=== PATIENT | female | born 1950 | race Caucasian/White ===

== ENCOUNTER → 2016-12-15 | Outpatient (CLI) | payer BC ==
[~2016-12-15] MED LIST: ALPR-411 PO; ALPR0.25 PO; ASPCH81; ASPI81TA28 PO; CALC600T9 PO; CHOL1TAB42 PO; CLOP1TAB15 PO; CLX20 PO; CMD5 PO; CTP/1 PO; CTP1 PO; ISOS60TA25 PO; METO1TAB54 PO; METO25TA56 PO; NTRSL3 UT; OXYB15TA PO; PANT40TA PO; PRAV20TA PO; PRAV80TA2 PO; PRT/20 PO; RGL5 PO; WARF5TAB90 PO; WARF7.5T PO
--- NOTE | 2016-12-15 15:45 | MAMMOGRAPHY REPORT ---
BILATERAL DIGITAL SCREENING MAMMOGRAM WITH CAD: 12/15/2016 CLINICAL HISTORY: Routine screening. Patient has no complaints. TECHNIQUE: Bilateral CC and MLO views were obtained. Current study was also evaluated with a Comput er Aided Detection (CAD) system. COMPARISON: Comparison is made to exams dated: 11/05/2015 mammogram, 09/03/2014 mammogram, 07/11/2013 mammogram, 07/01/2012 mammogram, 06/23/2011 mammogram, and 05/09/2010 mammogram - [facility]. BREAST COMPOSITION: There are scattered areas of fibroglandular density in both breasts. FINDINGS: There is stable asymmetry in the lateral right breast. A benign coarse calcification in t he 6:00 right breast. No suspicious mass, architectural distortion or cluster of microcalcification s is seen. IMPRESSION: ACR BI-RADS CATEGORY 1: NEGATIVE There is no mammographic evidence of malignancy. A 1 year screening mammogram is recommended. The p atient will receive written notification of the results. Approximately 10% of breast cancers are not detected with mammography. A negative mammographic repor t should not delay biopsy if a clinically suggestive mass is present. Lia Bernabe M.D. ay/:12/15/2016 15:36:38 Chemical Operator: Paris GARDNER(Luciana)(Mook)(BD), [facility] letter sent: Normal 1/2 BI-RADS Code: ACR BI-RADS Category 1: Negative
== END | disposition home or self-care (01) ==
LOC: C.MAMM 11:50
PROVIDERS: ATTEND Obstetrics & Gynecology
DX: Z12.31 Encounter for screening mammogram for malignant neoplasm of breast (principal)

== ENCOUNTER → 2017-06-15 | Outpatient (CLI) | payer BC ==
[2017-06-15 12:26] LABS: BASO % 0.3 %; BASO ABS # 0.01 K/uL (0-0.2); COMPLETE YES; EOS % 8.7 %; HEMATOCRIT 44.1 % (37-47); LYMPH ABS # 1.37 K/uL (1.2-3.4); MEAN CELL VOLUME 90.6 fL (80-100); MEAN CORPUSCULAR HGB CONC 34.2 g/dl (32-36); MEAN PLATELET VOLUME 10.4 fL (7.4-10.4); MONO % 8.7 %; NEUT % 46.3 %; PLATELET COUNT 203 K/uL (130-400); RED BLOOD COUNT 4.87 M/uL (4.2-5.4); WHITE BLOOD COUNT 3.81 K/uL (4.8-10.8)
[2017-06-15 12:46] LABS: ALT/SGPT 26 U/L (12-78); AST/SGOT 18 U/L (15-37); BLOOD UREA NITROGEN 14 mg/dl (7-18); BUN/CREATININE RATIO 12.5 (10-20); CARBON DIOXIDE 30 mmol/L (21-32); CHLORIDE 109 mmol/L (98-107); CHOLESTEROL 158 mg/dl (0-200); GLUCOSE 111 mg/dl (70-99); POTASSIUM 4.5 mmol/L (3.5-5.1); SODIUM 141 mmol/L (136-145); TRIGLYCERIDES 129 mg/dl (0-150); VERY LOW DENSITY LIPOPROT CALC 26 mg/dl
[2017-06-15 12:48] LABS: ALB/GLOB RATIO 1.1 (0.9-2); ALKALINE PHOSPHATASE 72 U/L (45-117); HDL CHOLESTEROL 53 mg/dl; LDL CHOLESTEROL CALCULATED 79 mg/dl
[2017-06-15 12:57] LABS: ESTIMATED AVERAGE GLUCOSE 111 mg/dl; HA1C FLAG Normal (Normal)
== END | disposition home or self-care (01) ==
LOC: C.LABBFT 09:42
PROVIDERS: ATTEND Internal Medicine
DX: R73.03 Prediabetes (principal); I10 Essential (primary) hypertension; E78.5 Hyperlipidemia, unspecified

== ENCOUNTER → 2017-09-07 | Day surgery (SDC) | payer BC ==
[2017-08-30 08:33] VITALS: Ht 167.6 cm; Wt 93.2 kg
[~2017-09-07] VITALS: Ht 167.6 cm; Wt 93.2 kg
[~2017-09-07] MED LIST changes: -ALPR-411 PO; -ASPCH81; -CLOP1TAB15 PO; -CLX20 PO; -CMD5 PO; -CTP1 PO; +LIDOCAINE HCL 2% 2 ML VIAL (20MG/ML) ONE; +MIDAZOLAM HCL 1 MG/ML 2ML VIAL ONE; -NTRSL3 UT; -PANT40TA PO; -PRAV20TA PO; +PROPOFOL IV EMULSION 10 MG/ML 20 ML VIAL IV ONE; -RGL5 PO; +SODIUM CHLORIDE 0.9% 500ML 500 ML IV ONE
--- NOTE | 2017-09-07 08:36 | Endo History and Physical ---
History & Physical Date of Service: Sep 07, 2017. Chief Complaint: Bright red rectal bleeding Referring Physician: Dr. Diaz History of Present Illness 67 yo CF who presents for colonoscopy secondary to bright red bleeding per rectum. Past Surgical History Hx Cardiac Surgery: Yes (HEART CATHS, STENT X1; AORTIC VALVE REPLACEMENT AND CABG X3 VESSELS) Hx Internal Defibrillator: No Hx Pacemaker: No Hx Abdominal Surgery: Yes (, KRISTIAN, LIA BSO) Hx of Implantable Prosthesis: No Hx Post-Op Nausea and Vomiting: No Hx Cancer Surgery: No Hx Thoracic Surgery: No Hx Orthopedic: No Hx Urinary Tract Surgery: No Family History Colon CA Social History Smoking Status: Former Smoker Hx Substance Use: No Hx Alcohol Use: No Allergies Coded Allergies: Iodinated Contrast Media (Verified Allergy, Unknown, GI UPSET, 08/30/17) Methadone (Verified Allergy, Unknown, PT UNSURE REACTION - GI UPSET(?), ) Dicyclomine (Verified Adverse Reaction, Intermediate, N/V, 08/30/17) Codeine (Verified Adverse Reaction, Unknown, NAUSEA & PAIN, 08/30/17) HMG-CoA-R Inhibitors (Verified Adverse Reaction, Unknown, STATIN INTOLERANCE - GI UPSET, 08/30/17) Propoxyphene (Verified Adverse Reaction, Unknown, NAUSEA & PAIN, 08/30/17) Current Medications Reported Home Medications Medications Dose Route/Sig Max Daily Dose Days Date Category Dose Instructions Reglan (Metoclopramide Hcl) 5 Mg Tab 5 Mg PO BID 08/30/17 Reported Lopressor (Metoprolol Tartrate) 25 Mg Tab 2 Tabs PO QPM 08/30/17 Reported Catapres (Clonidine Hcl) 0.1 Mg Tab 0.1 Mg PO QAM 08/30/17 Reported Coumadin (Warfarin Sodium) 7.5 Mg Tab 7.5 Mg PO 2XWK 08/30/17 Reported TU,FRI Coumadin (Warfarin Sodium) 5 Mg Tab 5 Mg PO 5XWK 08/30/17 Reported SUN,MON,WED,THURS,SAT Vitamin D (Cholecalciferol) 5,000 Unit Tab 1 Tab PO QAM 08/30/17 Reported Aspirin Ec (Aspirin) 81 Mg Tab 81 Mg PO QPM 08/30/17 Reported Calcium + D (Calcium Carbonate-Vitamin D) 1 Tab Tab 1 Tab PO BID 08/30/17 Reported Xanax (Alprazolam) 0.25 Mg Tab 2 Tabs PO HS 08/30/17 Reported Protonix (Pantoprazole Sodium) 20 Mg Tab 2 Tabs PO QAM 08/30/17 Reported Pravastatin Sodium 80 Mg Tab 1 Tab PO QPM 08/30/17 Reported Lopressor (Metoprolol Tartrate) 25 Mg Tab 25 Mg PO QAM 10/20/09 Reported Imdur Ext Rel (Isosorbide Mononitrate) 60 Mg Ertab 60 Mg PO QAM 10/20/09 Reported Vital Signs Weight (Kilograms): 93.18 Height (Feet): 5 Height (Inches): 6 Physical Exam General Appearance: WD/WN, no apparent distress Respiratory/Chest: Auscultation: breath sounds normal Cardiovascular: Heart Auscultation: RRR Abdomen: Bowel Sounds: normal Inspection & Palpation: soft, non-distended, no tenderness, guarding & rebound Assessment and Plan Assessment: 67 yo CF who presents for colonoscopy secondary to bright red bleeding per rectum. Plan: Proceed with colonoscopy.
--- NOTE | 2017-09-07 09:30 | Discharge Instructions ---
Endoscopy Patient Instructions Date / Procedure(s) Performed Sep 07, 2017. Colonoscopy Allergy Information Coded Allergies: Iodinated Contrast Media (Verified Allergy, Unknown, GI UPSET, 08/30/17) Methadone (Verified Allergy, Unknown, PT UNSURE REACTION - GI UPSET(?), ) Dicyclomine (Verified Adverse Reaction, Intermediate, N/V, 08/30/17) Codeine (Verified Adverse Reaction, Unknown, NAUSEA & PAIN, 08/30/17) HMG-CoA-R Inhibitors (Verified Adverse Reaction, Unknown, STATIN INTOLERANCE - GI UPSET, 08/30/17) Propoxyphene (Verified Adverse Reaction, Unknown, NAUSEA & PAIN, 08/30/17) Discharge Date / Findings Sep 07, 2017. Diverticulosis Internal hemorrhoids Medication Instructions Stopped Medication(s): last babyASA and Coumadin 09/06 at 2300 OK to resume all medications today as prescribed Reported Home Medications Medications Dose Route/Sig Max Daily Dose Days Date Category Dose Instructions Reglan (Metoclopramide Hcl) 5 Mg Tab 5 Mg PO BID 08/30/17 Reported Lopressor (Metoprolol Tartrate) 25 Mg Tab 2 Tabs PO QPM 08/30/17 Reported Oxybutynin Chloride Er (Oxybutynin Chloride) 15 Mg Tab 1 Tab PO QAM 08/30/17 Reported Catapres (Clonidine Hcl) 0.1 Mg Tab 0.1 Mg PO QAM 08/30/17 Reported Coumadin (Warfarin Sodium) 7.5 Mg Tab 7.5 Mg PO 2XWK 08/30/17 Reported TUES,FRI Coumadin (Warfarin Sodium) 5 Mg Tab 5 Mg PO 5XWK 08/30/17 Reported SUN,MON,WED,THURS,SAT Vitamin D (Cholecalciferol) 5,000 Unit Tab 1 Tab PO QAM 08/30/17 Reported Aspirin Ec (Aspirin) 81 Mg Tab 81 Mg PO QPM 08/30/17 Reported Calcium + D (Calcium Carbonate-Vitamin D) 1 Tab Tab 1 Tab PO BID 08/30/17 Reported Xanax (Alprazolam) 0.25 Mg Tab 2 Tabs PO HS 08/30/17 Reported Protonix (Pantoprazole Sodium) 20 Mg Tab 2 Tabs PO QAM 08/30/17 Reported Pravastatin Sodium 80 Mg Tab 1 Tab PO QPM 08/30/17 Reported Lopressor (Metoprolol Tartrate) 25 Mg Tab 25 Mg PO QAM 10/20/09 Reported Imdur Ext Rel (Isosorbide Mononitrate) 60 Mg Ertab 60 Mg PO QAM 10/20/09 Reported Provider Instructions Activity Restrictions - No exercising or heavy lifting for 24 hours. - Do not drink alcohol the day of the procedure. - Do not drive a car or operate machinery until the day after the procedure. - Do not make any important decisions or sign important papers in 24 hours after the procedure. Following Day: - Return to full activity which may include returning to work/school. Diet Start your diet with liquids and light foods (jello, soup, juice, toast). Then eat your usual diet if not nauseated. Treatment For Common After Affects For mild abdominal pain, bloating, or excessive gas: - Rest - Eat lightly - Lie on right side Follow-Up Information Follow-up with Dr. Diaz as scheduled Anesthesia Information What You Should Know You have had a procedure that required some medicine to reduce anxiety and discomfort. This treatment is called moderate sedation. After receiving the treatment, you may be sleepy, but you will be able to breathe on your own. The effects of the treatment may last for several hours. Follow these instructions along with Activity/Diet recommendations noted above: * Do NOT do anything where dizziness or clumsiness would be dangerous. * Rest quietly at home today, then you can be up and about tomorrow. * Have a responsible person stay with you the rest of today. * You may have had an I.V. today. If so, you may take the dressing off later today. Recommendations Call your doctor if: * Trouble breathing * Continuous vomiting for more than 24 hours * Temperature above 101 degrees * Severe abdominal pain or bloating * Pain not relieved by pain medicine ordered * There is increased drainage or redness from any incision * A large amount of rectal bleeding greater than 2-3 tablespoons. (If you had a polyp/s removed or have hemorrhoids, a small amount of blood - from the rectum is to be expected.) * You have any unanswered questions or concerns. IN THE EVENT OF A SERIOUS EMERGENCY, GO TO THE NEAREST EMERGENCY ROOM Your discharge instructions were prepared by provider Jose Manuel Oglesby. Patient Instructions Signature Page Shelby Rocha Patient (or Guardian) Signature/Date: I have read and understand the instructions given to me by my caregivers. Caregiver/RN/Doctor Signature/Date: The above-named patient and/or guardian has received patient instructions on this date. + Original Patient Signature Page (only) stays with chart. Please make copy for patient.
--- NOTE | 2017-09-07 09:32 | GI REPORT ---
Procedure Date: 09/07/2017 8:41 AM Procedure: Colonoscopy Indications: Rectal bleeding Medicines: Monitored Anesthesia Care Complications: No immediate complications. Estimated Blood Loss: Estimated blood loss: none. Procedure: Pre-Anesthesia Assessment: - Prior to the procedure, a History and Physical was performed, and patient medications and allergies were reviewed. The patient's tolerance of previous anesthesia was also reviewed. The risks and benefits of the procedure and the sedation options and risks were discussed with the patient. All questions were answered, and informed consent was obtained. Prior Anticoagulants: The patient last took aspirin 1 day and Coumadin (warfarin) 1 day prior to the procedure. ASA Grade Assessment: III - A patient with severe systemic disease. After reviewing the risks and benefits, the patient was deemed in satisfactory condition to undergo the procedure. After I obtained informed consent, the scope was passed under direct vision. Throughout the procedure, the patient's blood pressure, pulse, and oxygen saturations were monitored continuously. The scope was introduced through the anus and advanced to the terminal ileum. The colonoscopy was performed without difficulty. The patient tolerated the procedure well. The quality of the bowel preparation was good. The terminal ileum, ileocecal valve, appendiceal orifice, and rectum were photographed. Findings: Multiple medium-mouthed diverticula were found in the sigmoid colon. Non-bleeding internal hemorrhoids were found during retroflexion. The hemorrhoids were small. Impression: - Diverticulosis in the sigmoid colon. - Non-bleeding internal hemorrhoids. - No specimens collected. Recommendation: - Resume previous diet. - Continue present medications. - Repeat colonoscopy in 10 years for surveillance. - Return to primary care physician as previously scheduled. Jose Manuel Oglesby DO 09/07/2017 9:31:59 AM This report has been signed electronically. Note Initiated On: 09/07/2017 8:41 AM I attest to the content of the Intraoperative Record and orders documented therein, exceptions below
[2017-09-07 09:53] VITALS: BP 152/70; PULSE 52; O2SAT 97
--- NOTE | 2017-09-07 10:21 | Anesthesiology Progress Note ---
Anesthesia Post Op Note Date & Time Sep 07, 2017 at 10:21 Vital Signs Pain Intensity: 0 Vital Signs Past 12 Hours Date Time Temp Pulse Resp B/P (MAP) Pulse Ox O2 Delivery O2 Flow Rate FiO2 09/07/17 09:53 52 20 152/70 (97) 97 Room Air 09/07/17 09:35 52 20 144/72 (96) 97 Room Air 09/07/17 09:20 75 17 127/87 (100) 96 Room Air 09/07/17 08:46 36.7 59 20 173/77 (109) 95 Room Air Notes Mental Status: alert / awake / arousable, participated in evaluation Pt Amnestic to Procedure: Yes Nausea / Vomiting: adequately controlled Pain: adequately controlled Airway Patency, RR, SpO2: stable & adequate BP & HR: stable & adequate Hydration State: stable & adequate Anesthetic Complications: no major complications apparent
== END | disposition home or self-care (01) ==
LOC: C.GI 08:25
PROVIDERS: ATTEND Internal Medicine
DX: K62.5 Hemorrhage of anus and rectum (principal); K64.8 Other hemorrhoids; K57.30 Diverticulosis of large intestine without perforation or abscess without bleeding; I10 Essential (primary) hypertension; I25.10 Atherosclerotic heart disease of native coronary artery without angina pectoris; K21.9 Gastro-esophageal reflux disease without esophagitis; I25.2 Old myocardial infarction; Z90.710 Acquired absence of both cervix and uterus; Z79.01 Long term (current) use of anticoagulants; Z79.82 Long term (current) use of aspirin; Z87.891 Personal history of nicotine dependence; Z80.0 Family history of malignant neoplasm of digestive organs

== ENCOUNTER 2017-09-25 08:42 | Emergency (ER) | payer OTHER, BC ==
[~2017-09-25] VITALS: Ht 170.2 cm; Wt 96.4 kg
[~2017-09-25 08:42] MED LIST changes: -LIDOCAINE HCL 2% 2 ML VIAL (20MG/ML) ONE; -MIDAZOLAM HCL 1 MG/ML 2ML VIAL ONE; -PROPOFOL IV EMULSION 10 MG/ML 20 ML VIAL IV ONE; -SODIUM CHLORIDE 0.9% 500ML 500 ML IV ONE
[2017-09-25 09:03] VITALS: TEMP 37.2; Ht 170.2 cm; Wt 96.4 kg
[2017-09-25] MEDS ORDERED: ACETAMINOPHEN 500 MG TAB PO STA (09:17)
--- NOTE | 2017-09-25 09:51 | DIAGNOSTIC IMAGING REPORT ---
R RIBS UNILATERAL WITH PA CHEST CLINICAL HISTORY: fall/right rib pain trauma. Pain. COMPARISON STUDY: None FINDINGS: Nondisplaced cortical fracture right fifth rib of uncertain age. All remaining ribs are unremarkable. Patient is status post prior median sternotomy. No evidence pneumothorax. IMPRESSION: Nondisplaced cortical fracture right fifth rib uncertain age. The above report was generated using voice recognition software. It may contain grammatical, syntax or spelling errors. Electronically signed by: Osmany James M.D. 09/25/2017 9:50 AM Dictated Date/Time: 09/25/2017 9:49 AM
--- NOTE | 2017-09-25 10:28 | EMERGENCY ROOM VISIT NOTE ---
ED Visit Note First contact with patient: 09:11 67 year old female with rib pain was fully evaluated by Nel James PA-C. Please see her note. I also independently evaluated the patient. IMPRESSION: Rib fracture
[2017-09-25] MEDS ORDERED: HYDR-5688 PO (10:33)
--- NOTE | 2017-09-25 10:33 | EMERGENCY ROOM VISIT NOTE ---
History First contact with patient: 09:11 Chief Complaint: RIB PAIN Stated Complaint: WORK RELATED- PAIN IN RIB CAGE History of Present Illness The patient is a 67 year old female who presents to the Emergency Room with complaints of right rib pain. The patient states she was at work at [employer] and was leaning over a cain to plug in a light when she lost her balance and fell forward striking her right ribs on the edge of the cain. The patient did not fall to the ground. She did not hit her head or lose consciousness. The patient states the pain is under her right breast and around the right side. She states she heard a "crack" when the injury occurred. The patient denies any shortness of breath. She does admit to increased pain with inspiration. She has not taken anything for pain. The patient is on Coumadin. She states that her INR has been stable for one year. She gets labs every month. Her last lab was 2 weeks ago and was normal. Review of Systems 10 system review was performed and was negative unless stated otherwise history of present illness. Social History Smoking Status: Former Smoker Current/Historical Medications Scheduled Alprazolam (Xanax), 2 TABS PO HS Aspirin (Aspirin Ec), 81 MG PO QPM Calcium Carbonate-Vitamin D (Calcium + D), 1 TAB PO BID Cholecalciferol (Vitamin D), 1 TAB PO QAM Clonidine Hcl (Catapres), 0.1 MG PO QAM Isosorbide Mononitrate Ext Rel (Imdur Ext Rel), 60 MG PO QAM Metoclopramide Hcl (Reglan), 5 MG PO BID Metoprolol Tartrate (Lopressor) (Lopressor), 25 MG PO QAM Metoprolol Tartrate (Lopressor) (Lopressor), 2 TABS PO QPM Oxybutynin Chloride (Oxybutynin Chloride Er), 1 TAB PO QAM Pantoprazole (Protonix), 2 TABS PO QAM Pravastatin Sodium (Pravastatin Sodium), 1 TAB PO QPM Warfarin Sodium (Coumadin), 5 MG PO 5XWK Warfarin Sodium (Coumadin), 7.5 MG PO 2XWK Physical Exam Vital Signs Date Time Temp Pulse Resp B/P (MAP) Pulse Ox O2 Delivery O2 Flow Rate FiO2 09/25/17 10:13 54 18 129/77 96 Room Air 09/25/17 09:03 37.2 64 20 173/114 94 Room Air Physical Exam GENERAL: 67-year-old white female appears in no acute distress. MENTAL Status: Alert and oriented 3. NECK: Supple, no lymphadenopathy noted. No carotid bruits noted. LUNGS: Clear auscultation without wheezes rales or rhonchi. CARDIAC: Regular rate and rhythm without murmur. Pulses is full and equal throughout. CHEST WALL:No gross bony deformity noted no erythema or edema noted. The patient is tender to palpation Stender the right breast. Remainder chest wall is nontender. ABDOMEN: Soft, nontender to palpation without melena or masses. Medical Decision & Procedures ER Provider Diagnostic Interpretation: R RIBS UNILATERAL WITH PA CHEST CLINICAL HISTORY: fall/right rib pain trauma. Pain. COMPARISON STUDY: None FINDINGS: Nondisplaced cortical fracture right fifth rib of uncertain age. All remaining ribs are unremarkable. Patient is status post prior median sternotomy. No evidence pneumothorax. IMPRESSION: Nondisplaced cortical fracture right fifth rib uncertain age. The above report was generated using voice recognition software. It may contain grammatical, syntax or spelling errors. Electronically signed by: Osmany James M.D. 09/25/2017 9:50 AM Medications Administered Medications (Trade) Dose Ordered Sig/Berhane Route Start Time Stop Time Status Last Admin Dose Admin Acetaminophen (Tylenol Tab) 1,000 mg NOW STAT PO 09/25/17 09:17 09/25/17 09:19 DC 09/25/17 09:26 1,000 MG ED Course The patient was evaluated. The patient was given Tylenol 1 g by mouth. X-ray of the right ribs was ordered and interpreted by the radiologist and myself as above with a cortical fracture of the right 10th rib. The patient was independently evaluated by Dr. Valle who agrees with treatment plan. The patient was discharged home in stable condition. Medical Decision Differential diagnosis include rib fracture versus contusion versus pneumothorax [place] Drug Monitoring Program Search Results: patient reviewed within database Medication Reconcilliation Current Medication List: was personally reviewed by me Blood Pressure Screening Patient's blood pressure: Normal blood pressure Impression Primary Impression: Right rib fracture Departure Information Dispostion Home / Self-Care Condition GOOD Prescriptions Hydrocodone/Acetaminophen 5MG/325MG ([place] 5MG/325MG) Tab 1-2 TABLET PO Q6 Y for Pain, #20 TAB For Initial Treatment Prov: Nae James PA-C 09/25/17 Referrals Olman Diaz M.D. (PCP) Forms HOME CARE DOCUMENTATION FORM, IMPORTANT VISIT INFORMATION, WORK / SCHOOL INSTRUCTIONS Patient Instructions ED Fx Rib, My [facility] Additional Instructions [place] as needed for pain. Do not drive while taking the [place]. Follow-up with your family doctor next week for recheck. Activity as tolerated. Problem Qualifiers Primary Impression: Right rib fracture Encounter type: initial encounter Rib fracture type: single rib Fracture type: closed Qualified Codes: S22.31XA - Fracture of one rib, right side, initial encounter for closed fracture
[2017-09-25 10:54] VITALS: BP 129/77; PULSE 56; O2SAT 96
== END 2017-09-25 10:55 | disposition home or self-care (01) ==
LOC: C.EDB 08:43
DX: S22.31XA Fracture of one rib, right side, initial encounter for closed fracture (principal); W01.190A Fall on same level from slipping, tripping and stumbling with subsequent striking against furniture, initial encounter; Y92.511 Restaurant or cafe as the place of occurrence of the external cause; Y99.0 Civilian activity done for income or pay; Z79.01 Long term (current) use of anticoagulants; Z79.82 Long term (current) use of aspirin; Z87.891 Personal history of nicotine dependence

== ENCOUNTER → 2017-10-19 | Outpatient (CLI) | payer BC ==
[~2017-10-19] MED LIST changes: +HYDR-5688 PO
[2017-10-19 16:52] LABS: URINE APPEARANCE CLOUDY (CLEAR); URINE BILIRUBIN NEG (NEG); URINE COLOR YELLOW; URINE EPITHELIAL CELL AUTO 0-5 /lpf (0-5); URINE NITRITE POS (NEG); URINE SPECIFIC GRAVITY 1.018 (1.000-1.030); UROBILINOGEN NEG (NEG)
[2017-10-19 16:58] LABS: MANUAL MICROSCOPIC REQUIRED? NO; REVIEW REQ? YES
== END | disposition home or self-care (01) ==
LOC: C.LABBFT 11:32
PROVIDERS: ATTEND Physician Assistant Medical
DX: R32 Unspecified urinary incontinence (principal)

== ENCOUNTER → 2017-12-30 | Outpatient (CLI) | payer BC ==
[2017-12-30 12:41] LABS: BASO % 0.5 %; BASO ABS # 0.02 K/uL (0-0.2); EOS % 12.6 %; EOS ABS # 0.55 K/uL (0-0.5); HEMATOCRIT 44.1 % (37-47); HEMOGLOBIN 14.9 g/dL (12.0-16.0); LYMPH % 33.6 %; LYMPH ABS # 1.47 K/uL (1.2-3.4); MEAN CELL VOLUME 90.9 fL (80-100); MEAN CORPUSCULAR HEMOGLOBIN 30.7 pg (25-34); MEAN CORPUSCULAR HGB CONC 33.8 g/dl (32-36); MEAN PLATELET VOLUME 10.4 fL (7.4-10.4); MONO % 8.7 %; MONO ABS # 0.38 K/uL (0.11-0.59); NEUT % 44.6 %; NEUT ABS # 1.96 K/uL (1.4-6.5); PLATELET COUNT 191 K/uL (130-400); RED CELL DISTRIBUTION WIDTH CV 12.8 % (11.5-14.5); RED CELL DISTRIBUTION WIDTH SD 42.1 fL (36.4-46.3); WHITE BLOOD COUNT 4.38 K/uL (4.8-10.8)
[2017-12-30 12:59] LABS: ALBUMIN 3.6 gm/dl (3.4-5.0); ALT/SGPT 23 U/L (12-78); AST/SGOT 15 U/L (15-37); BLOOD UREA NITROGEN 17 mg/dl (7-18); CALCIUM 9.6 mg/dl (8.5-10.1); CARBON DIOXIDE 30 mmol/L (21-32); CHOLESTEROL 158 mg/dl (0-200); CREATININE 1.03 mg/dl (0.60-1.20); GLUCOSE 97 mg/dl (70-99); POTASSIUM 4.9 mmol/L (3.5-5.1); SODIUM 141 mmol/L (136-145)
[2017-12-30 13:00] LABS: ALKALINE PHOSPHATASE 82 U/L (45-117); LDL CHOLESTEROL CALCULATED 86 mg/dl; TOTAL PROTEIN 7.1 gm/dl (6.4-8.2)
[2017-12-30 13:10] LABS: HEMOGLOBIN A1C 5.4 % (4.5-5.6)
== END | disposition home or self-care (01) ==
LOC: C.LABBFT 09:18
PROVIDERS: ATTEND Internal Medicine
DX: R73.03 Prediabetes (principal); I10 Essential (primary) hypertension; E78.5 Hyperlipidemia, unspecified

== ENCOUNTER → 2018-02-01 | Outpatient (CLI) | payer BC | END | disposition home or self-care (01) | LOC: C.MAMM 10:24 | PROVIDERS: ATTEND Internal Medicine | DX: M81.0 Age-related osteoporosis without current pathological fracture (principal); M85.89 Other specified disorders of bone density and structure, multiple sites ==

== ENCOUNTER → 2018-02-01 | Outpatient (CLI) | payer BC ==
--- NOTE | 2018-02-01 11:14 | DIAGNOSTIC IMAGING REPORT ---
L-SPINE MIN 4 VIEWS ROUTINE CLINICAL HISTORY: M54.5 Acute lumbar back [id number] COMPARISON STUDY: No previous studies for comparison. FINDINGS: The bones are osteopenic. No acute fractures or subluxations are visualized. The disc space heights appear relatively well preserved for age IMPRESSION: Osteopenia, no fractures or subluxations identified Electronically signed by: Refugio Calixto M.D. 02/01/2018 11:13 AM Dictated Date/Time: 02/01/2018 11:12 AM
== END | disposition home or self-care (01) ==
LOC: C.RAD1850 10:56
PROVIDERS: ATTEND Physician Assistant Medical
DX: M54.5 Low back pain (principal); M85.88 Other specified disorders of bone density and structure, other site

== ENCOUNTER → 2018-02-22 | Outpatient (CLI) | payer BC ==
[2018-02-22 17:31] LABS: INR 3.8 (0.9-1.1)
== END | disposition home or self-care (01) ==
LOC: C.LAB 15:43
PROVIDERS: ATTEND Internal Medicine
DX: I35.9 Nonrheumatic aortic valve disorder, unspecified (principal); Z79.01 Long term (current) use of anticoagulants

== ENCOUNTER → 2018-03-09 | Outpatient (CLI) | payer BC ==
[2018-03-09 13:02] LABS: CALCIUM 9.5 mg/dl (8.5-10.1); CREATININE 1.09 mg/dl (0.60-1.20)
== END | disposition home or self-care (01) ==
LOC: C.LABBFT 10:08
PROVIDERS: ATTEND Internal Medicine Rheumatology
DX: K21.9 Gastro-esophageal reflux disease without esophagitis (principal); M81.0 Age-related osteoporosis without current pathological fracture; E61.8 Deficiency of other specified nutrient elements; E55.9 Vitamin D deficiency, unspecified; S22.39XA Fracture of one rib, unspecified side, initial encounter for closed fracture; X58.XXXA Exposure to other specified factors, initial encounter

== ENCOUNTER → 2018-03-15 | Outpatient (CLI) | payer BC | END | disposition home or self-care (01) | LOC: C.PAPS 16:09 | PROVIDERS: ATTEND Obstetrics & Gynecology | DX: Z12.4 Encounter for screening for malignant neoplasm of cervix (principal) ==

== ENCOUNTER → 2018-06-28 | Outpatient (CLI) | payer BC ==
[~2018-06-28] MED LIST changes: -HYDR-5688 PO; -OXYB15TA PO
== END | disposition home or self-care (01) ==
LOC: C.LABBFT 15:28
PROVIDERS: ATTEND Physician Assistant Medical
DX: R31.9 Hematuria, unspecified (principal)

== ENCOUNTER 2021-07-14 09:55 | Observation (INO) ==
[2021-07-14 11:01] LABS: Basophils # (auto) 0.01 K/uL (0-0.2); Basophils % (auto) 0.2 %; Eosinophils # (auto) 0.28 K/uL (0-0.5); Eosinophils % (auto) 4.3 %; Hematocrit (blood only) 45.1 % (37-47); Hemoglobin 15.7 g/dL (12.0-16.0); Immature Granulocytes # (auto) 0.01 K/uL (0.00-0.02); Immature Granulocytes % (auto) 0.2 %; Lymphocytes # (auto) 1.02 K/uL (1.2-3.4); Lymphocytes % (auto) 15.5 %; Mean Corpuscular Hemoglobin 31.3 pg (25-34); Mean Corpuscular Hgb Conc 34.8 g/dL (32-36); Mean Platelet Volume 9.9 fL (7.4-10.4); Monocytes # (auto) 0.32 K/uL (0.11-0.59); Monocytes % (auto) 4.9 %; Neutrophils # (auto) 4.94 K/uL (1.4-6.5); Neutrophils % (auto) 74.9 %; Platelet Count 232 K/uL (130-400); RDW Coefficient of Variation 12.3 % (11.5-14.5); RDW Standard Deviation 40.7 fL (36.4-46.3); Red Blood Count 5.01 M/uL (4.2-5.4); White Blood Count 6.58 K/uL (4.8-10.8)
--- NOTE | 2021-07-14 11:12 | CT Scan Report ---
CT head/brain wo con CLINICAL HISTORY: 71 years-old Female with Vertigo. Acute vertigo with hypertension TECHNIQUE: Multiple axial CT images of the head were obtained without contrast. A dose lowering tech nique was utilized adhering to the principles of ALARA. CT DOSE: 690.05 mGycm COMPARISON: None. FINDINGS: No acute intracranial hemorrhage, midline shift, intracranial mass, hydrocephalus, territorial ischem ia or abnormal extra-axial collection. Age-related involutional changes. Senescent calcifications of the basal ganglia. Cerebral vascular calcifications are also noted. The calvarium is intact. Mastoid air cells are clear. Mild to moderate mucosal thickening of the eth moid air cells. There is suggested volume loss of the partially imaged right maxillary sinus. Unremar kable soft tissues and orbits. IMPRESSION: No acute intracranial abnormality. ACT 112: Negative or not required by law. The above report was generated using voice recognition software. It may contain grammatical, syntax o r spelling errors. Electronically signed by: Herman Spencer M.D. 07/14/2021 11:10 AM
[2021-07-14 11:17] LABS: Partial Thromboplastin Ratio 1.5; Prothrombin Time 27.7 Seconds (9.0-12.0)
[2021-07-14] MEDS: SODIUM CHLORIDE 0.9% 1000ML 1,000 ML IV SCH ×2 (11:19→19:04)
[2021-07-14 11:20] LABS: Alanine Aminotransferase 25 U/L (12-78); Albumin Level 3.6 gm/dl (3.4-5.0); Aspartate Aminotransferase 15 U/L (15-37); BUN Creatinine Ratio 14.1 (10-20); Blood Urea Nitrogen 14 mg/dl (7-18); Calcium 9.2 mg/dl (8.5-10.1); Carbon Dioxide 28 mmol/L (21-32); Chloride 107 mmol/L (98-107); Creatinine Clr Calc Pharmacy 60.9 ml/min; Est GFR (African American) 64.7 ml/min; Est GFR (Non-African American) 55.8 ml/min; Glucose 141 mg/dl (70-99); Potassium 3.7 mmol/L (3.5-5.1); Sodium 138 mmol/L (136-145)
[2021-07-14 11:25] LABS: Alkaline Phosphatase 66 U/L (45-117); Bilirubin,Total 1.4 mg/dl (0.2-1); Globulin 3.5 gm/dl (2.5-4.0); Total Protein 7.1 gm/dl (6.4-8.2); Troponin I < 0.015 ng/ml (0-0.045)
[2021-07-14 13:26] LABS: Appearance Urine Clear (Clear); Bacteria Urine Automated Negative (Negative); Bilirubin Urine Negative (Negative); Blood Urine Trace (Negative); Cast Urine Automated 0 /lpf (0-5); Color Urine Yellow; Glucose Urine UA Negative (Negative); Ketones Urine Negative (Negative); Leukocyte Esterase Urine Negative (Negative); Nitrite Urine Negative (Negative); Protein Urine Negative (Negative); RBC Urine Automated 0-4 /hpf (0-4); Specific Gravity Urine 1.011 (1.000-1.030); Urobilinogen Urine Negative (Negative); WBC Urine Automated 0 /hpf (0-5)
--- NOTE | 2021-07-14 13:39 | XRay Report ---
SINGLE VIEW CHEST CLINICAL HISTORY: Atypical chest pain. FINDINGS: An AP, portable, upright chest radiograph is compared to study dated 06/17/2018 and correlat ed with chest CT dated 04/29/2010. The examination is degraded by portable technique, apical positionin g, and patient rotation. The patient is status post midline sternotomy. The heart is enlarged notin g atherosclerotic calcification of the thoracic aorta. The pulmonary vasculature is noncongested. The patient's known left lower lobe nodular density is not well-visualized. Airspace opacities at the le ft lung base likely represent atelectasis. No large pleural effusion or pneumothorax is seen. The ske letal structures are osteopenic. The bony thorax is grossly intact. IMPRESSION: 1. Cardiomegaly without radiographic evidence of congestive failure. 2. Airspace opacities at the left lung base likely represent atelectasis. Clinical correlation will b e required. 3. The patient's known large left lower lobe pulmonary nodule is not well-visualized. ACT 112: Negative or not required by law. Electronically signed by: Jono Powell M.D. 07/14/2021 1:38 PM
[2021-07-14] MEDS ORDERED: cloNIDine HCL 0.1 MG TAB PO ONE (14:30)
--- NOTE | 2021-07-14 15:25 | XRay Report ---
XR chest 2V PA/lateral HISTORY: 71 years-old Female L pulm nodule follow-up study in a patient with left-sided pulmonary no dule COMPARISON: Chest radiograph of same day at 1:13 PM, chest CT 11/01/2009 TECHNIQUE: PA and lateral views of the chest FINDINGS: Cardiomediastinal and hilar silhouettes are unchanged. Prior median sternotomy with cardiac valvular prosthesis. Surgical clips of the upper abdomen. 2.2 cm nodule of the left lower lobe redemonstrated. Degenerative changes of the shoulders and spine. Degenerative changes of the shoulders and spine. Co nfiguration of the left lung base. IMPRESSION: 1. Cardiomegaly without acute process. 2. Improved aeration of the left lung base. 3. 2.2 cm left lower lobe pulmonary nodule is unchanged in size from 2008. ACT 112: Negative or not required by law. The above report was generated using voice recognition software. It may contain grammatical, syntax o r spelling errors. Electronically signed by: Herman Spencer M.D. 07/14/2021 3:24 PM
[2021-07-14] MEDS ORDERED: hydrALAZINE HCL 20 MG/ML VIAL IV STA (15:36)
--- NOTE | 2021-07-14 15:41 | History & Physical Report ---
Date of Service July 14, 2021 Assessment & Plan (1) Chest pain: Plan: Patient with exertional chest pressure, concerning for possible stable ischemia Place in monitored observation First troponin is negative, will continue to trend Check EKG in the morning Ordered a stress echocardiogram for the morning Patient follows with Dr. Milner, will consult his group for further recommendations (2) Accelerated hypertension: Plan: Patient had been given oral clonidine in the ER, does not. Been effective Ordered hydralazine 10 mg IV stat now Patient is on isosorbide 60 mg, Toprol 100 mg daily. If hypertension persists, may need to consider additional agent (3) Hyperlipidemia: Plan: Patient is on pravastatin 80, has intolerance to multiple other statins (4) History of aortic valve replacement with metallic valve: Plan: Currently on warfarin, INR is therapeutic Continue dosing as noted 2D echo as noted above (5) GERD (gastroesophageal reflux disease): Plan: Pantoprazole as ordered History of Present Illness Chief Complaint: vertigo Primary Care Provider: Olman Diaz MD This is a very pleasant 71-year-old female with past medical history of hyperlipidemia, mechanical AVR on Coumadin that presents today complaining of vertigo and chest pressure. Patient is a family member in room and both are very good historians. Patient tells me that what prompted her hospital visit today was an episode of vertigo. She was feeling fine until this morning. She woke up and turned her head and found that she was experiencing significant vertigo. This lasted several minutes and was self-limited. Is not associated with shortness of breath or chest pain at that time. Patient was able to get up and ambulate to the bathroom without any issues. Has not recurred since. However, the episode made her nervous as her sister recently had a stroke and she came to the emergency room for further evaluation. On further questioning, she did express some episodes of exertional chest pain over the past few weeks. She noted when she went to the local [place], she had an episode of chest pressure with ambulation. She describes this as " an elephant sitting on her chest" that was relieved with rest. She did also relate that she was mowing her lawn last week and had a similar episode. Of note, the patient was hypertensive on presentation. Last documented blood pressure is 234/108 with a pulse of 59. Allergies Allergy/AdvReac Type Severity Reaction Status Date / Time methadone Allergy Unknown PT UNSURE Verified 07/14/21 11:35 REACTION - GI UPSET(?) acetaminophen Allergy Hives Verified 07/14/21 11:35 [From Darvocet-N] lovastatin Allergy rash Verified 07/14/21 11:35 rosuvastatin [From Crestor] Allergy myalgia Verified 07/14/21 11:35 simvastatin [From Zocor] Allergy Verified 07/14/21 11:35 dicyclomine AdvReac Intermediate N/V Verified 07/14/21 11:35 codeine AdvReac Unknown NAUSEA & Verified 07/14/21 11:35 PAIN propoxyphene AdvReac Unknown NAUSEA & Verified 07/14/21 11:35 PAIN alendronate sodium AdvReac Verified 07/14/21 11:35 [From Fosamax] ezetimibe [From Zetia] AdvReac Verified 07/14/21 11:35 niacin AdvReac Verified 07/14/21 11:35 [From Niaspan Extended-Release] paroxetine [From Paxil] AdvReac Gastrointestinal Verified 07/14/21 11:35 Upset HMG-CoA-R Inhibitors AdvReac Unknown STATIN Uncoded 07/14/21 11:35 INTOLERANCE - GI UPSET Home Medications Medication Instructions Recorded Confirmed Type cholecalciferol (vitamin D3) 25 5,000 units PO DAILY cap 09/05/19 07/14/21 History mcg (1,000 unit) capsule warfarin 7.5 mg tablet 7.5 mg PO .COMPLEX #90 tab 06/24/20 07/14/21 Rx metoclopramide HCl 5 mg tablet 5 mg PO BID #180 tab 10/11/20 07/14/21 Rx zoledronic acid 5 mg/100 mL in 5 mg IV .COMPLEX #100 ml 10/17/20 07/14/21 Rx mannitol 5 %-water intravenous piggybck isosorbide mononitrate 60 mg 60 mg PO DAILY #90 tab 01/09/21 07/14/21 Rx tablet,extended release 24 hr pantoprazole 40 mg tablet,delayed 40 mg PO DAILY #90 tab 01/09/21 07/14/21 Rx release (Protonix) pravastatin 80 mg tablet 80 mg PO DAILY #90 tab 01/09/21 07/14/21 Rx metoprolol succinate 100 mg 100 mg PO DAILY #90 tab 04/01/21 07/14/21 Rx tablet,extended release 24 hr alprazolam 0.25 mg tablet 0.5 mg PO HS #180 tab 06/20/21 07/14/21 Rx warfarin 5 mg tablet 5 mg PO .COMPLEX #90 tab 06/20/21 07/14/21 Rx clonidine HCl 0.1 mg tablet 0.1 mg PO BID #180 tab 07/08/21 07/14/21 Rx aspirin 81 mg tablet,delayed 81 mg PO DAILY 07/14/21 07/14/21 History release (Aspirin Low Dose) Past Med/Surg History Medical History (Updated 07/14/21 @ 15:36 by Kevin Chiu DO) Adenoma of right adrenal gland Allergic rhinitis Anticoagulant long-term use Anticoagulated on Coumadin Asthma CAD (coronary artery disease) Calcaneal spur Depression with anxiety Diverticulosis Essential hematuria Fracture of rib, single, closed Hyperlipidemia Hypertension Inconclusive mammogram Internal hemorrhoids Occlusion of right internal carotid artery Osteoporosis with fracture PAD (peripheral artery disease) Plantar fasciitis Post-nasal drainage Prediabetes Tremor Tremor of right hand Urinary incontinence Vitamin D deficiency Xerostomia Surgical History H/O section History of aortic valve replacement with metallic valve History of hysterectomy with bilateral oophorectomy Hx of cholecystectomy S/P CABG (coronary artery bypass graft) S/P tonsillectomy Family History Mother Alzheimer disease Dementia Osteoarthritis Father Colorectal cancer Lung cancer age 72 Coronary heart disease Heart disease Myocardial infarction Grandmother (Paternal) Diabetes Denies family history of Rheumatoid arthritis Sudden SIDS (sudden syndrome) Ovarian cancer Prostate cancer Deep vein thrombosis Osteoporosis Dyslipidemia Cerebral aneurysm Bipolar disorder Clotting disorder Crohn's disease Depression Kidney disease Breast cancer Schizophrenia Congenital kidney disease Gestational diabetes COPD (chronic obstructive pulmonary disease) Pulmonary embolism Lung disease Hypertension Ulcerative colitis Colonic polyp Stroke Asthma Cystic kidney disease Social History (Updated 04/01/21 @ 11:04 by Cara Lambert MA) Smoking Status: Former smoker Tobacco Type: Cigarettes Age Started Using Tobacco: 16; Cigarettes Per Day: 10; Second Hand Exposure: No; Hx Alcohol Use: No Hx Substance Use: Yes Preferred Language: Romansh Communication Ability: Effective Visual Impairment: No Limitations Hearing Ability: Normal 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 President Quality Improvement Required: No Beliefs That Will Affect Care: None marital status: / Current Living Situation: Alone current occupational status: retired 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 [employer] How many Children do You have: 1 Feels Safe at Home: Yes Childhood Exposure to Second-Hand Smoke: No caffeine: Yes during the past year weight has: remained stable Dental Care, Regularly: No Physical Activity Frequency: Does not Exercise Seatbelt Use: sometimes Sunscreen Use: Yes Review of Systems Constitutional: no fever, no chills, no weakness, no weight loss and no weight gain Eyes: as per Subjective / HPI Respiratory: no cough, no chest congestion, no dyspnea and no dyspnea on exertion Cardiovascular: + chest pain; no orthopnea, no palpitations, no lightheadedness and no edema Gastrointestinal: no abdominal pain, no nausea, no vomiting, no constipation and no diarrhea/loose stools Genitourinary: no dysuria, no difficulty urinating, no urinary frequency, no urinary hesitancy, no urinary urgency and no flank pain Musculoskeletal: no back pain, no neck pain, no joint pain, no stiffness and no myalgia Integumentary: no rash Neurologic: + dizziness; no gait abnormality, no unsteadiness, no falls and no generalized weakness Physical Exam Constitutional: cooperative; no acute distress Neck: trachea midline, no thyromegaly Respiratory: normal respiratory effort Auscultation: lungs clear to auscultation bilaterally; no crackles, no rales, no rhonchi and no wheezes Cardiovascular: Rate/Rhythm: regular rate and regular rhythm Heart Sounds: normal S1 and + murmur (mechanical IGLESIA) Gastrointestinal (Abdomen): Inspection/Auscultation: abdomen normal to inspection Percussion/Palpation: abdomen soft; abdomen nontender, no guarding, abdomen not rigid and no hepatosplenomegaly Skin: no rashes, warm and dry Results & Data Results & Data ([facility]) Vital Signs (Past 12 Hours) Vital Signs Temp Pulse Pulse Resp BP BP Pulse Ox 07/14/21 14:30 59 L 18 95 07/14/21 14:00 55 L 23 95 07/14/21 13:33 61 15 97 07/14/21 13:01 66 18 234/108 H 95 07/14/21 12:30 52 L 21 166/93 H 94 07/14/21 11:31 57 L 22 171/90 H 94 07/14/21 10:11 60 60 20 187/104 H 98 07/14/21 09:59 36.9 C 66 18 193/98 H 96 Laboratory Results Laboratory Results WBC 6.58 K/uL (4.8-10.8) 07/14/21 10:26 RBC 5.01 M/uL (4.2-5.4) 07/14/21 10:26 Hgb 15.7 g/dL (12.0-16.0) 07/14/21 10:26 Hct 45.1 % (37-47) 07/14/21 10:26 MCV 90.0 fL (80-100) 07/14/21 10:26 MCH 31.3 pg (25-34) 07/14/21 10:26 MCHC 34.8 g/dL (32-36) 07/14/21 10:26 RDW Std Deviation 40.7 fL (36.4-46.3) 07/14/21 10:26 RDW Coeff of Dennis 12.3 % (11.5-14.5) 07/14/21 10:26 Plt Count 232 K/uL (130-400) 07/14/21 10:26 MPV 9.9 fL (7.4-10.4) 07/14/21 10:26 Immature Gran % (Auto) 0.2 % 07/14/21 10:26 Neut % (Auto) 74.9 % 07/14/21 10:26 Lymph % (Auto) 15.5 % 07/14/21 10:26 [place] % (Auto) 4.9 % 07/14/21 10:26 Eos % (Auto) 4.3 % 07/14/21 10:26 Baso % (Auto) 0.2 % 07/14/21 10:26 Neut # (Auto) 4.94 K/uL (1.4-6.5) 07/14/21 10:26 Lymph # (Auto) 1.02 K/uL (1.2-3.4) L 07/14/21 10:26 [place] # (Auto) 0.32 K/uL (0.11-0.59) 07/14/21 10:26 Eos # (Auto) 0.28 K/uL (0-0.5) 07/14/21 10:26 Baso # (Auto) 0.01 K/uL (0-0.2) 07/14/21 10:26 Immature Gran # (Auto) 0.01 K/uL (0.00-0.02) 07/14/21 10:26 PT 27.7 Seconds (9.0-12.0) H 07/14/21 10:26 INR 3.0 (0.9-1.1) H 07/14/21 10:26 APTT 39.0 Seconds (21.0-31.0) H 07/14/21 10:26 PTT Ratio 1.5 07/14/21 10:26 Sodium 138 mmol/L (136-145) 07/14/21 10:26 Potassium 3.7 mmol/L (3.5-5.1) 07/14/21 10:26 Chloride 107 mmol/L (98-107) 07/14/21 10:26 Carbon Dioxide 28 mmol/L (21-32) 07/14/21 10:26 Anion Gap 3.0 (3-11) 07/14/21 10:26 BUN 14 mg/dl (7-18) 07/14/21 10:26 Creatinine 1.00 mg/dl (0.6-1.2) 07/14/21 10:26 Est Cr Clr Drug Dosing 60.9 ml/min 07/14/21 10:26 Est GFR ( Amer) 64.7 ml/min 07/14/21 10:26 Est GFR (Non-Af Amer) 55.8 ml/min 07/14/21 10:26 BUN/Creatinine Ratio 14.1 (10-20) 07/14/21 10:26 Glucose 141 mg/dl (70-99) H 07/14/21 10:26 Calcium 9.2 mg/dl (8.5-10.1) 07/14/21 10:26 Total Bilirubin 1.4 mg/dl (0.2-1) H 07/14/21 10:26 AST 15 U/L (15-37) 07/14/21 10:26 ALT 25 U/L (12-78) 07/14/21 10:26 Alkaline Phosphatase 66 U/L (45-117) 07/14/21 10:26 Troponin I < 0.015 ng/ml (0-0.045) 07/14/21 10:26 Total Protein 7.1 gm/dl (6.4-8.2) 07/14/21 10:26 Albumin 3.6 gm/dl (3.4-5.0) 07/14/21 10:26 Globulin 3.5 gm/dl (2.5-4.0) 07/14/21 10:26 Albumin/Globulin Ratio 1.0 (0.9-2) 07/14/21 10:26 Urine Color Yellow 07/14/21 13:00 Urine Appearance Clear (Clear) 07/14/21 13:00 Urine pH 7.0 (4.5-7.5) 07/14/21 13:00 Ur Specific [place] 1.011 (1.000-1.030) 07/14/21 13:00 Urine Protein Negative (Negative) 07/14/21 13:00 Urine Glucose (UA) Negative (Negative) 07/14/21 13:00 Urine Ketones Negative (Negative) 07/14/21 13:00 Urine Blood Trace (Negative) H 07/14/21 13:00 Urine Nitrite Negative (Negative) 07/14/21 13:00 Urine Bilirubin Negative (Negative) 07/14/21 13:00 Urine Urobilinogen Negative (Negative) 07/14/21 13:00 Ur Leukocyte Esterase Negative (Negative) 07/14/21 13:00 Urine WBC (Auto) 0 /hpf (0-5) 07/14/21 13:00 Urine RBC (Auto) 0-4 /hpf (0-4) 07/14/21 13:00 U Hyaline Cast (Auto) 0 /lpf (0-5) 07/14/21 13:00 U Epithel Cells (Auto) 10-20 /lpf (0-5) H 07/14/21 13:00 Urine Bacteria (Auto) Negative (Negative) 07/14/21 13:00 COVID-19 Eval Order Covid19 at [facility] 07/14/21 15:[address] 07/14/21 10:50 CT head/brain wo con CLINICAL HISTORY: 71 years-old Female with Vertigo. Acute vertigo with hypertension TECHNIQUE: Multiple axial CT images of the head were obtained without contrast. A dose lowering technique was utilized adhering to the principles of ALARA. CT DOSE: 690.05 mGycm COMPARISON: None. FINDINGS: No acute intracranial hemorrhage, midline shift, intracranial mass, hydrocephalus, territorial ischemia or abnormal extra-axial collection. Age-rela vincenzo involutional changes. Senescent calcifications of the basal ganglia. Cerebral vascular calcifications are also noted. The calvarium is intact. Mastoid air cells are clear. Mild to moderate mucosal thickening of the ethmoid air cells. There is suggested volume loss of the partially imaged right maxillary sinus. Unremarkable soft tissues and orbits. IMPRESSION: No acute intracranial abnormality. ACT 112: Negative or not required by law. The above report was generated using voice recognition software. It may contain grammatical, syntax or spelling errors. Electronically signed by: Herman Spencer M.D. 07/14/2021 11:10 AM Chest X-Ray 07/14/21 14:19 XR chest 2V PA/lateral HISTORY: 71 years-old Female L pulm nodule follow-up study in a patient with left-sided pulmonary nodule COMPARISON: Chest radiograph of same day at 1:13 PM, chest CT 11/01/2009 TECHNIQUE: PA and lateral views of the chest FINDINGS: Cardiomediastinal and hilar silhouettes are unchanged. Prior median sternotomy with cardiac valvular prosthesis. Surgical clips of the upper abdomen. 2.2 cm nodule of the left lower lobe redemonstrated. Degenerative changes of the shoulders and spine. Degenerative changes of the shoulders and spine. Configuration of the left lung base. IMPRESSION: 1. Cardiomegaly without acute process. 2. Improved aeration of the left lung base. 3. 2.2 cm left lower lobe pulmonary nodule is unchanged in size from 2008. ACT 112: Negative or not required by law. The above report was generated using voice recognition software. It may contain grammatical, syntax or spelling errors. Electronically signed by: Herman Spencer M.D. 07/14/2021 3:24 PM Code Status & VTE Plan VTE Prophylaxis Plan VTE Prophylaxis will be ordered: Yes PG Care Time/CCT Total # of Minutes Spent Total Time Spent with Patient: Total time spent is greater than 50% in coordination of care (as documented) at patient's floor/unit and/or counseling patient: Coding Level of Care Code INT OBSERVATION CARE 70M LVL 3 Diagnoses Hyperlipidemia E78.5 History of aortic valve replacement with metallic valve Z95.4 Chest pain R07.9 GERD (gastroesophageal reflux disease) K21.9 Accelerated hypertension I10
--- NOTE | 2021-07-14 16:34 | Electrocardiogram Report ---
Test Reason : Blood Pressure : / mmHG Vent. Rate : 059 BPM Atrial Rate : 059 BPM P-R Int : 164 ms QRS Dur : 098 ms QT Int : 424 ms P-R-T Axes : 061 -12 025 degrees QTc Int : 419 ms Sinus bradycardia Moderate voltage criteria for LVH, may be normal variant Borderline ECG When compared with ECG of 17-JUN-2018 09:19, No significant change was found Confirmed by Javier Montenegro ([id number]) on 07/14/2021 4:34:20 PM Referred By: REFERRED SELF Confirmed By:Javier Montenegro
--- NOTE | 2021-07-14 18:37 | Emergency Department Note ---
History of Present Illness General Chief complaint: Vertigo Stated complaint: VERTIGO, HIGH BP Time Seen by Provider: 07/14/21 10:15 History of Present Illness Maximum Pain Intensity: 0 Home Medications Medication Instructions Recorded Confirmed Type cholecalciferol (vitamin D3) 25 5,000 units PO DAILY cap 09/05/19 07/14/21 History mcg (1,000 unit) capsule warfarin 7.5 mg tablet 7.5 mg PO .COMPLEX #90 tab 06/24/20 07/14/21 Rx metoclopramide HCl 5 mg tablet 5 mg PO BID #180 tab 10/11/20 07/14/21 Rx zoledronic acid 5 mg/100 mL in 5 mg IV .COMPLEX #100 ml 10/17/20 07/14/21 Rx mannitol 5 %-water intravenous piggybck isosorbide mononitrate 60 mg 60 mg PO DAILY #90 tab 01/09/21 07/14/21 Rx tablet,extended release 24 hr pantoprazole 40 mg tablet,delayed 40 mg PO DAILY #90 tab 01/09/21 07/14/21 Rx release (Protonix) pravastatin 80 mg tablet 80 mg PO DAILY #90 tab 01/09/21 07/14/21 Rx metoprolol succinate 100 mg 100 mg PO DAILY #90 tab 04/01/21 07/14/21 Rx tablet,extended release 24 hr alprazolam 0.25 mg tablet 0.5 mg PO HS #180 tab 06/20/21 07/14/21 Rx warfarin 5 mg tablet 5 mg PO .COMPLEX #90 tab 06/20/21 07/14/21 Rx clonidine HCl 0.1 mg tablet 0.1 mg PO BID #180 tab 07/08/21 07/14/21 Rx aspirin 81 mg tablet,delayed 81 mg PO DAILY 07/14/21 07/14/21 History release (Aspirin Low Dose) Allergies Allergy/AdvReac Type Severity Reaction Status Date / Time methadone Allergy Unknown PT UNSURE Verified 07/14/21 11:35 REACTION - GI UPSET(?) acetaminophen Allergy Hives Verified 07/14/21 11:35 [From Darvocet-N] lovastatin Allergy rash Verified 07/14/21 11:35 rosuvastatin [From Crestor] Allergy myalgia Verified 07/14/21 11:35 simvastatin [From Zocor] Allergy Verified 07/14/21 11:35 dicyclomine AdvReac Intermediate N/V Verified 07/14/21 11:35 codeine AdvReac Unknown NAUSEA & Verified 07/14/21 11:35 PAIN propoxyphene AdvReac Unknown NAUSEA & Verified 07/14/21 11:35 PAIN alendronate sodium AdvReac Verified 07/14/21 11:35 [From Fosamax] ezetimibe [From Zetia] AdvReac Verified 07/14/21 11:35 niacin AdvReac Verified 07/14/21 11:35 [From Niaspan Extended-Release] paroxetine [From Paxil] AdvReac Gastrointestinal Verified 07/14/21 11:35 Upset HMG-CoA-R Inhibitors AdvReac Unknown STATIN Uncoded 07/14/21 11:35 INTOLERANCE - GI UPSET Past Med/Surg History Medical History (Updated 07/14/21 @ 15:36 by Kevin Chiu DO) Adenoma of right adrenal gland Allergic rhinitis Anticoagulant long-term use Anticoagulated on Coumadin Asthma CAD (coronary artery disease) Calcaneal spur Depression with anxiety Diverticulosis Essential hematuria Fracture of rib, single, closed Hyperlipidemia Hypertension Inconclusive mammogram Internal hemorrhoids Occlusion of right internal carotid artery Osteoporosis with fracture PAD (peripheral artery disease) Plantar fasciitis Post-nasal drainage Prediabetes Tremor Tremor of right hand Urinary incontinence Vitamin D deficiency Xerostomia Surgical History H/O section History of aortic valve replacement with metallic valve History of hysterectomy with bilateral oophorectomy Hx of cholecystectomy S/P CABG (coronary artery bypass graft) S/P tonsillectomy Family History Mother Alzheimer disease Dementia Osteoarthritis Father Colorectal cancer Lung cancer age 72 Coronary heart disease Heart disease Myocardial infarction Grandmother (Paternal) Diabetes Denies family history of Rheumatoid arthritis Sudden SIDS (sudden infant syndrome) Ovarian cancer Prostate cancer Deep vein thrombosis Osteoporosis Dyslipidemia Cerebral aneurysm Bipolar disorder Clotting disorder Crohn's disease Depression Kidney disease Breast cancer Schizophrenia Congenital kidney disease Gestational diabetes COPD (chronic obstructive pulmonary disease) Pulmonary embolism Lung disease Hypertension Ulcerative colitis Colonic polyp Stroke Asthma Cystic kidney disease Social History (Updated 04/01/21 @ 11:04 by Cara Lambert MA) Smoking Status: Former smoker Tobacco Type: Cigarettes Age Started Using Tobacco: 16; Cigarettes Per Day: 10; Second Hand Exposure: No; Hx Alcohol Use: No Hx Substance Use: Yes Preferred Language: Slovenian Communication Ability: Effective Visual Impairment: No Limitations Hearing Ability: Normal Shearer Operator Required: No Beliefs That Will Affect Care: None marital status: / Current Living Situation: Alone current occupational status: retired 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 [employer] How many Children do You have: 1 Feels Safe at Home: Yes Childhood Exposure to Second-Hand Smoke: No caffeine: Yes during the past year weight has: remained stable Dental Care, Regularly: No Physical Activity Frequency: Does not Exercise Seatbelt Use: sometimes Sunscreen Use: Yes Physical Exam Vital Signs Vital Signs - 24 hr 07/14/21 09:59 07/14/21 10:11 07/14/21 11:10 Temperature 36.9 C Temperature Source Temporal Artery Scan Oral Pulse Rate - Lying 57 L Pulse Rate - Sitting 64 Pulse Rate - Standing 63 Pulse Rate 66 60 Pulse Rate [Left Finger] 60 Pulse Rate from SpO2 Sensor Pulse Rhythm Regular Pulse Rhythm [Left Finger] Regular Pulse Strength [Left Finger] Normal Respiratory Rate 18 20 Respiratory Effort / Characteristics Non-Labored Spontaneous Non-Labored Spontaneous Respiratory Depth Normal Normal Respiratory Pattern Regular Regular Blood Pressure - Lying 171/84 H Blood Pressure - Sitting 171/96 H Blood Pressure- Standing 196/97 H Blood Pressure 193/98 H Blood Pressure [Right Arm] 187/104 H Blood Pressure Mean 129 Blood Pressure Mean [Right Arm] 131 Blood Pressure Position Sitting Blood Pressure Position [Right Arm] Sitting Pulse Oximetry 96 98 Oxygen Delivery Method Room Air Room Air Sepsis Recent Fever Within 48 Hours No Sepsis New/Unexplained Change in Mental Status N/A Sepsis Action Taken by Nursing No Action Required 07/14/21 11:31 07/14/21 12:30 07/14/21 13:01 Temperature Temperature Source Pulse Rate - Lying Pulse Rate - Sitting Pulse Rate - Standing Pulse Rate 57 L 52 L 66 Pulse Rate [Left Finger] Pulse Rate from SpO2 Sensor 56 L 53 L Pulse Rhythm Pulse Rhythm [Left Finger] Pulse Strength [Left Finger] Respiratory Rate 22 21 18 Respiratory Effort / Characteristics Respiratory Depth Respiratory Pattern Blood Pressure - Lying Blood Pressure - Sitting Blood Pressure- Standing Blood Pressure 171/90 H 166/93 H 234/108 H Blood Pressure [Right Arm] Blood Pressure Mean 117 117 150 Blood Pressure Mean [Right Arm] Blood Pressure Position Blood Pressure Position [Right Arm] Pulse Oximetry 94 94 95 Oxygen Delivery Method Sepsis Recent Fever Within 48 Hours Sepsis New/Unexplained Change in Mental Status Sepsis Action Taken by Nursing 07/14/21 13:33 07/14/21 14:00 07/14/21 14:30 Temperature Temperature Source Pulse Rate - Lying Pulse Rate - Sitting Pulse Rate - Standing Pulse Rate 61 55 L 59 L Pulse Rate [Left Finger] Pulse Rate from SpO2 Sensor Pulse Rhythm Pulse Rhythm [Left Finger] Pulse Strength [Left Finger] Respiratory Rate 15 23 18 Respiratory Effort / Characteristics Respiratory Depth Respiratory Pattern Blood Pressure - Lying Blood Pressure - Sitting Blood Pressure- Standing Blood Pressure Blood Pressure [Right Arm] Blood Pressure Mean Blood Pressure Mean [Right Arm] Blood Pressure Position Blood Pressure Position [Right Arm] Pulse Oximetry 97 95 95 Oxygen Delivery Method Sepsis Recent Fever Within 48 Hours Sepsis New/Unexplained Change in Mental Status Sepsis Action Taken by Nursing 07/14/21 15:33 07/14/21 16:01 07/14/21 16:31 Temperature Temperature Source Pulse Rate - Lying Pulse Rate - Sitting Pulse Rate - Standing Pulse Rate 68 61 65 Pulse Rate [Left Finger] Pulse Rate from SpO2 Sensor 61 65 Pulse Rhythm Pulse Rhythm [Left Finger] Pulse Strength [Left Finger] Respiratory Rate 18 21 24 Respiratory Effort / Characteristics Respiratory Depth Respiratory Pattern Blood Pressure - Lying Blood Pressure - Sitting Blood Pressure- Standing Blood Pressure 198/100 H 215/114 H 170/74 H Blood Pressure [Right Arm] Blood Pressure Mean 132 147 106 Blood Pressure Mean [Right Arm] Blood Pressure Position Blood Pressure Position [Right Arm] Pulse Oximetry 95 98 99 Oxygen Delivery Method Sepsis Recent Fever Within 48 Hours Sepsis New/Unexplained Change in Mental Status Sepsis Action Taken by Nursing 07/14/21 17:00 07/14/21 17:30 07/14/21 18:00 Temperature Temperature Source Pulse Rate - Lying Pulse Rate - Sitting Pulse Rate - Standing Pulse Rate 77 78 81 Pulse Rate [Left Finger] Pulse Rate from SpO2 Sensor Pulse Rhythm Pulse Rhythm [Left Finger] Pulse Strength [Left Finger] Respiratory Rate 22 20 22 Respiratory Effort / Characteristics Respiratory Depth Respiratory Pattern Blood Pressure - Lying Blood Pressure - Sitting Blood Pressure- Standing Blood Pressure 182/91 H 135/63 154/74 H Blood Pressure [Right Arm] Blood Pressure Mean 121 87 100 Blood Pressure Mean [Right Arm] Blood Pressure Position Blood Pressure Position [Right Arm] Pulse Oximetry 95 95 96 Oxygen Delivery Method Sepsis Recent Fever Within 48 Hours Sepsis New/Unexplained Change in Mental Status Sepsis Action Taken by Nursing 07/14/21 18:34 Temperature Temperature Source Pulse Rate - Lying Pulse Rate - Sitting Pulse Rate - Standing Pulse Rate 68 Pulse Rate [Left Finger] Pulse Rate from SpO2 Sensor 68 Pulse Rhythm Pulse Rhythm [Left Finger] Pulse Strength [Left Finger] Respiratory Rate 23 Respiratory Effort / Characteristics Respiratory Depth Respiratory Pattern Blood Pressure - Lying Blood Pressure - Sitting Blood Pressure- Standing Blood Pressure 155/68 H Blood Pressure [Right Arm] Blood Pressure Mean 97 Blood Pressure Mean [Right Arm] Blood Pressure Position Blood Pressure Position [Right Arm] Pulse Oximetry 97 Oxygen Delivery Method Sepsis Recent Fever Within 48 Hours Sepsis New/Unexplained Change in Mental Status Sepsis Action Taken by Nursing Course Administered Medications Sodium Chloride (Nss 1000ml) 1,000 mls @ 125 mls/hr IV .Q8H MYRON Stop: 08/13/21 10:59 Last Admin: 07/14/21 11:19 Dose: 125 mls/hr Documented by: [id number] Discontinued Medications Clonidine HCl (Clonidine Hcl 0.1 Mg Tab) 0.1 mg PO NOW ONE Stop: 07/14/21 14:31 Last Admin: 07/14/21 15:30 Dose: 0.1 mg Documented by: [id number] Hydralazine HCl (Hydralazine Hcl 20 Mg/Ml Vial) 10 mg IV NOW STA Stop: 07/14/21 15:37 Last Admin: 07/14/21 16:14 Dose: 10 mg Documented by: [id number] Medical Decision Making Laboratory Data Result diagrams: 07/14/21 10:26 07/14/21 10:26 Lab Results 07/14/21 07/14/21 07/14/21 Range/Units 10:26 10:26 10:26 WBC 6.58 (4.8-10.8) K/uL RBC 5.01 (4.2-5.4) M/uL Hgb 15.7 (12.0-16.0) g/dL Hct 45.1 (37-47) % MCV 90.0 (80-100) fL MCH 31.3 (25-34) pg MCHC 34.8 (32-36) g/dL RDW Std Deviation 40.7 (36.4-46.3) fL RDW Coeff of Dennis 12.3 (11.5-14.5) % Plt Count 232 (130-400) K/uL MPV 9.9 (7.4-10.4) fL Immature Gran % (Auto) 0.2 % Neut % (Auto) 74.9 % Lymph % (Auto) 15.5 % [place] % (Auto) 4.9 % Eos % (Auto) 4.3 % Baso % (Auto) 0.2 % Neut # (Auto) 4.94 (1.4-6.5) K/uL Lymph # (Auto) 1.02 L (1.2-3.4) K/uL [place] # (Auto) 0.32 (0.11-0.59) K/uL Eos # (Auto) 0.28 (0-0.5) K/uL Baso # (Auto) 0.01 (0-0.2) K/uL Immature Gran # (Auto) 0.01 (0.00-0.02) K/uL PT 27.7 H (9.0-12.0) Seconds INR 3.0 H (0.9-1.1) APTT 39.0 H (21.0-31.0) Seconds PTT Ratio 1.5 Sodium 138 (136-145) mmol/L Potassium 3.7 (3.5-5.1) mmol/L Chloride 107 (98-107) mmol/L Carbon Dioxide 28 (21-32) mmol/L Anion Gap 3.0 (3-11) BUN 14 (7-18) mg/dl Creatinine 1.00 (0.6-1.2) mg/dl Est Cr Clr Drug Dosing 60.9 ml/min Est GFR ( Amer) 64.7 ml/min Est GFR (Non-Af Amer) 55.8 ml/min BUN/Creatinine Ratio 14.1 (10-20) Glucose 141 H (70-99) mg/dl Calcium 9.2 (8.5-10.1) mg/dl Total Bilirubin 1.4 H (0.2-1) mg/dl AST 15 (15-37) U/L ALT 25 (12-78) U/L Alkaline Phosphatase 66 (45-117) U/L Troponin I < 0.015 (0-0.045) ng/ml Total Protein 7.1 (6.4-8.2) gm/dl Albumin 3.6 (3.4-5.0) gm/dl Globulin 3.5 (2.5-4.0) gm/dl Albumin/Globulin Ratio 1.0 (0.9-2) Urine Color Urine Appearance (Clear) Urine pH (4.5-7.5) Ur Specific [place] (1.000-1.030) Urine Protein (Negative) Urine Glucose (UA) (Negative) Urine Ketones (Negative) Urine Blood (Negative) Urine Nitrite (Negative) Urine Bilirubin (Negative) Urine Urobilinogen (Negative) Ur Leukocyte Esterase (Negative) Urine WBC (Auto) (0-5) /hpf Urine RBC (Auto) (0-4) /hpf U Hyaline Cast (Auto) (0-5) /lpf U Epithel Cells (Auto) (0-5) /lpf Urine Bacteria (Auto) (Negative) COVID-19 Eval Order SARS-CoV-2 (PCR) (Negative) 07/14/21 07/14/21 07/14/21 Range/Units 13:00 15:14 15:14 WBC (4.8-10.8) K/uL RBC (4.2-5.4) M/uL Hgb (12.0-16.0) g/dL Hct (37-47) % MCV (80-100) fL MCH (25-34) pg MCHC (32-36) g/dL RDW Std Deviation (36.4-46.3) fL RDW Coeff of Dennis (11.5-14.5) % Plt Count (130-400) K/uL MPV (7.4-10.4) fL Immature Gran % (Auto) % Neut % (Auto) % Lymph % (Auto) % [place] % (Auto) % Eos % (Auto) % Baso % (Auto) % Neut # (Auto) (1.4-6.5) K/uL Lymph # (Auto) (1.2-3.4) K/uL [place] # (Auto) (0.11-0.59) K/uL Eos # (Auto) (0-0.5) K/uL Baso # (Auto) (0-0.2) K/uL Immature Gran # (Auto) (0.00-0.02) K/uL PT (9.0-12.0) Seconds INR (0.9-1.1) APTT (21.0-31.0) Seconds PTT Ratio Sodium (136-145) mmol/L Potassium (3.5-5.1) mmol/L Chloride (98-107) mmol/L Carbon Dioxide (21-32) mmol/L Anion Gap (3-11) BUN (7-18) mg/dl Creatinine (0.6-1.2) mg/dl Est Cr Clr Drug Dosing ml/min Est GFR ( Amer) ml/min Est GFR (Non-Af Amer) ml/min BUN/Creatinine Ratio (10-20) Glucose (70-99) mg/dl Calcium (8.5-10.1) mg/dl Total Bilirubin (0.2-1) mg/dl AST (15-37) U/L ALT (12-78) U/L Alkaline Phosphatase (45-117) U/L Troponin I (0-0.045) ng/ml Total Protein (6.4-8.2) gm/dl Albumin (3.4-5.0) gm/dl Globulin (2.5-4.0) gm/dl Albumin/Globulin Ratio (0.9-2) Urine Color Yellow Urine Appearance Clear (Clear) Urine pH 7.0 (4.5-7.5) Ur Specific [place] 1.011 (1.000-1.030) Urine Protein Negative (Negative) Urine Glucose (UA) Negative (Negative) Urine Ketones Negative (Negative) Urine Blood Trace H (Negative) Urine Nitrite Negative (Negative) Urine Bilirubin Negative (Negative) Urine Urobilinogen Negative (Negative) Ur Leukocyte Esterase Negative (Negative) Urine WBC (Auto) 0 (0-5) /hpf Urine RBC (Auto) 0-4 (0-4) /hpf U Hyaline Cast (Auto) 0 (0-5) /lpf U Epithel Cells (Auto) 10-20 H (0-5) /lpf Urine Bacteria (Auto) Negative (Negative) COVID-19 Eval Order Covid19 at [facility] SARS-CoV-2 (PCR) NEGATIVE (Negative) Imaging Data Radiologist's Impression: Head CT 07/14/21 10:50 CT head/brain wo con CLINICAL HISTORY: 71 years-old Female with Vertigo. Acute vertigo with hypertension TECHNIQUE: Multiple axial CT images of the head were obtained without contrast. A dose lowering technique was utilized adhering to the principles of ALARA. CT DOSE: 690.05 mGycm COMPARISON: None. FINDINGS: No acute intracranial hemorrhage, midline shift, intracranial mass, hydrocephalus, territorial ischemia or abnormal extra-axial collection. Age- related involutional changes. Senescent calcifications of the basal ganglia. Cerebral vascular calcifications are also noted. The calvarium is intact. Mastoid air cells are clear. Mild to moderate mucosal thickening of the ethmoid air cells. There is suggested volume loss of the partially imaged right maxillary sinus. Unremarkable soft tissues and orbits. IMPRESSION: No acute intracranial abnormality. ACT 112: Negative or not required by law. The above report was generated using voice recognition software. It may contain grammatical, syntax or spelling errors. Electronically signed by: Herman Spencer M.D. 07/14/2021 11:10 AM Chest X-Ray 07/14/21 13:03 SINGLE VIEW CHEST CLINICAL HISTORY: Atypical chest pain. FINDINGS: An AP, portable, upright chest radiograph is compared to study dated 06/17/2018 and correlated with chest CT dated 04/29/2010. The examination is degraded by portable technique, apical positioning, and patient rotation. The patient is status post midline sternotomy. The heart is enlarged noting atherosclerotic calcification of the thoracic aorta. The pulmonary vasculature is noncongested. The patient's known left lower lobe nodular density is not well-visualized. Airspace opacities at the left lung base likely represent atele ctasis. No large pleural effusion or pneumothorax is seen. The skeletal structures are osteopenic. The bony thorax is grossly intact. IMPRESSION: 1. Cardiomegaly without radiographic evidence of congestive failure. 2. Airspace opacities at the left lung base likely represent atelectasis. Clinical correlation will be required. 3. The patient's known large left lower lobe pulmonary nodule is not well- visualized. ACT 112: Negative or not required by law. Electronically signed by: Jono Powell M.D. 07/14/2021 1:38 PM Chest X-Ray 07/14/21 14:19 XR chest 2V PA/lateral HISTORY: 71 years-old Female L pulm nodule follow-up study in a patient with left-sided pulmonary nodule COMPARISON: Chest radiograph of same day at 1:13 PM, chest CT 11/01/2009 TECHNIQUE: PA and lateral views of the chest FINDINGS: Cardiomediastinal and hilar silhouettes are unchanged. Prior median sternotomy with cardiac valvular prosthesis. Surgical clips of the upper abdomen. 2.2 cm nodule of the left lower lobe redemonstrated. Degenerative changes of the shoulders and spine. Degenerative changes of the shoulders and spine. Co nfiguration of the left lung base. IMPRESSION: 1. Cardiomegaly without acute process. 2. Improved aeration of the left lung base. 3. 2.2 cm left lower lobe pulmonary nodule is unchanged in size from 2008. ACT 112: Negative or not required by law. The above report was generated using voice recognition software. It may contain grammatical, syntax or spelling errors. Electronically signed by: Herman Spencer M.D. 07/14/2021 3:24 PM Discharge Plan Visit Data Chief Complaint: Vertigo Stated Complaint: VERTIGO, HIGH BP ED Provider: Maria Antonia Gibbs Forms Stand Alone Forms: [facility] Prescriptions Prescriptions: No Action warfarin 7.5 mg tablet 7.5 mg PO .COMPLEX Qty: 90 RF: 3 metoclopramide HCl 5 mg tablet 5 mg PO BID Qty: 180 RF: 3 isosorbide mononitrate 60 mg tablet extended release 24 hr 60 mg PO DAILY Qty: 90 RF: 3 pantoprazole [Protonix] 40 mg tablet,delayed release (DR/EC) 40 mg PO DAILY Qty: 90 RF: 3 pravastatin 80 mg tablet 80 mg PO DAILY Qty: 90 RF: 3 alprazolam 0.25 mg tablet 0.5 mg PO HS Qty: 180 RF: 0 warfarin 5 mg tablet 5 mg PO .COMPLEX Qty: 90 RF: 3 clonidine HCl 0.1 mg tablet 0.1 mg PO BID Qty: 180 RF: 3 metoprolol succinate 100 mg tablet extended release 24 hr 100 mg PO DAILY Qty: 90 RF: 3 zoledronic [id number] 5 mg/100 mL piggyback 5 mg IV .COMPLEX Qty: 100 RF: 0 cholecalciferol (vitamin D3) 1,000 unit capsule 5,000 units PO DAILY RF: 0 aspirin [Aspirin Low Dose] 81 mg Tablet,Delayed Release (Dr/Ec) 81 mg PO DAILY RF: 0 Referrals Referrals: Fuentes Diaz MD [Primary Care Provider] -
[2021-07-14] MEDS ORDERED: ALPRAZolam 0.5 MG TABLET PO PRN (20:52)
[2021-07-14] MEDS ORDERED: ONDANSETRON INJ 2 MG/ML 2 ML VIAL IV PRN (20:52)
[2021-07-14] MEDS ORDERED: MAGNESIUM HYDROXIDE SUSP 30 ML UDC PO PRN (20:52)
[2021-07-14] MEDS ORDERED: ALUMINUM/MAGNESIUM SUSP 30 ML UDC PO PRN (20:52)
[2021-07-14] MEDS ORDERED: WARFARIN SOD 7.5 MG TAB PO SCH (20:52)
[2021-07-14] MEDS ORDERED: Nursing to Pharmacy Communication SCH (21:30)
[2021-07-14] MEDS ORDERED: METOPROLOL SUCC 50MG EXT REL TAB PO SCH (22:00)
[2021-07-14] MEDS: cloNIDine HCL 0.1 MG TAB PO SCH (22:25)
[2021-07-14] MEDS: METOCLOPRAMIDE HCL 5 MG TABLET PO SCH (22:25)
[2021-07-15 02:58] LABS: Basophils # (auto) 0.01 K/uL (0-0.2); Basophils % (auto) 0.2 %; Eosinophils # (auto) 0.22 K/uL (0-0.5); Eosinophils % (auto) 4.1 %; Hematocrit (blood only) 40.5 % (37-47); Lymphocytes # (auto) 1.48 K/uL (1.2-3.4); Lymphocytes % (auto) 27.7 %; Mean Corpuscular Hemoglobin 30.9 pg (25-34); Mean Corpuscular Hgb Conc 34.6 g/dL (32-36); Mean Corpuscular Volume 89.4 fL (80-100); Mean Platelet Volume 9.4 fL (7.4-10.4); Monocytes # (auto) 0.41 K/uL (0.11-0.59); Monocytes % (auto) 7.7 %; Neutrophils # (auto) 3.23 K/uL (1.4-6.5); Neutrophils % (auto) 60.3 %; Platelet Count 184 K/uL (130-400); RDW Coefficient of Variation 12.5 % (11.5-14.5); RDW Standard Deviation 40.8 fL (36.4-46.3); Red Blood Count 4.53 M/uL (4.2-5.4); White Blood Count 5.35 K/uL (4.8-10.8)
[2021-07-15 03:10] LABS: INR 2.8 (0.9-1.1); Prothrombin Time 25.8 Seconds (9.0-12.0)
[2021-07-15 03:15] LABS: BUN Creatinine Ratio 13.7 (10-20); Calcium 8.4 mg/dl (8.5-10.1); Creatinine Clr Calc Pharmacy 70.6 ml/min; Est GFR (African American) 77.7 ml/min; Magnesium 2.2 mg/dl (1.8-2.4); Potassium 3.8 mmol/L (3.5-5.1)
[2021-07-15] MEDS: SODIUM CHLORIDE 0.9% 1000ML 1,000 ML IV SCH (04:21)
[2021-07-15 07:07] LABS: Estimated Average Glucose 114 mg/dl; Hemoglobin A1C 5.6 % (4.5-5.6)
[2021-07-15] MEDS: cloNIDine HCL 0.1 MG TAB PO SCH (08:57)
[2021-07-15] MEDS: METOCLOPRAMIDE HCL 5 MG TABLET PO SCH (08:57)
[2021-07-15] MEDS ORDERED: ASPIRIN 81 MG ECTAB PO SCH (09:00)
[2021-07-15] MEDS ORDERED: ISOSORBIDE MONO EXTENDED REL 60 MG TABCR PO SCH (09:00)
[2021-07-15] MEDS ORDERED: CHOLECALCIFEROL 1,000 UNITS 25 MCG TAB PO SCH (09:00)
[2021-07-15] MEDS ORDERED: PANTOprazole 40 MG TAB PO SCH (09:00)
[2021-07-15] MEDS ORDERED: PRAVASTATIN SOD 40 MG TAB PO SCH (09:00)
[2021-07-15] MEDS ORDERED: ATROPINE SULFATE 0.1 MG/ML 10ML SYR IV ONE (10:04)
[2021-07-15] MEDS ORDERED: METOPROLOL TARTRATE 1 MG/ML VIAL IV ONE (10:04)
[2021-07-15] MEDS ORDERED: DOBUTamine HCL 12.5 MG/ML 20 ML VIAL IV ONE (10:04)
--- NOTE | 2021-07-15 12:22 | Cardiology Consultation ---
Date of Consultation July 15, 2021 Assessment & Plan (1) Exertional chest pain: Etiology uncertain, no evidence of occlusive coronary disease/myocardial ischemia given negative dobutamine stress echocardiogram at nearly 100% maximum predicted heart rate. Possibly her uncontrolled hypertension results in supply/demand mismatch, even in the absence of occlusive coronary disease. More aggressive management of blood pressure warranted (see below). (2) Accelerated hypertension: Severe hypertension on admission and significant LVH on echocardiogram. Continue clonidine and metoprolol, would add amlodipine 5 mg daily to her regimen and closely follow BP as outpatient with additional vasoactive medication titration as warranted. (3) Positional vertigo: Most suggestive of benign positional vertigo. No associated chest discomfort at the time of her vertigo symptoms. Less likely to be blood pressure related in that it occurred when she lifted her head, would be more likely to occur upon lying down if this were BP related and would be less likely to be episodic and positional. However, management of BP is independently warranted and if this plays a role should reduce the likelihood of recurrence of her vertigo symptoms. (4) History of aortic valve replacement with metallic valve: Some degree of functional stenosis on echocardiogram but readily audible aortic closure sound. This could contribute to exertional angina, particularly in the context of uncontrolled hypertension. As noted, more aggressive BP control is warranted. No indication for redo valve surgery at this point. (5) S/P CABG (coronary artery bypass graft): Bypass graft (single-vessel to RCA) is functioning well and there is no evidence of occlusive disease on dobutamine stress echocardiogram. 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 She described a spinning type vertigo when she lifted her head from the pillow lasting for several moments, resolves when she lay back down. 15 minutes later, she had a similar episode, again with lifting her head from the pillow. No associated symptoms. She measured her blood pressure at home, it was in the 240/110 mmHg range. Upon presentation to the ER, her BP was 234/108 mmHg. She had also noted some exertional chest discomfort when walking at the [employer] fair as well as when mowing the lawn. She had no chest discomfort at the time of her vertigo episode. She has felt well since hospital admission yesterday, no vertigo, chest pain, or other symptoms. Allergies Allergy/AdvReac Type Severity Reaction Status Date / Time methadone Allergy Unknown PT UNSURE Verified 07/14/21 11:35 REACTION - GI UPSET(?) acetaminophen Allergy Hives Verified 07/14/21 11:35 [From Darvocet-N] lovastatin Allergy rash Verified 07/14/21 11:35 rosuvastatin [From Crestor] Allergy myalgia Verified 07/14/21 11:35 simvastatin [From Zocor] Allergy Verified 07/14/21 11:35 dicyclomine AdvReac Intermediate N/V Verified 07/14/21 11:35 codeine AdvReac Unknown NAUSEA & Verified 07/14/21 11:35 PAIN propoxyphene AdvReac Unknown NAUSEA & Verified 07/14/21 11:35 PAIN alendronate sodium AdvReac Verified 07/14/21 11:35 [From Fosamax] ezetimibe [From Zetia] AdvReac Verified 07/14/21 11:35 niacin AdvReac Verified 07/14/21 11:35 [From Niaspan Extended-Release] paroxetine [From Paxil] AdvReac Gastrointestinal Verified 07/14/21 11:35 Upset HMG-CoA-R Inhibitors AdvReac Unknown STATIN Uncoded 07/14/21 11:35 INTOLERANCE - GI UPSET Home Medications Medication Instructions Recorded Confirmed Type cholecalciferol (vitamin D3) 25 5,000 units PO DAILY cap 09/05/19 07/14/21 History mcg (1,000 unit) capsule warfarin 7.5 mg tablet 7.5 mg PO .COMPLEX #90 tab 06/24/20 07/14/21 Rx metoclopramide HCl 5 mg tablet 5 mg PO BID #180 tab 10/11/20 07/14/21 Rx zoledronic acid 5 mg/100 mL in 5 mg IV .COMPLEX #100 ml 10/17/20 07/14/21 Rx mannitol 5 %-water intravenous piggybck isosorbide mononitrate 60 mg 60 mg PO DAILY #90 tab 01/09/21 07/14/21 Rx tablet,extended release 24 hr pantoprazole 40 mg tablet,delayed 40 mg PO DAILY #90 tab 01/09/21 07/14/21 Rx release (Protonix) pravastatin 80 mg tablet 80 mg PO DAILY #90 tab 01/09/21 07/14/21 Rx metoprolol succinate 100 mg 100 mg PO DAILY #90 tab 04/01/21 07/14/21 Rx tablet,extended release 24 hr alprazolam 0.25 mg tablet 0.5 mg PO HS #180 tab 06/20/21 07/14/21 Rx warfarin 5 mg tablet 5 mg PO .COMPLEX #90 tab 06/20/21 07/14/21 Rx clonidine HCl 0.1 mg tablet 0.1 mg PO BID #180 tab 07/08/21 07/14/21 Rx aspirin 81 mg tablet,delayed 81 mg PO DAILY 07/14/21 07/14/21 History release (Aspirin Low Dose) amlodipine 5 mg tablet 5 mg PO DAILY #30 tab 07/15/21 Rx Patient History Medical History (Updated 07/15/21 @ 12:20 by Sav Milner MD) Adenoma of right adrenal gland Allergic rhinitis Anticoagulant long-term use Anticoagulated on Coumadin Asthma CAD (coronary artery disease) Calcaneal spur Depression with anxiety Diverticulosis Essential hematuria Fracture of rib, single, closed Hyperlipidemia Hypertension Inconclusive mammogram Internal hemorrhoids Occlusion of right internal carotid artery Osteoporosis with fracture PAD (peripheral artery disease) Plantar fasciitis Post-nasal drainage Prediabetes Tremor Tremor of right hand Urinary incontinence Vitamin D deficiency Xerostomia Surgical History (Updated 07/15/21 @ 12:20 by Sav Milner MD) H/O section History of aortic valve replacement with metallic valve History of hysterectomy with bilateral oophorectomy Hx of cholecystectomy S/P CABG (coronary artery bypass graft) S/P tonsillectomy Family History Diabetes Grandmother (Paternal) Coronary heart disease Father Alzheimer disease Mother Dementia Mother Heart disease Father Myocardial infarction Father Osteoarthritis Mother Father age 72 Lung cancer Father Colorectal cancer Father Denies family history of Rheumatoid arthritis Sudden SIDS (sudden infant syndrome) Ovarian cancer Prostate cancer Deep vein thrombosis Osteoporosis Dyslipidemia Cerebral aneurysm Bipolar disorder Clotting disorder Crohn's disease Depression Kidney disease Breast cancer Schizophrenia Congenital kidney disease Gestational diabetes COPD (chronic obstructive pulmonary disease) Pulmonary embolism Lung disease Hypertension Ulcerative colitis Colonic polyp Stroke Asthma Cystic kidney disease Social History (Updated 04/01/21 @ 11:04 by Cara Lambert MA) Smoking Status: Never smoker Tobacco Type: Cigarettes Age Started Using Tobacco: 16; Cigarettes Per Day: 10; Second Hand Exposure: No; Hx Alcohol Use: No Hx Substance Use: No Preferred Language: Angolan Communication Ability: Effective Visual Impairment: No Limitations Hearing Ability: Normal 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 Vitals as above, weight up 10 pounds over the past year. Skin: no ecchymoses or lesions. HEENT: unremarkable. Neck: no JVD or carotid bruits. Lungs clear. Cardiac: Prosthetic A2. Regular rhythm with 3/6 basal systolic ejection murmur radiating to the carotids and apex, no gallop. Abdomen benign. Extremities: no edema, pulses brisk. Neurologic: Normal affect, nonfocal, very minimal tremor left hand. Results & Data ([facility]) Vital Signs (Past 12 Hours) Vital Signs Temp Pulse Pulse Resp BP Pulse Ox 07/15/21 08:30 67 07/15/21 07:20 97.9 F 60 19 157/86 H 95 07/15/21 03:54 98.1 F 18 95 Laboratory Results Troponin negative x4. INR is therapeutic at 2.8. Normal electrolytes, creatinine 0.86. Diagnostic Findings Serial ECGs on admission and subsequently showed sinus rhythm with voltage for LVH, otherwise unremarkable. Head CT was unremarkable. PG Care Time/CCT Total # of Minutes Spent Total Time Spent with Patient: Total time spent is greater than 50% in coordination of care (as documented) at patient's floor/unit and/or counseling patient: Coding Level of Care Code 54450 Inpt Consult Level 4 Diagnoses Positional vertigo Exertional chest pain R07.9 Accelerated hypertension I10 History of aortic valve replacement with metallic valve Z95.4 S/P CABG (coronary artery bypass graft) Z95.1
[2021-07-15] MEDS ORDERED: WARFARIN SOD 5 MG TAB PO SCH (16:00)
--- NOTE | 2021-07-15 16:09 | XCELERA ---
[id number]
--- NOTE | 2021-07-15 16:44 | Electrocardiogram Report ---
Test Reason : Blood Pressure : / mmHG Vent. Rate : 063 BPM Atrial Rate : 063 BPM P-R Int : 136 ms QRS Dur : 100 ms QT Int : 420 ms P-R-T Axes : 047 -08 012 degrees QTc Int : 429 ms Normal sinus rhythm Minimal voltage criteria for LVH, may be normal variant Borderline ECG When compared with ECG of 14-JUL-2021 10:16, No significant change was found Confirmed by Javier Montenegro ([id number]) on 07/15/2021 4:43:34 PM Referred By: REFERRED SELF Confirmed By:Javier Montenegro
--- NOTE | 2021-07-15 16:57 | Electrocardiogram Report ---
Test Reason : Blood Pressure : / mmHG Vent. Rate : 059 BPM Atrial Rate : 059 BPM P-R Int : 168 ms QRS Dur : 094 ms QT Int : 444 ms P-R-T Axes : 050 -10 -02 degrees QTc Int : 439 ms Sinus bradycardia Moderate voltage criteria for LVH, may be normal variant Borderline ECG When compared with ECG of 14-JUL-2021 18:35, (unconfirmed) No significant change was found Confirmed by Javier Montenegro ([id number]) on 07/15/2021 4:57:22 PM Referred By: REFERRED SELF Confirmed By:Javier Montenegro
--- NOTE | 2021-07-15 20:44 | Discharge Summary ---
Date of Service July 15, 2021 Admission HPI Per Admitting Provider This is a very pleasant 71-year-old female with past medical history of hyperlipidemia, mechanical AVR on Coumadin that presents today complaining of vertigo and chest pressure. Patient is a family member in room and both are very good historians. Patient tells me that what prompted her hospital visit today was an episode of vertigo. She was feeling fine until this morning. She woke up and turned her head and found that she was experiencing significant vertigo. This lasted several minutes and was self-limited. Is not associated with shortness of breath or chest pain at that time. Patient was able to get up and ambulate to the bathroom without any issues. Has not recurred since. However, the episode made her nervous as her sister recently had a stroke and she came to the emergency room for further evaluation. On further questioning, she did express some episodes of exertional chest pain over the past few weeks. She noted when she went to the local fair, she had an episode of chest pressure with ambulation. She describes this as " an elephant sitting on her chest" that was relieved with rest. She did also relate that she was mowing her lawn last week and had a similar episode. Of note, the patient was hypertensive on presentation. Last documented blood pressure is 234/108 with a pulse of 59. Principal Diagnosis Chest Pain; Accelerated HTN Discharge Exam Constitutional WD/WN, vitals as above Eyes + anicteric sclerae Neck trachea midline Respiratory normal respiratory effort, lungs clear to auscultation Cardiovascular Rate/Rhythm: regular rate and regular rhythm Heart Sounds: + murmur (mechanical heart valve) Extremities: no edema Gastrointestinal (Abdomen) normal bowel sounds, soft, nontender, no hepatosplenomegaly Skin no rashes, warm and dry Neurologic moves all extremities Psychiatric A+Ox3, euthymic affect Discharge Data Allergies Allergy/AdvReac Type Severity Reaction Status Date / Time methadone Allergy Unknown PT UNSURE Verified 07/14/21 11:35 REACTION - GI UPSET(?) acetaminophen Allergy Hives Verified 07/14/21 11:35 [From Darvocet-N] lovastatin Allergy rash Verified 07/14/21 11:35 rosuvastatin [From Crestor] Allergy myalgia Verified 07/14/21 11:35 simvastatin [From Zocor] Allergy Verified 07/14/21 11:35 dicyclomine AdvReac Intermediate N/V Verified 07/14/21 11:35 codeine AdvReac Unknown NAUSEA & Verified 07/14/21 11:35 PAIN propoxyphene AdvReac Unknown NAUSEA & Verified 07/14/21 11:35 PAIN alendronate sodium AdvReac Verified 07/14/21 11:35 [From Fosamax] ezetimibe [From Zetia] AdvReac Verified 07/14/21 11:35 niacin AdvReac Verified 07/14/21 11:35 [From Niaspan Extended-Release] paroxetine [From Paxil] AdvReac Gastrointestinal Verified 07/14/21 11:35 Upset HMG-CoA-R Inhibitors AdvReac Unknown STATIN Uncoded 07/14/21 11:35 INTOLERANCE - GI UPSET Consultations 07/14/21 14:50 ED Decision to Admit Stat 07/14/21 20:52 Consult Cardiology Routine Ordered Studies 07/14/21 10:50 CT head/brain wo con Stat Hospital Course (1) Chest pain: - Intermittent exertional CP - negative dobutamine stress test so no evidence of occlusive coronary disease/myocardial ischemia - Possible related to poorly controlled HTN - supply/demand mismatch - Troponins negative x 3; remained sinus rhythm on monitor - Evaluated by Dr. Milner during admission (2) Accelerated hypertension: - Improved - Continued home regimen of Isosorbide 60 mg daily; metoprolol XL 100 mg daily; clonidine 0.1 mg BID - Add Amlodipine 5 mg daily per cardiology and follow BP as outpatient (3) Hyperlipidemia: - Continue Pravastatin 80 mg daily (4) History of aortic valve replacement with metallic valve: - STABLE - On warfarin - currently therapeutic at 2.8 - Continue home dosing and routine lab checks as outpatient (5) GERD (gastroesophageal reflux disease): Continue Pantoprazole Total Time Total Time Spent Total Time Spent (In Minutes): Total time > 30 minutes Discharge Plan Discharge Items Patient Disposition: Home - Self-Care Reason For Visit: CHEST PAIN Discharge Diagnosis: Chest Pain Activity: Resume your previous activity Non-emergency contact: Primary Care Provider Call non-emergency contact if: you have any medication questions and your symptoms worsen Follow-up/Referrals: Fuentes Diaz MD [Primary Care Provider] - 07/18/21 3:00 pm Diet: Heart Healthy Addtl Attending Provider Instructions: Chest Pain: - You were admitted for chest pain. You were monitored and your heart rhythm was normal on the monitor. - You had a stress test and this did not find signs of issues. - It is possible your blood pressure could be impacting the stress on the heart and causing this intermittent chest pain - Your blood pressure was quite high when you first came in but has been improving while in the hospital. Your heart doctor would like you to continue your normal blood pressure medications but also add amlodipine 5 mg daily to this regimen. This medication was sent to your pharmacy. Continue your home medications as previously prescribed. We did not make adjustments to these. Your INR (Coumadin) level is 2.8. Continue your normal regimen and continue routine monitoring Pending Studies at Discharge: No Stand-Alone Forms: [facility] [employer], Smoking Cessation Medications and DC Order Prescriptions: New amlodipine 5 mg tablet 5 mg PO DAILY Qty: 30 RF: 1 Continued warfarin 7.5 mg tablet 7.5 mg PO .COMPLEX Qty: 90 RF: 3 metoclopramide HCl 5 mg tablet 5 mg PO BID Qty: 180 RF: 3 isosorbide mononitrate 60 mg tablet extended release 24 hr 60 mg PO DAILY Qty: 90 RF: 3 pantoprazole [Protonix] 40 mg tablet,delayed release (DR/EC) 40 mg PO DAILY Qty: 90 RF: 3 pravastatin 80 mg tablet 80 mg PO DAILY Qty: 90 RF: 3 alprazolam 0.25 mg tablet 0.5 mg PO HS Qty: 180 RF: 0 warfarin 5 mg tablet 5 mg PO .COMPLEX Qty: 90 RF: 3 clonidine HCl 0.1 mg tablet 0.1 mg PO BID Qty: 180 RF: 3 metoprolol succinate 100 mg tablet extended release 24 hr 100 mg PO DAILY Qty: 90 RF: 3 zoledronic sfrb-dcznooft-jouwl 5 mg/100 mL piggyback 5 mg IV .COMPLEX Qty: 100 RF: 0 cholecalciferol (vitamin D3) 1,000 unit capsule 5,000 units PO DAILY RF: 0 aspirin [Aspirin Low Dose] 81 mg Tablet,Delayed Release (Dr/Ec) 81 mg PO DAILY RF: 0 Discharge Orders: Discharge Order (Routine); Ordered 07/15/21 Ordered By: Sendy Zeng Admission Data Admit Date/Time: 07/14/21 15:03 Attending Provider: Elias Peraza Admit Provider: Kevin Chiu Primary Care Provider: Fuentes Diaz Other Providers: Kevin Chiu ; Sav Milner Other Interventions: Discharge Summary Assessment (RN) Last Done: 07/15/21 13:20 Supervising Physician Co-Signing Physician Notes Attending note: patient seen and examined with Sendy Zeng PA-C. I agree with her discharge summary. I personally reviewed the labs and imaging findings. patient feeling well, no further chest pain, BP is improved, appreciate recommendations from Dr. Milner dobutamine stress echo negative for ischemia - Chest pain: no evidence of ACS, negative dobutamine stress echo - HTN, poorly controlled: Dr. Milner recommends addition of amlodipine, will add on discharge Coding Level of Care Code D/C DAY MANAGEMENT >30 MINS Diagnoses Chest pain R07.9 Accelerated hypertension I10 Hyperlipidemia E78.5 History of aortic valve replacement with metallic valve Z95.4 GERD (gastroesophageal reflux disease) K21.9
== END 2021-07-15 14:46 | disposition home or self-care (01) ==
LOC: 2S 09:55 → ED 09:55 → SUATTDRO 15:03 → 2S 20:21
DX: R07.9 Chest pain, unspecified; K21.9 Gastro-esophageal reflux disease without esophagitis; E78.5 Hyperlipidemia, unspecified; H81.10 Benign paroxysmal vertigo, unspecified ear; Z79.899 Other long term (current) drug therapy; Z95.2 Presence of prosthetic heart valve; Z88.8 Allergy status to other drugs, medicaments and biological substances; I10 Essential (primary) hypertension; Z79.01 Long term (current) use of anticoagulants; I65.21 Occlusion and stenosis of right carotid artery; Z95.1 Presence of aortocoronary bypass graft

== ENCOUNTER 2023-05-29 16:41 | Inpatient (IN) ==
[2023-05-29 17:11] LABS: Basophils # (auto) 0.03 K/uL (0-0.2); Basophils % (auto) 0.2 %; Eosinophils # (auto) 0.01 K/uL (0-0.50); Eosinophils % (auto) 0.1 %; Hematocrit (blood only) 43.9 % (37.0-47.0); Immature Granulocytes # (auto) 0.09 K/uL (0.01-0.20); Immature Granulocytes % (auto) 0.6 %; Lymphocytes # (auto) 1.24 K/uL (1.2-3.4); Lymphocytes % (auto) 8.9 %; Mean Corpuscular Hemoglobin 30.4 pg (25.0-34.0); Mean Corpuscular Hgb Conc 34.2 g/dL (32.0-36.0); Mean Platelet Volume 9.7 fL (9.4-12.4); Monocytes # (auto) 0.88 K/uL (0.11-0.59); Monocytes % (auto) 6.3 %; Neutrophils # (auto) 11.71 K/uL (1.40-6.50); Neutrophils % (auto) 83.9 %; Platelet Count 243 K/uL (130-400); RDW Coefficient of Variation 12.5 % (11.5-14.5); RDW Standard Deviation 40.5 fL (36.4-46.3); Red Blood Count 4.93 M/uL (4.20-5.40); White Blood Count 13.96 K/ul (4.8-10.8)
--- NOTE | 2023-05-29 17:25 | Emergency Department Note ---
Impression & Plan Abdominal pain, Diverticulitis large intestine ED Provider Note ED Provider Note NAME: MILTON BRITT AGE:72 SEX: Female : 1950 ARRIVES VIA: Private vehicle INFORMANT: Patient ED PROVIDER(s): Lorelei Denton DO CHIEF COMPLAINT: Abdominal pain HPI: This is a 72-year-old female who presents emergency department due to concern for abdominal pain. Patient states 2 days ago she had only had a small bowel movement and was concern for constipation so she took some milk of magnesia. She states following this she had 1 large stool in the evening followed by multiple episodes of loose watery BMs later on that evening. No black or bloody stools. She states today she had a small bowel movement and morning and began having worsening lower abdominal pain. She describes it as aching and also intermittent sharp cramps. She denies any radiation into her back. She denies fevers, chills, nausea, vomiting, change in urine. Patient does have a prior history of diverticulitis. She is also previously had several abdominal surgeries. Patient anticoagulated due to hx of valve replacement. PAST MEDICAL HISTORY:See Below PAST SURGICAL HISTORY:See Below FAMILY HISTORY:See Below SOCIAL HISTORY:See Below HOME MEDICATIONS:See Below ALLERGIES:See Below VITALS:See Below PHYSICAL EXAMINATION: GENERAL: alert, well appearing, well nourished, no distress, non-toxic EYE EXAM: normal conjunctiva, PERRL and EOM's grossly intact OROPHARYNX: no exudate, no erythema, lips, buccal mucosa, and tongue normal and mucous membranes are moist NECK: supple, no nuchal rigidity, no adenopathy, non-tender LUNGS: Clear to auscultation. Normal chest wall mechanics, no w/r/r HEART: no murmurs, S1 normal and S2 normal ABDOMEN: abdomen soft, tenderness with palpation across the lower abdomen left greater than right, normo-active bowel sounds, no masses, no rebound or guarding. BACK: Back is symmetrical on inspection and there is no deformity, no midline tenderness, no CVA tenderness. SKIN: no rashes, petechiae, orbruising UPPER EXTREMITIES: upper extremities are grossly normal. FROM, nml pulses b/l. LOWER EXTREMITIES: No pitting edema. FROM, nml pulses b/l. NEURO EXAM: Normal sensorium, cranial nerves II-XII grossly intact, normal speech, no facial droop,nogross weakness of arms, no gross weakness of legs. Gross sensation intact. No ataxia. Vital Signs: reviewed and remarkable Differential Diagnosis: Differential diagnoses includes but is not limited to small bowel obstruction, ischemic bowel, irritable bowel disease, irritable bowel syndrome, appendicitis, diverticulitis, malignancy, hernia, urinary tract infection, perforation MEDICAL DECISION MAKING: THis is a 72 yo female who presents to the ER due to concern for lower abdominal pain and recent constipation. She was afebrile and VS stable. Labs drawn and sent, IV established, and patient placed on telemetry. She was started on IV and given IV tylenol and eventually IV morphine. CT reveals diverticulitis with perforation and small intramural abscess. CAse discussed with automotive parts person gen surg and then with hospitalist for additional inpatient evaluation and treatment. She was started on IV zosyn in the ER. Consultation(s): 2024: Discussed with Dr. Overton, gen surg. NPO and IV antibiotics. No need for other interventions at this time. 2099: Discussed with Dr. Rob. ER Treatment Provided: See below Diagnostics Interpreted By Me: -ECG: Normal sinus at 74, normal axis, normal intervals, no acute ST/T wave changes -Cardiac Monitoring: An order was placed for continuous cardiac monitoring. The monitor shows a rate of 70 with normal sinus rhythm. -Laboratory studies: As stated above and show below. -Imaging studies: [] Triage Nursing Note Reviewed Prior/Outside Records Reviewed - prior DC summary Past Med/Surg History Medical History Adenoma of right adrenal gland Allergic rhinitis Anticoagulated on Coumadin Asthma inhaler prn CAD (coronary artery disease) Depression with anxiety Diverticulosis Essential hematuria pt denies at present time Exertional chest pain hx of; pt states she no longer experiences this Hyperlipidemia Hypertension Internal hemorrhoids Myocardial Infarction x2--06/12/08 and 08/06--follows with Dr. Milner Occlusion of right internal carotid artery Osteoporosis with fracture PAD (peripheral artery disease) Plantar fasciitis Positional vertigo Prediabetes Tremor of right hand Urinary incontinence Vitamin D deficiency Xerostomia Surgical History H/O section History of aortic valve replacement with metallic valve 2000 History of appendectomy History of cardiac cath x2--05/2008 and 07/2008 History of colonoscopy History of esophagogastroduodenoscopy (EGD) History of heart artery stent x1 2008 History of hysterectomy with bilateral oophorectomy History of wisdom tooth extraction Hx of cholecystectomy S/P CABG (coronary artery bypass graft) 2000-per pt "triple bypass" @ [facility] S/P tonsillectomy Family History Mother Alzheimer disease Dementia Osteoarthritis Father Coronary heart disease Heart disease Myocardial infarction age 72 Lung cancer Colorectal cancer Grandmother (Paternal) Diabetes Other No family history of adverse response to anesthesia Denies family history of Rheumatoid arthritis Sudden SIDS (sudden infant syndrome) Ovarian cancer Prostate cancer Deep vein thrombosis Osteoporosis Dyslipidemia Cerebral aneurysm Bipolar disorder Clotting disorder Crohn's disease Depression Kidney disease Breast cancer Schizophrenia Congenital kidney disease Gestational diabetes COPD (chronic obstructive pulmonary disease) Pulmonary embolism Lung disease Hypertension Ulcerative colitis Colonic polyp Stroke Asthma Cystic kidney disease Social History Smoking Status: Former smoker Tobacco Type: Cigarettes Age Started Using Tobacco: 16; Second Hand Exposure: Yes; Do You Dip or Chew Tobacco: No; Tobacco Cessation Education Requested by Patient: No Hx Alcohol Use: No Hx Substance Use: No Preferred Language: Faroese Communication Ability: Effective Visual Impairment: No Limitations Hearing Ability: Normal Chaplain Resident Required: No Beliefs That Will Affect Care: None marital status: / Current Living Situation: Alone current occupational status: retired current occupation: Retired from[employer]/work [employer] [facility] How many Children do You have: 1 Other Information That Helps Us Care for You: No Feels Safe at Home: No Is there a partner from a previous relationship who is making you feel unsafe now?: No Would You Like to Speak to Someone About Your Situation: No (pt stated she is going to talk to a counciler) Safety Concerns: Afraid for Self Childhood Exposure to Second-Hand Smoke: No Diet: regular caffeine: Yes during the past year weight has: remained stable Dental Care, Regularly: No Physical Activity Frequency: Does not Exercise Seatbelt Use: always Sunscreen Use: Yes Assistive Devices: Glasses Allergies Allergies Allergy/AdvReac Type Severity Reaction Status Date / Time rosuvastatin [From Crestor] Allergy Intermediate myalgia Verified 05/29/23 19:25 sertraline [From Zoloft] Allergy Intermediate burn Verified 05/29/23 19:25 sensation on skin on arms lovastatin Allergy Mild rash Verified 05/29/23 19:25 bupropion [From Wellbutrin] AdvReac Intermediate insomnia Verified 05/29/23 19:25 and tremors dicyclomine AdvReac Intermediate N/V Verified 05/29/23 19:25 codeine AdvReac Mild NAUSEA & Verified 05/29/23 19:25 PAIN ezetimibe [From Zetia] AdvReac Mild Gastrointestinal Verified 05/29/23 19:25 Upset methadone AdvReac Mild GI UPSET(?) Verified 05/29/23 19:25 niacin AdvReac Mild Gastrointestinal Verified 05/29/23 19:25 [From Niaspan Upset Extended-Release] paroxetine [From Paxil] AdvReac Mild Gastrointestinal Verified 05/29/23 19:25 Upset propoxyphene AdvReac Mild NAUSEA & Verified 05/29/23 19:25 PAIN simvastatin [From Zocor] AdvReac Mild Gastrointestinal Verified 05/29/23 19:25 Upset [id number] Reductase AdvReac Mild STATIN Verified 05/29/23 22:47 Inhibitor INTOLERANCE - GI UPSET Home Meds Home Medications Medication Instructions Recorded Confirmed cholecalciferol (vitamin D3) 25 5,000 units PO QAM 09/05/19 05/29/23 mcg (1,000 unit) capsule aspirin 81 mg tablet,delayed 81 mg PO HS 09/24/22 05/29/23 release (Harvey Low Dose Aspirin) calcium carbonate 600 mg calcium 600 mg PO BID 02/24/23 05/29/23 (1,500 mg) tablet (Calcium) cyanocobalamin (vitamin B-12) 1,000 mcg PO QAM 02/24/23 05/29/23 1,000 mcg capsule isosorbide mononitrate 60 mg 60 mg PO QAM 02/24/23 05/29/23 tablet,extended release 24 hr pravastatin 80 mg tablet 80 mg PO HS 02/24/23 05/29/23 warfarin 2.5 mg tablet 2.5 mg PO .MON/WED/THURS/FRI 05/29/23 05/29/23 warfarin 5 mg tablet 5 mg PO .SUN/TUES/SAT 05/29/23 05/29/23 Previous Rx's Medication Instructions Recorded albuterol sulfate 90 mcg/actuation 2 puff inhalation QID PRN 07/18/21 aerosol inhaler (ProAir HFA) shortness of breath #8.5 grams zoledronic acid 5 mg/100 mL in 5 mg IV .COMPLEX #100 mL 12/17/21 mannitol 5 %-water intravenous piggybck clonidine HCl 0.1 mg tablet 0.1 mg PO BID #180 tabs 07/14/22 metoclopramide HCl 5 mg tablet 5 mg PO BID #180 tabs 10/05/22 nystatin 100,000 unit/gram topical 1 applic topical BID PRN 12/02/22 powder Candidiasis #60 grams alprazolam 0.25 mg tablet 0.5 mg PO HS #180 tabs 03/08/23 amlodipine 5 mg tablet 5 mg PO HS #90 tabs 03/08/23 pantoprazole 40 mg tablet,delayed 40 mg PO QAM gerd #90 tabs 03/08/23 release (Protonix) metoprolol succinate 100 mg 100 mg PO HS #90 tabs 04/05/23 tablet,extended release 24 hr escitalopram oxalate 10 mg tablet 10 mg PO DAILY #90 tabs 05/25/23 (Lexapro) Results & Data (ED) Vital Signs Vital Signs - 24 hr 05/29/23 17:41 05/29/23 17:30 05/29/23 19:56 Temperature 36.8 C Temperature Source Oral Pulse Rate 70 69 Pulse Rate [Right Finger] 72 Pulse Rate from SpO2 Sensor 69 Pulse Rhythm [Right Finger] Regular Pulse Strength [Right Finger] Normal Respiratory Rate 22 18 Respiratory Effort / Characteristics Non-Labored Spontaneous Respiratory Depth Normal Respiratory Pattern Regular Blood Pressure 147/65 H Blood Pressure [Right Arm] 142/72 H Blood Pressure Mean 92 Blood Pressure Mean [Right Arm] 95 Blood Pressure Position [Right Arm] Lying Pulse Oximetry 95 98 Oxygen Delivery Method Room Air 05/29/23 21:16 Temperature Temperature Source Pulse Rate 77 Pulse Rate [Right Finger] Pulse Rate from SpO2 Sensor Pulse Rhythm [Right Finger] Pulse Strength [Right Finger] Respiratory Rate Respiratory Effort / Characteristics Respiratory Depth Respiratory Pattern Blood Pressure Blood Pressure [Right Arm] Blood Pressure Mean Blood Pressure Mean [Right Arm] Blood Pressure Position [Right Arm] Pulse Oximetry Oxygen Delivery Method Laboratory Data 05/29/23 16:55 05/29/23 16:55 Lab Results 05/29/23 05/29/23 05/29/23 Range/Units 16:55 16:55 16:55 WBC 13.96 H (4.8-10.8) K/ul RBC 4.93 (4.20-5.40) M/uL Hgb 15.0 (12.0-16.0) g/dl Hct 43.9 (37.0-47.0) % MCV 89.0 (80.0-100.0) fL MCH 30.4 (25.0-34.0) pg MCHC 34.2 (32.0-36.0) g/dL RDW Std Deviation 40.5 (36.4-46.3) fL RDW Coeff of Dennis 12.5 (11.5-14.5) % Plt Count 243 (130-400) K/uL MPV 9.7 (9.4-12.4) fL Immature Gran % (Auto) 0.6 % Neut % (Auto) 83.9 % Lymph % (Auto) 8.9 % Carlton % (Auto) 6.3 % Eos % (Auto) 0.1 % Baso % (Auto) 0.2 % Neut # (Auto) 11.71 H (1.40-6.50) K/uL Lymph # (Auto) 1.24 (1.2-3.4) K/uL Carlton # (Auto) 0.88 H (0.11-0.59) K/uL Eos # (Auto) 0.01 (0-0.50) K/uL Baso # (Auto) 0.03 (0-0.2) K/uL Immature Gran # (Auto) 0.09 (0.01-0.20) K/uL PT (9.0-12.0) Seconds INR (0.9-1.1) Sodium 136 (136-145) mmol/L Potassium 3.9 (3.5-5.1) mmol/L Chloride 102 (98-107) mmol/L Carbon Dioxide 28 (21-32) mmol/L Anion Gap 6 (3-11) BUN 15 (6-23) mg/dl Creatinine 1.21 H (0.6-1.2) mg/dl Est Cr Clr Drug Dosing 47.9 ml/min Est GFR ( Amer) 51.0 ml/min Est GFR (Non-Af Amer) 44.0 ml/min BUN/Creatinine Ratio 12.4 (10-20) Glucose 124 H (70-99(Fasting)) mg/dl Calcium 9.8 (8.6-10.3) mg/dl Total Bilirubin 1.6 H (0.2-1.0) mg/dl AST 15 (13-39) U/L ALT 14 (7-52) U/L Alkaline Phosphatase 56 (34-104) U/L Total Protein 6.9 (6.0-8.3) gm/dl Albumin 3.9 (3.4-5.0) gm/dl Globulin 3.0 (2.5-4.0) gm/dl Albumin/Globulin Ratio 1.3 (0.9-2) Lipase 19 (11-82) U/L Urine Color Yellow Urine Appearance Slightly Cloudy A (Clear) Urine pH 7.0 (4.5-7.5) Ur Specific Bridgman 1.014 (1.000-1.030) Urine Protein Negative (Negative) Urine Glucose (UA) Negative (Negative) Urine Ketones Negative (Negative) Urine Blood 1+ H (Negative) Urine Nitrite Negative (Negative) Urine Bilirubin Negative (Negative) Urine Urobilinogen Negative (Negative) Ur Leukocyte Esterase Negative (Negative) Urine WBC (Auto) 5-10 H (0-5) /hpf Urine RBC (Auto) 0-4 (0-4) /hpf U Hyaline Cast (Auto) 1-5 (0-5) /lpf U Epithel Cells (Auto) >30 H (0-5) /lpf Urine Bacteria (Auto) Negative (Negative) Ur Renal Epithelial Cell Not Reportable SARS-CoV-2 (PCR) (Negative) Influenza Type A (PCR) (Neg) Influenza Type B (PCR) (Neg) RSV (RT-PCR) (Neg) 05/29/23 05/29/23 Range/Units 17:02 20:45 WBC (4.8-10.8) K/ul RBC (4.20-5.40) M/uL Hgb (12.0-16.0) g/dl Hct (37.0-47.0) % MCV (80.0-100.0) fL MCH (25.0-34.0) pg MCHC (32.0-36.0) g/dL RDW Std Deviation (36.4-46.3) fL RDW Coeff of Dennis (11.5-14.5) % Plt Count (130-400) K/uL MPV (9.4-12.4) fL Immature Gran % (Auto) % Neut % (Auto) % Lymph % (Auto) % Carlton % (Auto) % Eos % (Auto) % Baso % (Auto) % Neut # (Auto) (1.40-6.50) K/uL Lymph # (Auto) (1.2-3.4) K/uL Carlton # (Auto) (0.11-0.59) K/uL Eos # (Auto) (0-0.50) K/uL Baso # (Auto) (0-0.2) K/uL Immature Gran # (Auto) (0.01-0.20) K/uL PT 38.2 H (9.0-12.0) Seconds INR 3.8 H (0.9-1.1) Sodium (136-145) mmol/L Potassium (3.5-5.1) mmol/L Chloride (98-107) mmol/L Carbon Dioxide (21-32) mmol/L Anion Gap (3-11) BUN (6-23) mg/dl Creatinine (0.6-1.2) mg/dl Est Cr Clr Drug Dosing ml/min Est GFR ( Amer) ml/min Est GFR (Non-Af Amer) ml/min BUN/Creatinine Ratio (10-20) Glucose (70-99(Fasting)) mg/dl Calcium (8.6-10.3) mg/dl Total Bilirubin (0.2-1.0) mg/dl AST (13-39) U/L ALT (7-52) U/L Alkaline Phosphatase (34-104) U/L Total Protein (6.0-8.3) gm/dl Albumin (3.4-5.0) gm/dl Globulin (2.5-4.0) gm/dl Albumin/Globulin Ratio (0.9-2) Lipase (11-82) U/L Urine Color Urine Appearance (Clear) Urine pH (4.5-7.5) Ur Specific Bridgman (1.000-1.030) Urine Protein (Negative) Urine Glucose (UA) (Negative) Urine Ketones (Negative) Urine Blood (Negative) Urine Nitrite (Negative) Urine Bilirubin (Negative) Urine Urobilinogen (Negative) Ur Leukocyte Esterase (Negative) Urine WBC (Auto) (0-5) /hpf Urine RBC (Auto) (0-4) /hpf U Hyaline Cast (Auto) (0-5) /lpf U Epithel Cells (Auto) (0-5) /lpf Urine Bacteria (Auto) (Negative) Ur Renal Epithelial Cell SARS-CoV-2 (PCR) NEGATIVE (Negative) Influenza Type A (PCR) Negative (Neg) Influenza Type B (PCR) Negative (Neg) RSV (RT-PCR) Negative (Neg) Administered Medications Calcium Carbonate (Calcium Carbonate 1250mg Tab) 1,250 mg PO BID [facility] Stop: 06/29/23 09:59 Last Admin: 05/30/23 11:04 Dose: 1,250 mg Documented By: HARPAL Clonidine HCl (Clonidine Hcl 0.1 Mg Tab) 0.1 mg PO BID [facility] Stop: 06/29/23 09:59 Last Admin: 05/30/23 11:00 Dose: 0.1 mg Documented By: HARPAL Cyanocobalamin (Cyanocobalamin (B-12) 500 Mcg Tablet) 1,000 mcg PO QAM [facility] Stop: 06/29/23 08:59 Last Admin: 05/30/23 10:59 Dose: 1,000 mcg Documented By: HARPAL Escitalopram Oxalate (Escitalopram Oxalate 10 Mg Tab) 10 mg PO DAILY [facility] Stop: 06/29/23 08:59 Last Admin: 05/30/23 07:24 Dose: 10 mg Documented By: HARPAL Piperacillin Sod/Tazobactam (Sod 4.5 gm/ Dextrose) 120 mls @ 30 mls/hr IV Q8H [facility]; Protocol Stop: 06/09/23 01:29 Last Infusion: 05/30/23 15:15 Dose: 0 mls/hr Documented By: Admin: 05/30/23 10:57 Dose: 30 mls/hr Documented By: Infusion: 05/30/23 05:06 Dose: 0 mls/hr Documented By: Admin: 05/30/23 01:06 Dose: 30 mls/hr Documented By: SMILEY Isosorbide Mononitrate (Isosorbide Carlton Extended Rel 60 Mg Tabcr) 60 mg PO [facility] Stop: 06/29/23 09:59 Last Admin: 05/30/23 11:00 Dose: 60 mg Documented By: HARPAL Metoclopramide HCl (Metoclopramide Hcl 5 Mg Tablet) 5 mg PO BID [facility] Stop: 06/29/23 09:59 Last Admin: 05/30/23 11:00 Dose: 5 mg Documented By: HARPAL Pantoprazole Sodium (Pantoprazole 40 Mg Tab) 40 mg PO [facility] Stop: 06/29/23 09:59 Last Admin: 05/30/23 11:04 Dose: 40 mg Documented By: HARPAL Vitamin D (Cholecalciferol 5,000 Units 125 Mcg Tab) 5,000 units PO [facility] Stop: 06/29/23 08:59 Last Admin: 05/30/23 11:04 Dose: 5,000 units Documented By: HARPAL Discontinued Medications Piperacillin Sod/Tazobactam Sod (Zosyn) 4.5 gm in 120 mls @ 240 mls/hr IV NOW ONE Stop: 05/29/23 20:50 Last Infusion: 05/29/23 21:11 Dose: 0 mls/hr Documented By: Admin: 05/29/23 20:27 Dose: 240 mls/hr Documented By: DIVINE Sodium Chloride (Nss 1000ml) 1,000 mls @ 80 mls/hr IV .[id number] [facility] Stop: 05/30/23 15:52 Last Infusion: 05/30/23 15:50 Dose: 0 mls/hr Documented By: Admin: 05/30/23 07:21 Dose: 125 mls/hr Documented By: Infusion: 05/30/23 05:53 Dose: 125 mls/hr Documented By: Admin: 05/29/23 21:53 Dose: 125 mls/hr Documented By: DIVINE Ioversol (Optiray 320 100ml) 92 ml IV ONCE ONE Stop: 05/29/23 18:15 Last Admin: 05/29/23 18:15 Dose: 92 ml Documented By: DALIA Lorazepam (Lorazepam 2 Mg/1 Ml Vial) 1 mg IV HS PRN PRN Reason: Anxiety/Agitation Stop: 06/28/23 21:35 Last Admin: 05/30/23 04:45 Dose: 1 mg Documented By: SMILEY Morphine Sulfate (Morphine Sulfate 4 Mg/Ml 1 Ml Carp\\Vial) 4 mg IV Q1H PRN PRN Reason: Pain Stop: 06/12/23 20:43 Last Admin: 05/29/23 21:12 Dose: 4 mg Documented By: CAW Imaging Data Radiologist's Impression: Abdomen/Pelvis CT 05/29/23 17:[address] WITH IV CONTRAST CT DOSE: 1396.04 mGy.cm HISTORY: lower abd pain TECHNIQUE: Multiaxial CT images of the abdomen and pelvis were performed following the use of intravenous contrast. A dose lowering technique was utilized adhering to the principles of ALARA. COMPARISON STUDY: Abdomen and pelvis CT 12/03/2022. FINDINGS: The lung bases are clear. No acute fractures identified. Poststernotomy changes and an aortic valve prosthesis are noted. Cholecystectomy. Hepatic steatosis. The main portal vein is patent. The pancreas, spleen, and right kidney are unremarkable. Stable left renal hypodense lesions likely representing cysts. No ureteral stones or hydronephrosis. No retroperitoneal lymphadenopathy. Calcified plaque within the normal caliber abdominal aorta. Prior hysterectomy. Normal bladder. No pelvic free fluid. Mild thickening and pericolonic fat stranding at the mid sigmoid colon with a few inflamed diverticulum consistent with acute sigmoid diverticulitis. There is a questionable 8 mm intramural abscess within the mid sigmoid colon image 258. There is also moderate thickening within a segment of adjacent ileum within the left lower quadrant with surrounding fat stranding and a few small foci of adjacent extraluminal gas and trace fluid located between this thickened loop of small bowel and sigmoid colon. The thickened loop of small bowel with adjacent extraluminal gas/fluid is likely reactive to the adjacent acute sigmoid diverticulitis. However, a focal microperforation of the thickened small bowel could also have a similar appearance and would be difficult to exclude. No dilated loops of small bowel to suggest an obstruction. No evidence for acute appendicitis. Calcified right external iliac lymph nodes again noted. IMPRESSION: 1. Mild thickening and pericolonic fat stranding at the mid sigmoid colon with a few inflamed diverticulum and a few small foci of extraluminal gas/fluid within the left lower quadrant consistent with microperforation of the acute sigmoid diverticulitis. This has progressed. There is a questionable 8 mm intramural abscess within the mid sigmoid colon as described above. 2. There is also moderate thickening within a segment of ileum within the left lower quadrant with surrounding fat stranding and a few small foci of adjacent extraluminal gas/fluid located between this thickened loop of small bowel and sigmoid colon. The thickened loop of small bowel with adjacent extraluminal gas/fluid is likely reactive to the adjacent acute sigmoid diverticulitis. However, a focal microperforation of the thickened small bowel could also have a similar appearance and would be difficult to exclude.. 3. Additional findings as described above. ACT 112: Negative or not required by law. Electronically signed by: Mohsen Bray M.D. 05/29/2023 8:16 PM Discharge Plan Visit Data Chief Complaint: Constipation Stated Complaint: FLARE UP,CHILLS,CONSTIPATION ED Provider: Lorelei Denton Discharge Problem: Abdominal pain, Diverticulitis large intestine Patient Disposition: Admitted As Inpatient Discharge Instructions Interventions: ED Discharge Assessment Last Done: 05/29/23 22:39
[2023-05-29 17:28] LABS: Albumin Globulin Ratio 1.3 (0.9-2); Albumin Level 3.9 gm/dl (3.4-5.0); BUN Creatinine Ratio 12.4 (10-20); Bilirubin,Total 1.6 mg/dl (0.2-1.0); Calcium 9.8 mg/dl (8.6-10.3); Creatinine Clr Calc Pharmacy 47.9 ml/min; Potassium 3.9 mmol/L (3.5-5.1); Total Protein 6.9 gm/dl (6.0-8.3)
[2023-05-29 17:30] LABS: Bacteria Urine Automated Negative (Negative); Bilirubin Urine Negative (Negative); Blood Urine 1+ (Negative); Color Urine Yellow; Epithelial Cell Urine Auto >30 /lpf (0-5); Glucose Urine UA Negative (Negative); Ketones Urine Negative (Negative); Leukocyte Esterase Urine Negative (Negative); Nitrite Urine Negative (Negative); Protein Urine Negative (Negative); RBC Urine Automated 0-4 /hpf (0-4); Specific Gravity Urine 1.014 (1.000-1.030); Urobilinogen Urine Negative (Negative)
[2023-05-29 17:40] LABS: Appearance Urine Slightly Cloudy (Clear)
[2023-05-29] MEDS ORDERED: OPTIRAY 320 100ml IV ONE (18:14)
--- NOTE | 2023-05-29 20:18 | CT Scan Report ---
ABDOMEN AND PELVIS CT WITH IV CONTRAST CT DOSE: 1396.04 mGy.cm HISTORY: lower abd pain TECHNIQUE: Multiaxial CT images of the abdomen and pelvis were performed following the use of intrave nous contrast. A dose lowering technique was utilized adhering to the principles of ALARA. COMPARISON STUDY: Abdomen and pelvis CT 12/03/2022. FINDINGS: The lung bases are clear. No acute fractures identified. Poststernotomy changes and an aort ic valve prosthesis are noted. Cholecystectomy. Hepatic steatosis. The main portal vein is patent. Th e pancreas, spleen, and right kidney are unremarkable. Stable left renal hypodense lesions likely rep resenting cysts. No ureteral stones or hydronephrosis. No retroperitoneal lymphadenopathy. Calcified plaque within the normal caliber abdominal aorta. Prior hysterectomy. Normal bladder. No pelvic free fluid. Mild thickening and pericolonic fat stranding at the mid sigmoid colon with a few inflamed div erticulum consistent with acute sigmoid diverticulitis. There is a questionable 8 mm intramural absce ss within the mid sigmoid colon image 258. There is also moderate thickening within a segment of obdulia cent ileum within the left lower quadrant with surrounding fat stranding and a few small foci of obdulia cent extraluminal gas and trace fluid located between this thickened loop of small bowel and sigmoid colon. The thickened loop of small bowel with adjacent extraluminal gas/fluid is likely reactive to t he adjacent acute sigmoid diverticulitis. However, a focal microperforation of the thickened small anjum wel could also have a similar appearance and would be difficult to exclude. No dilated loops of small bowel to suggest an obstruction. No evidence for acute appendicitis. Calcified right external iliac lymph nodes again noted. IMPRESSION: 1. Mild thickening and pericolonic fat stranding at the mid sigmoid colon with a few inflamed diverti culum and a few small foci of extraluminal gas/fluid within the left lower quadrant consistent with m icroperforation of the acute sigmoid diverticulitis. This has progressed. There is a questionable 8 m m intramural abscess within the mid sigmoid colon as described above. 2. There is also moderate thickening within a segment of ileum within the left lower quadrant with sommer rrounding fat stranding and a few small foci of adjacent extraluminal gas/fluid located between this thickened loop of small bowel and sigmoid colon. The thickened loop of small bowel with adjacent extr aluminal gas/fluid is likely reactive to the adjacent acute sigmoid diverticulitis. However, a focal microperforation of the thickened small bowel could also have a similar appearance and would be diffi cult to exclude.. 3. Additional findings as described above. ACT 112: Negative or not required by law. Electronically signed by: Mohsen Bray M.D. 05/29/2023 8:16 PM
[2023-05-29] MEDS ORDERED: PIPERACILLIN/TAZOBACTAM 4.5 GM/120 ML BAG IV ONE (20:21)
[2023-05-29] MEDS ORDERED: ONDANSETRON INJ 2 MG/ML 2 ML VIAL IV PRN (20:44)
[2023-05-29] MEDS ORDERED: MoRPHine SULFATE 4 MG/ML 1 ML CARP\\VIAL IV PRN (20:44)
[2023-05-29] MEDS ORDERED: LORazepam 2 MG/1 ML VIAL IV PRN (21:36)
[2023-05-29 21:41] LABS: Influenza A virus by PCR Negative (Neg); Influenza B virus by PCR Negative (Neg); RSV by PCR Negative (Neg); SARS CoV2 RNA(COVID-19) Ceph NEGATIVE (Negative)
[2023-05-29] MEDS: SODIUM CHLORIDE 0.9% 1000ML 1,000 ML IV SCH (21:53)
--- NOTE | 2023-05-29 22:04 | History & Physical Report ---
Date of Service May 29, 2023 Assessment & Plan (1) Diverticulitis: Plan: 72yo Female with PMH diverticulosis HTN asthma prosthetic valve on warfarin, depression/anxiety HLD CAD PAD GERD here for abd pain diverticulitis. Diverticulitis -CT A/P: Mild thickening and pericolonic fat stranding at the mid sigmoid colon with a few inflamed diverticulum and a few small foci of extraluminal gas/fluid within the left lower quadrant consistent with microperforation of the acute sigmoid diverticulitis. This has progressed. There is a questionable 8 mm intramural abscess within the mid sigmoid colon as described above. . There is also moderate thickening within a segment of ileum within the left lower quadrant with surrounding fat stranding and a few small foci of adjacent extraluminal gas/fluid located between this thickened loop of small bowel and sigmoid colon. The thickened loop of small bowel with adjacent extraluminal gas/fluid is likely reactive to the adjacent acute sigmoid diverticulitis. However, a focal microperforation of the thickened small bowel could also have a similar appearance and would be difficult to exclude.. -WBC 13.96 -received zosyn in ED -continue zosyn 4.5mg q6hr -continue PRN morphine for pain control -started NSS 125mls/hr total 2L -consult placed to surgery -NPO at this time -trend CBC HTN, HLD, hx. CABG, hx. mechanical valve replacement -oral amlodipine, metoprolol succinate, isosorbide mononitrate, pravastatin, aspirin on hold -ordered PRN metoprolol 5mg IV q6h for systolic BP>200 while patient in NPO -continue oral warfarin at this time -trend PT/INR Anxiety/Depression -oral alprazolam, clonidine on hold -ordered Ativan HS PRN -continue lexapro CHIQUIS -creat 1.21 -ordered NSS GERD -oral protonis, reglan on hold -ordered protonix IV Asthma -continue PRN albuterol inhaler FENa: NPO with chips and sips Code Status: DNR/intubate DVT PPX: warfarin PT/OT: ordered Dispo: PCU/Valerie Riley D.O. PGY 3, FCM (2) Hypertension: (3) Anticoagulated on Coumadin: (4) Asthma: (5) Hyperlipidemia: (6) GERD (gastroesophageal reflux disease): (7) Depression with anxiety: History of Present Illness Chief Complaint: Diverticulitis Primary Care Provider: Olman Diaz MD 72yo Female with PMH diverticulosis HTN asthma prosthetic valve on warfarin, depression/anxiety HLD CAD PAD GERD here for abd pain diverticulitis. She states yesterday started having abd pain after eating a strawberry salad, felt like her last bout of diverticulitis in March, she felt very constipated, she took her milk of magnesia which didn't help. Has some chills, tremors, SOB on exertion which have been ongoing several weeks at this time. She denies fever SOB at rest nausea vomiting diarrhea. Received IVF and morphine in the ED which helped her pain. Discussed with patient regarding code status, patient states if her heart stops let her pass, does not want CPR, however she is ok with intubation. No official power of attourney, however in case she in incapacitated would like daughter Odalys to speak on her behalf. Allergies Allergy/AdvReac Type Severity Reaction Status Date / Time rosuvastatin [From Crestor] Allergy Intermediate myalgia Verified 05/29/23 19:25 sertraline [From Zoloft] Allergy Intermediate burn Verified 05/29/23 19:25 sensation on skin on arms lovastatin Allergy Mild rash Verified 05/29/23 19:25 bupropion [From Wellbutrin] AdvReac Intermediate insomnia Verified 05/29/23 19:25 and tremors dicyclomine AdvReac Intermediate N/V Verified 05/29/23 19:25 codeine AdvReac Mild NAUSEA & Verified 05/29/23 19:25 PAIN ezetimibe [From Zetia] AdvReac Mild Gastrointestinal Verified 05/29/23 19:25 Upset methadone AdvReac Mild GI UPSET(?) Verified 05/29/23 19:25 niacin AdvReac Mild Gastrointestinal Verified 05/29/23 19:25 [From Niaspan Upset Extended-Release] paroxetine [From Paxil] AdvReac Mild Gastrointestinal Verified 05/29/23 19:25 Upset propoxyphene AdvReac Mild NAUSEA & Verified 05/29/23 19:25 PAIN simvastatin [From Zocor] AdvReac Mild Gastrointestinal Verified 05/29/23 19:25 Upset HMG-CoA-R Inhibitors AdvReac Mild STATIN Uncoded 05/29/23 19:25 INTOLERANCE - GI UPSET Home Medications Medication Instructions Recorded Confirmed Type cholecalciferol (vitamin D3) 25 5,000 units PO QAM 09/05/19 05/29/23 History mcg (1,000 unit) capsule albuterol sulfate 90 mcg/actuation 2 puff inhalation QID PRN 07/18/21 05/29/23 Rx aerosol inhaler (ProAir HFA) shortness of breath #8.5 grams zoledronic acid 5 mg/100 mL in 5 mg IV .COMPLEX #100 mL 12/17/21 05/27/23 Rx mannitol 5 %-water intravenous piggybck clonidine HCl 0.1 mg tablet 0.1 mg PO BID #180 tabs 07/14/22 05/29/23 Rx aspirin 81 mg tablet,delayed 81 mg PO HS 09/24/22 05/29/23 History release (Harvey Low Dose Aspirin) metoclopramide HCl 5 mg tablet 5 mg PO BID #180 tabs 10/05/22 05/29/23 Rx nystatin 100,000 unit/gram topical 1 applic topical BID PRN 12/02/22 05/29/23 Rx powder Candidiasis #60 grams calcium carbonate 600 mg calcium 600 mg PO BID 02/24/23 05/29/23 History (1,500 mg) tablet (Calcium) cyanocobalamin (vitamin B-12) 1,000 mcg PO QAM 02/24/23 05/29/23 History 1,000 mcg capsule isosorbide mononitrate 60 mg 60 mg PO QAM 02/24/23 05/29/23 History tablet,extended release 24 hr pravastatin 80 mg tablet 80 mg PO HS 02/24/23 05/29/23 History alprazolam 0.25 mg tablet 0.5 mg PO HS #180 tabs 03/08/23 05/29/23 Rx amlodipine 5 mg tablet 5 mg PO HS #90 tabs 03/08/23 05/29/23 Rx pantoprazole 40 mg tablet,delayed 40 mg PO QAM gerd #90 tabs 03/08/23 05/29/23 Rx release (Protonix) metoprolol succinate 100 mg 100 mg PO HS #90 tabs 04/05/23 05/29/23 Rx tablet,extended release 24 hr escitalopram oxalate 10 mg tablet 10 mg PO DAILY #90 tabs 05/25/23 05/29/23 Rx (Lexapro) warfarin 2.5 mg tablet 2.5 mg PO .WED/WED//Wed05/29/23 05/29/23 History warfarin 5 mg tablet 5 mg PO .SUN/TU/SAT 05/29/23 05/29/23 History Past Med/Surg History Medical History Adenoma of right adrenal gland Allergic rhinitis Anticoagulated on Coumadin Asthma inhaler prn CAD (coronary artery disease) Depression with anxiety Diverticulosis Essential hematuria pt denies at present time Exertional chest pain hx of; pt states she no longer experiences this Hyperlipidemia Hypertension Internal hemorrhoids Myocardial Infarction x2--06/12/08 and 08/06--follows with Dr. Milner Occlusion of right internal carotid artery Osteoporosis with fracture PAD (peripheral artery disease) Plantar fasciitis Positional vertigo Prediabetes Tremor of right hand Urinary incontinence Vitamin D deficiency Xerostomia Surgical History H/O section History of aortic valve replacement with metallic valve 2000 History of appendectomy History of cardiac cath x2--05/2008 and 07/2008 History of colonoscopy History of esophagogastroduodenoscopy (EGD) History of heart artery stent x1 2007 History of hysterectomy with bilateral oophorectomy History of wisdom tooth extraction Hx of cholecystectomy S/P CABG (coronary artery bypass graft) [place]" [place] [facility] [place] Family History Mother Alzheimer disease Dementia Osteoarthritis Father Coronary heart disease Heart disease Myocardial infarction Lung cancer Colorectal cancer Grandmother (Paternal) Diabetes Other No family history of adverse response to anesthesia Denies family history of Rheumatoid arthritis Sudden SIDS (sudden syndrome) Ovarian cancer Prostate cancer Deep vein thrombosis Osteoporosis Dyslipidemia Cerebral aneurysm Bipolar disorder Clotting disorder Crohn's disease Depression Kidney disease Breast cancer Schizophrenia Congenital kidney disease Gestational diabetes COPD (chronic obstructive pulmonary disease) Pulmonary embolism Lung disease Hypertension Ulcerative colitis Colonic polyp Stroke Asthma Cystic kidney disease Social History Smoking Status: Never smoker Tobacco Type: Cigarettes Age Started Using Tobacco: 16; Second Hand Exposure: No; Do You Dip or Chew Tobacco: No; Hx Alcohol Use: No Hx Substance Use: No Preferred Language: Bulgarian Communication Ability: Effective Visual Impairment: No Limitations Hearing Ability: Normal 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: No Beliefs That Will Affect Care: None marital status: / Current Living Situation: Alone current occupational status: retired 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 [employer] [facility] How many Children do You have: 1 Feels Safe at Home: Yes Childhood Exposure to Second-Hand Smoke: No Diet: regular caffeine: Yes during the past year weight has: remained stable Dental Care, Regularly: No Physical Activity Frequency: Does not Exercise Seatbelt Use: always Sunscreen Use: Yes Assistive Devices: Glasses Physical Exam Constitutional: well developed, well nourished, cooperative and comfortable Eyes: PERRL, conjunctivae normal, anicteric sclerae ENMT: external ear and nose normal, oropharynx normal Neck: trachea midline, no thyromegaly Respiratory: normal respiratory effort, lungs clear to auscultation Cardiovascular: Rate/Rhythm: regular rate and regular rhythm Heart Sounds: + murmur (systolic) Extremities: no edema Gastrointestinal (Abdomen): Inspection/Auscultation: abdomen normal to inspection Percussion/Palpation: + abdomen tender (on RUQ, diffuse tenderness throughout) and abdomen soft Skin: no rashes, warm and dry Results & Data Results & Data Vital Signs (Past 12 Hours) Vital Signs Temp Pulse Pulse Resp BP BP Pulse Ox 05/29/23 19:56 36.8 C 72 18 142/72 H 98 05/29/23 17:30 69 22 147/65 H 95 05/29/23 17:41 70 05/29/23 16:49 36.9 C 76 16 161/83 H 93 O2 Del Method 05/29/23 19:56 Room Air 05/29/23 17:30 05/29/23 17:41 05/29/23 16:49 Room Air Resident Activity Tracking Resident Involvement: Resident Care Provided Care Provided: Adult Hospital Medicine
[2023-05-29] MEDS ORDERED: METOPROLOL TARTRATE 1 MG/ML VIAL IV PRN (22:47)
[2023-05-29] MEDS ORDERED: ALBUTEROL HFA 8 GM INHALER INH PRN (22:47)
[2023-05-30 00:48] LABS: INR 3.8 (0.9-1.1); Prothrombin Time 38.2 Seconds (9.0-12.0)
[2023-05-30] MEDS: PIPERACILLIN/TAZOBACTAM 4.5 GM in DEXTROSE 5% 100 ML IV SCH ×3 (01:06→17:52)
[2023-05-30 06:13] LABS: Hematocrit (blood only) 40.7 % (37.0-47.0); Hemoglobin 13.7 g/dl (12.0-16.0); Mean Corpuscular Hemoglobin 30.2 pg (25.0-34.0); Mean Corpuscular Hgb Conc 33.7 g/dL (32.0-36.0); Mean Corpuscular Volume 89.6 fL (80.0-100.0); Platelet Count 190 K/uL (130-400); RDW Coefficient of Variation 12.6 % (11.5-14.5); RDW Standard Deviation 41.3 fL (36.4-46.3); Red Blood Count 4.54 M/uL (4.20-5.40); White Blood Count 12.43 K/ul (4.8-10.8)
[2023-05-30 06:24] LABS: Calcium 8.8 mg/dl (8.6-10.3); Creatinine Clr Calc Pharmacy 54.2 ml/min; Est GFR (African American) 58.6 ml/min; Est GFR (Non-African American) 50.5 ml/min; Potassium 3.9 mmol/L (3.5-5.1)
[2023-05-30 06:36] LABS: INR 2.7 (0.9-1.1); Prothrombin Time 27.5 Seconds (9.0-12.0)
[2023-05-30] MEDS: SODIUM CHLORIDE 0.9% 1000ML 1,000 ML IV SCH (07:21)
[2023-05-30] MEDS: ESCITALOPRAM OXALATE 10 MG TAB PO SCH (07:24)
[2023-05-30] MEDS ORDERED: NYSTATIN POWDER 15GM BTL EXT PRN (09:57)
[2023-05-30] MEDS ORDERED: MoRPHine SULFATE 2 MG/ML CARP IV PRN (10:10)
[2023-05-30] MEDS: CYANOCOBALAMIN (B-12) 500 MCG TABLET PO SCH (10:59)
[2023-05-30] MEDS: cloNIDine HCL 0.1 MG TAB PO SCH ×2 (11:00→19:42)
[2023-05-30] MEDS ORDERED: PANTOprazole 40 MG in SYRINGE 0 ML IV SCH (11:00)
[2023-05-30] MEDS: ISOSORBIDE MONO EXTENDED REL 60 MG TABCR PO SCH (11:00)
[2023-05-30] MEDS: METOCLOPRAMIDE HCL 5 MG TABLET PO SCH ×2 (11:00→19:41)
[2023-05-30] MEDS: CALCIUM CARBONATE 1250MG TAB PO SCH ×2 (11:04→19:41)
[2023-05-30] MEDS: CHOLECALCIFEROL 5,000 UNITS 125 MCG TAB PO SCH (11:04)
[2023-05-30] MEDS: PANTOprazole 40 MG TAB PO SCH (11:04)
--- NOTE | 2023-05-30 11:10 | Surgery Consultation ---
Date of Consultation May 30, 2023 Assessment & Plan (1) Diverticulitis: with microperforation and small abscess. Pain is already improving on IV abx but remains quite tender on exam. Discussed importance of IV antibiotics for 48-72 hrs given severity of her disease. Explained the need for bowel rest today given her tenderness on exam. If continues to improve, can start clears tomorrow. Reviewed that if she worsens or does not improve, repeat CT could be needed to assess for drainable abscess. Possibility of surgery with ostomy also reviewed. Agree with bowel rest, IVF hydration, IV antibiotics. Will follow. Total time spent reviewing history, seeing/ examining patient and writing note is 34 minutes. (2) Anticoagulated on Coumadin: History of Present Illness Reason for Consultation: diverticulitis with microperforation Requesting Physician: Marcelo Garnett MD Attending Physician: Marcelo Garnett MD History of Present Illness 72-year-old woman with a history of coronary artery disease who was admitted with acute sigmoid diverticulitis with microperforation. Her symptoms began on Wednesday when she felt constipated. She took milk of magnesia and then had multiple stools. She notes over 8 stools following this. The stool was quite watery in consistency. She developed crampy lower abdominal pain. This was relieved by passing gas. The pain continued to increase in intensity. She denied any fevers or chills. She did note mild nausea but no vomiting. The pain subsequently became excruciating and was 10 out of 10 in severity. This caused her to come to the emergency room where a CT scan was done with findings of acute sigmoid diverticulitis with microperforation. She had an episode of diverticulitis in November of this year which was treated as an outpatient with ciprofloxacin and Flagyl. She had a colonoscopy in January or February of this year which showed diverticulosis as well as a precancerous polyp which was removed. 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 The pain is worse if she tries to move around in the bed or bends. She is on coumadin for a mechanical valve. S/p triple bypass surgery in 2000. s/p LIA/ BSO in the past. Allergies Allergy/AdvReac Type Severity Reaction Status Date / Time rosuvastatin [From Crestor] Allergy Intermediate myalgia Verified 05/29/23 19:25 sertraline [From Zoloft] Allergy Intermediate burn Verified 05/29/23 19:25 sensation on skin on arms lovastatin Allergy Mild rash Verified 05/29/23 19:25 bupropion [From Wellbutrin] AdvReac Intermediate insomnia Verified 05/29/23 19:25 and tremors dicyclomine AdvReac Intermediate N/V Verified 05/29/23 19:25 codeine AdvReac Mild NAUSEA & Verified 05/29/23 19:25 PAIN ezetimibe [From Zetia] AdvReac Mild Gastrointestinal Verified 05/29/23 19:25 Upset methadone AdvReac Mild GI UPSET(?) Verified 05/29/23 19:25 niacin AdvReac Mild Gastrointestinal Verified 05/29/23 19:25 [From Niaspan Upset Extended-Release] paroxetine [From Paxil] AdvReac Mild Gastrointestinal Verified 05/29/23 19:25 Upset propoxyphene AdvReac Mild NAUSEA & Verified 05/29/23 19:25 PAIN simvastatin [From Zocor] AdvReac Mild Gastrointestinal Verified 05/29/23 19:25 Upset [id number] Reductase AdvReac Mild STATIN Verified 05/29/23 22:47 Inhibitor INTOLERANCE - GI UPSET Home Medications Medication Instructions Recorded Confirmed Type cholecalciferol (vitamin D3) 25 5,000 units PO QAM 09/05/19 05/29/23 History mcg (1,000 unit) capsule albuterol sulfate 90 mcg/actuation 2 puff inhalation QID PRN 07/18/21 05/29/23 Rx aerosol inhaler (ProAir HFA) shortness of breath #8.5 grams zoledronic acid 5 mg/100 mL in 5 mg IV .COMPLEX #100 mL 12/17/21 05/27/23 Rx mannitol 5 %-water intravenous piggybck clonidine HCl 0.1 mg tablet 0.1 mg PO BID #180 tabs 07/14/22 05/29/23 Rx aspirin 81 mg tablet,delayed 81 mg PO HS 09/24/22 05/29/23 History release (Harvey Low Dose Aspirin) metoclopramide HCl 5 mg tablet 5 mg PO BID #180 tabs 10/05/22 05/29/23 Rx nystatin 100,000 unit/gram topical 1 applic topical BID PRN 12/02/22 05/29/23 Rx powder Candidiasis #60 grams calcium carbonate 600 mg calcium 600 mg PO BID 02/24/23 05/29/23 History (1,500 mg) tablet (Calcium) cyanocobalamin (vitamin B-12) 1,000 mcg PO QAM 02/24/23 05/29/23 History 1,000 mcg capsule isosorbide mononitrate 60 mg 60 mg PO QAM 02/24/23 05/29/23 History tablet,extended release 24 hr pravastatin 80 mg tablet 80 mg PO HS 02/24/23 05/29/23 History alprazolam 0.25 mg tablet 0.5 mg PO HS #180 tabs 03/08/23 05/29/23 Rx amlodipine 5 mg tablet 5 mg PO HS #90 tabs 03/08/23 05/29/23 Rx pantoprazole 40 mg tablet,delayed 40 mg PO QAM gerd #90 tabs 03/08/23 05/29/23 Rx release (Protonix) metoprolol succinate 100 mg 100 mg PO HS #90 tabs 04/05/23 05/29/23 Rx tablet,extended release 24 hr escitalopram oxalate 10 mg tablet 10 mg PO DAILY #90 tabs 05/25/23 05/29/23 Rx (Lexapro) warfarin 2.5 mg tablet 2.5 mg PO .WED/WED//Wed05/29/23 05/29/23 History warfarin 5 mg tablet 5 mg PO .SUN/TUES/SAT 05/29/23 05/29/23 History Patient History Medical History Adenoma of right adrenal gland Allergic rhinitis Anticoagulated on Coumadin Asthma inhaler prn CAD (coronary artery disease) Depression with anxiety Diverticulosis Essential hematuria pt denies at present time Exertional chest pain hx of; pt states she no longer experiences this Hyperlipidemia Hypertension Internal hemorrhoids Myocardial Infarction x2--06/12/08 and 08/06--follows with Dr. Milner Occlusion of right internal carotid artery Osteoporosis with fracture PAD (peripheral artery disease) Plantar fasciitis Positional vertigo Prediabetes Tremor of right hand Urinary incontinence Vitamin D deficiency Xerostomia Surgical History H/O section History of aortic valve replacement with metallic valve 2000 History of appendectomy History of cardiac cath x2--05/2008 and 07/2008 History of colonoscopy History of esophagogastroduodenoscopy (EGD) History of heart artery stent x1 2007 History of hysterectomy with bilateral oophorectomy History of wisdom tooth extraction Hx of cholecystectomy S/P CABG (coronary artery bypass graft) 2000-per pt "triple bypass" @ [facility] [place] S/P tonsillectomy Family History Mother Alzheimer disease Dementia Osteoarthritis Father Coronary heart disease Heart disease Myocardial infarction age 72 Lung cancer Colorectal cancer Grandmother (Paternal) Diabetes Other No family history of adverse response to anesthesia Denies family history of Rheumatoid arthritis Sudden SIDS (sudden infant syndrome) Ovarian cancer Prostate cancer Deep vein thrombosis Osteoporosis Dyslipidemia Cerebral aneurysm Bipolar disorder Clotting disorder Crohn's disease Depression Kidney disease Breast cancer Schizophrenia Congenital kidney disease Gestational diabetes COPD (chronic obstructive pulmonary disease) Pulmonary embolism Lung disease Hypertension Ulcerative colitis Colonic polyp Stroke Asthma Cystic kidney disease Social History Smoking Status: Former smoker Tobacco Type: Cigarettes Age Started Using Tobacco: 16; Second Hand Exposure: Yes; Do You Dip or Chew Tobacco: No; Tobacco Cessation Education Requested by Patient: No Hx Alcohol Use: No Hx Substance Use: No Preferred Language: Tajik Communication Ability: Effective Visual Impairment: No Limitations Hearing Ability: Normal Tobacco Sprayer Required: No Beliefs That Will Affect Care: None marital status: / Current Living Situation: Alone current occupational status: retired 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 [email or web address] [facility] [[email or web address]] How many Children do You have: 1 Other Information That Helps Us Care for You: No Feels Safe at Home: No Is there a partner from a previous relationship who is making you feel unsafe now?: No Would You Like to Speak to Someone About Your Situation: No (pt stated she is going to talk to a counciler) Safety Concerns: Afraid for Self Childhood Exposure to Second-Hand Smoke: No Diet: regular caffeine: Yes during the past year weight has: remained stable Dental Care, Regularly: No Physical Activity Frequency: Does not Exercise Seatbelt Use: always Sunscreen Use: Yes Assistive Devices: Glasses Review of Systems Review of Systems: All systems reviewed & are unremarkable except as noted in HPI & below Physical Exam Constitutional: WD/WN, vitals as above Eyes: PERRL, conjunctivae normal, anicteric sclerae ENMT: Ears: no hearing impairment and no external ear abnormality Neck: normal visual inspection and trachea midline Respiratory: normal respiratory effort, lungs clear to auscultation Cardiovascular: Rate/Rhythm: regular rate and regular rhythm Heart Sounds: + murmur (systolic) Gastrointestinal (Abdomen): Inspection/Auscultation: abdomen normal to inspection and normal bowel sounds; abdomen not distended Percussion/Palpation: + abdomen tender (diffusely), + guarding (in lower abdomen) and abdomen soft Results & Data Vital Signs (Past 12 Hours) Vital Signs Temp Pulse Pulse Resp BP Pulse Ox O2 Del Method 05/30/23 07:21 36.6 C 86 16 148/83 H 92 Room Air 05/30/23 07:00 82 05/30/23 04:00 37 C 80 16 108/58 L 93 Room Air 05/30/23 00:00 36.6 C 77 16 152/80 H 96 Room Air 05/29/23 23:26 93 H Laboratory Results 05/30/23 05/30/23 05/30/23 Range/Units 05:32 05:32 05:32 WBC 12.43 H (4.8-10.8) K/ul RBC 4.54 (4.20-5.40) M/uL Hgb 13.7 (12.0-16.0) g/dl Hct 40.7 (37.0-47.0) % MCV 89.6 (80.0-100.0) fL MCH 30.2 (25.0-34.0) pg MCHC 33.7 (32.0-36.0) g/dL RDW Std Deviation 41.3 (36.4-46.3) fL RDW Coeff of [place] 12.6 (11.5-14.5) % Plt Count 190 (130-400) K/uL MPV 10.0 (9.4-12.4) fL Immature Gran % (Auto) % Neut % (Auto) % Lymph % (Auto) % [place] % (Auto) % Eos % (Auto) % Baso % (Auto) % Neut # (Auto) (1.40-6.50) K/uL Lymph # (Auto) (1.2-3.4) K/uL [place] # (Auto) (0.11-0.59) K/uL Eos # (Auto) (0-0.50) K/uL Baso # (Auto) (0-0.2) K/uL Immature Gran # (Auto) (0.01-0.20) K/uL PT 27.5 H (9.0-12.0) Seconds INR 2.7 H (0.9-1.1) Sodium 136 (136-145) mmol/L Potassium 3.9 (3.5-5.1) mmol/L Chloride 105 (98-107) mmol/L Carbon Dioxide 25 (21-32) mmol/L Anion Gap 6 (3-11) BUN 14 (6-23) mg/dl Creatinine 1.08 (0.6-1.2) mg/dl Est Cr Clr Drug Dosing 54.2 ml/min Est GFR ( Amer) 58.6 ml/min Est GFR (Non-Af Amer) 50.5 ml/min BUN/Creatinine Ratio 13.0 (10-20) Glucose 129 H (70-99(Fasting)) mg/dl Calcium 8.8 (8.6-10.3) mg/dl Total Bilirubin (0.2-1.0) mg/dl AST (13-39) U/L ALT (7-52) U/L Alkaline Phosphatase (34-104) U/L Total Protein (6.0-8.3) gm/dl Albumin (3.4-5.0) gm/dl Globulin (2.5-4.0) gm/dl Albumin/Globulin Ratio (0.9-2) Lipase (11-82) U/L Urine Color Urine Appearance (Clear) Urine pH (4.5-7.5) Ur Specific [place] (1.000-1.030) Urine Protein (Negative) Urine Glucose (UA) (Negative) Urine Ketones (Negative) Urine Blood (Negative) Urine Nitrite (Negative) Urine Bilirubin (Negative) Urine Urobilinogen (Negative) Ur Leukocyte Esterase (Negative) Urine WBC (Auto) (0-5) /hpf Urine RBC (Auto) (0-4) /hpf U Hyaline Cast (Auto) (0-5) /lpf U Epithel Cells (Auto) (0-5) /lpf Urine Bacteria (Auto) (Negative) Ur Renal Epithelial Cell SARS-CoV-2 (PCR) (Negative) Influenza Type A (PCR) (Neg) Influenza Type B (PCR) (Neg) RSV (RT-PCR) (Neg) 05/29/23 05/29/23 05/29/23 Range/Units 20:45 17:02 16:55 WBC (4.8-10.8) K/ul RBC (4.20-5.40) M/uL Hgb (12.0-16.0) g/dl Hct (37.0-47.0) % MCV (80.0-100.0) fL MCH (25.0-34.0) pg MCHC (32.0-36.0) g/dL RDW Std Deviation (36.4-46.3) fL RDW Coeff of [place] (11.5-14.5) % Plt Count (130-400) K/uL MPV (9.4-12.4) fL Immature Gran % (Auto) % Neut % (Auto) % Lymph % (Auto) % [place] % (Auto) % Eos % (Auto) % Baso % (Auto) % Neut # (Auto) (1.40-6.50) K/uL Lymph # (Auto) (1.2-3.4) K/uL [place] # (Auto) (0.11-0.59) K/uL Eos # (Auto) (0-0.50) K/uL Baso # (Auto) (0-0.2) K/uL Immature Gran # (Auto) (0.01-0.20) K/uL PT 38.2 H (9.0-12.0) Seconds INR 3.8 H (0.9-1.1) Sodium (136-145) mmol/L Potassium (3.5-5.1) mmol/L Chloride (98-107) mmol/L Carbon Dioxide (21-32) mmol/L Anion Gap (3-11) BUN (6-23) mg/dl Creatinine (0.6-1.2) mg/dl Est Cr Clr Drug Dosing ml/min Est GFR ( Amer) ml/min Est GFR (Non-Af Amer) ml/min BUN/Creatinine Ratio (10-20) Glucose (70-99(Fasting)) mg/dl Calcium (8.6-10.3) mg/dl Total Bilirubin (0.2-1.0) mg/dl AST (13-39) U/L ALT (7-52) U/L Alkaline Phosphatase (34-104) U/L Total Protein (6.0-8.3) gm/dl Albumin (3.4-5.0) gm/dl Globulin (2.5-4.0) gm/dl Albumin/Globulin Ratio (0.9-2) Lipase (11-82) U/L Urine Color Yellow Urine Appearance Slightly Cloudy A (Clear) Urine pH 7.0 (4.5-7.5) Ur Specific [place] 1.014 (1.000-1.030) Urine Protein Negative (Negative) Urine Glucose (UA) Negative (Negative) Urine Ketones Negative (Negative) Urine Blood 1+ H (Negative) Urine Nitrite Negative (Negative) Urine Bilirubin Negative (Negative) Urine Urobilinogen Negative (Negative) Ur Leukocyte Esterase Negative (Negative) Urine WBC (Auto) 5-10 H (0-5) /hpf Urine RBC (Auto) 0-4 (0-4) /hpf U Hyaline Cast (Auto) 1-5 (0-5) /lpf U Epithel Cells (Auto) >30 H (0-5) /lpf Urine Bacteria (Auto) Negative (Negative) Ur Renal Epithelial Cell Not Reportable SARS-CoV-2 (PCR) NEGATIVE (Negative) Influenza Type A (PCR) Negative (Neg) Influenza Type B (PCR) Negative (Neg) RSV (RT-PCR) Negative (Neg) 05/29/23 05/29/23 Range/Units 16:55 16:55 WBC 13.96 H (4.8-10.8) K/ul RBC 4.93 (4.20-5.40) M/uL Hgb 15.0 (12.0-16.0) g/dl Hct 43.9 (37.0-47.0) % MCV 89.0 (80.0-100.0) fL MCH 30.4 (25.0-34.0) pg MCHC 34.2 (32.0-36.0) g/dL RDW Std Deviation 40.5 (36.4-46.3) fL RDW Coeff of [place] 12.5 (11.5-14.5) % Plt Count 243 (130-400) K/uL MPV 9.7 (9.4-12.4) fL Immature Gran % (Auto) 0.6 % Neut % (Auto) 83.9 % Lymph % (Auto) 8.9 % [place] % (Auto) 6.3 % Eos % (Auto) 0.1 % Baso % (Auto) 0.2 % Neut # (Auto) 11.71 H (1.40-6.50) K/uL Lymph # (Auto) 1.24 (1.2-3.4) K/uL [place] # (Auto) 0.88 H (0.11-0.59) K/uL Eos # (Auto) 0.01 (0-0.50) K/uL Baso # (Auto) 0.03 (0-0.2) K/uL Immature Gran # (Auto) 0.09 (0.01-0.20) K/uL PT (9.0-12.0) Seconds INR (0.9-1.1) Sodium 136 (136-145) mmol/L Potassium 3.9 (3.5-5.1) mmol/L Chloride 102 (98-107) mmol/L Carbon Dioxide 28 (21-32) mmol/L Anion Gap 6 (3-11) BUN 15 (6-23) mg/dl Creatinine 1.21 H (0.6-1.2) mg/dl Est Cr Clr Drug Dosing 47.9 ml/min Est GFR ( Amer) 51.0 ml/min Est GFR (Non-Af Amer) 44.0 ml/min BUN/Creatinine Ratio 12.4 (10-20) Glucose 124 H (70-99(Fasting)) mg/dl Calcium 9.8 (8.6-10.3) mg/dl Total Bilirubin 1.6 H (0.2-1.0) mg/dl AST 15 (13-39) U/L ALT 14 (7-52) U/L Alkaline Phosphatase 56 (34-104) U/L Total Protein 6.9 (6.0-8.3) gm/dl Albumin 3.9 (3.4-5.0) gm/dl Globulin 3.0 (2.5-4.0) gm/dl Albumin/Globulin Ratio 1.3 (0.9-2) Lipase 19 (11-82) U/L Urine Color Urine Appearance (Clear) Urine pH (4.5-7.5) Ur Specific [place] (1.000-1.030) Urine Protein (Negative) Urine Glucose (UA) (Negative) Urine Ketones (Negative) Urine Blood (Negative) Urine Nitrite (Negative) Urine Bilirubin (Negative) Urine Urobilinogen (Negative) Ur Leukocyte Esterase (Negative) Urine WBC (Auto) (0-5) /hpf Urine RBC (Auto) (0-4) /hpf U Hyaline Cast (Auto) (0-5) /lpf U Epithel Cells (Auto) (0-5) /lpf Urine Bacteria (Auto) (Negative) Ur Renal Epithelial Cell SARS-CoV-2 (PCR) (Negative) Influenza Type A (PCR) (Neg) Influenza Type B (PCR) (Neg) RSV (RT-PCR) (Neg) Diagnostic Findings Stable small bilateral adrenal gland nodules. These favor benign adenomas. Electronically signed by: Mohsen Bray M.D. 05/29/2023 8:28 PM ADDENDUM END ABDOMEN AND PELVIS CT WITH IV CONTRAST CT DOSE: 1396.04 mGy.cm HISTORY: lower abd pain TECHNIQUE: Multiaxial CT images of the abdomen and pelvis were performed following the use of intravenous contrast. A dose lowering technique was utilized adhering to the principles of ALARA. COMPARISON STUDY: Abdomen and pelvis CT 12/03/2022. FINDINGS: The lung bases are clear. No acute fractures identified. Poststernotomy changes and an aortic valve prosthesis are noted. Cholecystectomy. Hepatic steatosis. The main portal vein is patent. The pancreas, spleen, and right kidney are unremarkable. Stable left renal hypodense lesions likely representing cysts. No ureteral stones or hydronephrosis. No retroperitoneal lymphadenopathy. Calcified plaque within the normal caliber abdominal aorta. Prior hysterectomy. Normal bladder. No pelvic free fluid. Mild thickening and pericolonic fat stranding at the mid sigmoid colon with a few inflamed diverticulum consistent with acute sigmoid diverticulitis. There is a questionable 8 mm intramural abscess within the mid sigmoid colon image 258. There is also moderate thickening within a segment of adjacent ileum within the left lower quadrant with surrounding fat stranding and a few small foci of adjacent extraluminal gas and trace fluid located between this thickened loop of small bowel and sigmoid colon. The thickened loop of small bowel with adjacent extraluminal gas/fluid is likely reactive to the adjacent acute sigmoid diverticulitis. However, a focal microperforation of the thickened small bowel could also have a similar appearance and would be difficult to exclude. No dilated loops of small bowel to suggest an obstruction. No evidence for acute appendicitis. Calcified right external iliac lymph nodes again noted. IMPRESSION: 1. Mild thickening and pericolonic fat stranding at the mid sigmoid colon with a few inflamed diverticulum and a few small foci of extraluminal gas/fluid within the left lower quadrant consistent with microperforation of the acute sigmoid diverticulitis. This has progressed. There is a questionable 8 mm intramural abscess within the mid sigmoid colon as described above. 2. There is also moderate thickening within a segment of ileum within the left lower quadrant with surrounding fat stranding and a few small foci of adjacent extraluminal gas/fluid located between this thickened loop of small bowel and sigmoid colon. The thickened loop of small bowel with adjacent extraluminal gas/fluid is likely reactive to the adjacent acute sigmoid diverticulitis. However, a focal microperforation of the thickened small bowel could also have a similar appearance and would be difficult to exclude.. 3. Additional findings as described above.
--- NOTE | 2023-05-30 14:36 | Hospitalist Progress Note ---
Date of Service May 30, 2023 Assessment & Plan (1) Diverticulitis: Plan: Sigmoid colon with microperforation. Clear liquids only for now. Continue intravenous Zosyn. Appreciate surgery consultation and recommendations. Serial labs (2) Anticoagulated on Coumadin: Plan: Monitor INR daily. She has a mechanical aortic valve. INR should stay between 2.5 and 3.5 (3) Asthma: Plan: Stable. Hand-held nebulizer treatments as (4) CAD (coronary artery disease): Plan: Stable. Continue current medications (5) History of aortic valve replacement with metallic valve: Plan: Stable. Continue Coumadin therapy (6) Hyperlipidemia: Plan: Stable. Continue statin therapy Plan Anticipate eventual discharge back to home Admission and Anticipated Discharge Date Admission Date: May 29, 2023 Subjective Alert and oriented. No new problems. She remains on intravenous Zosyn for now. IV fluids have been tapered down. She will be allowed clear liquids along with her medications. Appreciate surgery consultation and recommendations Review of Systems Review of Systems: Constitutional-no fever or chills ENT-no blurred vision, no double vision, no epistaxis, no sore throat Respiratory-no cough, no wheezing, no shortness of breath Cardiac-no palpitations, no chest pain, no syncope GI-mild left lower quadrant tenderness. No nausea or vomiting -no urinary retention, no urinary incontinence, no dysuria, no hematuria Musculoskeletal-no joint pain, no muscle tenderness Skin-no bruising, no rashes, no pruritus Neuro-no isolated weakness, no paresthesia, no weakness Psych-no depression, no anxiety Physical Exam Physical Exam: General-alert and oriented x3, no fevers, no chills HEENT-head atraumatic and normocephalic, pupils equal and reactive to light, extraocular muscles intact Neck-no lymphadenopathy or thyromegaly, trachea midline Chest-clear to auscultation percussion. No rales wheezing or rhonchi Cardiac-regular rate and rhythm, normal S1 and S2 Abdomen-normal bowel sounds, no hepatosplenomegaly. Mild left lower quadrant tenderness. No rebound or guarding Extremities-no cyanosis, clubbing, or edema Neuro-cranial nerves II through XII intact, motor and sensory function within normal limits, strength symmetrical , no focal deficits Psych-normal affect, normal mood Results & Data Results & Data Vital Signs (Past 12 Hours) Vital Signs Temp Pulse Pulse Resp BP Pulse Ox O2 Del Method 05/30/23 11:27 37.0 C 97 H 18 140/83 94 Room Air 05/30/23 07:21 36.6 C 86 16 148/83 H 92 Room Air 05/30/23 07:00 82 05/30/23 04:00 37 C 80 16 108/58 L 93 Room Air Laboratory Results 05/30/23 05:32 05/30/23 05:32 PG Care Time/CCT Total # of Minutes Spent Total Time Spent with Patient: Total time spent is greater than 50% in coordination of care (as documented) at patient's floor/unit and/or counseling patient: Coding Level of Care Code 01737 SUB INP/OBS CARE 350MIN Diagnoses Diverticulitis K57.92 Anticoagulated on Coumadin Z79.01 Asthma J45.909 CAD (coronary artery disease) I25.119 Associated angina: with unspecified form of angina Coronary Disease-Associated Artery/Lesion type: unspecified vessel or lesion type [place] vs. transplanted heart: [place] heart History of aortic valve replacement with metallic valve Z95.4 Hyperlipidemia E78.5 (4) CAD (coronary artery disease) Associated angina: with unspecified form of angina Coronary Disease- Associated Artery/Lesion type: unspecified vessel or lesion type [place] vs. transplanted heart: [place] heart Qualified Code(s): I25.119 - Atherosclerotic heart disease of [place] coronary artery with unspecified angina pectoris
[2023-05-30] MEDS ORDERED: WARFARIN SOD 5 MG TAB PO SCH (16:00)
[2023-05-30] MEDS: METOPROLOL SUCC 50MG EXT REL TAB PO SCH (19:41)
[2023-05-30] MEDS: amLODIPine BESYLATE 5 MG TAB PO SCH (19:41)
[2023-05-30] MEDS: ASPIRIN 81 MG ECTAB PO SCH (19:41)
[2023-05-30] MEDS: PRAVASTATIN SOD 40 MG TAB PO SCH (19:42)
[2023-05-30] MEDS: ALPRAZolam 0.5 MG TABLET PO SCH (21:19)
[2023-05-30] MEDS ORDERED: LORazepam 2 MG/1 ML VIAL IV ONE (23:55)
[2023-05-31] MEDS: PIPERACILLIN/TAZOBACTAM 4.5 GM in DEXTROSE 5% 100 ML IV SCH ×3 (03:18→17:33)
[2023-05-31 05:25] LABS: Basophils # (auto) 0.01 K/uL (0-0.2); Basophils % (auto) 0.1 %; Eosinophils # (auto) 0.07 K/uL (0-0.50); Eosinophils % (auto) 0.7 %; Hematocrit (blood only) 41.9 % (37.0-47.0); Hemoglobin 14.2 g/dl (12.0-16.0); Immature Granulocytes # (auto) 0.06 K/uL (0.01-0.20); Immature Granulocytes % (auto) 0.6 %; Lymphocytes # (auto) 1.01 K/uL (1.2-3.4); Lymphocytes % (auto) 10.2 %; Mean Corpuscular Hemoglobin 30.5 pg (25.0-34.0); Mean Corpuscular Hgb Conc 33.9 g/dL (32.0-36.0); Mean Corpuscular Volume 90.1 fL (80.0-100.0); Mean Platelet Volume 10.3 fL (9.4-12.4); Monocytes # (auto) 0.75 K/uL (0.11-0.59); Monocytes % (auto) 7.6 %; Neutrophils # (auto) 7.98 K/uL (1.40-6.50); Neutrophils % (auto) 80.8 %; Platelet Count 224 K/uL (130-400); RDW Coefficient of Variation 12.3 % (11.5-14.5); RDW Standard Deviation 40.7 fL (36.4-46.3); Red Blood Count 4.65 M/uL (4.20-5.40); White Blood Count 9.88 K/ul (4.8-10.8)
[2023-05-31 05:36] LABS: BUN Creatinine Ratio 10.8 (10-20); Calcium 9.4 mg/dl (8.6-10.3); Creatinine Clr Calc Pharmacy 57.4 ml/min; Est GFR (African American) 62.8 ml/min; Est GFR (Non-African American) 54.1 ml/min; Potassium 3.7 mmol/L (3.5-5.1)
[2023-05-31 05:46] LABS: INR 1.7 (0.9-1.1)
[2023-05-31] MEDS: CHOLECALCIFEROL 5,000 UNITS 125 MCG TAB PO SCH (08:17)
[2023-05-31] MEDS: CALCIUM CARBONATE 1250MG TAB PO SCH ×2 (08:17→19:57)
[2023-05-31] MEDS: CYANOCOBALAMIN (B-12) 500 MCG TABLET PO SCH (08:17)
[2023-05-31] MEDS: ESCITALOPRAM OXALATE 10 MG TAB PO SCH (08:17)
[2023-05-31] MEDS: ISOSORBIDE MONO EXTENDED REL 60 MG TABCR PO SCH (08:17)
[2023-05-31] MEDS: METOCLOPRAMIDE HCL 5 MG TABLET PO SCH ×2 (08:18→19:57)
[2023-05-31] MEDS: PANTOprazole 40 MG TAB PO SCH (08:18)
[2023-05-31] MEDS: cloNIDine HCL 0.1 MG TAB PO SCH ×2 (08:18→19:57)
[2023-05-31] MEDS ORDERED: WARFARIN SOD 7.5 MG TAB PO STA (09:32)
[2023-05-31] MEDS ORDERED: ENOXAPARIN 1 MG/KG SC SCH (09:45)
[2023-05-31] MEDS: ENOXAPARIN 100 MG/1ML SYR SQ SCH ×2 (10:37→22:27)
[2023-05-31] MEDS ORDERED: bisacodyL 10 MG SUPP PR STA (11:43)
[2023-05-31] MEDS: DOCUSATE SODIUM 100 MG CAP PO SCH ×2 (12:02→21:12)
--- NOTE | 2023-05-31 12:21 | Hospitalist Progress Note ---
Date of Service May 31, 2023 Assessment & Plan (1) Diverticulitis: Plan: Sigmoid colon with microperforation. Improving. White blood cell count is diminishing. Clear liquids only for now. Continue intravenous Zosyn. Appreciate surgery consultation and recommendations. Serial labs (2) Anticoagulated on Coumadin: Plan: Monitor INR daily. She has a mechanical aortic valve. INR should stay between 2.5 and 3.5. INR is only 1.7 today. Lovenox 1 mg/kg subcutaneously every 12 hours has been started with more aggressive Coumadin therapy ordered. (3) Asthma: Plan: Stable. Hand-held nebulizer treatments as needed (4) CAD (coronary artery disease): Plan: Stable. Continue current medications (5) History of aortic valve replacement with metallic valve: Plan: Stable. Continue Coumadin therapy (6) Hyperlipidemia: Plan: Stable. Continue statin therapy Plan Anticipate eventual discharge back to home this week Admission and Anticipated Discharge Date Admission Date: May 29, 2023 Subjective Alert and oriented. She is improving. White blood cell count is down to 9800. She remains on Zosyn therapy. Review of Systems Review of Systems: Constitutional-no fever or chills ENT-no blurred vision, no double vision, no epistaxis, no sore throat Respiratory-no cough, no wheezing, no shortness of breath Cardiac-no palpitations, no chest pain, no syncope GI-mild left lower quadrant tenderness. No nausea or vomiting -no urinary retention, no urinary incontinence, no dysuria, no hematuria Musculoskeletal-no joint pain, no muscle tenderness Skin-no bruising, no rashes, no pruritus Neuro-no isolated weakness, no paresthesia, no weakness Psych-no depression, no anxiety Physical Exam Physical Exam: General-alert and oriented x3, no fevers, no chills HEENT-head atraumatic and normocephalic, pupils equal and reactive to light, extraocular muscles intact Neck-no lymphadenopathy or thyromegaly, trachea midline Chest-clear to auscultation percussion. No rales wheezing or rhonchi Cardiac-regular rate and rhythm, normal S1 and S2 Abdomen-normal bowel sounds, no hepatosplenomegaly. Mild left lower quadrant tenderness. No rebound or guarding Extremities-no cyanosis, clubbing, or edema Neuro-cranial nerves II through XII intact, motor and sensory function within normal limits, strength symmetrical , no focal deficits Psych-normal affect, normal mood Results & Data Results & Data Vital Signs (Past 12 Hours) Vital Signs Temp Pulse Pulse Pulse Resp BP BP 05/31/23 11:30 36.8 C 78 16 121/77 05/31/23 08:10 36.9 C 82 16 138/83 05/31/23 07:59 107 H 05/31/23 03:51 36.4 C L 96 H 16 168/81 H Pulse Ox O2 Del Method 05/31/23 11:30 94 Room Air 05/31/23 08:10 97 Room Air 05/31/23 07:59 05/31/23 03:51 90 Room Air Laboratory Results 05/31/23 04:54 05/31/23 04:54 PG Care Time/CCT Total # of Minutes Spent Total Time Spent with Patient: Total time spent is greater than 50% in coordination of care (as documented) at patient's floor/unit and/or counseling patient: Coding Level of Care Code 30360 SUB INP/OBS CARE 3/50MIN Diagnoses Diverticulitis K57.92 Anticoagulated on Coumadin Z79.01 Asthma J45.909 CAD (coronary artery disease) I25.119 Associated angina: with unspecified form of angina Coronary Disease-Associated Artery/Lesion type: unspecified vessel or lesion type [place] vs. transplanted heart: [place] heart History of aortic valve replacement with metallic valve Z95.4 Hyperlipidemia E78.5 (4) CAD (coronary artery disease) Associated angina: with unspecified form of angina Coronary Disease- Associated Artery/Lesion type: unspecified vessel or lesion type [place] vs. transplanted heart: [place] heart Qualified Code(s): I25.119 - Atherosclerotic heart disease of [place] coronary artery with unspecified angina pectoris
--- NOTE | 2023-05-31 14:39 | Surgery Progress Note ---
Date of Service May 31, 2023 Assessment & Plan (1) Diverticulitis: Plan: with microperforation and small abscess. afebrile leukocytosis resolved pain minimal Plan: Continue conservative measures IV antibiotics for 48-72 hrs, will need 14 day total course of IV and oral abx full liquids for dinner colace and suppository continue medical management Discussed with Dr. Beaver who agrees with above. (2) Anticoagulated on Coumadin: Admission and Anticipated Discharge Date Admission Date: May 29, 2023 Supervising Physician Co-Signing Physician Notes I have seen and examined the above patient personally and agree with the above assessment and plan. We will continue conservative management, she is continuing to improve. Continue IV antibiotics for another day. Advance diet as tolerated. We will most likely be able to be discharged tomorrow or the next day. We will continue to follow. Subjective feeling better today pain improved, minimal today no n,v tolerating clear liquids passing gas but feels like has to have bowel movement no fevers Physical Exam Constitutional: WD/WN, vitals as above + obese, cooperative and comfortable; no acute distress and not ill appearing Gastrointestinal (Abdomen): Inspection/Auscultation: abdomen normal to inspection; abdomen not distended Percussion/Palpation: + abdomen tender (left mid to lower abdomen) and abdomen soft; no guarding, abdomen not rigid and abdomen not firm Skin: no rashes, warm and dry Psychiatric: Orientation: alert and oriented x 3 Results & Data Vital Signs (Past 12 Hours) Vital Signs Temp Pulse Pulse Pulse Resp BP BP 05/31/23 11:30 36.8 C 78 16 121/77 05/31/23 08:10 36.9 C 82 16 138/83 05/31/23 07:59 107 H 05/31/23 03:51 36.4 C L 96 H 16 168/81 H Pulse Ox O2 Del Method 05/31/23 11:30 94 Room Air 05/31/23 08:10 97 Room Air 05/31/23 07:59 05/31/23 03:51 90 Room Air Laboratory Results 05/31/23 05/31/23 05/31/23 Range/Units 04:54 04:54 04:54 WBC 9.88 (4.8-10.8) K/ul RBC 4.65 (4.20-5.40) M/uL Hgb 14.2 (12.0-16.0) g/dl Hct 41.9 (37.0-47.0) % MCV 90.1 (80.0-100.0) fL MCH 30.5 (25.0-34.0) pg MCHC 33.9 (32.0-36.0) g/dL RDW Std Deviation 40.7 (36.4-46.3) fL RDW Coeff of [place] 12.3 (11.5-14.5) % Plt Count 224 (130-400) K/uL MPV 10.3 (9.4-12.4) fL Immature Gran % (Auto) 0.6 % Neut % (Auto) 80.8 % Lymph % (Auto) 10.2 % [place] % (Auto) 7.6 % Eos % (Auto) 0.7 % Baso % (Auto) 0.1 % Neut # (Auto) 7.98 H (1.40-6.50) K/uL Lymph # (Auto) 1.01 L (1.2-3.4) K/uL [place] # (Auto) 0.75 H (0.11-0.59) K/uL Eos # (Auto) 0.07 (0-0.50) K/uL Baso # (Auto) 0.01 (0-0.2) K/uL Immature Gran # (Auto) 0.06 (0.01-0.20) K/uL PT 18.0 H (9.0-12.0) Seconds INR 1.7 H (0.9-1.1) Sodium 135 L (136-145) mmol/L Potassium 3.7 (3.5-5.1) mmol/L Chloride 103 (98-107) mmol/L Carbon Dioxide 25 (21-32) mmol/L Anion Gap 7 (3-11) BUN 11 (6-23) mg/dl Creatinine 1.02 (0.6-1.2) mg/dl Est Cr Clr Drug Dosing 57.4 ml/min Est GFR ( Amer) 62.8 ml/min Est GFR (Non-Af Amer) 54.1 ml/min BUN/Creatinine Ratio 10.8 (10-20) Glucose 125 H (70-99(Fasting)) mg/dl Calcium 9.4 (8.6-10.3) mg/dl
[2023-05-31] MEDS ORDERED: WARFARIN SOD 2.5 MG TAB PO SCH (16:00)
[2023-05-31] MEDS: METOPROLOL SUCC 50MG EXT REL TAB PO SCH (19:57)
[2023-05-31] MEDS: PRAVASTATIN SOD 40 MG TAB PO SCH (19:57)
[2023-05-31] MEDS: amLODIPine BESYLATE 5 MG TAB PO SCH (19:58)
[2023-05-31] MEDS: ASPIRIN 81 MG ECTAB PO SCH (19:58)
[2023-05-31] MEDS: ACETAMINOPHEN 1,000 MG/100 ML VIAL IV PRN (22:27)
[2023-05-31] MEDS: ALPRAZolam 0.5 MG TABLET PO SCH (22:27)
[2023-06-01] MEDS: PIPERACILLIN/TAZOBACTAM 4.5 GM in DEXTROSE 5% 100 ML IV SCH ×3 (02:06→18:11)
[2023-06-01 06:10] LABS: Basophils # (auto) 0.02 K/uL (0-0.2); Basophils % (auto) 0.3 %; Eosinophils % (auto) 5.9 %; Hematocrit (blood only) 38.4 % (37.0-47.0); Immature Granulocytes # (auto) 0.04 K/uL (0.01-0.20); Immature Granulocytes % (auto) 0.6 %; Lymphocytes # (auto) 0.99 K/uL (1.2-3.4); Lymphocytes % (auto) 14.7 %; Mean Corpuscular Hemoglobin 30.4 pg (25.0-34.0); Mean Corpuscular Hgb Conc 33.9 g/dL (32.0-36.0); Mean Corpuscular Volume 89.7 fL (80.0-100.0); Mean Platelet Volume 9.8 fL (9.4-12.4); Monocytes # (auto) 0.62 K/uL (0.11-0.59); Monocytes % (auto) 9.2 %; Neutrophils # (auto) 4.66 K/uL (1.40-6.50); Neutrophils % (auto) 69.3 %; Platelet Count 187 K/uL (130-400); RDW Coefficient of Variation 12.3 % (11.5-14.5); RDW Standard Deviation 40.2 fL (36.4-46.3); Red Blood Count 4.28 M/uL (4.20-5.40); White Blood Count 6.73 K/ul (4.8-10.8)
[2023-06-01 06:23] LABS: BUN Creatinine Ratio 9.7 (10-20); Calcium 9.2 mg/dl (8.6-10.3); Creatinine Clr Calc Pharmacy 63.8 ml/min; Est GFR (African American) 70.2 ml/min; Est GFR (Non-African American) 60.5 ml/min; Potassium 3.7 mmol/L (3.5-5.1)
--- NOTE | 2023-06-01 06:47 | Electrocardiogram Report ---
Test Reason : Blood Pressure : / mmHG Vent. Rate : 074 BPM Atrial Rate : 074 BPM P-R Int : 140 ms QRS Dur : 088 ms QT Int : 394 ms P-R-T Axes : 030 -21 054 degrees QTc Int : 437 ms Normal sinus rhythm Moderate voltage criteria for LVH, may be normal variant Nonspecific ST abnormality Abnormal ECG When compared with ECG of 15-JUL-2021 06:29, Nonspecific T wave abnormality has replaced inverted T waves in Inferior leads Nonspecific T wave abnormality now evident in Anterior leads Confirmed by Reuben Lovelace ([id number]) on 06/01/2023 6:47:25 AM Referred By: REFERRED SELF Confirmed By:Reuben Lovelace
[2023-06-01 07:55] LABS: INR 2.7 (0.9-1.1); Prothrombin Time 27.8 Seconds (9.0-12.0)
[2023-06-01] MEDS: cloNIDine HCL 0.1 MG TAB PO SCH ×2 (09:11→20:31)
[2023-06-01] MEDS: CYANOCOBALAMIN (B-12) 500 MCG TABLET PO SCH (09:11)
[2023-06-01] MEDS: METOCLOPRAMIDE HCL 5 MG TABLET PO SCH ×2 (09:11→20:30)
[2023-06-01] MEDS: DOCUSATE SODIUM 100 MG CAP PO SCH ×2 (09:11→20:31)
[2023-06-01] MEDS: CHOLECALCIFEROL 5,000 UNITS 125 MCG TAB PO SCH (09:11)
[2023-06-01] MEDS: PANTOprazole 40 MG TAB PO SCH (09:11)
[2023-06-01] MEDS: ISOSORBIDE MONO EXTENDED REL 60 MG TABCR PO SCH (09:11)
[2023-06-01] MEDS: ESCITALOPRAM OXALATE 10 MG TAB PO SCH (09:11)
[2023-06-01] MEDS: CALCIUM CARBONATE 1250MG TAB PO SCH ×2 (09:11→20:30)
[2023-06-01] MEDS: ENOXAPARIN 100 MG/1ML SYR SQ SCH ×2 (10:41→22:27)
--- NOTE | 2023-06-01 11:15 | Surgery Progress Note ---
Date of Service June 01, 2023 Assessment & Plan (1) Diverticulitis: Plan Doing well with conservative management. Continue IV antibiotics for 1 more day. Advance diet as tolerated. Most likely discharge to home tomorrow. We will continue to follow. Admission and Anticipated Discharge Date Admission Date: May 29, 2023 Subjective Continuing to improve, still some lower abdominal pain. No nausea or vomiting. Tolerating diet. No fevers or chills. Physical Exam Physical Exam: NAD, A&O x3 AFVSS Abdomen: Soft, nondistended, mild TTP in left lower quadrant Results & Data Vital Signs (Past 12 Hours) Vital Signs Temp Pulse Pulse Resp BP Pulse Ox O2 Del Method 06/01/23 08:09 55 L 06/01/23 07:41 36.6 C 73 19 143/67 H 92 Room Air 06/01/23 02:46 36.5 C 80 18 177/101 H 92 Room Air 06/01/23 02:55 156/84 H 05/31/23 23:27 36.8 C 68 16 131/80 93 Room Air 05/31/23 23:18 74 Laboratory Results 06/01/23 06/01/23 06/01/23 Range/Units 05:43 05:43 05:43 WBC 6.73 (4.8-10.8) K/ul RBC 4.28 (4.20-5.40) M/uL Hgb 13.0 (12.0-16.0) g/dl Hct 38.4 (37.0-47.0) % MCV 89.7 (80.0-100.0) fL MCH 30.4 (25.0-34.0) pg MCHC 33.9 (32.0-36.0) g/dL RDW Std Deviation 40.2 (36.4-46.3) fL RDW Coeff of [place] 12.3 (11.5-14.5) % Plt Count 187 (130-400) K/uL MPV 9.8 (9.4-12.4) fL Immature Gran % (Auto) 0.6 % Neut % (Auto) 69.3 % Lymph % (Auto) 14.7 % [place] % (Auto) 9.2 % Eos % (Auto) 5.9 % Baso % (Auto) 0.3 % Neut # (Auto) 4.66 (1.40-6.50) K/uL Lymph # (Auto) 0.99 L (1.2-3.4) K/uL [place] # (Auto) 0.62 H (0.11-0.59) K/uL Eos # (Auto) 0.40 (0-0.50) K/uL Baso # (Auto) 0.02 (0-0.2) K/uL Immature Gran # (Auto) 0.04 (0.01-0.20) K/uL PT 27.8 H (9.0-12.0) Seconds INR 2.7 H (0.9-1.1) Sodium 138 (136-145) mmol/L Potassium 3.7 (3.5-5.1) mmol/L Chloride 105 (98-107) mmol/L Carbon Dioxide 28 (21-32) mmol/L Anion Gap 5 (3-11) BUN 9 (6-23) mg/dl Creatinine 0.93 (0.6-1.2) mg/dl Est Cr Clr Drug Dosing 63.8 ml/min Est GFR ( Amer) 70.2 ml/min Est GFR (Non-Af Amer) 60.5 ml/min BUN/Creatinine Ratio 9.7 L (10-20) Glucose 116 H (70-99(Fasting)) mg/dl Calcium 9.2 (8.6-10.3) mg/dl
--- NOTE | 2023-06-01 14:15 | Hospitalist Progress Note ---
Date of Service June 01, 2023 Assessment & Plan (1) Diverticulitis: Plan: Patient presented to the [facility] on account of abdominal pain Found to have Sigmoid colon with microperforation on CT abdomen and pelvis. Clinically Improving. White blood cell count trending down. Continue IV antibiotics Nor surgical interventions for now Advance diet as tolerated Appreciate gen surgery (2) Anticoagulated on Coumadin: Plan: Monitor INR daily. She has a mechanical aortic valve. INR should stay between 2.5 and 3.5. INR is 2.7 today. Lovenox 1 mg/kg subcutaneously every 12 hours has been started with more aggressive Coumadin therapy ordered. (3) Asthma: Plan: Stable. Hand-held nebulizer treatments as needed (4) CAD (coronary artery disease): Plan: Stable. Continue current medications (5) History of aortic valve replacement with metallic valve: Plan: Stable. Continue Coumadin therapy (6) Hyperlipidemia: Plan: Stable. Continue statin therapy Plan Anticipate eventual discharge back to home tomorrow Admission and Anticipated Discharge Date Admission Date: May 29, 2023 Subjective patient seen and examined, says abdominal pain is almost gone Review of Systems Review of Systems: All systems reviewed are negative, apart from the ones contained in the history. Physical Exam Physical Exam: The patient is awake, alert and oriented 3, well developed and well nourished, normocephalic and atraumatic, lying in bed and in no acute distress. HEENT--PERRL, EOMI, mucous membranes and oropharynx mildly dry Neck--supple. No JVD. No bruits. Thyroid normal, trachea midline, no adenopathy. Heart--normal S1 and S2. No murmurs, rubs or gallops. Lungs--clear bilaterally, no respiratory distress, no accessory muscle use. Abdomen--normal bowel sounds and soft. Mild epigastric and left sided abdominal pain Extremities--no cyanosis or clubbing. No edema. Dermatologic--normal skin turgor, normal color, no abnormal lymph nodes, no rash. Neurologic--cranial nerves II through XII grossly intact. Rheumatologic--normal range of motion. Psychiatric--normal affect. Results & Data Results & Data Vital Signs (Past 12 Hours) Vital Signs Temp Pulse Pulse Resp BP Pulse Ox O2 Del Method 06/01/23 11:15 98.6 F 64 18 165/85 H 93 Room Air 06/01/23 08:09 55 L 06/01/23 07:41 97.9 F 73 19 143/67 H 92 Room Air 06/01/23 02:46 97.7 F 80 18 177/101 H 92 Room Air 06/01/23 02:55 156/84 H PG Care Time/CCT Total # of Minutes Spent Total Time Spent with Patient: Total time spent is greater than 50% in coordination of care (as documented) at patient's floor/unit and/or counseling patient: Coding Level of Care Code 16746 SUB INP/OBS CARE 235MIN Diagnoses Diverticulitis K57.92 Anticoagulated on Coumadin Z79.01 Asthma J45.909 CAD (coronary artery disease) I25.119 Associated angina: with unspecified form of angina Coronary Disease-Associated Artery/Lesion type: unspecified vessel or lesion type [place] vs. transplanted heart: [place] heart History of aortic valve replacement with metallic valve Z95.4 Hyperlipidemia E78.5 Time Spent (min) 35 (4) CAD (coronary artery disease) Associated angina: with unspecified form of angina Coronary Disease- Associated Artery/Lesion type: unspecified vessel or lesion type [place] vs. transplanted heart: [place] heart Qualified Code(s): I25.119 - Atherosclerotic heart disease of [place] coronary artery with unspecified angina pectoris
[2023-06-01] MEDS: ACETAMINOPHEN 1,000 MG/100 ML VIAL IV PRN (18:26)
[2023-06-01] MEDS: METOPROLOL SUCC 50MG EXT REL TAB PO SCH (20:29)
[2023-06-01] MEDS: PRAVASTATIN SOD 40 MG TAB PO SCH (20:29)
[2023-06-01] MEDS: amLODIPine BESYLATE 5 MG TAB PO SCH (20:30)
[2023-06-01] MEDS: ASPIRIN 81 MG ECTAB PO SCH (20:31)
[2023-06-01] MEDS: ALPRAZolam 0.5 MG TABLET PO SCH (22:26)
[2023-06-02] MEDS: PIPERACILLIN/TAZOBACTAM 4.5 GM in DEXTROSE 5% 100 ML IV SCH ×2 (02:02→10:32)
[2023-06-02 06:37] LABS: Basophils # (auto) 0.02 K/uL (0-0.2); Basophils % (auto) 0.3 %; Eosinophils # (auto) 0.25 K/uL (0-0.50); Eosinophils % (auto) 3.7 %; Hematocrit (blood only) 41.4 % (37.0-47.0); Immature Granulocytes # (auto) 0.03 K/uL (0.01-0.20); Immature Granulocytes % (auto) 0.4 %; Lymphocytes # (auto) 0.96 K/uL (1.2-3.4); Lymphocytes % (auto) 14.3 %; Mean Corpuscular Hemoglobin 30.2 pg (25.0-34.0); Mean Corpuscular Hgb Conc 33.8 g/dL (32.0-36.0); Mean Corpuscular Volume 89.2 fL (80.0-100.0); Mean Platelet Volume 9.9 fL (9.4-12.4); Monocytes # (auto) 0.66 K/uL (0.11-0.59); Monocytes % (auto) 9.9 %; Neutrophils # (auto) 4.77 K/uL (1.40-6.50); Neutrophils % (auto) 71.4 %; Platelet Count 222 K/uL (130-400); RDW Coefficient of Variation 12.3 % (11.5-14.5); RDW Standard Deviation 39.8 fL (36.4-46.3); Red Blood Count 4.64 M/uL (4.20-5.40); White Blood Count 6.69 K/ul (4.8-10.8)
[2023-06-02 06:59] LABS: INR 3.4 (0.9-1.1); Prothrombin Time 34.5 Seconds (9.0-12.0)
[2023-06-02 07:31] LABS: BUN Creatinine Ratio 7.4 (10-20); Calcium 9.3 mg/dl (8.6-10.3); Creatinine Clr Calc Pharmacy 62.3 ml/min; Est GFR (African American) 68.4 ml/min; Potassium 3.6 mmol/L (3.5-5.1)
[2023-06-02] MEDS: CALCIUM CARBONATE 1250MG TAB PO SCH (08:09)
[2023-06-02] MEDS: DOCUSATE SODIUM 100 MG CAP PO SCH (08:09)
[2023-06-02] MEDS: cloNIDine HCL 0.1 MG TAB PO SCH (08:09)
[2023-06-02] MEDS: PANTOprazole 40 MG TAB PO SCH (08:09)
[2023-06-02] MEDS: CYANOCOBALAMIN (B-12) 500 MCG TABLET PO SCH (08:09)
[2023-06-02] MEDS: ISOSORBIDE MONO EXTENDED REL 60 MG TABCR PO SCH (08:09)
[2023-06-02] MEDS: CHOLECALCIFEROL 5,000 UNITS 125 MCG TAB PO SCH (08:09)
[2023-06-02] MEDS: METOCLOPRAMIDE HCL 5 MG TABLET PO SCH (08:09)
[2023-06-02] MEDS: ESCITALOPRAM OXALATE 10 MG TAB PO SCH (08:09)
[2023-06-02] MEDS ORDERED: POLYETHYLENE (MIRALAX) 17 GM PACK PO ONE (08:54)
--- NOTE | 2023-06-02 10:04 | Surgery Progress Note ---
Date of Service June 02, 2023 Assessment & Plan (1) Diverticulitis: Plan Doing well with conservative management. Okay from surgery standpoint for discharge today. Will need total of 14 days of IV and oral antibiotics low fiber diet for 4 weeks will likely need bowel regimen given history of constipation and needing milk of magnesia x2/week Miralax x 1 now encouraged ambulation and OOB to chair continue medical management Discussed with Dr. Beaver who agrees with above. Admission and Anticipated Discharge Date Admission Date: May 29, 2023 Subjective no fevers or chills abdominal pain better about 2-3/10 today no n,v tolerating diet passing gas and some liquid stool incontinence in underwear , still feels like she needs to have bowel movements. Feeling slightly bloated but once passes gas feels better Physical Exam Constitutional: WD/WN, vitals as above + obese, cooperative and comfortable; no acute distress and not ill appearing Respiratory: normal respiratory effort; no respiratory distress, no labored breathing, no retractions, no cough and no audible wheezes Auscultation: + wheezes (expiratory) Gastrointestinal (Abdomen): Inspection/Auscultation: abdomen normal to inspection; abdomen not distended and no hypoactive bowel sounds Percussion/Palpation: + abdomen tender (left lower /mid abdomen) and abdomen soft; no guarding, abdomen not rigid and abdomen not firm Skin: no rashes, warm and dry Psychiatric: A+Ox3, euthymic affect Results & Data Vital Signs (Past 12 Hours) Vital Signs Temp Pulse Pulse Resp BP Pulse Ox O2 Del Method 06/02/23 08:28 36.6 C 67 18 178/84 H 94 Room Air 06/02/23 03:33 36.9 C 64 20 151/75 H 94 Room Air 06/01/23 23:20 60 06/01/23 22:53 36.4 C L 54 L 20 113/68 95 Room Air Laboratory Results 06/02/23 06/02/23 06/02/23 Range/Units 06:06 06:06 06:06 WBC 6.69 (4.8-10.8) K/ul RBC 4.64 (4.20-5.40) M/uL Hgb 14.0 (12.0-16.0) g/dl Hct 41.4 (37.0-47.0) % MCV 89.2 (80.0-100.0) fL MCH 30.2 (25.0-34.0) pg MCHC 33.8 (32.0-36.0) g/dL RDW Std Deviation 39.8 (36.4-46.3) fL RDW Coeff of [place] 12.3 (11.5-14.5) % Plt Count 222 (130-400) K/uL MPV 9.9 (9.4-12.4) fL Immature Gran % (Auto) 0.4 % Neut % (Auto) 71.4 % Lymph % (Auto) 14.3 % [place] % (Auto) 9.9 % Eos % (Auto) 3.7 % Baso % (Auto) 0.3 % Neut # (Auto) 4.77 (1.40-6.50) K/uL Lymph # (Auto) 0.96 L (1.2-3.4) K/uL [place] # (Auto) 0.66 H (0.11-0.59) K/uL Eos # (Auto) 0.25 (0-0.50) K/uL Baso # (Auto) 0.02 (0-0.2) K/uL Immature Gran # (Auto) 0.03 (0.01-0.20) K/uL PT 34.5 H (9.0-12.0) Seconds INR 3.4 H (0.9-1.1) Sodium 139 (136-145) mmol/L Potassium 3.6 (3.5-5.1) mmol/L Chloride 103 (98-107) mmol/L Carbon Dioxide 31 (21-32) mmol/L Anion Gap 5 (3-11) BUN 7 (6-23) mg/dl Creatinine 0.95 (0.6-1.2) mg/dl Est Cr Clr Drug Dosing 62.3 ml/min Est GFR ( Amer) 68.4 ml/min Est GFR (Non-Af Amer) 59.0 ml/min BUN/Creatinine Ratio 7.4 L (10-20) Glucose 115 H (70-99(Fasting)) mg/dl Calcium 9.3 (8.6-10.3) mg/dl
[2023-06-02] MEDS: ENOXAPARIN 100 MG/1ML SYR SQ SCH (10:34)
--- NOTE | 2023-06-02 12:18 | XRay Report ---
XR chest 1V portable CLINICAL HISTORY: wheezing TECHNIQUE: Single frontal radiograph of the chest was obtained. Comparison: Comparison is made to chest radiograph 07/14/2021 FINDINGS: Median sternotomy wires are unchanged. Calcified aortic knob is seen. Left lower lobe pulmonary nodul e is unchanged measuring 2.2 cm. No evidence of pleural effusion or pneumothorax. IMPRESSION: No acute abnormalities are seen. Stable 2.2 cm left lower lobe pulmonary nodule. ACT 112: Negative or not required by law. Electronically signed by: Elias Hollis M.D. 06/02/2023 12:16 PM
--- NOTE | 2023-06-02 15:06 | Discharge Summary ---
Discharge Summary Date of Service June 02, 2023 Notes For Next Care Provider Medication Changes From Visit Cipro 500mg po bid x 10 days Flagyl 500mg po tid x 10 days Miralax 17 grams po daily Admission HPI Per Admitting Provider 72yo Female with PMH diverticulosis HTN asthma prosthetic valve on warfarin, depression/anxiety HLD CAD PAD GERD here for abd pain diverticulitis. She states yesterday started having abd pain after eating a strawberry salad, felt like her last bout of diverticulitis in March, she felt very constipated, she took her milk of magnesia which didn't help. Has some chills, tremors, SOB on exertion which have been ongoing several weeks at this time. She denies fever SOB at rest nausea vomiting diarrhea. Received IVF and morphine in the ED which helped her pain. Discussed with patient regarding code status, patient states if her heart stops let her pass, does not want CPR, however she is ok with intubation. No official power of attourney, however in case she in incapacitated would like daughter Odalys to speak on her behalf. Principal Dx & Hospital Course #1 = Principal Diagnosis (1) Diverticulitis: Patient presented to the [facility] on account of abdominal pain Found to have Sigmoid colon with microperforation on CT abdomen and pelvis. Clinically much improved with bowel rest, IVFs, and IV Zosyn White blood cell count back to normal, pain improved, tolerating a low fiber diet, no abdominal pain No surgical interventions for now as per Surgery consult dc to home on 10 more day of po Cipro and flagyl to complete 14 day course low fiber diet x 4 weeks and then advance to high fiber diet for diverticulitis prevention avoid constipation-advised 17 grams po daily (2) Anticoagulated on Coumadin: Monitor INR daily. She has a mechanical aortic valve. INR should stay between 2.5 and 3.5. INR is 3.4 on day of discharge Check INR in 2 days at outpt office as Cipro could make this go up (3) Asthma: had some mild wheezing on AM of discharge which resolved with albuterol inhaler CXR with large but stable left lower lobe nodule (4) CAD (coronary artery disease): Stable. Continue current medications (5) History of aortic valve replacement with metallic valve: Stable. Continue Coumadin therapy (6) Hyperlipidemia: Stable. Continue statin therapy Plan Dispo-dc to home Discharge Exam Constitutional WD/WN, vitals as above Respiratory normal respiratory effort, lungs clear to auscultation Cardiovascular Rate/Rhythm: regular rate and regular rhythm Heart Sounds: + murmur (3/6 IGLESIA at RUSB) Extremities: no edema Gastrointestinal (Abdomen) normal bowel sounds, soft, nontender, no hepatosplenomegaly Updated Medication List Medication Instructions Recorded Confirmed Type cholecalciferol (vitamin D3) 25 5,000 units PO QAM 09/05/19 05/29/23 History mcg (1,000 unit) capsule albuterol sulfate 90 mcg/actuation 2 puff inhalation QID PRN 07/18/21 05/29/23 Rx aerosol inhaler (ProAir HFA) shortness of breath #8.5 grams zoledronic acid 5 mg/100 mL in 5 mg IV .COMPLEX #100 mL 12/17/21 05/27/23 Rx mannitol 5 %-water intravenous piggybck clonidine HCl 0.1 mg tablet 0.1 mg PO BID #180 tabs 07/14/22 05/29/23 Rx aspirin 81 mg tablet,delayed 81 mg PO HS 09/24/22 05/29/23 History release (Harvey Low Dose Aspirin) metoclopramide HCl 5 mg tablet 5 mg PO BID #180 tabs 10/05/22 05/29/23 Rx nystatin 100,000 unit/gram topical 1 applic topical BID PRN 12/02/22 05/29/23 Rx powder Candidiasis #60 grams calcium carbonate 600 mg calcium 600 mg PO BID 02/24/23 05/29/23 History (1,500 mg) tablet (Calcium) cyanocobalamin (vitamin B-12) 1,000 mcg PO QAM 02/24/23 05/29/23 History 1,000 mcg capsule isosorbide mononitrate 60 mg 60 mg PO QAM 02/24/23 05/29/23 History tablet,extended release 24 hr pravastatin 80 mg tablet 80 mg PO HS 02/24/23 05/29/23 History alprazolam 0.25 mg tablet 0.5 mg PO HS #180 tabs 03/08/23 05/29/23 Rx amlodipine 5 mg tablet 5 mg PO HS #90 tabs 03/08/23 05/29/23 Rx pantoprazole 40 mg tablet,delayed 40 mg PO QAM gerd #90 tabs 03/08/23 05/29/23 Rx release (Protonix) metoprolol succinate 100 mg 100 mg PO HS #90 tabs 04/05/23 05/29/23 Rx tablet,extended release 24 hr escitalopram oxalate 10 mg tablet 10 mg PO DAILY #90 tabs 05/25/23 05/29/23 Rx (Lexapro) warfarin 2.5 mg tablet 2.5 mg PO .WED/WED//Wed05/29/23 05/29/23 History warfarin 5 mg tablet 5 mg PO .WED//SAT 05/29/23 05/29/23 History ciprofloxacin HCl 500 mg tablet 500 mg PO BID #20 tabs 06/02/23 Rx (Cipro) metronidazole 500 mg tablet 500 mg PO TID #30 tabs 06/02/23 Rx Hospital Stay Data Consultations 05/29/23 20:43 ED Decision to Admit Stat 05/29/23 22:47 Consult General Surgery Routine Diagnostic Imagining Performed 05/29/23 17:50 CT abd pelvis IV con only Stat Pending Results Patient Have Any Pending Studies at Discharge: No Discharge Instructions Given to Patient (Per Discharging Provider) Please finish out 10 more days of the antibiotics called Cipro and Flagyl for your bowel infection. You should take Miralax once daily to try to keep your bowels moving at least once daily. Please have your INR checked on Wednesday to make sure it's not going too high while you're on the antibiotics. Total Time Total Time Spent Total Time Spent (In Minutes): 35 min Total Time Includes: Examination of the Patient, Discharge Planning, Medication Reconciliation and Communication With Other Providers (discussed care with Surgery Dr. Beaver) Coding Level of Care Code 98479 INP/OBS DISCH >30 MIN Diagnoses Diverticulitis K57.92 Anticoagulated on Coumadin Z79.01 Asthma J45.909 CAD (coronary artery disease) I25.119 Associated angina: with unspecified form of angina Coronary Disease-Associated Artery/Lesion type: unspecified vessel or lesion type [place] vs. transplanted heart: [place] heart History of aortic valve replacement with metallic valve Z95.4 Hyperlipidemia E78.5
[2023-06-02] MEDS ORDERED: WARFARIN SOD 5 MG TAB PO SCH (16:00)
== END 2023-06-02 18:31 | disposition home or self-care (01) | DRG 392 ==
LOC: ED 16:41 → SUATTDRO 21:35 → 4W 21:35

== ENCOUNTER 2023-06-09 10:57 | Inpatient (IN) ==
[2023-06-09] MEDS ORDERED: SODIUM CHLORIDE 0.9% 1000ML 1,000 ML IV ONE (11:17)
[2023-06-09 12:25] LABS: Basophils # (auto) 0.02 K/uL (0-0.2); Basophils % (auto) 0.2 %; Eosinophils # (auto) 0.03 K/uL (0-0.50); Eosinophils % (auto) 0.3 %; Hematocrit (blood only) 42.2 % (37.0-47.0); Hemoglobin 14.4 g/dl (12.0-16.0); Immature Granulocytes # (auto) 0.04 K/uL (0.01-0.20); Immature Granulocytes % (auto) 0.4 %; Lymphocytes # (auto) 0.87 K/uL (1.2-3.4); Lymphocytes % (auto) 9.3 %; Mean Corpuscular Hemoglobin 30.1 pg (25.0-34.0); Mean Corpuscular Hgb Conc 34.1 g/dL (32.0-36.0); Mean Corpuscular Volume 88.1 fL (80.0-100.0); Mean Platelet Volume 9.6 fL (9.4-12.4); Monocytes # (auto) 0.73 K/uL (0.11-0.59); Monocytes % (auto) 7.8 %; Neutrophils # (auto) 7.65 K/uL (1.40-6.50); Platelet Count 377 K/uL (130-400); RDW Coefficient of Variation 12.6 % (11.5-14.5); RDW Standard Deviation 40.5 fL (36.4-46.3); Red Blood Count 4.79 M/uL (4.20-5.40); White Blood Count 9.34 K/ul (4.8-10.8)
[2023-06-09] MEDS ORDERED: ACETAMINOPHEN 1,000 MG/100 ML VIAL IV STA (12:26)
[2023-06-09 12:41] LABS: Albumin Globulin Ratio 1.4 (0.9-2); Albumin Level 3.6 gm/dl (3.4-5.0); BUN Creatinine Ratio 9.8 (10-20); Bilirubin,Total 0.5 mg/dl (0.2-1.0); Calcium 10.1 mg/dl (8.6-10.3); Creatinine Clr Calc Pharmacy 46.5 ml/min; Est GFR (Non-African American) 43.2 ml/min; Globulin 2.6 gm/dl (2.5-4.0); Potassium 3.1 mmol/L (3.5-5.1); Total Protein 6.2 gm/dl (6.0-8.3)
--- NOTE | 2023-06-09 12:51 | Emergency Department Note ---
Impression & Plan Abscess of sigmoid colon due to diverticulitis, History of aortic valve replacement with metallic valve, Supratherapeutic INR, Acute UTI, Renal insufficiency ED Provider Note NAME: MILTON BRITT AGE: 72 SEX: F ARRIVES VIA: Walk-In INFORMANT: Patient ED PROVIDER(S): Jayjay Lopez MD CHIEF COMPLAINT: Abdominal pain, recent diverticulitis, referred. PLAN: Disposition: Admit MEDICAL DECISION MAKING: The patient is a pleasant 72-year-old woman with a past medical history of anxiety, history of CAD, status post CABG, history of aortic valve replacement with metallic valve on warfarin presents to the emergency department via walk- in, accompanied by daughter for evaluation of difficulty sleeping last night and report of continued abdominal pain in setting of being mid to this facility at the beginning of the month for diverticulitis for which she is still completing a course of Cipro and Flagyl. She reports having loose stool after having significant constipation and starting MiraLAX. She denies any fevers, vomiting, urinary symptoms. She does report having decreased appetite and poor oral intake. She was she called her primary care doctor last night to discuss her difficulty sleeping and to her understanding he recommended that she come to the hospital for "IV antibiotics and to have surgery". On arrival the patient is anxious appearing but no acute distress, afebrile stable vital signs. She appears clinically dry. She has mild left lower quadrant tenderness without guarding or rebound. She does have several ecchymotic areas likely related to Lovenox injections during her hospitalization. WBC, H/H and platelets within normal limits. Chemistry without metabolic acidosis. Creatinine 1.2 increased from recent but similar to prior range values. Potassium 3.1 and electrolytes otherwise unremarkable. LFTs are normal. Lipase normal. UA is suspicious for infection with positive nitrites and WBCs albeit with epithelial cells and no bacteria present. COVID-19 RNA, BRITTANY test is pending. INR is supratherapeutic at 6.2. Given the patient has no signs or symptoms of bleeding and she is anticoagulated for her mechanical valve will defer reversal at this time and allow to drift. CT abdomen pelvis was performed and again demonstrates findings of acute sigmoid diverticulitis where degree of inflammation has modestly improved compared to 05/29/2023. However note is made of a 5 x 6 x 3.5 cm multilocular diverticular abscess superior to the sigmoid colon which closely interdigitate around adjacent small bowel loops and would not be amenable to percutaneous drainage. There are additional 2 tiny loculated fluid collection seen about the colon which measure up to 2 cm. There is no intraperitoneal free air. Case was d/w Dr. Kaba, [facility] [place] hospitalist who will evaluate the patient for admission. General surgery, Dr. Gutierrez, consulted. Appreciate consultation and recommendations. No plan for surgery at this time. Medicine admission for IV antibiotics. Blood cultures were drawn and IV Zosyn initiated. Triage Nursing notes reviewed and agree them. Prior/outside medical records reviewed Vital Signs: reviewed Differential diagnosis: Gastroenteritis, food borne illness, infections, appendicitis, diverticulitis, inflammatory bowel disease, obstruction, GI bleed, biliary pathology, volvulus, as well as other pathologies. ER treatment provided: See below. Diagnostics interpreted by me: Cardiac Monitoring: An order for continuous cardiac monitoring was placed and demonstrated sinus rhythm, 90 bpm, no ectopy. Laboratory studies: See below Imaging studies: See below Consultation(s): Dr. Kaba [facility] [place] hospitalist. Dr. Gutierrez, [place] General surgery. HPI: The patient is a pleasant 72-year-old woman with a past medical history of anxiety, history of CAD, status post CABG, history of aortic valve replacement with metallic valve on warfarin presents to the emergency department via walk- in, accompanied by daughter for evaluation of difficulty sleeping last night and report of continued abdominal pain in setting of being mid to this facility at the beginning of the month for diverticulitis for which she is still completing a course of Cipro and Flagyl. She reports having loose stool after having significant constipation and starting MiraLAX. She denies any fevers, vomiting, urinary symptoms. She does report having decreased appetite and poor oral intake. She was she called her primary care doctor last night to discuss her difficulty sleeping and to her understanding he recommended that she come to the hospital for "IV antibiotics and to have surgery". ROS: See above HPI for pertinent positives & negatives. A total of 10 systems reviewed and were otherwise negative. VITALS:See Below PHYSICAL EXAMINATION: GENERAL: Awake, alert, anxious-appearing, in no distress HENT: Normocephalic, atraumatic. Oropharynx with dry mucous membranes and otherwise unremarkable. EYES: Normal conjunctiva. Sclera non-icteric. NECK: Supple. No nuchal rigidity. FROM. No JVD. RESPIRATORY: Clear to auscultation. CARDIAC: Regular rate, normal rhythm. Extremities warm and well perfused. Pulses equal. ABDOMEN: Soft, non-distended. Mild left lower quadrant tenderness without guarding or rebound. She does have several ecchymotic areas likely related to Lovenox injections during her hospitalization. RECTAL: Deferred. MUSCULOSKELETAL: Chest examination reveals no tenderness. The back is symmetrical on inspection without obvious abnormality. There is no CVA tenderness to palpation. No joint edema. LOWER EXTREMITIES: Calves are equal size bilaterally and non-tender. No edema. No discoloration. NEURO: Normal sensorium. No sensory or motor deficits noted. SKIN: No rash or jaundice noted. Jayjay Lopez MD Past Med/Surg History Medical History Adenoma of right adrenal gland Allergic rhinitis Anticoagulated on Coumadin Asthma inhaler prn CAD (coronary artery disease) Depression with anxiety Diverticulosis Essential hematuria pt denies at present time Exertional chest pain hx of; pt states she no longer experiences this Hyperlipidemia Hypertension Internal hemorrhoids Myocardial Infarction x2--06/12/08 and 08/06--follows with Dr. Milner Occlusion of right internal carotid artery Osteoporosis with fracture PAD (peripheral artery disease) Plantar fasciitis Positional vertigo Prediabetes Tremor of right hand Urinary incontinence Vitamin D deficiency Xerostomia Surgical History H/O section History of aortic valve replacement with metallic valve 2000 History of appendectomy History of cardiac cath x2--05/2008 and 07/2008 History of colonoscopy History of esophagogastroduodenoscopy (EGD) History of heart artery stent x1 2008 History of hysterectomy with bilateral oophorectomy History of wisdom tooth extraction Hx of cholecystectomy S/P CABG (coronary artery bypass graft) [place] [facility] [place] Family History Mother Alzheimer disease Dementia Osteoarthritis Father Coronary heart disease Heart disease Myocardial infarction age 72 Lung cancer Colorectal cancer Grandmother (Paternal) Diabetes Other No family history of adverse response to anesthesia Denies family history of Rheumatoid arthritis Sudden SIDS (sudden infant syndrome) Ovarian cancer Prostate cancer Deep vein thrombosis Osteoporosis Dyslipidemia Cerebral aneurysm Bipolar disorder Clotting disorder Crohn's disease Depression Kidney disease Breast cancer Schizophrenia Congenital kidney disease Gestational diabetes COPD (chronic obstructive pulmonary disease) Pulmonary embolism Lung disease Hypertension Ulcerative colitis Colonic polyp Stroke Asthma Cystic kidney disease Social History Smoking Status: Former smoker Tobacco Type: Cigarettes Age Started Using Tobacco: 16; Second Hand Exposure: Yes; Do You Dip or Chew Tobacco: No; Hx Alcohol Use: No Hx Substance Use: No Preferred Language: Greek Communication Ability: Effective Visual Impairment: No Limitations Hearing Ability: Normal E M Assembler Required: No Beliefs That Will Affect Care: None marital status: / Current Living Situation: Alone current occupational status: retired 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 [employer] How many Children do You have: 1 Feels Safe at Home: Yes Childhood Exposure to Second-Hand Smoke: No Diet: regular caffeine: Yes during the past year weight has: remained stable Dental Care, Regularly: No Physical Activity Frequency: Does not Exercise Seatbelt Use: always Sunscreen Use: Yes Assistive Devices: None Allergies Allergies Allergy/AdvReac Type Severity Reaction Status Date / Time rosuvastatin [From Crestor] Allergy Intermediate myalgia Verified 06/09/23 12:38 sertraline [From Zoloft] Allergy Intermediate burn Verified 06/09/23 12:38 sensation on skin on arms lovastatin Allergy Mild rash Verified 06/09/23 12:38 bupropion [From Wellbutrin] AdvReac Intermediate insomnia Verified 06/09/23 12:38 and tremors dicyclomine AdvReac Intermediate N/V Verified 06/09/23 12:38 codeine AdvReac Mild NAUSEA & Verified 06/09/23 12:38 PAIN ezetimibe [From Zetia] AdvReac Mild Gastrointestinal Verified 06/09/23 12:38 Upset methadone AdvReac Mild GI UPSET(?) Verified 06/09/23 12:38 niacin AdvReac Mild Gastrointestinal Verified 06/09/23 12:38 [From Niaspan Upset Extended-Release] paroxetine [From Paxil] AdvReac Mild Gastrointestinal Verified 06/09/23 12:38 Upset propoxyphene AdvReac Mild NAUSEA & Verified 06/09/23 12:38 PAIN simvastatin [From Zocor] AdvReac Mild Gastrointestinal Verified 06/09/23 12:38 Upset [id number] Reductase AdvReac Mild STATIN Verified 06/09/23 12:38 Inhibitor INTOLERANCE - GI UPSET Home Meds Home Medications Medication Instructions Recorded Confirmed cholecalciferol (vitamin D3) 25 5,000 units PO QAM 09/05/19 06/09/23 mcg (1,000 unit) capsule aspirin 81 mg tablet,delayed 81 mg PO HS 09/24/22 06/09/23 release (Harvey Low Dose Aspirin) calcium carbonate 600 mg calcium 600 mg PO BID 02/24/23 06/09/23 (1,500 mg) tablet (Calcium) cyanocobalamin (vitamin B-12) 1,000 mcg PO QAM 02/24/23 06/09/23 1,000 mcg capsule isosorbide mononitrate 60 mg 60 mg PO QAM 02/24/23 06/09/23 tablet,extended release 24 hr pravastatin 80 mg tablet 80 mg PO HS 02/24/23 06/09/23 warfarin 2.5 mg tablet 2.5 mg PO .WED/WED//Wed05/29/23 06/09/23 warfarin 5 mg tablet 5 mg PO .SUN/TUES/SAT 05/29/23 06/09/23 Previous Rx's Medication Instructions Recorded albuterol sulfate 90 mcg/actuation 2 puff inhalation QID PRN 07/18/21 aerosol inhaler (ProAir HFA) shortness of breath #8.5 grams clonidine HCl 0.1 mg tablet 0.1 mg PO BID #180 tabs 07/14/22 metoclopramide HCl 5 mg tablet 5 mg PO BID #180 tabs 10/05/22 alprazolam 0.25 mg tablet 0.5 mg PO HS #180 tabs 03/08/23 amlodipine 5 mg tablet 5 mg PO HS #90 tabs 03/08/23 pantoprazole 40 mg tablet,delayed 40 mg PO QAM gerd #90 tabs 03/08/23 release (Protonix) metoprolol succinate 100 mg 100 mg PO HS #90 tabs 04/05/23 tablet,extended release 24 hr ciprofloxacin HCl 500 mg tablet 500 mg PO BID #20 tabs 06/02/23 (Cipro) metronidazole 500 mg tablet 500 mg PO TID #30 tabs 06/02/23 Results & Data (ED) Vital Signs Vital Signs - 24 hr 06/09/23 11:00 06/09/23 12:57 06/09/23 14:00 Temperature 36.3 C L Temperature Source Temporal Artery Scan Pulse Rate 82 Pulse Rate [Right Finger] 85 83 Respiratory Rate 20 17 17 Respiratory Effort / Characteristics Non-Labored Non-Labored Respiratory Depth Normal Normal Respiratory Pattern Regular Blood Pressure 118/76 Blood Pressure [Left Arm] 132/63 132/63 Blood Pressure Mean 90 Blood Pressure Mean [Left Arm] 86 86 Pulse Oximetry 94 95 97 Oxygen Delivery Method Room Air Room Air Room Air Sepsis Recent Fever Within 48 Hours No Sepsis New/Unexplained Change in Mental Status N/A Sepsis Action Taken by Nursing No Action Required 06/09/23 15:21 Temperature Temperature Source Pulse Rate 98 H Pulse Rate [Right Finger] Respiratory Rate 16 Respiratory Effort / Characteristics Respiratory Depth Respiratory Pattern Blood Pressure Blood Pressure [Left Arm] Blood Pressure Mean Blood Pressure Mean [Left Arm] Pulse Oximetry 98 Oxygen Delivery Method Sepsis Recent Fever Within 48 Hours Sepsis New/Unexplained Change in Mental Status Sepsis Action Taken by Nursing Laboratory Data Attestation: I reviewed the patient's lab results. 06/09/23 11:59 06/09/23 11:59 Lab Results 06/09/23 06/09/23 06/09/23 Range/Units 11:59 11:59 11:59 WBC 9.34 (4.8-10.8) K/ul RBC 4.79 (4.20-5.40) M/uL Hgb 14.4 (12.0-16.0) g/dl Hct 42.2 (37.0-47.0) % MCV 88.1 (80.0-100.0) fL MCH 30.1 (25.0-34.0) pg MCHC 34.1 (32.0-36.0) g/dL RDW Std Deviation 40.5 (36.4-46.3) fL RDW Coeff of Dennis 12.6 (11.5-14.5) % Plt Count 377 (130-400) K/uL MPV 9.6 (9.4-12.4) fL Immature Gran % (Auto) 0.4 % Neut % (Auto) 82.0 % Lymph % (Auto) 9.3 % Floyd % (Auto) 7.8 % Eos % (Auto) 0.3 % Baso % (Auto) 0.2 % Neut # (Auto) 7.65 H (1.40-6.50) K/uL Lymph # (Auto) 0.87 L (1.2-3.4) K/uL Floyd # (Auto) 0.73 H (0.11-0.59) K/uL Eos # (Auto) 0.03 (0-0.50) K/uL Baso # (Auto) 0.02 (0-0.2) K/uL Immature Gran # (Auto) 0.04 (0.01-0.20) K/uL PT 60.9 H (9.0-12.0) Seconds INR 6.2 H* (0.9-1.1) Sodium 140 (136-145) mmol/L Potassium 3.1 L (3.5-5.1) mmol/L Chloride 104 (98-107) mmol/L Carbon Dioxide 29 (21-32) mmol/L Anion Gap 7 (3-11) BUN 12 (6-23) mg/dl Creatinine 1.23 H (0.6-1.2) mg/dl Est Cr Clr Drug Dosing 46.5 ml/min Est GFR ( Amer) 50.0 ml/min Est GFR (Non-Af Amer) 43.2 ml/min BUN/Creatinine Ratio 9.8 L (10-20) Glucose 231 H (70-99(Fasting)) mg/dl Calcium 10.1 (8.6-10.3) mg/dl Total Bilirubin 0.5 (0.2-1.0) mg/dl AST 18 (13-39) U/L ALT 21 (7-52) U/L Alkaline Phosphatase 64 (34-104) U/L Total Protein 6.2 (6.0-8.3) gm/dl Albumin 3.6 (3.4-5.0) gm/dl Globulin 2.6 (2.5-4.0) gm/dl Albumin/Globulin Ratio 1.4 (0.9-2) Lipase 38 (11-82) U/L Urine Color Urine Appearance (Clear) Urine pH (4.5-7.5) Ur Specific [place] (1.000-1.030) Urine Protein (Negative) Urine Glucose (UA) (Negative) Urine Ketones (Negative) Urine Blood (Negative) Urine Nitrite (Negative) Urine Bilirubin (Negative) Urine Urobilinogen (Negative) Ur Leukocyte Esterase (Negative) Urine WBC (Auto) (0-5) /hpf Urine RBC (Auto) (0-4) /hpf U Hyaline Cast (Auto) (0-5) /lpf U Epithel Cells (Auto) (0-5) /lpf Urine Bacteria (Auto) (Negative) Ur Renal Epithelial Cell (0-5) /lpf Urine Crystals Calcium Oxalate Crystal (None Prsent) 06/09/23 Range/Units 12:00 WBC (4.8-10.8) K/ul RBC (4.20-5.40) M/uL Hgb (12.0-16.0) g/dl Hct (37.0-47.0) % MCV (80.0-100.0) fL MCH (25.0-34.0) pg MCHC (32.0-36.0) g/dL RDW Std Deviation (36.4-46.3) fL RDW Coeff of Dennis (11.5-14.5) % Plt Count (130-400) K/uL MPV (9.4-12.4) fL Immature Gran % (Auto) % Neut % (Auto) % Lymph % (Auto) % Floyd % (Auto) % Eos % (Auto) % Baso % (Auto) % Neut # (Auto) (1.40-6.50) K/uL Lymph # (Auto) (1.2-3.4) K/uL Floyd # (Auto) (0.11-0.59) K/uL Eos # (Auto) (0-0.50) K/uL Baso # (Auto) (0-0.2) K/uL Immature Gran # (Auto) (0.01-0.20) K/uL PT (9.0-12.0) Seconds INR (0.9-1.1) Sodium (136-145) mmol/L Potassium (3.5-5.1) mmol/L Chloride (98-107) mmol/L Carbon Dioxide (21-32) mmol/L Anion Gap (3-11) BUN (6-23) mg/dl Creatinine (0.6-1.2) mg/dl Est Cr Clr Drug Dosing ml/min Est GFR ( Amer) ml/min Est GFR (Non-Af Amer) ml/min BUN/Creatinine Ratio (10-20) Glucose (70-99(Fasting)) mg/dl Calcium (8.6-10.3) mg/dl Total Bilirubin (0.2-1.0) mg/dl AST (13-39) U/L ALT (7-52) U/L Alkaline Phosphatase (34-104) U/L Total Protein (6.0-8.3) gm/dl Albumin (3.4-5.0) gm/dl Globulin (2.5-4.0) gm/dl Albumin/Globulin Ratio (0.9-2) Lipase (11-82) U/L Urine Color Dark Yellow Urine Appearance Cloudy A (Clear) Urine pH 5.5 (4.5-7.5) Ur Specific [place] 1.021 (1.000-1.030) Urine Protein 1+ H (Negative) Urine Glucose (UA) 1+ H (Negative) Urine Ketones Trace H (Negative) Urine Blood Negative (Negative) Urine Nitrite Positive A (Negative) Urine Bilirubin 1+ H (Negative) Urine Urobilinogen Negative (Negative) Ur Leukocyte Esterase 1+ H (Negative) Urine WBC (Auto) 5-10 H (0-5) /hpf Urine RBC (Auto) 0-4 (0-4) /hpf U Hyaline Cast (Auto) 10-30 H (0-5) /lpf U Epithel Cells (Auto) 20-30 H (0-5) /lpf Urine Bacteria (Auto) Negative (Negative) Ur Renal Epithelial Cell 0-5 (0-5) /lpf Urine Crystals Not Reportable Calcium Oxalate Crystal Present A (None Prsent) Administered Medications Lactated Ringer's (Lr) 1,000 mls @ 80 mls/hr IV .[id number] MYRON Stop: 07/09/23 16:29 Last Admin: 06/09/23 16:43 Dose: 80 mls/hr Documented By: CANDELARIO Discontinued Medications Sodium Chloride (Nss 1000ml) 1,000 mls @ 999 mls/hr IV .[id number] ONE Stop: 06/09/23 12:17 Last Infusion: 06/09/23 13:51 Dose: 999 mls/hr Documented By: Infusion: 06/09/23 12:47 Dose: 999 mls/hr Documented By: Infusion: 06/09/23 12:40 Dose: 999 mls/hr Documented By: Admin: 06/09/23 12:05 Dose: 999 mls/hr Documented By: DEVIN Acetaminophen (Ofirmev) 1,000 mg in 100 mls @ 400 mls/hr IV NOW STA Stop: 06/09/23 12:40 Last Infusion: 06/09/23 13:00 Dose: 400 mls/hr Documented By: Admin: 06/09/23 12:39 Dose: 400 mls/hr Documented By: CANDELARIO Piperacillin Sod/Tazobactam Sod (Zosyn) 4.5 gm in 120 mls @ 240 mls/hr IV NOW ONE Stop: 06/09/23 16:45 Last Infusion: 06/09/23 17:25 Dose: 240 mls/hr Documented By: Admin: 06/09/23 16:43 Dose: 240 mls/hr Documented By: CANDELARIO Ioversol (Optiray 320 100ml) 94 ml IV ONCE ONE Stop: 06/09/23 13:35 Last Admin: 06/09/23 13:34 Dose: 94 ml Documented By: LOPEZ Imaging Data Radiologist's Impression: Abdomen/Pelvis CT 06/09/23 12:25 CT SCAN OF THE ABDOMEN AND PELVIS WITH IV CONTRAST CLINICAL HISTORY: Left lower quadrant abdominal pain. Recent diverticulitis. COMPARISON STUDY: Abdominal CT dated 05/29/2023. TECHNIQUE: Following the IV administration of 94 cc of Optiray 320, CT scan of the abdomen and pelvis is performed from the lung bases to the proximal femora. Images are reviewed in the axial, sagittal, and coronal planes. IV contrast was administered without complication. A dose lowering technique was utilized adhering to the principles of ALARA. CT DOSE: 1413.02 mGy.cm FINDINGS: Lung bases: The patient is status post midline sternotomy and aortic valve surgery. The heart is enlarged and without pericardial effusion. The coronary arteries are densely calcified. No airspace consolidation or pleural effusion is identified. There is bibasilar scarring/atelectasis. There are calcified left hi lar nodes as well as a large calcified granuloma at the left lung base. There is a tiny hiatal hernia Liver: The contrast-enhanced liver is normal in size, contour, and attenuation. Fatty infiltration is seen adjacent to the falciform ligament. There is mild central intrahepatic biliary ductal dilatation. The hepatic veins and portal veins are patent. Gallbladder: Surgically absent noting clips in the gallbladder fossa. Spleen: Normal in size and attenuation. Pancreas: Unremarkable. Adrenal glands: Tiny adrenal nodules measuring up to 1.5 cm are unchanged and likely representing adenomas. Kidneys: The contrast enhanced kidneys are normal in size and without hydronephrosis. The kidneys enhance symmetrically. 2.9 cm exophytic cyst arises from the left upper pole. Abdominal vasculature: The abdominal aorta is normal in course and caliber noting advanced atherosclerotic calcification. Bowel: There is moderate colonic diverticulosis. Again seen are findings of acute diverticulitis involving the proximal sigmoid colon. The degree of inflammation has somewhat improved as compared to 05/29/2023. There is a large multiloculated diverticular abscess located above the sigmoid colon seen on axial image #264. This interdigitates around several small bowel loops and measures approximately 5 x 6 x 3.5 cm in aggregate dimension. Wall thickening of the adjacent small bowel loops is likely related to inflammation. An additional 2.0 x 1.3 cm collection is seen anterior to the sigmoid colon on image #292 and a 1.9 x 1.2 cm loculation is seen more superiorly on image #281. Liquid stool se en throughout the colon. There is no bowel obstruction. The appendix is well- visualized and normal. Peritoneum: There is no intraperitoneal free air or abdominal ascites. See above for discussion of a diverticular abscess. There is a small fat-containing umbilical hernia. Lymphadenopathy: No pathologically enlarged lymph nodes are identified. Densely calcified right external iliac chain nodes are on similar previous. Pelvic viscera: The bladder is distended but otherwise normal in appearance. The uterus is surgically absent. No adnexal lesion is seen. Skeletal structures: The skeletal structures are osteopenic. There is mild lumbosacral spondylosis. Sclerotic change is noted in the pubic symphysis. No lytic or blastic lesions are seen. IMPRESSION: 1. Again seen are findings of acute sigmoid diverticulitis. The degree of inflammation has modestly improved as compared to 05/29/2023. 2. There is an approximately 5 x 6 x 3.5 cm multilocular diverticular abscess superior to the sigmoid colon. This closely interdigitates around adjacent small bowel loops and would not be amenable to percutaneous drainage. 3. There are 2 additional tiny loculated fluid collections seen about the sigmoid which measure up to 2 cm. 4. No intraperitoneal free air is seen. 5. There is no bowel obstruction. 6. Cardiomegaly. 7. Additional findings as above. ACT 112: Negative or not required by law. Electronically signed by: Jono Powell M.D. 06/09/2023 2:03 PM Discharge Plan Visit Data Chief Complaint: Abdominal Pain Stated Complaint: ABDOMINAL PAIN, DIARRHEA ED Provider: Jayjay Lopez Discharge Problem: Abscess of sigmoid colon due to diverticulitis, History of aortic valve replacement with metallic valve, Supratherapeutic INR, Acute UTI, Renal insufficiency Forms Stand Alone Forms: [facility] [employer] Prescriptions Prescriptions: No Action clonidine HCl 0.1 mg tablet 0.1 mg PO BID Qty: 180 3RF metoclopramide HCl 5 mg tablet 5 mg PO BID Qty: 180 3RF alprazolam 0.25 mg tablet 0.5 mg PO HS Qty: 180 0RF amlodipine 5 mg tablet 5 mg PO HS Qty: 90 3RF pantoprazole [Protonix] 40 mg tablet,delayed release (DR/EC) 40 mg PO QAM Qty: 90 3RF metoprolol succinate 100 mg tablet extended release 24 hr 100 mg PO HS Qty: 90 3RF cholecalciferol (vitamin D3) 1,000 unit capsule 5,000 units PO QAM albuterol sulfate [ProAir HFA] 90 mcg/actuation HFA aerosol inhaler 2 puff inhalation QID PRN (Reason: shortness of breath) Qty: 8.5 2RF aspirin [Harvey Low Dose Aspirin] 81 mg tablet,delayed release (DR/EC) 81 mg PO HS isosorbide mononitrate 60 mg tablet extended release 24 hr 60 mg PO QAM pravastatin 80 mg tablet 80 mg PO HS cyanocobalamin (vitamin B-12) 1,000 mcg capsule 1,000 mcg PO QAM calcium carbonate [Calcium 600] 600 mg calcium (1,500 mg) Tablet 600 mg PO BID warfarin 2.5 mg Tablet 2.5 mg PO .WED/WED//WED Protocol: Dose Management Condition: Wednesday Dose/Route: 5 mg Instruction: 1 x 5 mg tablet Condition: Wednesday Dose/Route: 2.5 mg Instruction: 1 x 2.5 mg tablet Condition: Wednesday Dose/Route: 5 mg Instruction: 1 x 5 mg tablet Condition: Wednesday Dose/Route: 2.5 mg Instruction: 1 x 2.5 mg tablet Condition: Dose/Route: 2.5 mg Instruction: 1 x 2.5 mg tablet Condition: Wednesday Dose/Route: 5 mg Instruction: 1 x 5 mg tablet Condition: Wednesday Dose/Route: 5 mg Instruction: 1 x 5 mg tablet Protocol Text: Adjustment Start Date: Wednesday06/04/23 INR Value: Pending INR Date: 06/04/23 Recheck Date: 06/18/23 warfarin 5 mg tablet 5 mg PO .SUN//WED Protocol: Dose Management Condition: Wednesday Dose/Route: 5 mg Instruction: 1 x 5 mg tablet Condition: Wednesday Dose/Route: 2.5 mg Instruction: 1 x 2.5 mg tablet Condition: Wednesday Dose/Route: 5 mg Instruction: 1 x 5 mg tablet Condition: Wednesday Dose/Route: 2.5 mg Instruction: 1 x 2.5 mg tablet Condition: Dose/Route: 2.5 mg Instruction: 1 x 2.5 mg tablet Condition: Wednesday Dose/Route: 5 mg Instruction: 1 x 5 mg tablet Condition: Wednesday Dose/Route: 5 mg Instruction: 1 x 5 mg tablet Protocol Text: Adjustment Start Date: Wednesday06/04/23 INR Value: Pending INR Date: 06/04/23 Recheck Date: 06/18/23 ciprofloxacin HCl [Cipro] 500 mg tablet 500 mg PO BID Qty: 20 0RF Rx Instructions: Start Date 06/02/2023 - End Date 06/12/2023 metronidazole 500 mg tablet 500 mg PO TID Qty: 30 0RF Rx Instructions: Start Date 06/02/2023 - End Date 06/12/2023 Referrals Referrals: Cheryl Bailey PA-C [Physician Dealmaker] - 06/10/23 11:00 am (You are scheduled to see Cheryl Bailey PA-C on 06/10/23 at 11:00am. If you have any questions or are unable to keep the appointment, please contact the office directly.) Olman Diaz MD [Primary Care Provider] -
[2023-06-09 13:03] LABS: Prothrombin Time 60.9 Seconds (9.0-12.0)
[2023-06-09] MEDS ORDERED: OPTIRAY 320 100ml IV ONE (13:34)
[2023-06-09 14:04] LABS: INR 6.2 (0.9-1.1)
--- NOTE | 2023-06-09 14:06 | CT Scan Report ---
CT SCAN OF THE ABDOMEN AND PELVIS WITH IV CONTRAST CLINICAL HISTORY: Left lower quadrant abdominal pain. Recent diverticulitis. COMPARISON STUDY: Abdominal CT dated 05/29/2023. TECHNIQUE: Following the IV administration of 94 cc of Optiray 320, CT scan of the abdomen and pelvi s is performed from the lung bases to the proximal femora. Images are reviewed in the axial, sagittal , and coronal planes. IV contrast was administered without complication. A dose lowering technique wa s utilized adhering to the principles of ALARA. CT DOSE: 1413.02 mGy.cm FINDINGS: Lung bases: The patient is status post midline sternotomy and aortic valve surgery. The heart is enla rged and without pericardial effusion. The coronary arteries are densely calcified. No airspace conso lidation or pleural effusion is identified. There is bibasilar scarring/atelectasis. There are calcif ied left hilar nodes as well as a large calcified granuloma at the left lung base. There is a tiny hi atal hernia Liver: The contrast-enhanced liver is normal in size, contour, and attenuation. Fatty infiltration is seen adjacent to the falciform ligament. There is mild central intrahepatic biliary ductal dilatatio n. The hepatic veins and portal veins are patent. Gallbladder: Surgically absent noting clips in the gallbladder fossa. Spleen: Normal in size and attenuation. Pancreas: Unremarkable. Adrenal glands: Tiny adrenal nodules measuring up to 1.5 cm are unchanged and likely representing kenji nomas. Kidneys: The contrast enhanced kidneys are normal in size and without hydronephrosis. The kidneys enh ance symmetrically. 2.9 cm exophytic cyst arises from the left upper pole. Abdominal vasculature: The abdominal aorta is normal in course and caliber noting advanced atheroscle rotic calcification. Bowel: There is moderate colonic diverticulosis. Again seen are findings of acute diverticulitis invo lving the proximal sigmoid colon. The degree of inflammation has somewhat improved as compared to 05/29. There is a large multiloculated diverticular abscess located above the sigmoid colon seen on a xial image #264. This interdigitates around several small bowel loops and measures approximately 5 x 6 x 3.5 cm in aggregate dimension. Wall thickening of the adjacent small bowel loops is likely relate d to inflammation. An additional 2.0 x 1.3 cm collection is seen anterior to the sigmoid colon on reynaldo ge #292 and a 1.9 x 1.2 cm loculation is seen more superiorly on image #281. Liquid stool seen throug hout the colon. There is no bowel obstruction. The appendix is well-visualized and normal. Peritoneum: There is no intraperitoneal free air or abdominal ascites. See above for discussion of a diverticular abscess. There is a small fat-containing umbilical hernia. Lymphadenopathy: No pathologically enlarged lymph nodes are identified. Densely calcified right exter nal iliac chain nodes are on similar previous. Pelvic viscera: The bladder is distended but otherwise normal in appearance. The uterus is surgically absent. No adnexal lesion is seen. Skeletal structures: The skeletal structures are osteopenic. There is mild lumbosacral spondylosis. S clerotic change is noted in the pubic symphysis. No lytic or blastic lesions are seen. IMPRESSION: 1. Again seen are findings of acute sigmoid diverticulitis. The degree of inflammation has modestly i mproved as compared to 05/29/2023. 2. There is an approximately 5 x 6 x 3.5 cm multilocular diverticular abscess superior to the sigmoid colon. This closely interdigitates around adjacent small bowel loops and would not be amenable to pe rcutaneous drainage. 3. There are 2 additional tiny loculated fluid collections seen about the sigmoid which measure up to 2 cm. 4. No intraperitoneal free air is seen. 5. There is no bowel obstruction. 6. Cardiomegaly. 7. Additional findings as above. ACT 112: Negative or not required by law. Electronically signed by: Jono Powell M.D. 06/09/2023 2:03 PM
[2023-06-09 14:29] LABS: Appearance Urine Cloudy (Clear); Bacteria Urine Automated Negative (Negative); Bilirubin Urine 1+ (Negative); Blood Urine Negative (Negative); Color Urine Dark Yellow; Glucose Urine UA 1+ (Negative); Ketones Urine Trace (Negative); Leukocyte Esterase Urine 1+ (Negative); Nitrite Urine Positive (Negative); Protein Urine 1+ (Negative); Specific Gravity Urine 1.021 (1.000-1.030); Urobilinogen Urine Negative (Negative); pH Urine 5.5 (4.5-7.5)
[2023-06-09 14:53] LABS: Epithelial Cell Urine Auto 20-30 /lpf (0-5)
[2023-06-09 14:54] LABS: Renal Epithelial Cells Urine 0-5 /lpf (0-5)
[2023-06-09 14:58] LABS: Calcium Oxalate Crystals Urine Present (None Prsent); RBC Urine Automated 0-4 /hpf (0-4)
[2023-06-09] MEDS ORDERED: PIPERACILLIN/TAZOBACTAM 4.5 GM/120 ML BAG IV ONE (16:16)
[2023-06-09] MEDS: LACTATED RINGER'S 1,000 ML IV SCH (16:43)
--- NOTE | 2023-06-09 19:06 | Surgery Consultation ---
Date of Consultation June 09, 2023 Assessment & Plan (1) Abscess of sigmoid colon due to diverticulitis: 72-year-old female with multiple medical problems including aortic valve replacement and CABG in the past on chronic anticoagulation and recent admission for diverticulitis, now with diverticular abscess. It appears that is currently not amenable to percutaneous drainage. Given her multiple medical problems would recommend continued treatment with IV antibiotics. She may need long-term treatment with PICC line, therefore would recommend an ID consult. Her INR is supratherapeutic and she will need to be bridged in the meantime once this resolves in case any surgical intervention is necessary. Would need cardiac clearance and discussion with anesthesia prior to any surgical intervention at this facility. No acute surgical intervention at this time Recommend continued treatment with IV antibiotics ID consult, likely needs PICC line for long-term IV antibiotics Supratherapeutic INR, would allow to come down and will need bridged in case surgical intervention is indicated Will need cardiac clearance prior to any surgical intervention at this facility, may need transfer to tertiary center if this becomes necessary Surgery will continue to follow, may need repeat CT scan in the near future, call with questions or concerns (2) Hypertension: (3) Anticoagulated on Coumadin: (4) CAD (coronary artery disease): (5) History of aortic valve replacement with metallic valve: (6) Occlusion of right internal carotid artery: (7) PAD (peripheral artery disease): (8) Prediabetes: (9) GERD (gastroesophageal reflux disease): (10) S/P CABG (coronary artery bypass graft): History of Present Illness Reason for Consultation: Diverticulitis with abscess History of Present Illness 72-year-old female with recent admission for acute sigmoid diverticulitis with contained perforation treated with IV antibiotics and discharged on oral antibiotics. Since she went home she has still been feeling ill and has had some night sweats and some low-grade fevers. She has not had much of an appetite. She has felt weak and lethargic. She had some sharp left lower quadrant abdominal pain this morning and was brought to the emergency department. She had a prior with a low vertical midline incision. She is on Coumadin for mechanical heart valve and her INR is currently 6.2. She has multiple other medical problems. Allergies Allergy/AdvReac Type Severity Reaction Status Date / Time rosuvastatin [From Crestor] Allergy Intermediate myalgia Verified 06/09/23 12:38 sertraline [From Zoloft] Allergy Intermediate burn Verified 06/09/23 12:38 sensation on skin on arms lovastatin Allergy Mild rash Verified 06/09/23 12:38 bupropion [From Wellbutrin] AdvReac Intermediate insomnia Verified 06/09/23 12:38 and tremors dicyclomine AdvReac Intermediate N/V Verified 06/09/23 12:38 codeine AdvReac Mild NAUSEA & Verified 06/09/23 12:38 PAIN ezetimibe [From Zetia] AdvReac Mild Gastrointestinal Verified 06/09/23 12:38 Upset methadone AdvReac Mild GI UPSET(?) Verified 06/09/23 12:38 niacin AdvReac Mild Gastrointestinal Verified 06/09/23 12:38 [From Niaspan Upset Extended-Release] paroxetine [From Paxil] AdvReac Mild Gastrointestinal Verified 06/09/23 12:38 Upset propoxyphene AdvReac Mild NAUSEA & Verified 06/09/23 12:38 PAIN simvastatin [From Zocor] AdvReac Mild Gastrointestinal Verified 06/09/23 12:38 Upset [id number] Reductase AdvReac Mild STATIN Verified 06/09/23 12:38 Inhibitor INTOLERANCE - GI UPSET Home Medications Medication Instructions Recorded Confirmed Type cholecalciferol (vitamin D3) 25 5,000 units PO QAM 09/05/19 06/09/23 History mcg (1,000 unit) capsule albuterol sulfate 90 mcg/actuation 2 puff inhalation QID PRN 07/18/21 06/09/23 Rx aerosol inhaler (ProAir HFA) shortness of breath #8.5 grams clonidine HCl 0.1 mg tablet 0.1 mg PO BID #180 tabs 07/14/22 06/09/23 Rx aspirin 81 mg tablet,delayed 81 mg PO HS 09/24/22 06/09/23 History release (Harvey Low Dose Aspirin) metoclopramide HCl 5 mg tablet 5 mg PO BID #180 tabs 10/05/22 06/09/23 Rx calcium carbonate 600 mg calcium 600 mg PO BID 02/24/23 06/09/23 History (1,500 mg) tablet (Calcium) cyanocobalamin (vitamin B-12) 1,000 mcg PO QAM 02/24/23 06/09/23 History 1,000 mcg capsule isosorbide mononitrate 60 mg 60 mg PO QAM 02/24/23 06/09/23 History tablet,extended release 24 hr pravastatin 80 mg tablet 80 mg PO HS 02/24/23 06/09/23 History alprazolam 0.25 mg tablet 0.5 mg PO HS #180 tabs 03/08/23 06/09/23 Rx amlodipine 5 mg tablet 5 mg PO HS #90 tabs 03/08/23 06/09/23 Rx pantoprazole 40 mg tablet,delayed 40 mg PO QAM gerd #90 tabs 03/08/23 06/09/23 Rx release (Protonix) metoprolol succinate 100 mg 100 mg PO HS #90 tabs 04/05/23 06/09/23 Rx tablet,extended release 24 hr warfarin 2.5 mg tablet 2.5 mg PO .MON/WED/TH/FRI 05/29/23 06/09/23 History warfarin 5 mg tablet 5 mg PO .SUN/TUES/SAT 05/29/23 06/09/23 History ciprofloxacin HCl 500 mg tablet 500 mg PO BID #20 tabs 06/02/23 06/09/23 Rx (Cipro) metronidazole 500 mg tablet 500 mg PO TID #30 tabs 06/02/23 06/09/23 Rx Patient History Medical History Adenoma of right adrenal gland Allergic rhinitis Anticoagulated on Coumadin Asthma inhaler prn CAD (coronary artery disease) Depression with anxiety Diverticulosis Essential hematuria pt denies at present time Exertional chest pain hx of; pt states she no longer experiences this Hyperlipidemia Hypertension Internal hemorrhoids Myocardial Infarction x2--06/12/08 and 08/06--follows with Dr. Milner Occlusion of right internal carotid artery Osteoporosis with fracture PAD (peripheral artery disease) Plantar fasciitis Positional vertigo Prediabetes Tremor of right hand Urinary incontinence Vitamin D deficiency Xerostomia Surgical History H/O section History of aortic valve replacement with metallic valve 2000 History of appendectomy History of cardiac cath x2--05/2008 and 07/2008 History of colonoscopy History of esophagogastroduodenoscopy (EGD) History of heart artery stent x1 2008 History of hysterectomy with bilateral oophorectomy History of wisdom tooth extraction Hx of cholecystectomy S/P CABG (coronary artery bypass graft) 2001-per pt "triple bypass" @ [facility] S/P tonsillectomy Family History Mother Alzheimer disease Dementia Osteoarthritis Father Coronary heart disease Heart disease Myocardial infarction age 72 Lung cancer Colorectal cancer Grandmother (Paternal) Diabetes Other No family history of adverse response to anesthesia Denies family history of Rheumatoid arthritis Sudden SIDS (sudden infant syndrome) Ovarian cancer Prostate cancer Deep vein thrombosis Osteoporosis Dyslipidemia Cerebral aneurysm Bipolar disorder Clotting disorder Crohn's disease Depression Kidney disease Breast cancer Schizophrenia Congenital kidney disease Gestational diabetes COPD (chronic obstructive pulmonary disease) Pulmonary embolism Lung disease Hypertension Ulcerative colitis Colonic polyp Stroke Asthma Cystic kidney disease Social History Smoking Status: Former smoker Tobacco Type: Cigarettes Age Started Using Tobacco: 16; Second Hand Exposure: Yes; Do You Dip or Chew Tobacco: No; Hx Alcohol Use: No Hx Substance Use: No Preferred Language: Korean Communication Ability: Effective Visual Impairment: No Limitations Hearing Ability: Normal Carriage Setter Required: No Beliefs That Will Affect Care: None marital status: / Current Living Situation: Alone current occupational status: retired 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 [employer] How many Children do You have: 1 Feels Safe at Home: Yes Childhood Exposure to Second-Hand Smoke: No Diet: regular caffeine: Yes during the past year weight has: remained stable Dental Care, Regularly: No Physical Activity Frequency: Does not Exercise Seatbelt Use: always Sunscreen Use: Yes Assistive Devices: None Review of Systems Review of Systems: All systems reviewed & are unremarkable except as noted in HPI & below Physical Exam Constitutional: WD/WN, vitals as above Respiratory: normal respiratory effort, lungs clear to auscultation Cardiovascular: Rate/Rhythm: regular rate Heart Sounds: + click Gastrointestinal (Abdomen): Inspection/Auscultation: + abdominal surgical scar Percussion/Palpation: + abdomen tender (Tender palpation left lower quadrant with localized guarding), + guarding and abdomen soft; abdomen not rigid Results & Data Vital Signs (Past 12 Hours) Vital Signs Temp Pulse Pulse Resp BP BP Pulse Ox 06/09/23 15:21 98 H 16 98 06/09/23 14:00 83 17 132/63 97 06/09/23 12:57 85 17 132/63 95 06/09/23 11:00 36.3 C L 82 20 118/76 94 O2 Del Method 06/09/23 15:21 06/09/23 14:00 Room Air 06/09/23 12:57 Room Air 06/09/23 11:00 Room Air Laboratory Results Laboratory Results - last 24 hr 06/09/23 06/09/23 06/09/23 11:59 11:59 11:59 WBC 9.34 RBC 4.79 Hgb 14.4 Hct 42.2 MCV 88.1 MCH 30.1 MCHC 34.1 RDW Std Deviation 40.5 RDW Coeff of [place] 12.6 Plt Count 377 MPV 9.6 Immature Gran % (Auto) 0.4 Neut % (Auto) 82.0 Lymph % (Auto) 9.3 [place] % (Auto) 7.8 Eos % (Auto) 0.3 Baso % (Auto) 0.2 Neut # (Auto) 7.65 H Lymph # (Auto) 0.87 L [place] # (Auto) 0.73 H Eos # (Auto) 0.03 Baso # (Auto) 0.02 Immature Gran # (Auto) 0.04 PT 60.9 H INR 6.2 H* Sodium 140 Potassium 3.1 L Chloride 104 Carbon Dioxide 29 Anion Gap 7 BUN 12 Creatinine 1.23 H Est Cr Clr Drug Dosing 46.5 Est GFR ( Amer) 50.0 Est GFR (Non-Af Amer) 43.2 BUN/Creatinine Ratio 9.8 L Glucose 231 H Calcium 10.1 Total Bilirubin 0.5 AST 18 ALT 21 Alkaline Phosphatase 64 Total Protein 6.2 Albumin 3.6 Globulin 2.6 Albumin/Globulin Ratio 1.4 Lipase 38 Urine Color Urine Appearance Urine pH Ur Specific [place] Urine Protein Urine Glucose (UA) Urine Ketones Urine Blood Urine Nitrite Urine Bilirubin Urine Urobilinogen Ur Leukocyte Esterase Urine WBC (Auto) Urine RBC (Auto) U Hyaline Cast (Auto) U Epithel Cells (Auto) Urine Bacteria (Auto) Ur Renal Epithelial Cell Urine Crystals Calcium Oxalate Crystal SARS-CoV-2, RNA, NAAT 06/09/23 06/09/23 12:00 16:33 WBC RBC Hgb Hct MCV MCH MCHC RDW Std Deviation RDW Coeff of [place] Plt Count MPV Immature Gran % (Auto) Neut % (Auto) Lymph % (Auto) [place] % (Auto) Eos % (Auto) Baso % (Auto) Neut # (Auto) Lymph # (Auto) [place] # (Auto) Eos # (Auto) Baso # (Auto) Immature Gran # (Auto) PT INR Sodium Potassium Chloride Carbon Dioxide Anion Gap BUN Creatinine Est Cr Clr Drug Dosing Est GFR ( Amer) Est GFR (Non-Af Amer) BUN/Creatinine Ratio Glucose Calcium Total Bilirubin AST ALT Alkaline Phosphatase Total Protein Albumin Globulin Albumin/Globulin Ratio Lipase Urine Color Dark Yellow Urine Appearance Cloudy A Urine pH 5.5 Ur Specific [place] 1.021 Urine Protein 1+ H Urine Glucose (UA) 1+ H Urine Ketones Trace H Urine Blood Negative Urine Nitrite Positive A Urine Bilirubin 1+ H Urine Urobilinogen Negative Ur Leukocyte Esterase 1+ H Urine WBC (Auto) 5-10 H Urine RBC (Auto) 0-4 U Hyaline Cast (Auto) 10-30 H U Epithel Cells (Auto) 20-30 H Urine Bacteria (Auto) Negative Ur Renal Epithelial Cell 0-5 Urine Crystals Not Reportable Calcium Oxalate Crystal Present A SARS-CoV-2, RNA, NAAT Pending Diagnostic Findings CT scan personally reviewed and interpreted by myself and agree with the assessment of resolving diverticulitis but evidence of a hourglass shaped abscess approximately 5 cm in size adjacent to some small bowel. CT SCAN OF THE ABDOMEN AND PELVIS WITH IV CONTRAST CLINICAL HISTORY: Left lower quadrant abdominal pain. Recent diverticulitis. COMPARISON STUDY: Abdominal CT dated 05/29/2023. TECHNIQUE: Following the IV administration of 94 cc of Optiray 320, CT scan of the abdomen and pelvis is performed from the lung bases to the proximal femora. Images are reviewed in the axial, sagittal, and coronal planes. IV contrast was administered without complication. A dose lowering technique was utilized adhering to the principles of ALARA. CT DOSE: 1413.02 mGy.cm FINDINGS: Lung bases: The patient is status post midline sternotomy and aortic valve surgery. The heart is enlarged and without pericardial effusion. The coronary arteries are densely calcified. No airspace consolidation or pleural effusion is identified. There is bibasilar scarring/atelectasis. There are calcified left hilar nodes as well as a large calcified granuloma at the left lung base. There is a tiny hiatal hernia Liver: The contrast-enhanced liver is normal in size, contour, and attenuation. Fatty infiltration is seen adjacent to the falciform ligament. There is mild central intrahepatic biliary ductal dilatation. The hepatic veins and portal veins are patent. Gallbladder: Surgically absent noting clips in the gallbladder fossa. Spleen: Normal in size and attenuation. Pancreas: Unremarkable. Adrenal glands: Tiny adrenal nodules measuring up to 1.5 cm are unchanged and likely representing adenomas. Kidneys: The contrast enhanced kidneys are normal in size and without hydronephrosis. The kidneys enhance symmetrically. 2.9 cm exophytic cyst arises from the left upper pole. Abdominal vasculature: The abdominal aorta is normal in course and caliber noting advanced atherosclerotic calcification. Bowel: There is moderate colonic diverticulosis. Again seen are findings of acute diverticulitis involving the proximal sigmoid colon. The degree of inflammation has somewhat improved as compared to 05/29/2023. There is a large multiloculated diverticular abscess located above the sigmoid colon seen on axial image #264. This interdigitates around several small bowel loops and measures approximately 5 x 6 x 3.5 cm in aggregate dimension. Wall thickening of the adjacent small bowel loops is likely related to inflammation. An additional 2.0 x 1.3 cm collection is seen anterior to the sigmoid colon on image #292 and a 1.9 x 1.2 cm loculation is seen more superiorly on image #281. Liquid stool seen throughout the colon. There is no bowel obstruction. The appendix is well- visualized and normal. Peritoneum: There is no intraperitoneal free air or abdominal ascites. See above for discussion of a diverticular abscess. There is a small fat-containing umbilical hernia. Lymphadenopathy: No pathologically enlarged lymph nodes are identified. Densely calcified right external iliac chain nodes are on similar previous. Pelvic viscera: The bladder is distended but otherwise normal in appearance. The uterus is surgically absent. No adnexal lesion is seen. Skeletal structures: The skeletal structures are osteopenic. There is mild lumbosacral spondylosis. Sclerotic change is noted in the pubic symphysis. No lytic or blastic lesions are seen. IMPRESSION: 1. Again seen are findings of acute sigmoid diverticulitis. The degree of inflammation has modestly improved as compared to 05/29/2023. 2. There is an approximately 5 x 6 x 3.5 cm multilocular diverticular abscess superior to the sigmoid colon. This closely interdigitates around adjacent small bowel loops and would not be amenable to percutaneous drainage. 3. There are 2 additional tiny loculated fluid collections seen about the sigmoid which measure up to 2 cm. 4. No intraperitoneal free air is seen. 5. There is no bowel obstruction. 6. Cardiomegaly. 7. Additional findings as above. PG Care Time/CCT Total # of Minutes Spent Total Time Spent with Patient: Total time spent is greater than 50% in coordination of care (as documented) at patient's floor/unit and/or counseling patient: Coding Level of Care Code 49969 INT INP/OBS CARE MIN Diagnoses Abscess of sigmoid colon due to diverticulitis K57.20 Hypertension I10 Anticoagulated on Coumadin Z79.01 CAD (coronary artery disease) I25.119 Associated angina: with unspecified form of angina Coronary Disease-Associated Artery/Lesion type: unspecified vessel or lesion type [place] vs. transplanted heart: [place] heart History of aortic valve replacement with metallic valve Z95.4 Occlusion of right internal carotid artery I65.21 PAD (peripheral artery disease) I73.9 Prediabetes R73.03 GERD (gastroesophageal reflux disease) K21.9 S/P CABG (coronary artery bypass graft) Z95.1 (4) CAD (coronary artery disease) Associated angina: with unspecified form of angina Coronary Disease- Associated Artery/Lesion type: unspecified vessel or lesion type [place] vs. transplanted heart: [place] heart Qualified Code(s): I25.119 - Atherosclerotic heart disease of [place] coronary artery with unspecified angina pectoris
--- NOTE | 2023-06-09 19:25 | History & Physical Report ---
Date of Service June 09, 2023 Assessment & Plan (1) Diverticulitis of intestine with abscess: Plan: NPO except meds IV Zosyn Consult general surgery - recommending conservative treatment at this stage (2) Anticoagulated on Coumadin: Plan: INR 6.2 on admission Aim 2.5-3.5 Will allow to naturally come down holding her warfarin given metallic aortic valve (3) Hypertension: Plan: Continue clonidine, metoprolol, ISMN with exception to NPO for these medications Holding amlodipine in setting of acute infection, can restart depending on serial BP measurements (4) History of aortic valve replacement with metallic valve: Plan: Aim INR 2.5-3.5 (5) S/P CABG (coronary artery bypass graft): Plan: Continue ISMN, metoprolol Hold ASA (6) GERD (gastroesophageal reflux disease): Plan: Switch pantoprazole to IV to reduce PO meds (7) Hyperlipidemia: Plan: Continue pravastatin Plan VTE Prophylaxis - supratherapeutic INR Diet - NPO Disposition - admit to med/surg Admission and Anticipated Discharge Date Admission Date: June 09, 2023 History of Present Illness Chief Complaint: Abdominal pain Primary Care Provider: Olman Diaz MD Shelby Rocha is a 72 year old female who presents to the ER due to left lower quadrant abdominal pain. She was recently hospitalized for acute sigmoid diverticulitis with contained small perforation from May 29 - 2022. She was discharged on ciprofloxacin and metronidazole for a total course of 14 days. She reports compliance with these antibiotics. She has had persistent low grade abdominal pain since discharge but only started getting worse today. Intermittent cramping in nature in left lower quadrant, no radiation, severity 5/10 when she first cam to the ER at worst, currently 2-3/10. Associated decreased appetite, generalized weakness and fatigue. No association with food intake but also hasn't felt like eating. Ongoing diarrhea since starting antibiotics in the ER since last admission but not getting worse (she stopped the MiraLAX prescribed as this caused 10 BM a day). No nausea or vomiting. Allergies Allergy/AdvReac Type Severity Reaction Status Date / Time rosuvastatin [From Crestor] Allergy Intermediate myalgia Verified 06/09/23 12:38 sertraline [From Zoloft] Allergy Intermediate burn Verified 06/09/23 12:38 sensation on skin on arms lovastatin Allergy Mild rash Verified 06/09/23 12:38 bupropion [From Wellbutrin] AdvReac Intermediate insomnia Verified 06/09/23 12:38 and tremors dicyclomine AdvReac Intermediate N/V Verified 06/09/23 12:38 codeine AdvReac Mild NAUSEA & Verified 06/09/23 12:38 PAIN ezetimibe [From Zetia] AdvReac Mild Gastrointestinal Verified 06/09/23 12:38 Upset methadone AdvReac Mild GI UPSET(?) Verified 06/09/23 12:38 niacin AdvReac Mild Gastrointestinal Verified 06/09/23 12:38 [From Niaspan Upset Extended-Release] paroxetine [From Paxil] AdvReac Mild Gastrointestinal Verified 06/09/23 12:38 Upset propoxyphene AdvReac Mild NAUSEA & Verified 06/09/23 12:38 PAIN simvastatin [From Zocor] AdvReac Mild Gastrointestinal Verified 06/09/23 12:38 Upset [id number] Reductase AdvReac Mild STATIN Verified 06/09/23 12:38 Inhibitor INTOLERANCE - GI UPSET Home Medications Medication Instructions Recorded Confirmed Type cholecalciferol (vitamin D3) 25 5,000 units PO QAM 09/05/19 06/09/23 History mcg (1,000 unit) capsule albuterol sulfate 90 mcg/actuation 2 puff inhalation QID PRN 07/18/21 06/09/23 Rx aerosol inhaler (ProAir HFA) shortness of breath #8.5 grams clonidine HCl 0.1 mg tablet 0.1 mg PO BID #180 tabs 07/14/22 06/09/23 Rx aspirin 81 mg tablet,delayed 81 mg PO HS 09/24/22 06/09/23 History release (Harvey Low Dose Aspirin) metoclopramide HCl 5 mg tablet 5 mg PO BID #180 tabs 10/05/22 06/09/23 Rx calcium carbonate 600 mg calcium 600 mg PO BID 02/24/23 06/09/23 History (1,500 mg) tablet (Calcium) cyanocobalamin (vitamin B-12) 1,000 mcg PO QAM 02/24/23 06/09/23 History 1,000 mcg capsule isosorbide mononitrate 60 mg 60 mg PO QAM 02/24/23 06/09/23 History tablet,extended release 24 hr pravastatin 80 mg tablet 80 mg PO HS 02/24/23 06/09/23 History alprazolam 0.25 mg tablet 0.5 mg PO HS #180 tabs 03/08/23 06/09/23 Rx amlodipine 5 mg tablet 5 mg PO HS #90 tabs 03/08/23 06/09/23 Rx pantoprazole 40 mg tablet,delayed 40 mg PO QAM gerd #90 tabs 03/08/23 06/09/23 Rx release (Protonix) metoprolol succinate 100 mg 100 mg PO HS #90 tabs 04/05/23 06/09/23 Rx tablet,extended release 24 hr warfarin 2.5 mg tablet 2.5 mg PO .WED/WED//Wed05/29/23 06/09/23 History warfarin 5 mg tablet 5 mg PO .SUN//SAT 05/29/23 06/09/23 History ciprofloxacin HCl 500 mg tablet 500 mg PO BID #20 tabs 06/02/23 06/09/23 Rx (Cipro) metronidazole 500 mg tablet 500 mg PO TID #30 tabs 06/02/23 06/09/23 Rx Past Med/Surg History Medical History Adenoma of right adrenal gland Allergic rhinitis Anticoagulated on Coumadin Asthma inhaler prn CAD (coronary artery disease) Depression with anxiety Diverticulosis Essential hematuria pt denies at present time Exertional chest pain hx of; pt states she no longer experiences this Hyperlipidemia Hypertension Internal hemorrhoids Myocardial Infarction x2--06/12/08 and 08/06--follows with Dr. Milner Occlusion of right internal carotid artery Osteoporosis with fracture PAD (peripheral artery disease) Plantar fasciitis Positional vertigo Prediabetes Tremor of right hand Urinary incontinence Vitamin D deficiency Xerostomia Surgical History H/O section History of aortic valve replacement with metallic valve 2000 History of appendectomy History of cardiac cath x2--05/2008 and 07/2008 History of colonoscopy History of esophagogastroduodenoscopy (EGD) History of heart artery stent x1 2007 History of hysterectomy with bilateral oophorectomy History of wisdom tooth extraction Hx of cholecystectomy S/P CABG (coronary artery bypass graft) 2000-per pt "triple bypass" @ [facility] [place] S/P tonsillectomy Family History Mother Alzheimer disease Dementia Osteoarthritis Father Coronary heart disease Heart disease Myocardial infarction age 72 Lung cancer Colorectal cancer Grandmother (Paternal) Diabetes Other No family history of adverse response to anesthesia Denies family history of Rheumatoid arthritis Sudden SIDS (sudden syndrome) Ovarian cancer Prostate cancer Deep vein thrombosis Osteoporosis Dyslipidemia Cerebral aneurysm Bipolar disorder Clotting disorder Crohn's disease Depression Kidney disease Breast cancer Schizophrenia Congenital kidney disease Gestational diabetes COPD (chronic obstructive pulmonary disease) Pulmonary embolism Lung disease Hypertension Ulcerative colitis Colonic polyp Stroke Asthma Cystic kidney disease Social History Smoking Status: Former smoker Tobacco Type: Cigarettes Age Started Using Tobacco: 16; Second Hand Exposure: Yes; Do You Dip or Chew Tobacco: No; Hx Alcohol Use: No Hx Substance Use: No Preferred Language: Greek Communication Ability: Effective Visual Impairment: No Limitations Hearing Ability: Normal Systems Programmer Required: No Beliefs That Will Affect Care: None marital status: / Current Living Situation: Alone current occupational status: retired 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 [employer] How many Children do You have: 1 Feels Safe at Home: Yes Safety Concerns: Feels Safe At This Time Childhood Exposure to Second-Hand Smoke: No Diet: regular caffeine: Yes during the past year weight has: remained stable Dental Care, Regularly: No Physical Activity Frequency: Does not Exercise Seatbelt Use: always Sunscreen Use: Yes Assistive Devices: None Review of Systems Review of Systems: All systems reviewed & are unremarkable except as noted in HPI & below Physical Exam Constitutional: WD/WN, vitals as above Eyes: PERRL, conjunctivae normal, anicteric sclerae ENMT: external ear and nose normal, oropharynx normal Respiratory: normal respiratory effort, lungs clear to auscultation Cardiovascular: Rate/Rhythm: regular rate and regular rhythm Heart Sounds: + click and + murmur (systolic) Extremities: normal capillary refill; no calf tenderness and no pedal edema Gastrointestinal (Abdomen): normal bowel sounds, soft, nontender, no hepatosplenomegaly Musculoskeletal: no cyanosis or clubbing, extremities motor strength 5/5 Skin: no rashes, warm and dry Neurologic: moves all extremities and awake; not confused Psychiatric: A+Ox3, euthymic affect Results & Data Results & Data Vital Signs (Past 12 Hours) Vital Signs Temp Pulse Pulse Resp BP BP Pulse Ox 06/09/23 15:21 98 H 16 98 06/09/23 14:00 83 17 132/63 97 06/09/23 12:57 85 17 132/63 95 06/09/23 11:00 36.3 C L 82 20 118/76 94 O2 Del Method 06/09/23 15:21 06/09/23 14:00 Room Air 06/09/23 12:57 Room Air 06/09/23 11:00 Room Air Laboratory Results Abnormal lab results 06/09/23 06/09/23 06/09/23 Range/Units 11:59 11:59 11:59 Neut # (Auto) 7.65 H (1.40-6.50) K/uL Lymph # (Auto) 0.87 L (1.2-3.4) K/uL [place] # (Auto) 0.73 H (0.11-0.59) K/uL PT 60.9 H (9.0-12.0) Seconds INR 6.2 H* (0.9-1.1) Potassium 3.1 L (3.5-5.1) mmol/L Creatinine 1.23 H (0.6-1.2) mg/dl BUN/Creatinine Ratio 9.8 L (10-20) Glucose 231 H (70-99(Fasting)) mg/dl Urine Appearance (Clear) Urine Protein (Negative) Urine Glucose (UA) (Negative) Urine Ketones (Negative) Urine Nitrite (Negative) Urine Bilirubin (Negative) Ur Leukocyte Esterase (Negative) Urine WBC (Auto) (0-5) /hpf U Hyaline Cast (Auto) (0-5) /lpf U Epithel Cells (Auto) (0-5) /lpf Calcium Oxalate Crystal (None Prsent) 06/09/23 Range/Units 12:00 Neut # (Auto) (1.40-6.50) K/uL Lymph # (Auto) (1.2-3.4) K/uL [place] # (Auto) (0.11-0.59) K/uL PT (9.0-12.0) Seconds INR (0.9-1.1) Potassium (3.5-5.1) mmol/L Creatinine (0.6-1.2) mg/dl BUN/Creatinine Ratio (10-20) Glucose (70-99(Fasting)) mg/dl Urine Appearance Cloudy A (Clear) Urine Protein 1+ H (Negative) Urine Glucose (UA) 1+ H (Negative) Urine Ketones Trace H (Negative) Urine Nitrite Positive A (Negative) Urine Bilirubin 1+ H (Negative) Ur Leukocyte Esterase 1+ H (Negative) Urine WBC (Auto) 5-10 H (0-5) /hpf U Hyaline Cast (Auto) 10-30 H (0-5) /lpf U Epithel Cells (Auto) 20-30 H (0-5) /lpf Calcium Oxalate Crystal Present A (None Prsent) Diagnostic Findings CT SCAN OF THE ABDOMEN AND PELVIS WITH IV CONTRAST CLINICAL HISTORY: Left lower quadrant abdominal pain. Recent diverticulitis. COMPARISON STUDY: Abdominal CT dated 05/29/2023. TECHNIQUE: Following the IV administration of 94 cc of Optiray 320, CT scan of the abdomen and pelvis is performed from the lung bases to the proximal femora. Images are reviewed in the axial, sagittal, and coronal planes. IV contrast was administered without complication. A dose lowering technique was utilized adhering to the principles of ALARA. CT DOSE: 1413.02 mGy.cm FINDINGS: Lung bases: The patient is status post midline sternotomy and aortic valve surgery. The heart is enlarged and without pericardial effusion. The coronary arteries are densely calcified. No airspace consolidation or pleural effusion is identified. There is bibasilar scarring/atelectasis. There are calcified left hilar nodes as well as a large calcified granuloma at the left lung base. There is a tiny hiatal hernia Liver: The contrast-enhanced liver is normal in size, contour, and attenuation. Fatty infiltration is seen adjacent to the falciform ligament. There is mild central intrahepatic biliary ductal dilatation. The hepatic veins and portal veins are patent. Gallbladder: Surgically absent noting clips in the gallbladder fossa. Spleen: Normal in size and attenuation. Pancreas: Unremarkable. Adrenal glands: Tiny adrenal nodules measuring up to 1.5 cm are unchanged and likely representing adenomas. Kidneys: The contrast enhanced kidneys are normal in size and without hydronephrosis. The kidneys enhance symmetrically. 2.9 cm exophytic cyst arises from the left upper pole. Abdominal vasculature: The abdominal aorta is normal in course and caliber noting advanced atherosclerotic calcification. Bowel: There is moderate colonic diverticulosis. Again seen are findings of acute diverticulitis involving the proximal sigmoid colon. The degree of inflammation has somewhat improved as compared to 05/29/2023. There is a large multiloculated diverticular abscess located above the sigmoid colon seen on axial image #264. This interdigitates around several small bowel loops and measures approximately 5 x 6 x 3.5 cm in aggregate dimension. Wall thickening of the adjacent small bowel loops is likely related to inflammation. An additional 2.0 x 1.3 cm collection is seen anterior to the sigmoid colon on image #292 and a 1.9 x 1.2 cm loculation is seen more superiorly on image #281. Liquid stool seen throughout the colon. There is no bowel obstruction. The appendix is well- visualized and normal. Peritoneum: There is no intraperitoneal free air or abdominal ascites. See above for discussion of a diverticular abscess. There is a small fat-containing umbilical hernia. Lymphadenopathy: No pathologically enlarged lymph nodes are identified. Densely calcified right external iliac chain nodes are on similar previous. Pelvic viscera: The bladder is distended but otherwise normal in appearance. The uterus is surgically absent. No adnexal lesion is seen. Skeletal structures: The skeletal structures are osteopenic. There is mild lumbosacral spondylosis. Sclerotic change is noted in the pubic symphysis. No lytic or blastic lesions are seen. IMPRESSION: 1. Again seen are findings of acute sigmoid diverticulitis. The degree of inflammation has modestly improved as compared to 05/29/2023. 2. There is an approximately 5 x 6 x 3.5 cm multilocular diverticular abscess superior to the sigmoid colon. This closely interdigitates around adjacent small bowel loops and would not be amenable to percutaneous drainage. 3. There are 2 additional tiny loculated fluid collections seen about the sigmoid which measure up to 2 cm. 4. No intraperitoneal free air is seen. 5. There is no bowel obstruction. 6. Cardiomegaly. 7. Additional findings as above. Medications Administered ER Medications Given: NSS 1L bolus Acetaminophen 1000mg IV Zosyn 4.5 g IV Code Status & VTE Plan Code Status DNR/DNI per patient wishes VTE Prophylaxis Plan VTE Prophylaxis will be ordered: Yes PG Care Time/CCT Total # of Minutes Spent Total Time Spent with Patient: Total time spent is greater than 50% in coordination of care (as documented) at patient's floor/unit and/or counseling patient: Coding Level of Care Code 00401 INT INP/OBS CARE MIN Diagnoses Diverticulitis of intestine with abscess K57.80 Anticoagulated on Coumadin Z79.01 Hypertension I10 History of aortic valve replacement with metallic valve Z95.4 S/P CABG (coronary artery bypass graft) Z95.1 GERD (gastroesophageal reflux disease) K21.9 Hyperlipidemia E78.5
[2023-06-09] MEDS ORDERED: ALBUTEROL HFA 8 GM INHALER INH PRN (22:30)
[2023-06-09] MEDS: cloNIDine HCL 0.1 MG TAB PO SCH (23:14)
[2023-06-09] MEDS: METOPROLOL SUCC 50MG EXT REL TAB PO SCH (23:15)
[2023-06-09] MEDS: PIPERACILLIN/TAZOBACTAM 4.5 GM in DEXTROSE 5% 100 ML IV SCH (23:15)
[2023-06-09] MEDS: PRAVASTATIN SOD 40 MG TAB PO SCH (23:16)
[2023-06-09] MEDS: LORazepam 2 MG/1 ML VIAL IV PRN (23:22)
[2023-06-10] MEDS ORDERED: MELATONIN 3 MG TAB PO PRN (01:04)
[2023-06-10] MEDS: LACTATED RINGER'S 1,000 ML IV SCH ×3 (03:39→16:27)
[2023-06-10] MEDS ORDERED: Nursing to Pharmacy Communication SCH (06:00)
[2023-06-10] MEDS ORDERED: ACETAMINOPHEN 1,000 MG/100 ML VIAL IV PRN (06:06)
[2023-06-10] MEDS: PIPERACILLIN/TAZOBACTAM 4.5 GM in DEXTROSE 5% 100 ML IV SCH ×3 (06:21→21:28)
[2023-06-10 07:19] LABS: Basophils # (auto) 0.04 K/uL (0-0.2); Basophils % (auto) 0.5 %; Eosinophils # (auto) 0.06 K/uL (0-0.50); Eosinophils % (auto) 0.8 %; Hemoglobin 13.3 g/dl (12.0-16.0); Immature Granulocytes # (auto) 0.03 K/uL (0.01-0.20); Immature Granulocytes % (auto) 0.4 %; Lymphocytes # (auto) 1.43 K/uL (1.2-3.4); Lymphocytes % (auto) 19.3 %; Mean Corpuscular Hemoglobin 29.8 pg (25.0-34.0); Mean Corpuscular Hgb Conc 33.3 g/dL (32.0-36.0); Mean Corpuscular Volume 89.5 fL (80.0-100.0); Mean Platelet Volume 9.6 fL (9.4-12.4); Monocytes # (auto) 0.64 K/uL (0.11-0.59); Monocytes % (auto) 8.6 %; Neutrophils # (auto) 5.22 K/uL (1.40-6.50); Neutrophils % (auto) 70.4 %; Platelet Count 365 K/uL (130-400); RDW Coefficient of Variation 12.7 % (11.5-14.5); RDW Standard Deviation 41.8 fL (36.4-46.3); Red Blood Count 4.47 M/uL (4.20-5.40); White Blood Count 7.42 K/ul (4.8-10.8)
--- NOTE | 2023-06-10 07:40 | Hospitalist Progress Note ---
Date of Service June 10, 2023 Assessment & Plan (1) Diverticulitis of intestine with abscess: Plan: NPO except meds, gentle continuous IVF through tonight IV Zosyn to continue for now Given patient failed tx with Cipro/Flagyl outpatient, case discussed with ID -> concern about need for source control given no improvement on previous regimen Cardiology consulted at surgical request to eval for surgical risk given Hx and CABG -> Echo ordered to stratify aortic disease Case discussed with pci security consultant providers 06/10 (2) Anticoagulated on Coumadin: Plan: INR 6.4, with goal range 2.5-3.5 for Hx metal aortic valve Will hold warfarin and monitor INR Will bridge with Heparin in perioperative period when patient's INR returns to therapeutic range (3) Hypertension: Plan: Continue clonidine, metoprolol, isosorbide mononitrate (exception to NPO for these medications) Holding amlodipine in setting of acute infection, can restart depending on serial BP measurements (4) History of aortic valve replacement with metallic valve: Plan: Goal INR 2.5-3.5 Repeat Echo as above (5) S/P CABG (coronary artery bypass graft): Plan: Continue isosorbide mononitrate, metoprolol Hold ASA (6) GERD (gastroesophageal reflux disease): Plan: Continue pantoprazole IV daily (7) Hyperlipidemia: Plan: Continue pravastatin (8) Insomnia: Plan: Chronically on lorazepam nightly, no increase in dose in recent past With worsening of insomnia recently, possible increased tolerance to long- standing lorazepam? Added trazodone to trial for sleep while inpatient (9) Chronic prescription benzodiazepine use: Plan: see above Plan VTE Prophylaxis - supratherapeutic INR, continue to monitor Diet - NPO Disposition - med/surg Admission and Anticipated Discharge Date Admission Date: June 09, 2023 Subjective No overnight events. Some pain in LLQ but improved from yesterday. She reports a lot of anxiety surrounding her current illness, and has noticed recently in the last few months that her nightly Xanax is helping her fall asleep, but say 3 hours later she is wide awake and ruminating causing her to have trouble sleeping. She denies chest pain, SOB, nausea. She endorses diarrhea. Review of Systems Review of Systems: All systems reviewed & are unremarkable except as noted in Subjective Physical Exam Constitutional: WD/WN, vitals as above Respiratory: normal respiratory effort, lungs clear to auscultation Cardiovascular: RRR, no murmur, no edema Gastrointestinal (Abdomen): abdomen soft, mild tender LLQ, normal BS Skin: no rashes, warm and dry Psychiatric: A+Ox3, euthymic affect Results & Data Results & Data Vital Signs (Past 12 Hours) Vital Signs Temp Pulse Pulse Resp BP BP Pulse Ox 06/09/23 22:37 36.8 C 73 18 181/81 H 94 06/09/23 22:21 36.8 C 73 16 181/81 H 94 06/09/23 22:05 66 18 176/76 H 94 06/09/23 21:00 68 18 175/73 H 95 O2 Del Method 06/09/23 22:37 Room Air 06/09/23 22:21 Room Air 06/09/23 22:05 Room Air 06/09/23 21:00 Room Air PG Care Time/CCT Total # of Minutes Spent Total Time Spent with Patient: Total time spent is greater than 50% in coordination of care (as documented) at patient's floor/unit and/or counseling patient: Coding Level of Care Code 40789 SUB INP/OBS CARE 3/50MIN Diagnoses Diverticulitis of intestine with abscess K57.80 Anticoagulated on Coumadin Z79.01 Hypertension I10 History of aortic valve replacement with metallic valve Z95.4 S/P CABG (coronary artery bypass graft) Z95.1 GERD (gastroesophageal reflux disease) K21.9 Hyperlipidemia E78.5 Insomnia G47.00 Chronic prescription benzodiazepine use Z79.899
[2023-06-10 07:52] LABS: Prothrombin Time 62.3 Seconds (9.0-12.0)
[2023-06-10 07:56] LABS: INR 6.4 (0.9-1.1)
[2023-06-10 07:58] LABS: Albumin Globulin Ratio 1.4 (0.9-2); Albumin Level 3.4 gm/dl (3.4-5.0); BUN Creatinine Ratio 6.5 (10-20); Bilirubin,Total 0.5 mg/dl (0.2-1.0); Calcium 8.7 mg/dl (8.6-10.3); Creatinine Clr Calc Pharmacy 62.6 ml/min; Est GFR (African American) 71.1 ml/min; Est GFR (Non-African American) 61.3 ml/min; Globulin 2.4 gm/dl (2.5-4.0); Potassium 3.5 mmol/L (3.5-5.1); Total Protein 5.8 gm/dl (6.0-8.3)
[2023-06-10] MEDS: ISOSORBIDE MONO EXTENDED REL 60 MG TABCR PO SCH (08:26)
[2023-06-10] MEDS: cloNIDine HCL 0.1 MG TAB PO SCH ×2 (08:26→20:12)
--- NOTE | 2023-06-10 11:39 | Surgery Progress Note ---
Date of Service June 10, 2023 Assessment & Plan (1) Diverticulitis of intestine with abscess: Plan: Patient here with diverticulitis with abscess WBC 7. vitals stable and patient afebrile. INR this AM remains elevated at 6.4 She remains on IV abx, will await ID input regarding abx regimen recommended as outpatient Her pain is improved, she is passing loose stools. Continue sips/ice May consider repeat CT in future to evaluate abscess, but continue current cours e for now Admission and Anticipated Discharge Date Admission Date: June 09, 2023 Supervising Physician Co-Signing Physician Notes Patient seen and examined, labs reviewed. Feels little better today. Afebrile with stable vitals. Abdomen soft, nontender, nondistended. Had a liquid bowel movement. WBC normal. INR still supratherapeutic. Continue IV antibiotics, patient will likely need PICC line and IV antibiotics for the next 2 to [address] scan in 3 weeks. She will likely need home health care. Recommend ID consult. No surgical invention at this time, surgery will continue to follow Subjective Patient's biggest complaint is that she did not get much of any sleep last night. Was given 2 sleep aids, but didn't get some rest until about 5:30 this AM. Otherwise she says her abdominal pain is improved from yesterday. No nausea/vomiting. Not much appetite. Reports passing flatus and loose stools. Physical Exam 2 Physical Exam: awake/alert, no distress Respiratory: normal respiratory effort Gastrointestinal (Abdomen): Inspection/Auscultation: abdomen not distended Percussion/Palpation: abdomen soft; abdomen nontender Results & Data Vital Signs (Past 12 Hours) Vital Signs Temp Pulse Resp BP Pulse Ox O2 Del Method 06/10/23 07:49 37.1 C 74 17 165/83 H 95 Room Air PG Care Time/CCT Total # of Minutes Spent Total Time Spent with Patient: Total time spent is greater than 50% in coordination of care (as documented) at patient's floor/unit and/or counseling patient: Coding Level of Care Code 17318 SUB INP/OBS CARE 12/23MIN Diagnoses Diverticulitis of intestine with abscess K57.80
--- NOTE | 2023-06-10 11:57 | Cardiology Consultation ---
Date of Consultation June 10, 2023 Assessment & Plan (1) Diverticulitis of intestine with abscess: - Continue medical management as dictated by hospitalist team (2) History of aortic valve replacement with metallic valve: - Mechanical aortic valve replacement in 2000 - Significant functional stenosis of mechanical aortic valve per echocardiogram from 2020 (3) S/P CABG (coronary artery bypass graft): - CABG performed in 2000 (4) Anticoagulated on Coumadin: - Supratherapeutic INR, most recently 6.4 (5) CAD (coronary artery disease): - History of MIx2 in 2008 Plan From a cardiac standpoint, patient would be considered moderate risk for perioperative complication. Although she appears to have preserved functional status and absent cardiac symptoms as evidenced by patient history, her history of mechanical aortic valve replacement and subsequent stenosis of replaced valve is of potential concern. If surgery is the recommended course of treatment, re commend anticoagulation bridge to heparin. May also be beneficial to reevaluate mechanical aortic valve via echocardiogram prior to pursuing surgery. Supervising Physician Co-Signing Physician Notes I saw and examined the patient with Dr. Mcgrath and agree with the documentation. She may need an abdominal operation. She does not have high risk symptoms and recently underwent dobutamine echocardiography which did not demonstrate evidence of inducible ischemia. Her this standpoint she would be relatively low risk for the surgery. However, she is known to have an element prosthetic aortic valve dysfunction. This was characterized as moderate to severe 2 years ago. She does not have symptoms of severe aortic stenosis, but is decidedly sedentary. In order to provide better risk stratification, it would seem reasonable to re-evaluate the aortic valve prior to surgery. Based on her aortic valve dysfunction and her history of diabetes it would also seem reasonable to provide bridging anticoagulation in the perioperative period. History of Present Illness Attending Physician: Janeen Gonzalez DO History of Present Illness Pt is a 72 year old female presenting for ongoing acute sigmoid diverticulitis, was hospitalized from 05/29 - 06/02/23 and discharged with a 14 day course of ciprofloxacin and metronidazole. Abdominal pain persisted following discharge and began to worsen, prompting patient to seek care again. Patient was admitted and started on IV abx. CT abdomen significant for acute sigmoid diverticulitis as well as an approximately 5 x 6 x 3.5 cm multilocular diverticular abscess superior to the sigmoid colon. Cardiac history significant for CABG and mechanical aortic valve replacement in 2000 and [place] x2 in 2007. Echocardiogram in 2020 noted significant functional stenosis of mechanical aortic valve. Patient on chronic anticoagulation with warfarin, INR today 6.4. Patient denies recent history of chest pain, either at rest or with exertion. She reports that her overall functional status feels as though it declined after her first episode of diverticulitis back in November, but she states that she still cleans her house independently and can climb the stairs in her home without experiencing exertional dyspnea. Pt denies recent history of feeling lightheaded, but notes that she had a recent episode of transient vision change while driving. Pt was evaluated by neurology, reports that MRI was negative. This was an isolated occurrence, denies recurrent episode. Allergies Allergy/AdvReac Type Severity Reaction Status Date / Time rosuvastatin [From Crestor] Allergy Intermediate myalgia Verified 06/09/23 12:38 sertraline [From Zoloft] Allergy Intermediate burn Verified 06/09/23 12:38 sensation on skin on arms lovastatin Allergy Mild rash Verified 06/09/23 12:38 bupropion [From Wellbutrin] AdvReac Intermediate insomnia Verified 06/09/23 12:38 and tremors dicyclomine AdvReac Intermediate N/V Verified 06/09/23 12:38 codeine AdvReac Mild NAUSEA & Verified 06/09/23 12:38 PAIN ezetimibe [From Zetia] AdvReac Mild Gastrointestinal Verified 06/09/23 12:38 Upset methadone AdvReac Mild GI UPSET(?) Verified 06/09/23 12:38 niacin AdvReac Mild Gastrointestinal Verified 06/09/23 12:38 [From Niaspan Upset Extended-Release] paroxetine [From Paxil] AdvReac Mild Gastrointestinal Verified 06/09/23 12:38 Upset propoxyphene AdvReac Mild NAUSEA & Verified 06/09/23 12:38 PAIN simvastatin [From Zocor] AdvReac Mild Gastrointestinal Verified 06/09/23 12:38 Upset [id number] Reductase AdvReac Mild STATIN Verified 06/09/23 12:38 Inhibitor INTOLERANCE - GI UPSET Home Medications Medication Instructions Recorded Confirmed Type cholecalciferol (vitamin D3) 25 5,000 units PO QAM 09/05/19 06/09/23 History mcg (1,000 unit) capsule albuterol sulfate 90 mcg/actuation 2 puff inhalation QID PRN 07/18/21 06/09/23 Rx aerosol inhaler (ProAir HFA) shortness of breath #8.5 grams clonidine HCl 0.1 mg tablet 0.1 mg PO BID #180 tabs 07/14/22 06/09/23 Rx aspirin 81 mg tablet,delayed 81 mg PO HS 09/24/22 06/09/23 History release (Harvey Low Dose Aspirin) metoclopramide HCl 5 mg tablet 5 mg PO BID #180 tabs 10/05/22 06/09/23 Rx calcium carbonate 600 mg calcium 600 mg PO BID 02/24/23 06/09/23 History (1,500 mg) tablet (Calcium) cyanocobalamin (vitamin B-12) 1,000 mcg PO QAM 02/24/23 06/09/23 History 1,000 mcg capsule isosorbide mononitrate 60 mg 60 mg PO QAM 02/24/23 06/09/23 History tablet,extended release 24 hr pravastatin 80 mg tablet 80 mg PO HS 02/24/23 06/09/23 History alprazolam 0.25 mg tablet 0.5 mg PO HS #180 tabs 03/08/23 06/09/23 Rx amlodipine 5 mg tablet 5 mg PO HS #90 tabs 03/08/23 06/09/23 Rx pantoprazole 40 mg tablet,delayed 40 mg PO QAM gerd #90 tabs 03/08/23 06/09/23 Rx release (Protonix) metoprolol succinate 100 mg 100 mg PO HS #90 tabs 04/05/23 06/09/23 Rx tablet,extended release 24 hr warfarin 2.5 mg tablet 2.5 mg PO .WED/WED/TH/Wed05/29/23 06/09/23 History warfarin 5 mg tablet 5 mg PO .SUN/TU/SAT 05/29/23 06/09/23 History ciprofloxacin HCl 500 mg tablet 500 mg PO BID #20 tabs 06/02/23 06/09/23 Rx (Cipro) metronidazole 500 mg tablet 500 mg PO TID #30 tabs 06/02/23 06/09/23 Rx Patient History Medical History Adenoma of right adrenal gland Allergic rhinitis Anticoagulated on Coumadin Asthma inhaler prn CAD (coronary artery disease) Depression with anxiety Diverticulosis Essential hematuria pt denies at present time Exertional chest pain hx of; pt states she no longer experiences this Hyperlipidemia Hypertension Internal hemorrhoids Myocardial Infarction x2--06/12/08 and 08/06--follows with Dr. Milner Occlusion of right internal carotid artery Osteoporosis with fracture PAD (peripheral artery disease) Plantar fasciitis Positional vertigo Prediabetes Tremor of right hand Urinary incontinence Vitamin D deficiency Xerostomia Surgical History H/O section History of aortic valve replacement with metallic valve 2000 History of appendectomy History of cardiac cath x2--05/2008 and 07/2008 History of colonoscopy History of esophagogastroduodenoscopy (EGD) History of heart artery stent x1 2007 History of hysterectomy with bilateral oophorectomy History of wisdom tooth extraction Hx of cholecystectomy S/P CABG (coronary artery bypass graft) 2001-per pt "triple bypass" @ [facility] [place] S/P tonsillectomy Family History Mother Alzheimer disease Dementia Osteoarthritis Father Coronary heart disease Heart disease Myocardial infarction age 72 Lung cancer Colorectal cancer Grandmother (Paternal) Diabetes Other No family history of adverse response to anesthesia Denies family history of Rheumatoid arthritis Sudden SIDS (sudden infant syndrome) Ovarian cancer Prostate cancer Deep vein thrombosis Osteoporosis Dyslipidemia Cerebral aneurysm Bipolar disorder Clotting disorder Crohn's disease Depression Kidney disease Breast cancer Schizophrenia Congenital kidney disease Gestational diabetes COPD (chronic obstructive pulmonary disease) Pulmonary embolism Lung disease Hypertension Ulcerative colitis Colonic polyp Stroke Asthma Cystic kidney disease Social History Smoking Status: Former smoker Tobacco Type: Cigarettes Age Started Using Tobacco: 16; Second Hand Exposure: Yes; Do You Dip or Chew Tobacco: No; Hx Alcohol Use: No Hx Substance Use: No Preferred Language: Yoruba Communication Ability: Effective Visual Impairment: No Limitations Hearing Ability: Normal 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 Required: No Beliefs That Will Affect Care: None marital status: / Current Living Situation: Alone current occupational status: retired 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 [employer] [facility] [employer] [facility] How many Children do You have: 1 Feels Safe at Home: Yes Safety Concerns: Feels Safe At This Time Childhood Exposure to Second-Hand Smoke: No Diet: regular caffeine: Yes during the past year weight has: remained stable Dental Care, Regularly: No Physical Activity Frequency: Does not Exercise Seatbelt Use: always Sunscreen Use: Yes Assistive Devices: None Review of Systems Cardiovascular: Additional Comments: denies chest pain, denies exertional dyspnea, denies lightheadedness Physical Exam Physical Exam: WDWN, no acute distress Respiratory: Clear to auscultation bilaterally, no wheezes, rales, rhonchi Cardiovascular: Regular rate and rhythm, systolic ejection murmur appreciated on auscultation, +click Results & Data Vital Signs (Past 12 Hours) Vital Signs Temp Pulse Resp BP Pulse Ox O2 Del Method 06/10/23 07:49 37.1 C 74 17 165/83 H 95 Room Air Laboratory Results Abnormal lab results 06/09/23 06/09/23 06/09/23 Range/Units 11:59 11:59 11:59 Neut # (Auto) 7.65 H (1.40-6.50) K/uL Lymph # (Auto) 0.87 L (1.2-3.4) K/uL Curry # (Auto) 0.73 H (0.11-0.59) K/uL PT 60.9 H (9.0-12.0) Seconds INR 6.2 H* (0.9-1.1) Potassium 3.1 L (3.5-5.1) mmol/L Creatinine 1.23 H (0.6-1.2) mg/dl BUN/Creatinine Ratio 9.8 L (10-20) Glucose 231 H (70-99(Fasting)) mg/dl C-Reactive Protein (0-0.5) mg/dl Total Protein (6.0-8.3) gm/dl Globulin (2.5-4.0) gm/dl Urine Appearance (Clear) Urine Protein (Negative) Urine Glucose (UA) (Negative) Urine Ketones (Negative) Urine Nitrite (Negative) Urine Bilirubin (Negative) Ur Leukocyte Esterase (Negative) Urine WBC (Auto) (0-5) /hpf U Hyaline Cast (Auto) (0-5) /lpf U Epithel Cells (Auto) (0-5) /lpf Calcium Oxalate Crystal (None Prsent) 06/09/23 06/10/23 06/10/23 Range/Units 12:00 06:37 06:37 Neut # (Auto) (1.40-6.50) K/uL Lymph # (Auto) (1.2-3.4) K/uL Curry # (Auto) 0.64 H (0.11-0.59) K/uL PT 62.3 H (9.0-12.0) Seconds INR 6.4 H* (0.9-1.1) Potassium (3.5-5.1) mmol/L Creatinine (0.6-1.2) mg/dl BUN/Creatinine Ratio (10-20) Glucose (70-99(Fasting)) mg/dl C-Reactive Protein (0-0.5) mg/dl Total Protein (6.0-8.3) gm/dl Globulin (2.5-4.0) gm/dl Urine Appearance Cloudy A (Clear) Urine Protein 1+ H (Negative) Urine Glucose (UA) 1+ H (Negative) Urine Ketones Trace H (Negative) Urine Nitrite Positive A (Negative) Urine Bilirubin 1+ H (Negative) Ur Leukocyte Esterase 1+ H (Negative) Urine WBC (Auto) 5-10 H (0-5) /hpf U Hyaline Cast (Auto) 10-30 H (0-5) /lpf U Epithel Cells (Auto) 20-30 H (0-5) /lpf Calcium Oxalate Crystal Present A (None Prsent) 06/10/23 06/10/23 Range/Units 06:37 07:25 Neut # (Auto) (1.40-6.50) K/uL Lymph # (Auto) (1.2-3.4) K/uL Curry # (Auto) (0.11-0.59) K/uL PT (9.0-12.0) Seconds INR (0.9-1.1) Potassium (3.5-5.1) mmol/L Creatinine (0.6-1.2) mg/dl BUN/Creatinine Ratio 6.5 L (10-20) Glucose 118 H (70-99(Fasting)) mg/dl C-Reactive Protein 1.15 H (0-0.5) mg/dl Total Protein 5.8 L (6.0-8.3) gm/dl Globulin 2.4 L (2.5-4.0) gm/dl Urine Appearance (Clear) Urine Protein (Negative) Urine Glucose (UA) (Negative) Urine Ketones (Negative) Urine Nitrite (Negative) Urine Bilirubin (Negative) Ur Leukocyte Esterase (Negative) Urine WBC (Auto) (0-5) /hpf U Hyaline Cast (Auto) (0-5) /lpf U Epithel Cells (Auto) (0-5) /lpf Calcium Oxalate Crystal (None Prsent) Diagnostic Findings CT Abdomen/Pelvis: IMPRESSION: 1. Again seen are findings of acute sigmoid diverticulitis. The degree of inflammation has modestly improved as compared to 05/29/2023. 2. There is an approximately 5 x 6 x 3.5 cm multilocular diverticular abscess superior to the sigmoid colon. This closely interdigitates around adjacent small bowel loops and would not be amenable to percutaneous drainage. 3. There are 2 additional tiny loculated fluid collections seen about the sigmoid which measure up to 2 cm. 4. No intraperitoneal free air is seen. 5. There is no bowel obstruction. 6. Cardiomegaly. 7. Additional findings as above. ACT 112: Negative or not required by law. Electronically signed by: Jono Powell M.D. 06/09/2023 2:03 PM Medications Administered Clonidine HCl (Clonidine Hcl 0.1 Mg Tab) 0.1 mg PO BID [facility] Stop: 07/09/23 22:29 Last Admin: 06/10/23 08:26 Dose: 0.1 mg Documented By: Admin: 06/09/23 23:14 Dose: 0.1 mg Documented By: COLIN Lactated Ringer's (Lr) 1,000 mls @ 80 mls/hr IV .[id number] [facility] Stop: 07/09/23 16:29 Last Admin: 06/10/23 06:21 Dose: Not Given Documented By: Admin: 06/10/23 03:39 Dose: 80 mls/hr Documented By: COLIN Pantoprazole Sodium 40 mg/ (Syringe) 10 mls @ 5 mls/min IV DAILY@1100 [facility] Stop: 07/10/23 10:59 Last Admin: 06/10/23 12:04 Dose: 5 mls/min Documented By: RALPH Piperacillin Sod/Tazobactam (Sod 4.5 gm/ Dextrose) 120 mls @ 30 mls/hr IV Q8H MYRON; Protocol Stop: 06/19/23 22:29 Last Infusion: 06/10/23 10:33 Dose: 0 mls/hr Documented By: Admin: 06/10/23 06:21 Dose: 30 mls/hr Documented By: Infusion: 06/10/23 03:43 Dose: 0 mls/hr Documented By: Admin: 06/09/23 23:15 Dose: 30 mls/hr Documented By: COLIN Isosorbide Mononitrate (Isosorbide Curry Extended Rel 60 Mg Tabcr) 60 mg PO QAM [facility] Stop: 07/10/23 08:59 Last Admin: 06/10/23 08:26 Dose: 60 mg Documented By: RALPH Lorazepam (Lorazepam 2 Mg/1 Ml Vial) 0.5 mg IV HS PRN PRN Reason: Insomnia Stop: 07/09/23 22:29 Last Admin: 06/09/23 23:22 Dose: 0.5 mg Documented By: COLIN Melatonin (Melatonin 3 Mg Tab) 3 mg PO HS PRN PRN Reason: Sleep Stop: 07/10/23 01:03 Last Admin: 06/10/23 01:25 Dose: 3 mg Documented By: COLIN Metoprolol Succinate (Metoprolol Succ 50mg Ext Rel Tab) 100 mg PO HS [facility] Stop: 07/09/23 22:29 Last Admin: 06/09/23 23:15 Dose: 100 mg Documented By: COLIN Pravastatin Sodium (Pravastatin Sod 40 Mg Tab) 80 mg PO HS [facility] Stop: 07/09/23 22:29 Last Admin: 06/09/23 23:16 Dose: 80 mg Documented By: COLIN PG Care Time/CCT Total # of Minutes Spent Total Time Spent with Patient: Total time spent is greater than 50% in coordination of care (as documented) at patient's floor/unit and/or counseling patient: Coding Level of Care Code 90700 INT INP/OBS CARE 75MIN Diagnoses Diverticulitis of intestine with abscess K57.80 History of aortic valve replacement with metallic valve Z95.4 S/P CABG (coronary artery bypass graft) Z95.1 Anticoagulated on Coumadin Z79.01 CAD (coronary artery disease) I25.119 Associated angina: with unspecified form of angina Coronary Disease-Associated Artery/Lesion type: unspecified vessel or lesion type [place] vs. transplanted heart: [place] heart Resident Activity Tracking Resident Involvement: Resident Care Provided Care Provided: Adult [facility] Medicine (5) CAD (coronary artery disease) Associated angina: with unspecified form of angina Coronary Disease- Associated Artery/Lesion type: unspecified vessel or lesion type [place] vs. transplanted heart: [place] heart Qualified Code(s): I25.119 - Atherosclerotic heart disease of [place] coronary artery with unspecified angina pectoris
[2023-06-10] MEDS: PANTOprazole 40 MG in SYRINGE 0 ML IV SCH (12:04)
--- NOTE | 2023-06-10 14:44 | Infectious Disease Consult ---
Date of Consultation June 10, 2023 Assessment & Plan (1) Diverticulitis of intestine with abscess: Plan 72 yo F with history of HTN, CAD, AVR on warfarin, PAD, recent admission 05/29-06/02 for acute sigmoid diverticulitis c/b microperforation, managed medically with pip-tazo and discharged on cipro/metronidazole to complete a 14 day course, who presented on 06/09 with worsened LLQ abdominal pain, found to have a diverticular abscess. On presentation, pt was afebrile, VSS. Labs showed WBC 9.34, Cr 1.23 (from 0.9). BCx collected and pending. CT A/P showed again findings of acute sigmoid diverticulitis, with degree of inflammation modestly improved since 05/29. Also showed a 5 x 6 x 3.5 cm multilocular diverticular abscess superior to sigmoid colon which would not be amenable to percutaneous drainage, and 2 additional tiny loculated fluid collections about the sigmoid which measure up to 2 cm, no intraperitoneal free air. Pt was started on zosyn. Surgery was consulted, and felt that given her multiple medical problems, she should continue with IV antibiotics. If she needed surgery, she would need cardiac clearance first, and may need transfer to tertiary center. Micro: 06/09 BCx x2: pending Abx: Pip-tazo 05/29-06/02, 06/09 - present Cipro 06/02 - 06/09 Metronidazole 06/02 - 06/09 Problems: #Diverticulitis with 5 x 6 x 3.5 cm abscess: not amenable to drainage Recommendations: -The ciprofloxacin and metronidazole she received on discharge are appropriate oral regimens for diverticulitis. The bioavailability of ciprofloxacin and metronidazole are excellent, similar to IV medications, and provide similar coverage to pip-tazo (unless there is some sort of resistance to fluoroqui nolone). However, despite these antibiotics, she developed a diverticular abscess. This raises concern that the pt may need source control. The abscess is sizable and I am worried that this will not improve without drainage. However, understand that this is a difficult situation balancing her medical comorbidities. If she is not a surgical candidate, then would proceed with PICC placement for IV pip-tazo and serial CT imaging. Would not discontinue the antibiotics until the abscess is resolved on repeat imaging. Will continue to follow. Please page [facility] Center with further questions. Consultation Information This patient recommendation is based on a telemedicine consult request which was completed asynchronously through chart review and information provided by the primary physician. The patient was not seen or examined today. The evaluation is consultative in nature and all patient care and treatment decisions can either be accepted or rejected by the patient's primary hospital-based treating physician using their own independent medical judgment for their patient. [employer] Service Team Member contact information: Please call [facility] Center . (Phone Number For Physician Use Only) Time Spent Reviewing Chart: 31+ minutes History of Present Illness Reason for Consultation: Diverticular abscess Attending Physician: Janeen Gonzalez DO History of Present Illness 72 yo F with history of HTN, CAD, AVR on warfarin, PAD, recent admission 05/29-06/02 for acute sigmoid diverticulitis c/b microperforation, managed medically with pip-tazo and discharged on cipro/metronidazole to complete a 14 day course, who presented on 06/09 with LLQ abdominal pain. The pain has been persistent since discharge, but worsened on day of presentation. Reports associated decreased appetite, weakness, fatigue. Has had diarrhea, no N/V. On presentation, pt was afebrile, VSS. Labs showed WBC 9.34, Cr 1.23 (from 0.9). BCx collected. CT A/P showed again findings of acute sigmoid diverticulitis, with degree of inflammation modestly improved since 05/29. Also showed a 5 x 6 x 3.5 cm multilocular diverticular abscess superior to sigmoid colon which would not be amenable to percutaneous drainage, and 2 additional tiny loculated fluid collections about the sigmoid which measure up to 2 cm, no intraperitoneal free air. Pt was started on zosyn. Surgery was consulted, and felt that given her multiple medical problems, she should continue with IV antibiotics. If she needed surgery, she would need cardiac clearance first, and may need transfer to tertiary center. Allergies Allergy/AdvReac Type Severity Reaction Status Date / Time rosuvastatin [From Crestor] Allergy Intermediate myalgia Verified 06/09/23 12:38 sertraline [From Zoloft] Allergy Intermediate burn Verified 06/09/23 12:38 sensation on skin on arms lovastatin Allergy Mild rash Verified 06/09/23 12:38 bupropion [From Wellbutrin] AdvReac Intermediate insomnia Verified 06/09/23 12:38 and tremors dicyclomine AdvReac Intermediate N/V Verified 06/09/23 12:38 codeine AdvReac Mild NAUSEA & Verified 06/09/23 12:38 PAIN ezetimibe [From Zetia] AdvReac Mild Gastrointestinal Verified 06/09/23 12:38 Upset methadone AdvReac Mild GI UPSET(?) Verified 06/09/23 12:38 niacin AdvReac Mild Gastrointestinal Verified 06/09/23 12:38 [From Niaspan Upset Extended-Release] paroxetine [From Paxil] AdvReac Mild Gastrointestinal Verified 06/09/23 12:38 Upset propoxyphene AdvReac Mild NAUSEA & Verified 06/09/23 12:38 PAIN simvastatin [From Zocor] AdvReac Mild Gastrointestinal Verified 06/09/23 12:38 Upset Onyogdr-QET-CvQ Reductase AdvReac Mild STATIN Verified 06/09/23 12:38 Inhibitor INTOLERANCE - GI UPSET Home Medications Medication Instructions Recorded Confirmed Type cholecalciferol (vitamin D3) 25 5,000 units PO QAM 09/05/19 06/09/23 History mcg (1,000 unit) capsule albuterol sulfate 90 mcg/actuation 2 puff inhalation QID PRN 07/18/21 06/09/23 Rx aerosol inhaler (ProAir HFA) shortness of breath #8.5 grams clonidine HCl 0.1 mg tablet 0.1 mg PO BID #180 tabs 07/14/22 06/09/23 Rx aspirin 81 mg tablet,delayed 81 mg PO HS 09/24/22 06/09/23 History release (Harvey Low Dose Aspirin) metoclopramide HCl 5 mg tablet 5 mg PO BID #180 tabs 10/05/22 06/09/23 Rx calcium carbonate 600 mg calcium 600 mg PO BID 02/24/23 06/09/23 History (1,500 mg) tablet (Calcium) cyanocobalamin (vitamin B-12) 1,000 mcg PO QAM 02/24/23 06/09/23 History 1,000 mcg capsule isosorbide mononitrate 60 mg 60 mg PO QAM 02/24/23 06/09/23 History tablet,extended release 24 hr pravastatin 80 mg tablet 80 mg PO HS 02/24/23 06/09/23 History alprazolam 0.25 mg tablet 0.5 mg PO HS #180 tabs 03/08/23 06/09/23 Rx amlodipine 5 mg tablet 5 mg PO HS #90 tabs 03/08/23 06/09/23 Rx pantoprazole 40 mg tablet,delayed 40 mg PO QAM gerd #90 tabs 03/08/23 06/09/23 Rx release (Protonix) metoprolol succinate 100 mg 100 mg PO HS #90 tabs 04/05/23 06/09/23 Rx tablet,extended release 24 hr warfarin 2.5 mg tablet 2.5 mg PO .MON/WED/TH/Wed05/29/23 06/09/23 History warfarin 5 mg tablet 5 mg PO .SUN//SAT 05/29/23 06/09/23 History ciprofloxacin HCl 500 mg tablet 500 mg PO BID #20 tabs 06/02/23 06/09/23 Rx (Cipro) metronidazole 500 mg tablet 500 mg PO TID #30 tabs 06/02/23 06/09/23 Rx Patient History Medical History Adenoma of right adrenal gland Allergic rhinitis Anticoagulated on Coumadin Asthma inhaler prn CAD (coronary artery disease) Depression with anxiety Diverticulosis Essential hematuria pt denies at present time Exertional chest pain hx of; pt states she no longer experiences this Hyperlipidemia Hypertension Internal hemorrhoids Myocardial Infarction x2--06/12/08 and 08/06--follows with Dr. Milner Occlusion of right internal carotid artery Osteoporosis with fracture PAD (peripheral artery disease) Plantar fasciitis Positional vertigo Prediabetes Tremor of right hand Urinary incontinence Vitamin D deficiency Xerostomia Surgical History H/O section History of aortic valve replacement with metallic valve 2000 History of appendectomy History of cardiac cath x2--05/2008 and 07/2008 History of colonoscopy History of esophagogastroduodenoscopy (EGD) History of heart artery stent x1 2007 History of hysterectomy with bilateral oophorectomy History of wisdom tooth extraction Hx of cholecystectomy S/P CABG (coronary artery bypass graft) 2001-per pt "triple bypass" @ [facility] [place] S/P tonsillectomy Family History Mother Alzheimer disease Dementia Osteoarthritis Father Coronary heart disease Heart disease Myocardial infarction age 72 Lung cancer Colorectal cancer Grandmother (Paternal) Diabetes Other No family history of adverse response to anesthesia Denies family history of Rheumatoid arthritis Sudden SIDS (sudden infant syndrome) Ovarian cancer Prostate cancer Deep vein thrombosis Osteoporosis Dyslipidemia Cerebral aneurysm Bipolar disorder Clotting disorder Crohn's disease Depression Kidney disease Breast cancer Schizophrenia Congenital kidney disease Gestational diabetes COPD (chronic obstructive pulmonary disease) Pulmonary embolism Lung disease Hypertension Ulcerative colitis Colonic polyp Stroke Asthma Cystic kidney disease Social History Smoking Status: Former smoker Tobacco Type: Cigarettes Age Started Using Tobacco: 16; Second Hand Exposure: Yes; Do You Dip or Chew Tobacco: No; Hx Alcohol Use: No Hx Substance Use: No Preferred Language: Arabic Communication Ability: Effective Visual Impairment: No Limitations Hearing Ability: Normal Dinkey Motor Operator Required: No Beliefs That Will Affect Care: None marital status: / Current Living Situation: Alone current occupational status: retired 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 [employer] How many Children do You have: 1 Feels Safe at Home: Yes Safety Concerns: Feels Safe At This Time Childhood Exposure to Second-Hand Smoke: No Diet: regular caffeine: Yes during the past year weight has: remained stable Dental Care, Regularly: No Physical Activity Frequency: Does not Exercise Seatbelt Use: always Sunscreen Use: Yes Assistive Devices: None Review of System pt not seen Physical Exam Physical Exam: pt not seen Results & Data Vital Signs (Past 12 Hours) Vital Signs Temp Pulse Resp BP Pulse Ox O2 Del Method 06/10/23 07:49 37.1 C 74 17 165/83 H 95 Room Air Laboratory Results Short CBC 06/10/23 Range/Units 06:37 WBC 7.42 (4.8-10.8) K/ul Hgb 13.3 (12.0-16.0) g/dl Hct 40.0 (37.0-47.0) % Plt Count 365 (130-400) K/uL BMP 06/10/23 06:37 Sodium 140 Potassium 3.5 Chloride 106 Carbon Dioxide 28 BUN 6 Creatinine 0.92 D Glucose 118 H Calcium 8.7 Liver Function 06/10/23 Range/Units 06:37 Total Bilirubin 0.5 (0.2-1.0) mg/dl AST 15 (13-39) U/L ALT 17 (7-52) U/L Alkaline Phosphatase 57 (34-104) U/L Albumin 3.4 (3.4-5.0) gm/dl Diagnostic Findings Abdomen/Pelvis CT 06/09/23 12:25 CT SCAN OF THE ABDOMEN AND PELVIS WITH IV CONTRAST CLINICAL HISTORY: Left lower quadrant abdominal pain. Recent diverticulitis. COMPARISON STUDY: Abdominal CT dated 05/29/2023. TECHNIQUE: Following the IV administration of 94 cc of Optiray 320, CT scan of the abdomen and pelvis is performed from the lung bases to the proximal femora. Images are reviewed in the axial, sagittal, and coronal planes. IV contrast was administered without complication. A dose lowering technique was utilized ad ruthie to the principles of ALARA. CT DOSE: 1413.02 mGy.cm FINDINGS: Lung bases: The patient is status post midline sternotomy and aortic valve surgery. The heart is enlarged and without pericardial effusion. The coronary arteries are densely calcified. No airspace consolidation or pleural effusion is identified. There is bibasilar scarring/atelectasis. There are calcified left hilar nodes as well as a large calcified granuloma at the left lung base. There is a tiny hiatal hernia Liver: The contrast-enhanced liver is normal in size, contour, and attenuation. Fatty infiltration is seen adjacent to the falciform ligament. There is mild central intrahepatic biliary ductal dilatation. The hepatic veins and portal veins are patent. Gallbladder: Surgically absent noting clips in the gallbladder fossa. Spleen: Normal in size and attenuation. Pancreas: Unremarkable. Adrenal glands: Tiny adrenal nodules measuring up to 1.5 cm are unchanged and likely representing adenomas. Kidneys: The contrast enhanced kidneys are normal in size and without hydronephrosis. The kidneys enhance symmetrically. 2.9 cm exophytic cyst arises from the left upper pole. Abdominal vasculature: The abdominal aorta is normal in course and caliber noting advanced atherosclerotic calcification. Bowel: There is moderate colonic diverticulosis. Again seen are findings of acute diverticulitis involving the proximal sigmoid colon. The degree of inflammation has somewhat improved as compared to 05/29/2023. There is a large multiloculated diverticular abscess located above the sigmoid colon seen on axial image #264. This interdigitates around several small bowel loops and measures approximately 5 x 6 x 3.5 cm in aggregate dimension. Wall thickening of the adjacent small bowel loops is likely related to inflammation. An additional 2.0 x 1.3 cm collection is seen anterior to the sigmoid colon on image #292 and a 1.9 x 1.2 cm loculation is seen more superiorly on image #281. Liquid stool seen throughout the colon. There is no bowel obstruction. The appendix is well- visualized and normal. Peritoneum: There is no intraperitoneal free air or abdominal ascites. See above for discussion of a diverticular abscess. There is a small fat-containing umbilical hernia. Lymphadenopathy: No pathologically enlarged lymph nodes are identified. Densely calcified right external iliac chain nodes are on similar previous. Pelvic viscera: The bladder is distended but otherwise normal in appearance. The uterus is surgically absent. No adnexal lesion is seen. Skeletal structures: The skeletal structures are osteopenic. There is mild lumbosacral spondylosis. Sclerotic change is noted in the pubic symphysis. No lytic or blastic lesions are seen. IMPRESSION: 1. Again seen are findings of acute sigmoid diverticulitis. The degree of inflammation has modestly improved as compared to 05/29/2023. 2. There is an approximately 5 x 6 x 3.5 cm multilocular diverticular abscess superior to the sigmoid colon. This closely interdigitates around adjacent small bowel loops and would not be amenable to percutaneous drainage. 3. There are 2 additional tiny loculated fluid collections seen about the sigmoid which measure up to 2 cm. 4. No intraperitoneal free air is seen. 5. There is no bowel obstruction. 6. Cardiomegaly. 7. Additional findings as above. ACT 112: Negative or not required by law. Electronically signed by: Jono Powell M.D. 06/09/2023 2:03 PM Medications Administered Current Inpatient Medications Albuterol (Albuterol Hfa 8 Gm Inhaler) 2 puffs INH QID PRN PRN Reason: shortness of breath Stop: 07/09/23 22:29 Clonidine HCl (Clonidine Hcl 0.1 Mg Tab) 0.1 mg PO BID [facility] Stop: 07/09/23 22:29 Last Admin: 06/10/23 08:26 Dose: 0.1 mg Lactated Ringer's (Lr) 1,000 mls @ 80 mls/hr IV .[id number] [facility] Stop: 07/09/23 16:29 Last Admin: 06/10/23 06:21 Dose: Not Given Pantoprazole Sodium 40 mg/ (Syringe) 10 mls @ 5 mls/min IV DAILY@1100 [facility] Stop: 07/10/23 10:59 Last Admin: 06/10/23 12:04 Dose: 5 mls/min Piperacillin Sod/Tazobactam (Sod 4.5 gm/ Dextrose) 120 mls @ 30 mls/hr IV Q8H [facility]; Protocol Stop: 06/19/23 22:29 Last Admin: 06/10/23 13:22 Dose: 30 mls/hr Acetaminophen (Ofirmev) 1,000 mg in 100 mls @ 400 mls/hr IV Q8H PRN PRN Reason: Pain or Fever Stop: 06/13/23 06:05 Isosorbide Mononitrate (Isosorbide [place] Extended Rel 60 Mg Tabcr) [facility] [place]: 07/10/23 08:59 Last Admin: 06/10/23 08:26 Dose: 60 mg Lorazepam (Lorazepam 2 Mg/1 Ml Vial) 0.5 mg IV HS PRN PRN Reason: Insomnia Stop: 07/09/23 22:29 Last Admin: 06/09/23 23:22 Dose: 0.5 mg Melatonin (Melatonin 3 Mg Tab) 3 mg PO HS PRN PRN Reason: Sleep Stop: 07/10/23 01:03 Last Admin: 06/10/23 01:25 Dose: 3 mg Metoprolol Succinate (Metoprolol Succ 50mg Ext Rel Tab) 100 mg PO HS [facility] Stop: 07/09/23 22:29 Last Admin: 06/09/23 23:15 Dose: 100 mg Pravastatin Sodium (Pravastatin Sod 40 Mg Tab) 80 mg PO HS [facility] Stop: 07/09/23 22:29 Last Admin: 06/09/23 23:16 Dose: 80 mg
[2023-06-10 19:52] LABS: Adenovirus F 40/41 PCR Not Detected (NotDetected); Astrovirus PCR Not Detected (NotDetected); Campylobacter PCR Not Detected (NotDetected); Cryptosporidium PCR Not Detected (NotDetected); Cyclospora cayetanensis PCR Not Detected (NotDetected); Entamoeba histolytica PCR Not Detected (NotDetected); Enteroaggregative E.coli(EAEC) Not Detected (NotDetected); Enteropathogenic E.coli (EPEC) Not Detected (NotDetected); Enterotoxigenic E.coli (ETEC) Not Detected (NotDetected); Giardia lamblia PCR Not Detected (NotDetected); Norovirus GI/GII PCR Not Detected (NotDetected); Plesiomonas shigelloides PCR Not Detected (NotDetected); Rotavirus A PCR Not Detected (NotDetected); Salmonella PCR Not Detected (NotDetected); Sapovirus PCR Not Detected (NotDetected); Shiga-like Toxin E.coli (STEC) Not Detected (NotDetected); Shigella/Enteroinvasive E.coli Not Detected (NotDetected); Vibrio cholerae PCR Not Detected (NotDetected); Vibrio species PCR Not Detected (NotDetected); Yersinia enterocolitica PCR Not Detected (NotDetected)
[2023-06-10] MEDS: traZODone HCL 50 MG TAB PO SCH (20:12)
[2023-06-10] MEDS: METOPROLOL SUCC 50MG EXT REL TAB PO SCH (20:12)
[2023-06-10] MEDS: PRAVASTATIN SOD 40 MG TAB PO SCH (20:13)
[2023-06-10 20:22] LABS: Cdiff Antigen Positive; Cdiff Toxin B Gene (2yr or >) Positive Cdiff Gene (Neg)
[2023-06-10 20:23] LABS: Cdiff Toxin A+B Negative Cdiff Toxin (Negative)
[2023-06-10] MEDS: LORazepam 2 MG/1 ML VIAL IV PRN (21:26)
[2023-06-11] MEDS: PIPERACILLIN/TAZOBACTAM 4.5 GM in DEXTROSE 5% 100 ML IV SCH ×3 (06:20→21:51)
[2023-06-11] MEDS: LACTATED RINGER'S 1,000 ML IV SCH ×2 (06:22→17:36)
--- NOTE | 2023-06-11 07:46 | Hospitalist Progress Note ---
Date of Service June 11, 2023 Assessment & Plan (1) Diverticulitis of intestine with abscess: Plan: Full liquids and advance diet as tolerated to low fiber IV Zosyn to continue for now, anticipate will need this for several weeks on discharge which may necessitate skilled level of care (patient is not capable of administering Abx several times a day herself, has no other supports in home or nearby, [facility] will not accommodate multiple times a day Abx) Given patient failed tx with Cipro/Flagyl outpatient, case discussed with ID -> concern about need for source control given no improvement on previous regimen Cardiology consulted at surgical request to eval for surgical risk given Hx and CABG -> Echo ordered to stratify aortic disease, no change from previous Case discussed with staffing consultant providers ID and Gen Surg 06/11; plan at this time to avoid surgery if at all possible with several weeks of IV Abx with repeat CTAP in 2-3 weeks (2) Anticoagulated on Coumadin: Plan: INR 6.1 (improving), with goal range 2.5-3.5 for Hx metal aortic valve Continue to hold warfarin and monitor INR Will bridge with Heparin/Lovenox in possible perioperative period when patient's INR returns to therapeutic range (3) Hypertension: Plan: Continue clonidine, metoprolol, isosorbide mononitrate Holding amlodipine for now can resume if BP elevated tomorrow (4) History of aortic valve replacement with metallic valve: Plan: Goal INR 2.5-3.5 Repeat Echo as above (5) S/P CABG (coronary artery bypass graft): Plan: Continue isosorbide mononitrate, metoprolol Hold ASA (6) GERD (gastroesophageal reflux disease): Plan: Continue pantoprazole IV daily (7) Hyperlipidemia: Plan: Continue pravastatin (8) Insomnia: Plan: Chronically on lorazepam nightly, no increase in dose in recent past With worsening of insomnia recently, possible increased tolerance to long- standing lorazepam? Added trazodone to trial for sleep while inpatient (9) Chronic prescription benzodiazepine use: Plan: see above Plan VTE Prophylaxis - supratherapeutic INR, continue to monitor Diet - ADAT Disposition - med/surg Admission and Anticipated Discharge Date Admission Date: June 09, 2023 Subjective No overnight events. Patient reports that she is feeling a bit better today, less abdominal pain, no nausea. Denies chest pain and trouble breathing. Has a lot of anxiety surrounding her illness. Review of Systems Review of Systems: All systems reviewed & are unremarkable except as noted in Subjective Physical Exam Constitutional: WD/WN, vitals as above Respiratory: normal respiratory effort, lungs clear to auscultation Cardiovascular: RRR, no murmur, no edema Gastrointestinal (Abdomen): abdomen soft, nontender, normal BS Skin: no rashes, warm and dry Psychiatric: A+Ox3, euthymic affect Results & Data Results & Data Vital Signs (Past 12 Hours) Vital Signs Temp Pulse Resp BP Pulse Ox O2 Del Method 06/11/23 07:33 36.7 C 58 L 18 162/83 H 95 Room Air 06/10/23 20:07 36.7 C 62 16 159/67 H 94 Room Air PG Care Time/CCT Total # of Minutes Spent Total Time Spent with Patient: Total time spent is greater than 50% in coordination of care (as documented) at patient's floor/unit and/or counseling patient: Coding Level of Care Code 87246 SUB INP/OBS CARE 3/50MIN Diagnoses Diverticulitis of intestine with abscess K57.80 Anticoagulated on Coumadin Z79.01 Hypertension I10 History of aortic valve replacement with metallic valve Z95.4 S/P CABG (coronary artery bypass graft) Z95.1 GERD (gastroesophageal reflux disease) K21.9 Hyperlipidemia E78.5 Insomnia G47.00 Chronic prescription benzodiazepine use Z79.899
[2023-06-11 08:43] LABS: Hematocrit (blood only) 39.3 % (37.0-47.0); Hemoglobin 13.3 g/dl (12.0-16.0); Mean Corpuscular Hgb Conc 33.8 g/dL (32.0-36.0); Mean Corpuscular Volume 88.5 fL (80.0-100.0); Mean Platelet Volume 9.5 fL (9.4-12.4); Platelet Count 338 K/uL (130-400); RDW Coefficient of Variation 12.7 % (11.5-14.5); RDW Standard Deviation 40.9 fL (36.4-46.3); Red Blood Count 4.44 M/uL (4.20-5.40); White Blood Count 6.11 K/ul (4.8-10.8)
[2023-06-11] MEDS: ISOSORBIDE MONO EXTENDED REL 60 MG TABCR PO SCH (08:55)
[2023-06-11] MEDS: cloNIDine HCL 0.1 MG TAB PO SCH ×2 (08:55→21:37)
[2023-06-11 09:12] LABS: BUN Creatinine Ratio 4.2 (10-20); Est GFR (African American) 67.5 ml/min; Est GFR (Non-African American) 58.3 ml/min; Potassium 4.4 mmol/L (3.5-5.1)
[2023-06-11 09:21] LABS: INR 6.1 (0.9-1.1)
[2023-06-11] MEDS: PANTOprazole 40 MG in SYRINGE 0 ML IV SCH (12:05)
[2023-06-11] MEDS ORDERED: PIPERACILLIN/TAZOBACTAM 4.5 GM in DEXTROSE 5% 100 ML IV SCH (13:30)
--- NOTE | 2023-06-11 13:55 | Infectious Disease Progress Nt ---
Date of Service June 11, 2023 Assessment & Plan (1) Diverticulitis of intestine with abscess: Plan 72 yo F with history of HTN, CAD, AVR on warfarin, PAD, recent admission 05/29-06/02 for acute sigmoid diverticulitis c/b microperforation, managed medically with pip-tazo and discharged on cipro/metronidazole to complete a 14 day course, who presented on 06/09 with worsened LLQ abdominal pain, found to have a diverticular abscess. On presentation, pt was afebrile, VSS. Labs showed WBC 9.34, Cr 1.23 (from 0.9). BCx NGTD. CT A/P showed again findings of acute sigmoid diverticulitis, with degree of inflammation modestly improved since 05/29. Also showed a 5 x 6 x 3.5 cm multilocular diverticular abscess superior to sigmoid colon which would not be amenable to percutaneous drainage, and 2 additional tiny loculated fluid collections about the sigmoid which measure up to 2 cm, no intraperitoneal free air. Pt was started on zosyn. Surgery was consulted, and felt that given her multiple medical problems, she should continue with IV antibiotics. If she needed surgery, she would need cardiac clearance first, and may need transfer to tertiary center. The ciprofloxacin and metronidazole she received on discharge are appropriate oral regimens for diverticulitis. The bioavailability of ciprofloxacin and metronidazole are excellent, similar to IV medications, and provide similar coverage to pip-tazo (unless there is some sort of resistance to fluoroquinolone). However, despite these antibiotics, she developed a diverticular abscess. This raises concern that the pt may need source control. The abscess is sizable and I am worried that this will not improve without drainage. However, understand that this is a difficult situation balancing her medical comorbidities. If she is not a surgical candidate, then would proceed with PICC placement for IV pip-tazo and serial CT imaging. Would not discontinue the antibiotics until the abscess is resolved on repeat imaging. Micro: 06/09 BCx x2: NGTD Abx: Pip-tazo 05/29-06/02, 06/09 - present Cipro 06/02 - 06/09 Metronidazole 06/02 - 06/09 Problems: #Diverticulitis with 5 x 6 x 3.5 cm abscess: not amenable to drainage Recommendations: -With above discussion and surgery recommending no surgical intervention at this time, would plan for pip-tazo 4.5 g IV q8h (or can do pip-tazo 13.5 g continuous infusion over 24 hours daily via elastomeric pump, for ease of dosing) via PICC. Duration TBD pending resolution on repeat imaging. Surgery recommending repeat CT in 3 weeks, so would ensure pt at least has pip-tazo ordered through then, with possibility of extension if abscess remains present on imaging. -Check CBC, CMP while on antibiotics to monitor for toxicity. -If persistent abscess which has not decreased in size on follow-up imaging, would consider surgical drainage Discussed with primary team. Will sign off. Please page [facility] with further questions. Admission and Anticipated Discharge Date Admission Date: June 09, 2023 Subjective This patient recommendation is based on a telemedicine consult request which was completed asynchronously through chart review and information provided by the primary physician. The patient was not seen or examined today. The evaluation is consultative in nature and all patient care and treatment decisions can either be accepted or rejected by the patient's primary hospital-based treating physician using their own independent medical judgment for their patient. Time Spent Reviewing Chart: 11 - 20 minutes Pt stable C diff gene positive, toxin negative BCx NGTD Continues on pip-tazo Review of System pt not seen Physical Exam Physical Exam: pt not seen Results & Data Vital Signs (Past 12 Hours) Vital Signs Temp Pulse Resp BP Pulse Ox O2 Del Method 06/11/23 07:33 36.7 C 58 L 18 162/83 H 95 Room Air Laboratory Results Short CBC 06/11/23 Range/Units 08:00 WBC 6.11 (4.8-10.8) K/ul Hgb 13.3 (12.0-16.0) g/dl Hct 39.3 (37.0-47.0) % Plt Count 338 (130-400) K/uL BMP 06/11/23 08:00 Sodium 142 Potassium 4.4 D Chloride 107 Carbon Dioxide 31 BUN 4 L Creatinine 0.96 Glucose 129 H Calcium 9.0 Medications Administered Current Inpatient Medications Albuterol (Albuterol Hfa 8 Gm Inhaler) 2 puffs INH QID PRN PRN Reason: shortness of breath Stop: 07/09/23 22:29 Clonidine HCl (Clonidine Hcl 0.1 Mg Tab) 0.1 mg PO BID MYRON Stop: 07/09/23 22:29 Last Admin: 06/11/23 08:55 Dose: 0.1 mg Lactated Ringer's (Lr) 1,000 mls @ 80 mls/hr IV .[id number] [facility] Stop: 07/09/23 16:29 Last Admin: 06/11/23 06:22 Dose: 80 mls/hr Pantoprazole Sodium 40 mg/ (Syringe) 10 mls @ 5 mls/min IV DAILY@1100 [facility] Stop: 07/10/23 10:59 Last Admin: 06/11/23 12:05 Dose: 5 mls/min Piperacillin Sod/Tazobactam (Sod 4.5 gm/ Dextrose) 120 mls @ 30 mls/hr IV Q8H [facility]; Protocol Stop: 06/19/23 22:29 Last Admin: 06/11/23 14:07 Dose: 30 mls/hr Acetaminophen (Ofirmev) 1,000 mg in 100 mls @ 400 mls/hr IV Q8H PRN PRN Reason: Pain or Fever Stop: 06/13/23 06:05 Isosorbide Mononitrate (Isosorbide [place] Extended Rel 60 Mg Tabcr) 60 mg PO QAM [facility] Stop: 07/10/23 08:59 Last Admin: 06/11/23 08:55 Dose: 60 mg Lorazepam (Lorazepam 2 Mg/1 Ml Vial) 0.5 mg IV HS PRN PRN Reason: Insomnia Stop: 07/09/23 22:29 Last Admin: 06/10/23 21:26 Dose: 0.5 mg Metoprolol Succinate (Metoprolol Succ 50mg Ext Rel Tab) 100 mg PO HS [facility] Stop: 07/09/23 22:29 Last Admin: 06/10/23 20:12 Dose: 100 mg Pravastatin Sodium (Pravastatin Sod 40 Mg Tab) 80 mg PO HS [facility] Stop: 07/09/23 22:29 Last Admin: 06/10/23 20:13 Dose: 80 mg Trazodone HCl (Trazodone Hcl 50 Mg Tab) 50 mg PO HS [facility] Stop: 07/10/23 20:59 Last Admin: 06/10/23 20:12 Dose: 50 mg
--- NOTE | 2023-06-11 13:58 | Surgery Progress Note ---
Date of Service June 11, 2023 Assessment & Plan (1) Diverticulitis of intestine with abscess: Plan: Diverticulitis with small abscess, symptoms improving with antibiotics. Would recommend 2 to 3 weeks of IV antibiotics with follow-up CT scan. No surgical intervention indicated at this time We will plan for discharge with IV antibiotics for 2 to 3 weeks, PICC line and home health care and antibiotics being coordinated by medicine and case management Repeat CT scan in 3 weeks Follow-up in general surgery after CT complete If surgical intervention were to be entertained, given her cardiac history, may refer to colorectal at a tertiary center Dr. Yeni Kathleen covering over the weekend, surgery will follow while in house Admission and Anticipated Discharge Date Admission Date: June 09, 2023 Subjective Admitted with diverticulitis and small abscess not amendable to percutaneous drainage. Pain improving, feels more energy, having loose bowel movements. Anxious about going home with IV antibiotics. Physical Exam Constitutional: WD/WN, vitals as above Gastrointestinal (Abdomen): normal bowel sounds, soft, nontender, no hepatosplenomegaly (Significantly) Results & Data Vital Signs (Past 12 Hours) Vital Signs Temp Pulse Resp BP Pulse Ox O2 Del Method 06/11/23 07:33 36.7 C 58 L 18 162/83 H 95 Room Air Laboratory Results Laboratory Results - last 24 hr 06/10/23 06/10/23 06/11/23 17:55 17:55 08:00 WBC RBC Hgb Hct MCV MCH MCHC RDW Std Deviation RDW Coeff of Dennis Plt Count MPV PT 60.0 H INR 6.1 H* Sodium Potassium Chloride Carbon Dioxide Anion Gap BUN Creatinine Est Cr Clr Drug Dosing Est GFR ( Amer) Est GFR (Non-Af Amer) BUN/Creatinine Ratio Glucose Calcium Stl C. cayetanensis PCR Not Detected Stool Rotavirus A PCR Not Detected Stl Adenov F 40/41 PCR Not Detected Stool Astrovirus (PCR) Not Detected Stool Campylobacter PCR Not Detected Stl C. diff Tox B Gene Positive Cdiff Gene H Stl C.difficile Tox A&B Negative Cdiff Toxin Stool Cryptosporidium PCR Not Detected Stl E.coli Shiga Tox PCR Not Detected Stl Enterotoxigenic E PCR Not Detected Stool EPEC (PCR) Not Detected Stool EAEC (PCR) Not Detected Stl E. histolytica PCR Not Detected Stool Giardia Lamblia PCR Not Detected Stool Salmonella PCR Not Detected Stool Sapovirus (PCR) Not Detected Stl P. shigelloides PCR Not Detected Stl Shigella/EIEC PCR Not Detected St Y.enterocolitica PCR Not Detected Stool Vibrio (PCR) Not Detected Stl Vibrio cholerae PCR Not Detected Stl Norovirus GI/GII PCR Not Detected 06/11/23 06/11/23 08:00 08:00 WBC 6.11 RBC 4.44 Hgb 13.3 Hct 39.3 MCV 88.5 MCH 30.0 MCHC 33.8 RDW Std Deviation 40.9 RDW Coeff of Dennis 12.7 Plt Count 338 MPV 9.5 PT INR Sodium 142 Potassium 4.4 D Chloride 107 Carbon Dioxide 31 Anion Gap 4 BUN 4 L Creatinine 0.96 Est Cr Clr Drug Dosing 60.0 Est GFR ( Amer) 67.5 Est GFR (Non-Af Amer) 58.3 BUN/Creatinine Ratio 4.2 L Glucose 129 H Calcium 9.0 Stl C. cayetanensis PCR Stool Rotavirus A PCR Stl Adenov F 40/ PCR Stool Astrovirus (PCR) Stool Campylobacter PCR Stl C. diff Tox B Gene Stl C.difficile Tox A&B Stool Cryptosporidium PCR Stl E.coli Shiga Tox PCR Stl Enterotoxigenic E PCR Stool EPEC (PCR) Stool EAEC (PCR) Stl E. histolytica PCR Stool Giardia Lamblia PCR Stool Salmonella PCR Stool Sapovirus (PCR) Stl P. shigelloides PCR Stl Shigella/EIEC PCR St Y.enterocolitica PCR Stool Vibrio (PCR) Stl Vibrio cholerae PCR Stl Norovirus GI/GII PCR PG Care Time/CCT Total # of Minutes Spent Total Time Spent with Patient: Total time spent is greater than 50% in coordination of care (as documented) at patient's floor/unit and/or counseling patient: Coding Level of Care Code 11168 SUB INP/OBS CARE Diagnoses Diverticulitis of intestine with abscess K57.80
[2023-06-11] MEDS: traZODone HCL 50 MG TAB PO SCH (21:36)
[2023-06-11] MEDS: LORazepam 2 MG/1 ML VIAL IV PRN (21:36)
[2023-06-11] MEDS: PRAVASTATIN SOD 40 MG TAB PO SCH (21:36)
[2023-06-11] MEDS: METOPROLOL SUCC 50MG EXT REL TAB PO SCH (21:37)
[2023-06-12] MEDS: PIPERACILLIN/TAZOBACTAM 4.5 GM in DEXTROSE 5% 100 ML IV SCH ×3 (05:57→21:47)
[2023-06-12 06:42] LABS: INR 4.2 (0.9-1.1); Prothrombin Time 42.4 Seconds (9.0-12.0)
--- NOTE | 2023-06-12 07:44 | Hospitalist Progress Note ---
Date of Service June 12, 2023 Assessment & Plan (1) Diverticulitis of intestine with abscess: Plan: Full liquids and advance diet as tolerated to low fiber IV Zosyn to continue for now, anticipate will need this for several weeks on discharge which may necessitate skilled level of care (patient is not capable of administering Abx several times a day herself, has no other supports in home or nearby, [facility] will not accommodate multiple times a day Abx) Given patient failed tx with Cipro/Flagyl outpatient, case discussed with ID -> concern about possible need for source control in the future given admission despite previous regimen Cardiology consulted at surgical request to eval for surgical risk given Hx and CABG -> Echo ordered to stratify aortic disease, no change from previous Case discussed with programmer analyst consultant providers ID and Gen Surg 06/11; plan at this time to avoid surgery if at all possible with several weeks of IV Abx with repeat CTAP in 2-3 weeks (2) Anticoagulated on Coumadin: Plan: INR 4.2 (improving), with goal range 2.5-3.5 for Hx metal aortic valve Continue to hold warfarin and monitor INR Question of whether to resume warfarin when in therapeutic range vs. transition to therapeutic Lovenox in the event that she needs surgery in the near future (3) Hypertension: Plan: Continue clonidine, metoprolol, isosorbide mononitrate Resume amlodipine (4) History of aortic valve replacement with metallic valve: Plan: Goal INR 2.5-3.5 Repeat Echo as above (5) S/P CABG (coronary artery bypass graft): Plan: Continue isosorbide mononitrate, metoprolol Resume aspirin as no imminent surgery (6) GERD (gastroesophageal reflux disease): Plan: Continue pantoprazole PO daily (7) Hyperlipidemia: Plan: Continue pravastatin (8) Insomnia: Plan: Symptoms improved with nightly trazodone she is receiving here, will continue this on discharge (9) Chronic prescription benzodiazepine use: Plan: see above Plan VTE Prophylaxis - supratherapeutic INR, continue to monitor Diet - low fiber diet Disposition - med/surg Admission and Anticipated Discharge Date Admission Date: June 09, 2023 Subjective No acute overnight events. Denies abdominal pain, still having diarrhea at times, nonbloody. No nausea, chest pain, or SOB. Review of Systems Review of Systems: All systems reviewed & are unremarkable except as noted in Subjective Physical Exam Constitutional: WD/WN, vitals as above Respiratory: normal respiratory effort, lungs clear to auscultation Cardiovascular: RRR, no murmur, no edema Gastrointestinal (Abdomen): abdomen soft, nontender, normal BS Skin: no rashes, warm and dry Psychiatric: A+Ox3, euthymic affect Results & Data Results & Data Vital Signs (Past 12 Hours) Vital Signs Temp Pulse Resp BP Pulse Ox O2 Del Method 06/11/23 20:55 36.9 C 65 18 156/80 H 94 Room Air PG Care Time/CCT Total # of Minutes Spent Total Time Spent with Patient: Total time spent is greater than 50% in coordination of care (as documented) at patient's floor/unit and/or counseling patient: Coding Level of Care Code 69377 SUB INP/OBS CARE 3/50MIN Diagnoses Diverticulitis of intestine with abscess K57.80 Anticoagulated on Coumadin Z79.01 Hypertension I10 History of aortic valve replacement with metallic valve Z95.4 S/P CABG (coronary artery bypass graft) Z95.1 GERD (gastroesophageal reflux disease) K21.9 Hyperlipidemia E78.5 Insomnia G47.00 Chronic prescription benzodiazepine use Z79.899
[2023-06-12] MEDS: ISOSORBIDE MONO EXTENDED REL 60 MG TABCR PO SCH (08:38)
[2023-06-12] MEDS: cloNIDine HCL 0.1 MG TAB PO SCH ×2 (08:38→21:47)
--- NOTE | 2023-06-12 11:02 | Surgery Progress Note ---
I have seen this patient with the surgical PA this am and I agree with the plan. Date of Service June 12, 2023 Assessment & Plan (1) Diverticulitis of intestine with abscess: Plan: 06/12/2023 Shelby is doing well. She reports improvement in abdominal pain. She continues to have episodes of diarrhea. She is tolerating full liquid diet, reports that she is hungry and would like to advance her diet. Diet advanced to low fiber. No indication for surgical intervention. Plan is for patient to be on 2-3 weeks of IV antibiotics with follow-up CT scan as outpatient. Case management and primary team coordinating outpatient IV antibiotics with possible PICC line placement. Patient see and examined with Dr. Mckeon. 06/11/2023 Diverticulitis with small abscess, symptoms improving with antibiotics. Would recommend 2 to 3 weeks of IV antibiotics with follow-up CT scan. No surgical intervention indicated at this time We will plan for discharge with IV antibiotics for 2 to 3 weeks, PICC line and home health care and antibiotics being coordinated by medicine and case management Repeat CT scan in 3 weeks Follow-up in general surgery after CT complete If surgical intervention were to be entertained, given her cardiac history, may refer to colorectal at a tertiary center Dr. Yeni Kathleen covering over the weekend, surgery will follow while in house Admission and Anticipated Discharge Date Admission Date: June 09, 2023 Subjective Patient resting in bed- eating breakfast. She reports that she is tolerating a full liquid diet. She continues to have episodes of diarrhea. She is passing flatus. She denies nausea or vomiting. Review of Systems Constitutional: no fever and no chills Gastrointestinal: + abdominal pain (continues to improve); no nausea and no vomiting Results & Data Vital Signs (Past 12 Hours) Vital Signs Temp Pulse Resp BP Pulse Ox O2 Del Method 06/12/23 07:44 37 C 70 18 145/86 H 94 Room Air PG Care Time/CCT Total # of Minutes Spent Total Time Spent with Patient: Total time spent is greater than 50% in coordination of care (as documented) at patient's floor/unit and/or counseling patient: Coding Level of Care Code 57153 SUB INP/OBS CARE 12/23MIN Diagnoses Diverticulitis of intestine with abscess K57.80
[2023-06-12] MEDS: PANTOprazole 40 MG in SYRINGE 0 ML IV SCH (12:11)
[2023-06-12] MEDS ORDERED: ACETAMINOPHEN 325 MG TAB PO PRN (18:52)
[2023-06-12] MEDS: LORazepam 2 MG/1 ML VIAL IV PRN (21:47)
[2023-06-12] MEDS: traZODone HCL 50 MG TAB PO SCH (21:47)
[2023-06-12] MEDS: PRAVASTATIN SOD 40 MG TAB PO SCH (21:48)
[2023-06-12] MEDS: METOCLOPRAMIDE HCL 5 MG TABLET PO SCH (21:48)
[2023-06-12] MEDS: CALCIUM CARBONATE 1250MG TAB PO SCH (21:48)
[2023-06-12] MEDS: METOPROLOL SUCC 50MG EXT REL TAB PO SCH (21:48)
[2023-06-12] MEDS: amLODIPine BESYLATE 5 MG TAB PO SCH (21:49)
[2023-06-12] MEDS: ASPIRIN 81 MG ECTAB PO SCH (21:49)
[2023-06-13] MEDS: PIPERACILLIN/TAZOBACTAM 4.5 GM in DEXTROSE 5% 100 ML IV SCH ×3 (05:57→23:05)
[2023-06-13 06:59] LABS: INR 2.1 (0.9-1.1); Prothrombin Time 22.4 Seconds (9.0-12.0)
--- NOTE | 2023-06-13 08:19 | Hospitalist Progress Note ---
Date of Service June 13, 2023 Assessment & Plan (1) Diverticulitis of intestine with abscess: Plan: Full liquids and advance diet as tolerated to low fiber IV Zosyn to continue for now, anticipate will need this for several weeks on discharge likely necessitating skilled level of care (patient is not capable of administering Abx several times a day herself, has no other supports in home or nearby, [facility] will not accommodate multiple times a day Abx) Given patient failed tx with Cipro/Flagyl outpatient, case discussed with ID -> concern about possible need for source control in the future given admission despite previous regimen, however Sx largely resolved on IV Abx Cardiology consulted at surgical request to eval for surgical risk given Hx and CABG -> Echo ordered to stratify aortic disease, no change from previous, recommends bridging AC if needs surgery in the future Plan at this time to avoid surgery if at all possible with several weeks of IV Abx with repeat CTAP in 2-3 weeks (2) Anticoagulated on Coumadin: Plan: INR 2.1 now subtherapeutic, with goal range 2.5-3.5 for Hx metal aortic valve Resume warfarin 2.5mg daily dosing with adjust as necessary (total of 17.5mg weekly; previously on 25mg weekly but was very supratherapeutic on admission) If patient requires surgery in the future, Cardiology recommends bridging with therapeutic Lovenox if warfarin needs to be held (3) Hypertension: Plan: Continue clonidine, metoprolol, isosorbide mononitrate, amlodipine (4) History of aortic valve replacement with metallic valve: Plan: Goal INR 2.5-3.5 Repeat Echo as above (5) S/P CABG (coronary artery bypass graft): Plan: Continue isosorbide mononitrate, metoprolol Continue aspirin as no imminent surgery (6) GERD (gastroesophageal reflux disease): Plan: Continue pantoprazole PO daily (7) Hyperlipidemia: Plan: Continue pravastatin (8) Insomnia: Plan: On nightly Xanax for some time by PCP, though recently does not keep her asleep through the night Symptoms improved with nightly trazodone she is receiving here, will continue this on discharge Highly recommend patient follow up with PCP regarding daily non-benzodiazepine anxiolytic and counseling for depression/anxiety (9) Chronic prescription benzodiazepine use: Plan: see above Plan VTE Prophylaxis - warfarin Diet - low fiber diet Disposition - med/surg Admission and Anticipated Discharge Date Admission Date: June 09, 2023 Subjective No overnight events. Feeling down, started in November when she started having GI issues, has trouble sleeping and was frustrated about her blood draw waking her up this AM. Denies abdominal pain, endorses ongoing non-bloody diarrhea. Review of Systems Review of Systems: All systems reviewed & are unremarkable except as noted in Subjective Physical Exam Constitutional: WD/WN, vitals as above Respiratory: normal respiratory effort, lungs clear to auscultation Cardiovascular: RRR, no murmur, no edema Gastrointestinal (Abdomen): abdomen soft, nontender, normal BS Skin: no rashes, warm and dry Psychiatric: A+Ox3, euthymic affect Results & Data Results & Data Vital Signs (Past 12 Hours) Vital Signs Temp Pulse Resp BP Pulse Ox O2 Del Method 06/13/23 07:15 36.7 C 66 18 168/88 H 94 Room Air 06/12/23 21:04 36.9 C 79 18 145/78 H 96 Room Air PG Care Time/CCT Total # of Minutes Spent Total Time Spent with Patient: Total time spent is greater than 50% in coordination of care (as documented) at patient's floor/unit and/or counseling patient: Coding Level of Care Code 89148 SUB INP/OBS CARE 2/35MIN Diagnoses Diverticulitis of intestine with abscess K57.80 Anticoagulated on Coumadin Z79.01 Hypertension I10 History of aortic valve replacement with metallic valve Z95.4 S/P CABG (coronary artery bypass graft) Z95.1 GERD (gastroesophageal reflux disease) K21.9 Hyperlipidemia E78.5 Insomnia G47.00 Chronic prescription benzodiazepine use Z79.899
[2023-06-13] MEDS: CYANOCOBALAMIN (B-12) 500 MCG TABLET PO SCH (08:36)
[2023-06-13] MEDS: PANTOprazole 40 MG TAB PO SCH (08:36)
[2023-06-13] MEDS: CHOLECALCIFEROL 5,000 UNITS 125 MCG TAB PO SCH (08:36)
[2023-06-13] MEDS: cloNIDine HCL 0.1 MG TAB PO SCH ×2 (08:36→23:07)
[2023-06-13] MEDS: CALCIUM CARBONATE 1250MG TAB PO SCH ×2 (08:36→23:06)
[2023-06-13] MEDS: ISOSORBIDE MONO EXTENDED REL 60 MG TABCR PO SCH (08:36)
[2023-06-13] MEDS: METOCLOPRAMIDE HCL 5 MG TABLET PO SCH ×2 (08:37→23:06)
--- NOTE | 2023-06-13 11:14 | Surgery Progress Note ---
I saw and examined this patient with the surgical PA this am, I agree with this plan. Date of Service June 13, 2023 Assessment & Plan (1) Diverticulitis of intestine with abscess: Plan: 06/13/2023 Shelby continues to do well. She does continue to have episodes of diarrhea that does keep her up throughout the night. She denies any nausea or vomiting. She is tolerating a low fiber diet. Plan is for patient to be on 2-3 weeks of IV antibiotics with follow-up CT scan as outpatient. Case management and primary team coordinating outpatient IV antibiotics with possible PICC line placement. Patient see and examined with Dr. Mckeon. 06/12/2023 Shelby is doing well. She reports improvement in abdominal pain. She continues to have episodes of diarrhea. She is tolerating full liquid diet, reports that she is hungry and would like to advance her diet. Diet advanced to low fiber. No indication for surgical intervention. Plan is for patient to be on 2-3 weeks of IV antibiotics with follow-up CT scan as outpatient. Case management and primary team coordinating outpatient IV antibiotics with possible PICC line placement. Patient see and examined with Dr. Mckeon. 06/11/2023 Diverticulitis with small abscess, symptoms improving with antibiotics. Would recommend 2 to 3 weeks of IV antibiotics with follow-up CT scan. No surgical intervention indicated at this time We will plan for discharge with IV antibiotics for 2 to 3 weeks, PICC line and home health care and antibiotics being coordinated by medicine and case management Repeat CT scan in 3 weeks Follow-up in general surgery after CT complete If surgical intervention were to be entertained, given her cardiac history, may refer to colorectal at a tertiary center Dr. Yeni Kathleen covering over the weekend, surgery will follow while in house Admission and Anticipated Discharge Date Admission Date: June 09, 2023 Subjective Patient resting in bed- eating breakfast. She reports that she is tolerating a low fiber diet. She continues to have episodes of diarrhea, reporting that it does wake her up throughout the night. She is passing flatus. She denies nausea or vomiting. Continues to report that she is struggling to get a good night's sleep here. Review of Systems Constitutional: no fever and no chills Gastrointestinal: no abdominal pain, no nausea and no vomiting Physical Exam Constitutional: WD/WN, vitals as above Respiratory: normal respiratory effort, lungs clear to auscultation Cardiovascular: RRR, no murmur, no edema Gastrointestinal (Abdomen): abdomen soft, nontender, normal BS Skin: no rashes, warm and dry Psychiatric: A+Ox3, euthymic affect Results & Data Vital Signs (Past 12 Hours) Vital Signs Temp Pulse Resp BP Pulse Ox O2 Del Method 06/13/23 07:15 36.7 C 66 18 168/88 H 94 Room Air PG Care Time/CCT Total # of Minutes Spent Total Time Spent with Patient: Total time spent is greater than 50% in coordination of care (as documented) at patient's floor/unit and/or counseling patient: Coding Level of Care Code 88811 SUB INP/OBS CARE 12/23MIN Diagnoses Diverticulitis of intestine with abscess K57.80
[2023-06-13] MEDS: WARFARIN SOD 2.5 MG TAB PO SCH (16:37)
[2023-06-13] MEDS: LORazepam 2 MG/1 ML VIAL IV PRN (23:05)
[2023-06-13] MEDS: ASPIRIN 81 MG ECTAB PO SCH (23:06)
[2023-06-13] MEDS: traZODone HCL 50 MG TAB PO SCH (23:06)
[2023-06-13] MEDS: PRAVASTATIN SOD 40 MG TAB PO SCH (23:06)
[2023-06-13] MEDS: METOPROLOL SUCC 50MG EXT REL TAB PO SCH (23:07)
[2023-06-13] MEDS: amLODIPine BESYLATE 5 MG TAB PO SCH (23:07)
[2023-06-14] MEDS: PIPERACILLIN/TAZOBACTAM 4.5 GM in DEXTROSE 5% 100 ML IV SCH ×3 (06:27→22:00)
[2023-06-14] MEDS: ISOSORBIDE MONO EXTENDED REL 60 MG TABCR PO SCH (08:43)
[2023-06-14] MEDS: CYANOCOBALAMIN (B-12) 500 MCG TABLET PO SCH (08:43)
[2023-06-14] MEDS: CALCIUM CARBONATE 1250MG TAB PO SCH ×2 (08:43→20:26)
[2023-06-14] MEDS: METOCLOPRAMIDE HCL 5 MG TABLET PO SCH ×2 (08:43→20:26)
[2023-06-14] MEDS: CHOLECALCIFEROL 5,000 UNITS 125 MCG TAB PO SCH (08:44)
[2023-06-14] MEDS: cloNIDine HCL 0.1 MG TAB PO SCH ×2 (08:44→20:26)
[2023-06-14] MEDS: PANTOprazole 40 MG TAB PO SCH (08:44)
--- NOTE | 2023-06-14 08:47 | Hospitalist Progress Note ---
Date of Service June 14, 2023 Assessment & Plan (1) Diverticulitis of intestine with abscess: Plan: Recent diagnosis of diverticulitis, failed outpatient therapy IV Zosyn 4.5g q8h to continue for now, to continue for several weeks on discharge likely necessitating skilled level of care (patient is not capable of administering Abx several times a day herself, has no other supports in home or nearby, [facility] will not accommodate multiple times a day Abx) Given patient failed tx with Cipro/Flagyl outpatient, case discussed with ID -> concern about possible need for source control in the future given admission despite previous regimen, however Sx largely resolved on IV Abx Cardiology consulted at surgical request to eval for surgical risk given Hx and CABG -> Echo ordered to stratify aortic disease, no change from previous, recommends bridging AC if needs surgery in the future Plan at this time to avoid surgery if at all possible with several weeks of IV Abx with repeat CTAP in 2-3 weeks, case discussed with Dr. Gutierrez Low fiber diet (2) Anticoagulated on Coumadin: Plan: INR 1.5 now subtherapeutic, with goal range 2.5-3.5 for Hx metal aortic valve Continue warfarin 2.5mg daily dosing with adjust as necessary (given extra 2.5mg today with repeat INR tomorrow) If patient requires surgery in the future, Cardiology recommends bridging with therapeutic Lovenox if warfarin needs to be held (3) Anxiety: Plan: Patient discussed illness-related anxiety, anxiety over care of home when she is in facility, how to care for herself medically Discussed medications coupled with counseling can be very helpful Has been on several medications in the past without much help however has not been on any of them for very long (for example, most recently on Lexapro for 3 weeks before stopping) Highly recommend patient follow up with PCP regarding daily non-benzodiazepine anxiolytic and counseling for depression/anxiety Starting fluoxetine 10mg daily here; tried to temper patient's expectations regarding these daily medications for anxiety/depression as they take several weeks to show any effect (4) Hypertension: Plan: Continue clonidine, metoprolol, isosorbide mononitrate, amlodipine (5) History of aortic valve replacement with metallic valve: Plan: Goal INR 2.5-3.5 Repeat Echo as above (6) S/P CABG (coronary artery bypass graft): Plan: Continue isosorbide mononitrate, metoprolol Continue aspirin as no imminent surgery (7) GERD (gastroesophageal reflux disease): Plan: Continue pantoprazole PO daily (8) Hyperlipidemia: Plan: Continue pravastatin (9) Insomnia: Plan: On nightly Xanax for some time by PCP, though recently does not keep her asleep through the night Symptoms improved with nightly trazodone she is receiving here, will continue this on discharge (10) Chronic prescription benzodiazepine use: Plan: see above Plan VTE Prophylaxis - warfarin Diet - low fiber diet Disposition - med/surg Admission and Anticipated Discharge Date Admission Date: June 09, 2023 Subjective Patient with difficulty staying aslep last night. Slept from 12-3, then again from 345-630. Expressed issues with ruminating thoughts when she wakes. Denies abdominal pain, still with diarrhea, non-bloody. Review of Systems Review of Systems: All systems reviewed & are unremarkable except as noted in Subjective Physical Exam Constitutional: WD/WN, vitals as above Respiratory: normal respiratory effort, lungs clear to auscultation Cardiovascular: RRR, no murmur, no edema Gastrointestinal (Abdomen): abdomen soft, nontender, normal BS Skin: no rashes, warm and dry Psychiatric: AAOx3, depressed mood and affect Results & Data Results & Data Vital Signs (Past 12 Hours) Vital Signs Temp Pulse Resp BP Pulse Ox O2 Del Method 06/14/23 07:33 36.9 C 72 16 141/79 H 94 Room Air 06/13/23 20:56 36.9 C 74 18 157/88 H 94 Room Air PG Care Time/CCT Total # of Minutes Spent Total Time Spent with Patient: Total time spent is greater than 50% in coordination of care (as documented) at patient's floor/unit and/or counseling patient: Coding Level of Care Code 61260 SUB INP/OBS CARE 3/50MIN Diagnoses Diverticulitis of intestine with abscess K57.80 Anticoagulated on Coumadin Z79.01 Anxiety F41.9 Hypertension I10 History of aortic valve replacement with metallic valve Z95.4 S/P CABG (coronary artery bypass graft) Z95.1 GERD (gastroesophageal reflux disease) K21.9 Hyperlipidemia E78.5 Insomnia G47.00 Chronic prescription benzodiazepine use Z79.899
--- NOTE | 2023-06-14 09:03 | Surgery Progress Note ---
Date of Service June 14, 2023 Assessment & Plan (1) Diverticulitis of intestine with abscess: Plan: Diverticulitis with small abscess, symptoms improving with antibiotics No acute surgical intervention indicated We recommend discharge with IV antibiotics for 2 to 3 weeks, PICC line and home health care vs facility placement Repeat CT scan in 3 weeks and follow-up in general surgery after CT complete If surgical intervention were to be entertained, given her cardiac history, may refer to colorectal at a tertiary center Appreciate hospitalists assistance with patient and ongoing workup of insomnia/depressed mood Admission and Anticipated Discharge Date Admission Date: June 09, 2023 Supervising Physician Co-Signing Physician Notes Pnt seen and examined, agree with above. diverticulitis with small diverticular abscess not amenable to percutaneous drainage, being treated with iv abx. Continues to feel better, no pain, appetite returning, diarrhea improving. Still with insomnia and depression. afvss, abd soft, nd, nt. plan for 2-3 weeks iv abx, repeat CT at that time. No surgical intervention for now, will discuss elective sigmoidectomy in future, possible referral to tertiary center given medical history. surgery will follow peripherally. Subjective From an abdominal standpoint patient is doing well. Denies much pain, nausea/vomiting. Says her BMs are becoming less frequent and a little more sediment to them vs the type of diarrhea she was having before. Tolerating low fiber without issues. She expresses ongoing concerns about difficulty sleeping, depressed mood, and if she can handle the IV abx as recommended over the next 2- 3 weeks. Physical Exam Physical Exam: awake, alert, no distress Respiratory: normal respiratory effort Gastrointestinal (Abdomen): Inspection/Auscultation: abdomen not distended Percussion/Palpation: + abdomen tender (mild discomfort in LLQ) and abdomen soft Results & Data Vital Signs (Past 12 Hours) Vital Signs Temp Pulse Resp BP Pulse Ox O2 Del Method 06/14/23 07:33 36.9 C 72 16 141/79 H 94 Room Air PG Care Time/CCT Total # of Minutes Spent Total Time Spent with Patient: Total time spent is greater than 50% in coordination of care (as documented) at patient's floor/unit and/or counseling patient: Coding Level of Care Code 98387 SUB INP/OBS CARE 12/23MIN Diagnoses Diverticulitis of intestine with abscess K57.80
[2023-06-14 11:07] LABS: INR 1.5 (0.9-1.1); Prothrombin Time 15.7 Seconds (9.0-12.0)
[2023-06-14] MEDS: FLUoxetine HCL 10 MG CAP PO SCH (11:11)
[2023-06-14] MEDS: WARFARIN SOD 2.5 MG TAB PO SCH (16:12)
[2023-06-14] MEDS ORDERED: WARFARIN SOD 2.5 MG TAB PO ONE (16:52)
[2023-06-14] MEDS: PRAVASTATIN SOD 40 MG TAB PO SCH (20:25)
[2023-06-14] MEDS: METOPROLOL SUCC 50MG EXT REL TAB PO SCH (20:25)
[2023-06-14] MEDS: amLODIPine BESYLATE 5 MG TAB PO SCH (20:25)
[2023-06-14] MEDS: ASPIRIN 81 MG ECTAB PO SCH (20:25)
[2023-06-14] MEDS: ALPRAZolam 0.5 MG TABLET PO SCH (20:26)
[2023-06-14] MEDS: traZODone HCL 50 MG TAB PO SCH (20:26)
[2023-06-15] MEDS: PIPERACILLIN/TAZOBACTAM 4.5 GM in DEXTROSE 5% 100 ML IV SCH ×3 (05:45→21:55)
[2023-06-15] MEDS: FLUoxetine HCL 10 MG CAP PO SCH (08:13)
[2023-06-15] MEDS: CALCIUM CARBONATE 1250MG TAB PO SCH ×2 (08:13→20:19)
[2023-06-15] MEDS: CHOLECALCIFEROL 5,000 UNITS 125 MCG TAB PO SCH (08:13)
[2023-06-15] MEDS: ISOSORBIDE MONO EXTENDED REL 60 MG TABCR PO SCH (08:13)
[2023-06-15] MEDS: METOCLOPRAMIDE HCL 5 MG TABLET PO SCH ×2 (08:13→20:20)
[2023-06-15] MEDS: cloNIDine HCL 0.1 MG TAB PO SCH ×2 (08:14→20:19)
[2023-06-15] MEDS: PANTOprazole 40 MG TAB PO SCH (08:14)
--- NOTE | 2023-06-15 09:23 | Hospitalist Progress Note ---
Date of Service June 15, 2023 Assessment & Plan (1) Diverticulitis of intestine with abscess: Plan: Recent diagnosis of diverticulitis, failed outpatient therapy IV Zosyn 4.5g q8h to continue on discharge at least x2 weeks, with follow up CTAP in outpatient setting per Gen. Surgery, follow up should be scheduled with Dr. Gutierrez' office Given patient failed tx with Cipro/Flagyl outpatient, case discussed with ID -> concern about possible need for source control in the future given admission despite previous regimen, however Sx largely resolved on IV Abx Cardiology consulted at surgical request to eval for surgical risk given Hx and CABG -> Echo ordered to stratify aortic disease, no change from previous, recommends bridging AC if needs surgery in the future Plan at this time to avoid surgery if at all possible with several weeks of IV Abx with repeat CTAP in 2-3 weeks, case discussed with Dr. Gutierrez Low fiber diet (2) Anticoagulated on Coumadin: Plan: INR 1.5 now subtherapeutic, with goal range 2.5-3.5 for Hx metal aortic valve Continue warfarin 5.0mg daily until at therapeutic level, then back off and dose as appropriate If patient requires surgery in the future, Cardiology recommends bridging with therapeutic Lovenox if warfarin needs to be held (3) Anxiety: Plan: Patient discussed illness-related anxiety, anxiety over care of home when she is in facility, how to care for herself medically Discussed medications coupled with counseling can be very helpful Has been on several medications in the past without much help however has not been on any of them for very long (for example, most recently on Lexapro for 3 weeks before stopping) Highly recommend patient follow up with PCP regarding daily non-benzodiazepine anxiolytic and counseling for depression/anxiety Started fluoxetine 10mg daily here; tried to temper patient's expectations regarding these daily medications for anxiety/depression as they take several weeks to show any effect (4) Hypertension: Plan: Continue clonidine, metoprolol, isosorbide mononitrate, amlodipine (5) History of aortic valve replacement with metallic valve: Plan: Goal INR 2.5-3.5 Repeat Echo as above (6) S/P CABG (coronary artery bypass graft): Plan: Continue isosorbide mononitrate, metoprolol Continue aspirin as no imminent surgery (7) GERD (gastroesophageal reflux disease): Plan: Continue pantoprazole PO daily (8) Hyperlipidemia: Plan: Continue pravastatin (9) Insomnia: Plan: On nightly Xanax for some time by PCP, though recently does not keep her asleep through the night Symptoms improved with nightly trazodone she is receiving here, will continue 100mg daily on discharge (10) Chronic prescription benzodiazepine use: Plan: see above Plan VTE Prophylaxis - warfarin Diet - low fiber diet Disposition - med/surg Plan for discharge to [facility] tomorrow Admission and Anticipated Discharge Date Admission Date: June 09, 2023 Subjective No acute overnight events. Slept better last night than any other night during hospitalization. No abdominal pain, will some more form to stool, some sediment. Review of Systems Review of Systems: All systems reviewed & are unremarkable except as noted in Subjective Physical Exam Constitutional: WD/WN, vitals as above Gastrointestinal (Abdomen): abdomen soft, nontender, normal BS Skin: no rashes, warm and dry Psychiatric: AAOx3, euthymic affect today Results & Data Results & Data Vital Signs (Past 12 Hours) Vital Signs Temp Pulse Resp BP Pulse Ox O2 Del Method 06/15/ 07:08 36.6 C 74 16 165/84 H 95 Room Air PG Care Time/CCT Total # of Minutes Spent Total Time Spent with Patient: Total time spent is greater than 50% in coordination of care (as documented) at patient's floor/unit and/or counseling patient: Coding Level of Care Code 34038 SUB INP/OBS CARE 2/35MIN Diagnoses Diverticulitis of intestine with abscess K57.80 Anticoagulated on Coumadin Z79.01 Anxiety F41.9 Hypertension I10 History of aortic valve replacement with metallic valve Z95.4 S/P CABG (coronary artery bypass graft) Z95.1 GERD (gastroesophageal reflux disease) K21.9 Hyperlipidemia E78.5 Insomnia G47.00 Chronic prescription benzodiazepine use Z79.899
[2023-06-15] MEDS: CYANOCOBALAMIN (B-12) 500 MCG TABLET PO SCH (09:57)
[2023-06-15 10:35] LABS: INR 1.5 (0.9-1.1); Prothrombin Time 15.9 Seconds (9.0-12.0)
[2023-06-15] MEDS ORDERED: WARFARIN SOD 5 MG TAB PO SCH (16:00)
[2023-06-15] MEDS: METOPROLOL SUCC 50MG EXT REL TAB PO SCH (20:18)
[2023-06-15] MEDS: ASPIRIN 81 MG ECTAB PO SCH (20:18)
[2023-06-15] MEDS: PRAVASTATIN SOD 40 MG TAB PO SCH (20:18)
[2023-06-15] MEDS: amLODIPine BESYLATE 5 MG TAB PO SCH (20:18)
[2023-06-15] MEDS ORDERED: traZODone HCL 100 MG TAB PO SCH (21:00)
[2023-06-15] MEDS: ALPRAZolam 0.5 MG TABLET PO SCH (21:54)
[2023-06-16] MEDS ORDERED: MELATONIN 3 MG TAB PO PRN (00:04)
[2023-06-16] MEDS: PIPERACILLIN/TAZOBACTAM 4.5 GM in DEXTROSE 5% 100 ML IV SCH (06:00)
--- NOTE | 2023-06-16 08:38 | Discharge Summary ---
Discharge Summary Date of Service June 16, 2023 Admission HPI Per Admitting Provider Shelby Rocha is a 72 year old female who presents to the ER due to left lower quadrant abdominal pain. She was recently hospitalized for acute sigmoid diverticulitis with contained small perforation from May 29 - 2022. She was discharged on ciprofloxacin and metronidazole for a total course of 14 days. She reports compliance with these antibiotics. She has had persistent low grade abdominal pain since discharge but only started getting worse today. Intermittent cramping in nature in left lower quadrant, no radiation, severity 5/10 when she first cam to the ER at worst, currently 2-3/10. Associated decreased appetite, generalized weakness and fatigue. No association with food intake but also hasn't felt like eating. Ongoing diarrhea since starting antibiotics in the ER since last admission but not getting worse (she stopped the MiraLAX prescribed as this caused 10 BM a day). No nausea or vomiting. Admission Exam Per Admitting Provider Constitutional: WD/WN, vitals as above Eyes: PERRL, conjunctivae normal, anicteric sclerae ENMT: external ear and nose normal, oropharynx normal Respiratory: normal respiratory effort, lungs clear to auscultation Cardiovascular: Rate/Rhythm: regular rate and regular rhythm Heart Sounds: + click and + murmur (systolic) Extremities: normal capillary refill; no calf tenderness and no pedal edema Gastrointestinal (Abdomen): normal bowel sounds, soft, nontender, no hepatosplenomegaly Musculoskeletal: no cyanosis or clubbing, extremities motor strength 5/5 Skin: no rashes, warm and dry Neurologic: moves all extremities and awake; not confused Psychiatric: A+Ox3, euthymic affect Principal Dx & Hospital Course #1 = Principal Diagnosis (1) Diverticulitis of intestine with abscess: Recent diagnosis of diverticulitis, failed outpatient therapy IV Zosyn 4.5g q8h to continue on discharge at least x2 weeks, perhaps longer, with follow up CTAP in 2 weeks in outpatient setting per Gen. Surgery, follow up should be scheduled with Dr. Gutierrez' office Given patient failed tx with Cipro/Flagyl outpatient, case discussed with ID -> concern about possible need for source control in the future given admission despite previous regimen, however Sx largely resolved on IV Abx Cardiology consulted at surgical request to eval for surgical risk given Hx and CABG -> Echo ordered to stratify aortic disease, no change from previous, recommends bridging with Lovenox if needs surgery in the future Low fiber diet (2) Anticoagulated on Coumadin: INR 1.8 subtherapeutic, with goal range 2.5-3.5 for Hx metal aortic valve Continue warfarin 5.0mg daily until at therapeutic level, then back off and dose as appropriate If patient requires surgery in the future, Cardiology recommends bridging with therapeutic Lovenox if warfarin needs to be held (3) Anxiety: Patient discussed illness-related anxiety, anxiety over care of home when she is in facility, how to care for herself medically Has been on several medications in the past without much help however has not been on any of them for very long (for example, most recently on Lexapro for 3 weeks before stopping) Highly recommend patient follow up with PCP regarding daily non-benzodiazepine anxiolytic and counseling for depression/anxiety Started fluoxetine 10mg daily here; tried to temper patient's expectations regarding these daily medications for anxiety/depression as they take several weeks to show any effect (4) Hypertension: Continue clonidine, metoprolol, isosorbide mononitrate, amlodipine (5) History of aortic valve replacement with metallic valve: Goal INR 2.5-3.5 Repeat Echo as above (6) S/P CABG (coronary artery bypass graft): Continue isosorbide mononitrate, metoprolol Continue aspirin as no imminent surgery (7) GERD (gastroesophageal reflux disease): Continue pantoprazole PO daily (8) Hyperlipidemia: Continue pravastatin (9) Insomnia: On nightly Xanax for some time by PCP, though recently does not keep her asleep through the night Symptoms improved with nightly trazodone and melatonin she is receiving here, will continue on discharge (10) Chronic prescription benzodiazepine use: see above Plan Dispo: discharge to [facility] today Discharge Exam Constitutional WD/WN, vitals as above Gastrointestinal (Abdomen) normal bowel sounds, soft, nontender, no hepatosplenomegaly Psychiatric AAOx3 anxious affect Updated Medication List Medication Instructions Recorded Confirmed Type cholecalciferol (vitamin D3) 25 5,000 units PO QAM 09/05/19 06/09/23 History mcg (1,000 unit) capsule albuterol sulfate 90 mcg/actuation 2 puff inhalation QID PRN 07/18/21 06/09/23 Rx aerosol inhaler (ProAir HFA) shortness of breath #8.5 grams clonidine HCl 0.1 mg tablet 0.1 mg PO BID #180 tabs 07/14/22 06/09/23 Rx aspirin 81 mg tablet,delayed 81 mg PO HS 09/24/22 06/09/23 History release (Harvey Low Dose Aspirin) metoclopramide HCl 5 mg tablet 5 mg PO BID #180 tabs 10/05/22 06/09/23 Rx calcium carbonate 600 mg calcium 600 mg PO BID 02/24/23 06/09/23 History (1,500 mg) tablet (Calcium) cyanocobalamin (vitamin B-12) 1,000 mcg PO QAM 02/24/23 06/09/23 History 1,000 mcg capsule isosorbide mononitrate 60 mg 60 mg PO QAM 02/24/23 06/09/23 History tablet,extended release 24 hr pravastatin 80 mg tablet 80 mg PO HS 02/24/23 06/09/23 History alprazolam 0.25 mg tablet 0.5 mg PO HS #180 tabs 03/08/23 06/09/23 Rx amlodipine 5 mg tablet 5 mg PO HS #90 tabs 03/08/23 06/09/23 Rx pantoprazole 40 mg tablet,delayed 40 mg PO QAM gerd #90 tabs 03/08/23 06/09/23 Rx release (Protonix) metoprolol succinate 100 mg 100 mg PO HS #90 tabs 04/05/23 06/09/23 Rx tablet,extended release 24 hr warfarin 2.5 mg tablet 2.5 mg PO .WED/WED//Wed05/29/23 06/09/23 History warfarin 5 mg tablet 5 mg PO .SUN/TUES/SAT 05/29/23 06/09/23 History fluoxetine 10 mg capsule 10 mg PO QAM #30 caps 06/15/23 Rx trazodone 100 mg tablet 100 mg PO HS #30 tabs 06/15/23 Rx melatonin 3 mg tablet 3 mg PO HS PRN sleep #30 tabs 06/16/23 Rx Hospital Stay Data Consultations 06/09/23 20:16 Consult General Surgery Routine 06/09/23 22:30 Consult Infectious Diseases Routine 06/10/23 09:09 Consult Cardiology Routine 06/14/23 08:54 Consult Behavioral Health Liaison Routine Diagnostic Imagining Performed 06/09/23 12:25 CT abd pelvis IV con only Stat Pending Results Patient Have Any Pending Studies at Discharge: No Discharge Instructions Given to Patient (Per Discharging Provider) Diverticulitis of intestine with abscess: Recent diagnosis of diverticulitis, failed outpatient therapy IV Zosyn 4.5g q8h to continue on discharge at least x2 weeks, with follow up CTAP in outpatient setting per Gen. Surgery, follow up should be scheduled with Dr. Gutierrez' office Cardiology consulted at surgical request to eval for surgical risk given Hx and CABG -> Echo ordered to stratify aortic disease, no change from previous, recommends bridging AC if needs surgery in the future Low fiber diet Anticoagulated on Coumadin: INR 1.5 now subtherapeutic, with goal range 2.5-3.5 for Hx metal aortic valve Continue warfarin 5.0mg daily until at therapeutic level, then back off and dose as appropriate based on INR If patient requires surgery in the future, Cardiology recommends bridging with therapeutic Lovenox if warfarin needs to be held Anxiety: Patient discussed illness-related anxiety, anxiety over care of home when she is in facility, how to care for herself medically Highly recommend patient follow up with PCP regarding depression/anxiety Started fluoxetine 10mg daily here; tried to temper patient's expectations regarding these daily medications for anxiety/depression as they take several weeks to show any effect Hypertension: Continue clonidine, metoprolol, isosorbide mononitrate, amlodipine History of aortic valve replacement with metallic valve: Goal INR 2.5-3.5 Repeat Echo as above S/P CABG (coronary artery bypass graft): Continue isosorbide mononitrate, metoprolol Continue aspirin as no imminent surgery GERD (gastroesophageal reflux disease): Continue pantoprazole PO daily Hyperlipidemia: Continue pravastatin Insomnia: On nightly Xanax for some time by PCP, though recently does not keep her asleep through the night Symptoms improved with nightly trazodone she is receiving here, will continue 100mg daily on discharge Chronic prescription benzodiazepine use: see above Total Time Total Time Spent Total Time Spent (In Minutes): 40 min Coding Level of Care Code 16305 INP/OBS DISCH >30 MIN Diagnoses Diverticulitis of intestine with abscess K57.80 Anticoagulated on Coumadin Z79.01 Anxiety F41.9 Hypertension I10 History of aortic valve replacement with metallic valve Z95.4 S/P CABG (coronary artery bypass graft) Z95.1 GERD (gastroesophageal reflux disease) K21.9 Hyperlipidemia E78.5 Insomnia G47.00 Chronic prescription benzodiazepine use Z79.899
[2023-06-16 08:54] LABS: INR 1.8 (0.9-1.1)
[2023-06-16] MEDS: CALCIUM CARBONATE 1250MG TAB PO SCH (09:35)
[2023-06-16] MEDS: cloNIDine HCL 0.1 MG TAB PO SCH (09:36)
[2023-06-16] MEDS: CYANOCOBALAMIN (B-12) 500 MCG TABLET PO SCH (09:36)
[2023-06-16] MEDS: METOCLOPRAMIDE HCL 5 MG TABLET PO SCH (09:36)
[2023-06-16] MEDS: CHOLECALCIFEROL 5,000 UNITS 125 MCG TAB PO SCH (09:36)
[2023-06-16] MEDS: ISOSORBIDE MONO EXTENDED REL 60 MG TABCR PO SCH (09:36)
[2023-06-16] MEDS: FLUoxetine HCL 10 MG CAP PO SCH (09:36)
[2023-06-16] MEDS: PANTOprazole 40 MG TAB PO SCH (09:36)
== END 2023-06-16 13:24 | DRG 392 ==
LOC: ED 10:57 → 3N 19:24 → SUATTDRO 19:24 → 3N 22:05

== ENCOUNTER 2023-07-19 17:28 | Inpatient (IN) ==
[2023-07-19 21:26] LABS: Basophils # (auto) 0.02 K/uL (0-0.2); Basophils % (auto) 0.2 %; Eosinophils # (auto) 0.03 K/uL (0-0.50); Eosinophils % (auto) 0.4 %; Hematocrit (blood only) 45.3 % (37.0-47.0); Hemoglobin 14.8 g/dl (12.0-16.0); Immature Granulocytes # (auto) 0.02 K/uL (0.01-0.20); Immature Granulocytes % (auto) 0.2 %; Lymphocytes # (auto) 1.45 K/uL (1.2-3.4); Lymphocytes % (auto) 16.9 %; Mean Corpuscular Hemoglobin 30.1 pg (25.0-34.0); Mean Corpuscular Hgb Conc 32.7 g/dL (32.0-36.0); Mean Corpuscular Volume 92.1 fL (80.0-100.0); Mean Platelet Volume 9.7 fL (9.4-12.4); Monocytes # (auto) 0.67 K/uL (0.11-0.59); Monocytes % (auto) 7.8 %; Neutrophils # (auto) 6.37 K/uL (1.40-6.50); Neutrophils % (auto) 74.5 %; Platelet Count 270 K/uL (130-400); RDW Coefficient of Variation 13.5 % (11.5-14.5); RDW Standard Deviation 45.7 fL (36.4-46.3); Red Blood Count 4.92 M/uL (4.20-5.40); White Blood Count 8.56 K/ul (4.8-10.8)
[2023-07-19 21:35] LABS: Alanine Aminotransferase 35 U/L (7-52); Albumin Globulin Ratio 1.6 (0.9-2); Albumin Level 4.4 gm/dl (3.4-5.0); Alkaline Phosphatase 130 U/L (34-104); Anion Gap 8 (3-11); Aspartate Aminotransferase 33 U/L (13-39); BUN Creatinine Ratio 24.1 (10-20); Bilirubin,Total 0.8 mg/dl (0.2-1.0); Blood Urea Nitrogen 26 mg/dl (6-23); Carbon Dioxide 25 mmol/L (21-32); Chloride 105 mmol/L (98-107); Est GFR (African American) 58.2 ml/min; Est GFR (Non-African American) 50.2 ml/min; Globulin 2.8 gm/dl (2.5-4.0); Glucose 180 mg/dl (70-99(Fasting)); Lipase 58 U/L (11-82); Potassium 4.1 mmol/L (3.5-5.1); Sodium 138 mmol/L (136-145); Total Protein 7.2 gm/dl (6.0-8.3)
[2023-07-19] MEDS ORDERED: SODIUM CHLORIDE 0.9% 1,000 ML IV SCH (23:30)
[2023-07-19 23:49] LABS: Magnesium 2.2 mg/dl (1.7-2.4)
[2023-07-19] MEDS ORDERED: IOVERSOL 350 MG 125mL Prefilled Syringe IV ONE (23:51)
[2023-07-19 23:57] LABS: Troponin I High Sensitivity 16.2 pg/ml (0-14)
[2023-07-20 00:17] LABS: Lyme Ab IgG w/WB Rflx Negative (Negative); Lyme Ab IgM w/WB Rflx Negative (Negative)
--- NOTE | 2023-07-20 00:24 | Emergency Department Note ---
Impression & Plan Altered mental status, Back pain, Paranoia ED Provider Note ED Provider Note NAME: MILTON BRITT AGE:73 SEX: Female : 1950 ARRIVES VIA: Private vehicle INFORMANT: Patient, family ED PROVIDER(s): Lorelei Denton DO CHIEF COMPLAINT: Altered mental status HPI: This is a 73-year-old female brought in by family after evaluation by PCP today due to concern for ongoing confusion and paranoia as well as back pain. F marielosy states she began having issues 6 weeks ago when she was admitted for diverticulitis with accompanying abscess after failed outpatient management of simple diverticulitis on oral antibiotics. Once admitted she began having difficulty sleeping. They state trazodone was added at that time. Patient was then sent to rehab but she continued to need IV antibiotics. While at rehab she sustained a fall and had 2 compression fractures in the back. They added oxycodone at that time. Patient continued to complain of pain but was still having trouble sleeping and had more more bizarre behavior. Family states she became paranoid about finances about police going to her home, and was having un usual conversations with them. They state prior mild history of depression but no prior history of SI, HI, no prior suicide attempt. Prior to her admission for diverticulitis she was living independently in her own home, driving, and very active. The trazodone and oxycodone were stopped almost 2 weeks ago now and her symptoms have not improved. Patient was sent for a head CT according to family. Patient does use warfarin due to history of a valve replacement. PAST MEDICAL HISTORY:See Below PAST SURGICAL HISTORY:See Below FAMILY HISTORY:See Below SOCIAL HISTORY:See Below HOME MEDICATIONS:See Below ALLERGIES:See Below VITALS:See Below PHYSICAL EXAMINATION: GENERAL: alert, well appearing, well nourished, no distress, non-toxic EYE EXAM: normal conjunctiva, PERRL and EOM's grossly intact OROPHARYNX: no exudate, no erythema, lips, buccal mucosa, and tongue normal and mucous membranes are moist NECK: supple, no nuchal rigidity, no adenopathy, non-tender LUNGS: Clear to auscultation. Normal chest wall mechanics, no w/r/r HEART: no murmurs, S1 normal and S2 normal ABDOMEN: abdomen soft, non-tender, normo-active bowel sounds, no masses, no rebound or guarding. BACK: Back is symmetrical on inspection and there is no deformity, no midline tenderness, no CVA tenderness. SKIN: no rashes, petechiae, orbruising UPPER EXTREMITIES: upper extremities are grossly normal. FROM, nml pulses b/l. LOWER EXTREMITIES: No pitting edema. FROM, nml pulses b/l. NEURO EXAM: Normal sensorium, cranial nerves II-XII grossly intact, normal speech, no facial droop,nogross weakness of arms, no gross weakness of legs. Gross sensation intact. No ataxia. Vital Signs: reviewed and remarkable Differential Diagnosis: Medication ADR, CVA, ICH, electrolyte abnormality, prolonged delirium, UTI, metabolic encephalopathy, as well as others were considered MEDICAL DECISION MAKING: This is a 73-year-old female brought in by family due to concern for altered mental status and worsening paranoia. Family states symptoms began 6 weeks ago when she was first hospitalized for complicated diverticulitis. Labs are drawn and sent, IV established, EKG and chest x-ray performed at bedside interpreted by me and patient monitored on telemetry. After discussion with multiple family members at bedside and with the patient who was still confused but can answer a few simple questions which the family states is actually an improvement, we discussed additional imaging and likely need for additional inpatient evaluation. We did review the labs and chest x-ray that had already returned. Patient sent for CT/CTA which was reassuring. Case discussed with the hospitalist for additional evaluation and management. Patient was noted to have a mildly elevated troponin, I do not feel this is clinically significant. I do not suspect ACS. INR also noted to be subtherapeutic given patient's indwelling mechanical valve. We will defer additional management of anticoagulation to the hospitalist team. Consultation(s): 0155: Discussed with Dr. Rob, [facility] hospitalist team for additional evaluation. ER Treatment Provided: See below Diagnostics Interpreted By Me: -ECG: Normal sinus at 88, normal axis, normal intervals, nonspecific ST/T wave changes -Cardiac Monitoring: An order was placed for continuous cardiac monitoring. The monitor shows a rate of 96 with normal sinus rhythm. -Laboratory studies: As stated above and show below. -Imaging studies: X-ray Chest: A single view study of the chest was reviewed and was negative for cardiomegaly, focal infiltrate, effusion, pulmonary edema, or wide mediastinum. Approximately 3 cm nodule seen in the left lung as on previous chest x-ray Triage Nursing Note Reviewed Prior/Outside Records Reviewed Past Med/Surg History Medical History Adenoma of right adrenal gland Allergic rhinitis Anticoagulated on Coumadin Asthma inhaler prn CAD (coronary artery disease) Depression with anxiety Diverticulosis Essential hematuria pt denies at present time Exertional chest pain hx of; pt states she no longer experiences this Hyperlipidemia Hypertension Internal hemorrhoids Myocardial Infarction x2--06/12/08 and 08/06--follows with Dr. Milner Occlusion of right internal carotid artery Osteoporosis with fracture PAD (peripheral artery disease) Plantar fasciitis Positional vertigo Prediabetes Tremor of right hand Urinary incontinence Vitamin D deficiency Xerostomia Surgical History H/O section History of aortic valve replacement with metallic valve 2000 History of appendectomy History of cardiac cath x2--05/2008 and 07/2008 History of colonoscopy History of esophagogastroduodenoscopy (EGD) History of heart artery stent x1 2007 History of hysterectomy with bilateral oophorectomy History of wisdom tooth extraction Hx of cholecystectomy S/P CABG (coronary artery bypass graft) 2001-per pt "triple bypass" @ [facility] [place] S/P tonsillectomy Family History Mother Alzheimer disease Dementia Osteoarthritis Father Coronary heart disease Heart disease Myocardial infarction age 72 Lung cancer Colorectal cancer Grandmother (Paternal) Diabetes Other No family history of adverse response to anesthesia Denies family history of Rheumatoid arthritis Sudden SIDS (sudden syndrome) Ovarian cancer Prostate cancer Deep vein thrombosis Osteoporosis Dyslipidemia Cerebral aneurysm Bipolar disorder Clotting disorder Crohn's disease Depression Kidney disease Breast cancer Schizophrenia Congenital kidney disease Gestational diabetes COPD (chronic obstructive pulmonary disease) Pulmonary embolism Lung disease Hypertension Ulcerative colitis Colonic polyp Stroke Asthma Cystic kidney disease Social History Smoking Status: Former smoker Tobacco Type: Cigarettes Age Started Using Tobacco: 16; Second Hand Exposure: Yes; Do You Dip or Chew Tobacco: No; Hx Alcohol Use: No Hx Substance Use: No Preferred Language: Senegalese Communication Ability: Impaired Visual Impairment: No Limitations Hearing Ability: Normal Insurance Licensing Supervisor Required: No Beliefs That Will Affect Care: None marital status: / Current Living Situation: Family current occupational status: retired 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 [employer] How many Children do You have: 1 Feels Safe at Home: Yes Childhood Exposure to Second-Hand Smoke: No Diet: regular caffeine: Yes during the past year weight has: remained stable Dental Care, Regularly: No Physical Activity Frequency: Does not Exercise Seatbelt Use: always Sunscreen Use: Yes Assistive Devices: None Allergies Allergies Allergy/AdvReac Type Severity Reaction Status Date / Time rosuvastatin [From Crestor] Allergy Intermediate myalgia Verified 07/19/23 15:41 sertraline [From Zoloft] Allergy Intermediate burn Verified 07/19/23 15:41 sensation on skin on arms lovastatin Allergy Mild rash Verified 07/19/23 15:41 bupropion [From Wellbutrin] AdvReac Intermediate insomnia Verified 07/19/23 15:41 and tremors dicyclomine AdvReac Intermediate N/V Verified 07/19/23 15:41 codeine AdvReac Mild NAUSEA & Verified 07/19/23 15:41 PAIN ezetimibe [From Zetia] AdvReac Mild Gastrointestinal Verified 07/19/23 15:41 Upset methadone AdvReac Mild GI UPSET(?) Verified 07/19/23 15:41 niacin AdvReac Mild Gastrointestinal Verified 07/19/23 15:41 [From Niaspan Upset Extended-Release] paroxetine [From Paxil] AdvReac Mild Gastrointestinal Verified 07/19/23 15:41 Upset propoxyphene AdvReac Mild NAUSEA & Verified 07/19/23 15:41 PAIN simvastatin [From Zocor] AdvReac Mild Gastrointestinal Verified 07/19/23 15:41 Upset [id number] Reductase AdvReac Mild STATIN Verified 07/19/23 15:41 Inhibitor INTOLERANCE - GI UPSET Home Meds Home Medications Medication Instructions Recorded Confirmed cholecalciferol (vitamin D3) 25 5,000 units PO QAM 09/05/19 07/20/23 mcg (1,000 unit) capsule aspirin 81 mg tablet,delayed 81 mg PO HS 09/24/22 07/20/23 release (Harvey Low Dose Aspirin) calcium carbonate 600 mg calcium 600 mg PO BID 02/24/23 07/20/23 (1,500 mg) tablet (Calcium) cyanocobalamin (vitamin B-12) 1,000 mcg PO QAM 02/24/23 07/20/23 1,000 mcg capsule isosorbide mononitrate 60 mg 60 mg PO QAM 02/24/23 07/20/23 tablet,extended release 24 hr pravastatin 80 mg tablet 80 mg PO HS 02/24/23 07/20/23 Saccharomyces boulardii 250 mg 250 mg PO BID 07/19/23 07/20/23 capsule (Florastor) acetaminophen 325 mg tablet 650 mg PO Q6H PRN Pain 07/19/23 07/20/23 acetaminophen 500 mg tablet 500 mg PO BID PAIN MANAGEMENT 07/19/23 07/20/23 potassium chloride 20 mEq 20 meq PO BID 07/19/23 07/20/23 tablet,extended release warfarin 4 mg tablet 4 mg PO HS 07/19/23 07/20/23 alprazolam 0.5 mg tablet 0.5 mg PO HS 07/20/23 07/20/23 Previous Rx's Medication Instructions Recorded albuterol sulfate 90 mcg/actuation 2 puff inhalation QID PRN 07/18/21 aerosol inhaler (ProAir HFA) shortness of breath #8.5 grams clonidine HCl 0.1 mg tablet 0.1 mg PO BID #180 tabs 07/14/22 metoclopramide HCl 5 mg tablet 5 mg PO BID #180 tabs 10/05/22 amlodipine 5 mg tablet 5 mg PO HS #90 tabs 03/08/23 pantoprazole 40 mg tablet,delayed 40 mg PO QAM gerd #90 tabs 03/08/23 release (Protonix) metoprolol succinate 100 mg 100 mg PO HS #90 tabs 04/05/23 tablet,extended release 24 hr Results & Data (ED) Vital Signs Vital Signs - 24 hr 07/19/23 18:10 07/19/23 22:56 Temperature 36.8 C Temperature Source Temporal Artery Scan Pulse Rate 93 H Pulse Rate [Finger] 88 Respiratory Rate 18 18 Respiratory Effort / Characteristics Non-Labored Spontaneous Respiratory Depth Normal Normal Blood Pressure 148/82 H Blood Pressure [Right Arm] 185/120 H Blood Pressure Mean 104 Blood Pressure Mean [Right Arm] 141 Pulse Oximetry 96 98 Oxygen Delivery Method Room Air Room Air Sepsis Recent Fever Within 48 Hours No Sepsis New/Unexplained Change in Mental Status No Sepsis Action Taken by Nursing No Action Required Laboratory Data 07/19/23 20:54 07/19/23 20:54 Lab Results 07/19/23 07/19/23 07/19/23 Range/Units 20:54 20:54 20:54 WBC 8.56 (4.8-10.8) K/ul RBC 4.92 (4.20-5.40) M/uL Hgb 14.8 (12.0-16.0) g/dl Hct 45.3 (37.0-47.0) % MCV 92.1 (80.0-100.0) fL MCH 30.1 (25.0-34.0) pg MCHC 32.7 (32.0-36.0) g/dL RDW Std Deviation 45.7 (36.4-46.3) fL RDW Coeff of Dennis 13.5 (11.5-14.5) % Plt Count 270 (130-400) K/uL MPV 9.7 (9.4-12.4) fL Immature Gran % (Auto) 0.2 % Neut % (Auto) 74.5 % Lymph % (Auto) 16.9 % Bee % (Auto) 7.8 % Eos % (Auto) 0.4 % Baso % (Auto) 0.2 % Neut # (Auto) 6.37 (1.40-6.50) K/uL Lymph # (Auto) 1.45 (1.2-3.4) K/uL Bee # (Auto) 0.67 H (0.11-0.59) K/uL Eos # (Auto) 0.03 (0-0.50) K/uL Baso # (Auto) 0.02 (0-0.2) K/uL Immature Gran # (Auto) 0.02 (0.01-0.20) K/uL PT (9.0-12.0) Seconds INR (0.9-1.1) Sodium 138 (136-145) mmol/L Potassium 4.1 (3.5-5.1) mmol/L Chloride 105 (98-107) mmol/L Carbon Dioxide 25 (21-32) mmol/L Anion Gap 8 (3-11) BUN 26 H (6-23) mg/dl Creatinine 1.08 (0.6-1.2) mg/dl Est Cr Clr Drug Dosing Not Reportable Est GFR ( Amer) 58.2 ml/min Est GFR (Non-Af Amer) 50.2 ml/min BUN/Creatinine Ratio 24.1 H (10-20) Glucose 180 H (70-99(Fasting)) mg/dl Calcium 10.0 (8.6-10.3) mg/dl Magnesium 2.2 (1.7-2.4) mg/dl Total Bilirubin 0.8 (0.2-1.0) mg/dl AST 33 (13-39) U/L ALT 35 (7-52) U/L Alkaline Phosphatase 130 H (34-104) U/L Troponin I High Sens 16.2 H (0-14) pg/ml Total Protein 7.2 (6.0-8.3) gm/dl Albumin 4.4 (3.4-5.0) gm/dl Globulin 2.8 (2.5-4.0) gm/dl Albumin/Globulin Ratio 1.6 (0.9-2) Lipase 58 (11-82) U/L TSH 0.618 (0.300-4.500) uIu/ml Lyme Disease IgG Ab (Negative) Lyme Disease IgM Ab (Negative) 07/19/23 07/20/23 Range/Units 20:54 00:30 WBC (4.8-10.8) K/ul RBC (4.20-5.40) M/uL Hgb (12.0-16.0) g/dl Hct (37.0-47.0) % MCV (80.0-100.0) fL MCH (25.0-34.0) pg MCHC (32.0-36.0) g/dL RDW Std Deviation (36.4-46.3) fL RDW Coeff of Dennis (11.5-14.5) % Plt Count (130-400) K/uL MPV (9.4-12.4) fL Immature Gran % (Auto) % Neut % (Auto) % Lymph % (Auto) % Bee % (Auto) % Eos % (Auto) % Baso % (Auto) % Neut # (Auto) (1.40-6.50) K/uL Lymph # (Auto) (1.2-3.4) K/uL Bee # (Auto) (0.11-0.59) K/uL Eos # (Auto) (0-0.50) K/uL Baso # (Auto) (0-0.2) K/uL Immature Gran # (Auto) (0.01-0.20) K/uL PT 19.6 H (9.0-12.0) Seconds INR 1.9 H (0.9-1.1) Sodium (136-145) mmol/L Potassium (3.5-5.1) mmol/L Chloride (98-107) mmol/L Carbon Dioxide (21-32) mmol/L Anion Gap (3-11) BUN (6-23) mg/dl Creatinine (0.6-1.2) mg/dl Est Cr Clr Drug Dosing Est GFR ( Amer) ml/min Est GFR (Non-Af Amer) ml/min BUN/Creatinine Ratio (10-20) Glucose (70-99(Fasting)) mg/dl Calcium (8.6-10.3) mg/dl Magnesium (1.7-2.4) mg/dl Total Bilirubin (0.2-1.0) mg/dl AST (13-39) U/L ALT (7-52) U/L Alkaline Phosphatase (34-104) U/L Troponin I High Sens (0-14) pg/ml Total Protein (6.0-8.3) gm/dl Albumin (3.4-5.0) gm/dl Globulin (2.5-4.0) gm/dl Albumin/Globulin Ratio (0.9-2) Lipase (11-82) U/L TSH (0.300-4.500) uIu/ml Lyme Disease IgG Ab Negative (Negative) Lyme Disease IgM Ab Negative (Negative) Administered Medications Alprazolam (Alprazolam 0.5 Mg Tablet) 0.5 mg PO HS [facility] Stop: 08/19/23 20:59 Last Admin: 07/20/23 20:25 Dose: 0.5 mg Documented By: LY Amlodipine Besylate (Amlodipine Besylate 5 Mg Tab) 5 mg PO HS [facility] Stop: 08/19/23 20:59 Last Admin: 07/20/23 20:21 Dose: 5 mg Documented By: LY Aspirin (Aspirin 81 Mg Ectab) 81 mg PO [facility] Stop: 08/19/23 20:59 Last Admin: 07/20/23 20:20 Dose: 81 mg Documented By: DENNIS Clonidine HCl (Clonidine Hcl 0.1 Mg Tab) 0.1 mg PO BID [facility] Stop: 08/19/23 08:59 Last Admin: 07/20/23 20:20 Dose: 0.1 mg Documented By: Admin: 07/20/23 08:50 Dose: 0.1 mg Documented By: KAYLA Hydralazine HCl (Hydralazine Hcl 20 Mg/Ml Vial) 10 mg IV Q8 PRN PRN Reason: sbp>185 or dbp>95 Stop: 08/19/23 07:59 Last Admin: 07/20/23 08:50 Dose: 10 mg Documented By: KAYLA Isosorbide Mononitrate (Isosorbide Bee Extended Rel 60 Mg Tabcr) 60 mg PO [facility] Stop: 08/19/23 08:59 Last Admin: 07/20/23 10:35 Dose: 60 mg Documented By: KAYLA Metoclopramide HCl (Metoclopramide Hcl 5 Mg Tablet) 5 mg PO BID [facility] Stop: 08/19/23 08:59 Last Admin: 07/20/23 20:20 Dose: 5 mg Documented By: Admin: 07/20/23 08:50 Dose: 5 mg Documented By: KAYLA Metoprolol Succinate (Metoprolol Succ 50mg Ext Rel Tab) 100 mg PO [facility] Stop: 08/19/23 20:59 Last Admin: 07/20/23 20:21 Dose: 100 mg Documented By: DENNIS Pantoprazole Sodium ([facility]op[facility]ole 40 Mg Tab) [facility] [place] Stop: 08/19/23 08:59 Last Admin: 07/20/23 08:49 Dose: 40 mg Documented By: KAYLA Pravastatin Sodium (Pravastatin Sod 40 Mg Tab) 80 mg PO [facility] Stop: 08/19/23 20:59 Last Admin: 07/20/23 20:21 Dose: 80 mg Documented By: DENNIS Warfarin Sodium (Warfarin Sod 4 Mg Tab) 4 mg PO [facility] Stop: 08/19/23 20:59 Last Admin: 07/20/23 20:21 Dose: 4 mg Documented By: DENNIS Discontinued Medications Gadobutrol (Gadobutrol 65ml Vial) 10 ml IV ONCE ONE Stop: 07/20/23 16:54 Last Admin: 07/20/23 16:45 Dose: 10 ml Documented By: MEDARDO Sodium Chloride (Nss 1000ml) 1,000 mls @ 125 mls/hr IV .Q8H [facility] Stop: 08/18/23 23:29 Last Infusion: 07/20/23 08:57 Dose: 0 mls/hr Documented By: Admin: 07/20/23 00:14 Dose: 125 mls/hr Documented By: MODE Ioversol (Ioversol 350 Mg 125ml Prefilled Syringe) 125 ml IV ONCE ONE Stop: 07/19/23 23:52 Last Admin: 07/19/23 23:52 Dose: 116 ml Documented By: SHANE Imaging Data Radiologist's Impression: Head CT 07/19/23 23:22 Exam(s): CT HEAD Without Contrast EXAM: CT Head Without Intravenous Contrast CLINICAL HISTORY: Reason for exam: ams. TECHNIQUE: Axial computed tomography images of the head/brain without intravenous contrast. Automated exposure control was utilized for the study. A dose lowering technique was utilized adhering to the principles of ALARA. COMPARISON: Comparison made to prior head CT from June 22, 2023. FINDINGS: Brain: Unremarkable. No hemorrhage. Mild nonspecific white matter changes. No edema. Ventricles: Mild ventricular megaly. Bones/joints: Hyperostosis frontalis interna. No acute fracture. Soft tissues: Unremarkable. Sinuses: Unremarkable as visualized. No acute sinusitis. Mastoid air cells: Unremarkable as visualized. No mastoid effusion. IMPRESSION: No evidence of acute intracranial pathology. Electronically signed by: Jihan Munoz MD 07/20/23 01:12 AM Head CTA 07/19/23 23:22 Exam(s): CTA HEAD With Contrast IV Amt: 117 ML OPTIRAY 350 EXAM: CT Angiography Head With Intravenous Contrast CLINICAL HISTORY: Reason for exam: ams. TECHNIQUE: Axial computed tomographic angiography images of the head with intravenous contrast. Automated exposure control was utilized for the study. A dose lowering technique was utilized adhering to the principles of ALARA. MIP reconstructed images were created and reviewed. CONTRAST: Patient received 117 ML OPTIRAY 350 of IV contrast COMPARISON: No relevant prior studies available. FINDINGS: The venous dural sinuses are patent. Right internal carotid artery: No acute findings. Intracranial segment is patent with no significant stenosis. No aneurysm. Right anterior cerebral artery: Unremarkable. No occlusion or significant stenosis. No aneurysm. Right middle cerebral artery: Unremarkable. No occlusion or significant stenosis. No aneurysm. Right posterior cerebral artery: Unremarkable. No occlusion or significant stenosis. No aneurysm. Right vertebral artery: Unremarkable as visualized. Left internal carotid artery: No acute findings. Intracranial segment is patent with no significant stenosis. No aneurysm. Left anterior cerebral artery: Unremarkable. No occlusion or significant stenosis. No aneurysm. Left middle cerebral artery: Unremarkable. No occlusion or significant stenosis. No aneurysm. Left posterior cerebral artery: Unremarkable. No occlusion or significant stenosis. No aneurysm. Left vertebral artery: Unremarkable as visualized. Basilar artery: Unremarkable. No occlusion or significant stenosis. No aneurysm. IMPRESSION: Negative CT angiogram of the head. Electronically signed by: Jihan Munoz MD 07/20/23 01:15 AM Neck CTA 07/19/23 23:22 Exam(s): CTA NECK With Contrast IV Amt: 117 ML OPTIRAY 350 EXAM: CT Angiography Neck With Intravenous Contrast CLINICAL HISTORY: Reason for exam: ams. TECHNIQUE: Routine carotid CT angiography protocol was performed with intravenous contrast. NASCET criteria using the distal ICAs for comparison were used for evaluation of stenoses. Automated exposure control was utilized for the study. A dose lowering technique was utilized adhering to the principles of ALARA. MIP reconstructed images were created and reviewed. CONTRAST: Patient received 117 ML OPTIRAY 350 of IV contrast COMPARISON: Comparison made to prior CT angiogram of the neck from June 04, 2023. FINDINGS: VASCULATURE: Right common carotid artery: Unremarkable. No occlusion or significant stenosis. No dissection. Right internal carotid artery: There is occlusion of the right ICA from the bifurcation to the cavernous segment. No dissection. Right external carotid artery: Unremarkable. No occlusion. Right vertebral artery: Unremarkable. No occlusion or significant stenosis. No dissection. Left common carotid artery: Unremarkable. No occlusion or significant stenosis. No dissection. Left internal carotid artery: Unremarkable. Extracranial segment is patent with no occlusion or significant stenosis. No dissection. Left external carotid artery: Unremarkable. No occlusion. Left vertebral artery: Unremarkable. No occlusion or significant stenosis. No dissection. NECK: Bones/joints: Unremarkable. Soft tissues: Right thyroid nodules. Lung apices: Clear. CAROTID STENOSIS REFERENCE USING NASCET CRITERIA: % ICA stenosis = (1 - narrowest ICA diameter/diameter of distal cervical ICA) x 100. Mild - <50% stenosis. Moderate - 50-69% stenosis. Severe - 70-94% stenosis. Near occlusion - 95-99% stenosis. Occluded - 100% stenosis. IMPRESSION: Unchanged occlusion of the right ICA with recannulization along the cavernous segment. Electronically signed by: Jihan Munoz MD 07/20/23 01:42 AM Discharge Plan Visit Data Chief Complaint: Fall Stated Complaint: REF BY DOC,DEPRESSION,CONFUSION,FALL, ED Provider: Lorelei Denton Discharge Problem: Altered mental status, Back pain, Paranoia Patient Disposition: Admitted As Inpatient Discharge Instructions Interventions: ED Discharge Assessment Last Done: 07/20/23 04:39
--- NOTE | 2023-07-20 01:14 | CT Scan Report ---
Exam(s): CT HEAD Without Contrast EXAM: CT Head Without Intravenous Contrast CLINICAL HISTORY: Reason for exam: ams. TECHNIQUE: Axial computed tomography images of the head/brain without intravenous contrast. Automated exposure control was utilized for the study. A dose lowering technique was utilized adhering to the principles of ALARA. COMPARISON: Comparison made to prior head CT from June 22, 2023. FINDINGS: Brain: Unremarkable. No hemorrhage. Mild nonspecific white matter changes. No edema. Ventricles: Mild ventricular megaly. Bones/joints: Hyperostosis frontalis interna. No acute fracture. Soft tissues: Unremarkable. Sinuses: Unremarkable as visualized. No acute sinusitis. Mastoid air cells: Unremarkable as visualized. No mastoid effusion. IMPRESSION: No evidence of acute intracranial pathology. Electronically signed by: Jihan Munoz MD 07/20/23 01:12 AM
--- NOTE | 2023-07-20 01:16 | CT Scan Report ---
Exam(s): CTA HEAD With Contrast IV Amt: 117 ML OPTIRAY 350 EXAM: CT Angiography Head With Intravenous Contrast CLINICAL HISTORY: Reason for exam: ams. TECHNIQUE: Axial computed tomographic angiography images of the head with intravenous contrast. Automated exposure control was utilized for the study. A dose lowering technique was utilized adhering to the principles of ALARA. MIP reconstructed images were created and reviewed. CONTRAST: Patient received 117 ML OPTIRAY 350 of IV contrast COMPARISON: No relevant prior studies available. FINDINGS: The venous dural sinuses are patent. Right internal carotid artery: No acute findings. Intracranial segment is patent with no significant stenosis. No aneurysm. Right anterior cerebral artery: Unremarkable. No occlusion or significant stenosis. No aneurysm. Right middle cerebral artery: Unremarkable. No occlusion or significant stenosis. No aneurysm. Right posterior cerebral artery: Unremarkable. No occlusion or significant stenosis. No aneurysm. Right vertebral artery: Unremarkable as visualized. Left internal carotid artery: No acute findings. Intracranial segment is patent with no significant stenosis. No aneurysm. Left anterior cerebral artery: Unremarkable. No occlusion or significant stenosis. No aneurysm. Left middle cerebral artery: Unremarkable. No occlusion or significant stenosis. No aneurysm. Left posterior cerebral artery: Unremarkable. No occlusion or significant stenosis. No aneurysm. Left vertebral artery: Unremarkable as visualized. Basilar artery: Unremarkable. No occlusion or significant stenosis. No aneurysm. IMPRESSION: Negative CT angiogram of the head. Electronically signed by: Jihan Munoz MD 07/20/23 01:15 AM
[2023-07-20 01:31] LABS: INR 1.9 (0.9-1.1); Prothrombin Time 19.6 Seconds (9.0-12.0)
--- NOTE | 2023-07-20 01:43 | CT Scan Report ---
Exam(s): CTA NECK With Contrast IV Amt: 117 ML OPTIRAY 350 EXAM: CT Angiography Neck With Intravenous Contrast CLINICAL HISTORY: Reason for exam: ams. TECHNIQUE: Routine carotid CT angiography protocol was performed with intravenous contrast. NASCET criteria using the distal ICAs for comparison were used for evaluation of stenoses. Automated exposure control was utilized for the study. A dose lowering technique was utilized adhering to the principles of ALARA. MIP reconstructed images were created and reviewed. CONTRAST: Patient received 117 ML OPTIRAY 350 of IV contrast COMPARISON: Comparison made to prior CT angiogram of the neck from June 04, 2023. FINDINGS: VASCULATURE: Right common carotid artery: Unremarkable. No occlusion or significant stenosis. No dissection. Right internal carotid artery: There is occlusion of the right ICA from the bifurcation to the cavernous segment. No dissection. Right external carotid artery: Unremarkable. No occlusion. Right vertebral artery: Unremarkable. No occlusion or significant stenosis. No dissection. Left common carotid artery: Unremarkable. No occlusion or significant stenosis. No dissection. Left internal carotid artery: Unremarkable. Extracranial segment is patent with no occlusion or significant stenosis. No dissection. Left external carotid artery: Unremarkable. No occlusion. Left vertebral artery: Unremarkable. No occlusion or significant stenosis. No dissection. NECK: Bones/joints: Unremarkable. Soft tissues: Right thyroid nodules. Lung apices: Clear. CAROTID STENOSIS REFERENCE USING NASCET CRITERIA: % ICA stenosis = (1 - narrowest ICA diameter/diameter of distal cervical ICA) x 100. Mild - <50% stenosis. Moderate - 50-69% stenosis. Severe - 70-94% stenosis. Near occlusion - 95-99% stenosis. Occluded - 100% stenosis. IMPRESSION: Unchanged occlusion of the right ICA with recannulization along the cavernous segment. Electronically signed by: Jihan Munoz MD 07/20/23 01:42 AM
--- NOTE | 2023-07-20 02:12 | History & Physical Report ---
Date of Service July 20, 2023 Assessment & Plan (1) Altered mental status: Plan: Concern for worsening confusion, paranoia of late. Patient reportedly has not been sleeping well. Multiple transitions in care to include hospital admissions, rehab and group home. Patient could possibly have prolonged delirium given her multiple transitions in care, recent medication changes - specifically prolonged use of Zosyn which can cause some neurocognitive side effects. Do not suspect acute infection. Less likely dementia as patient was reportedly active, independent and highly functional prior to her hospitalization in May. -Will check Ammonia level, B12, Folate and Vitamin D levels -Frequent orientation, ambulation with assistance as needed. Patient would benefit from undisturbed sleep i.e. if stable, no vital signs checked during night time hours -Consider low dose scheduled Haldol BID -Consider discontinuing nightly Xanax 0.5mg qHS. Could try Remeron which would aid in sleep, appetite and depression -MRI brain ordered (2) CAD (coronary artery disease): Plan: Chronic -Continue ASA, Metoprolol, Pravastatin (3) Hyperlipidemia: Plan: Chronic -Continue Pravastatin (4) GERD (gastroesophageal reflux disease): Plan: Chronic -Continue Protonix (5) Anticoagulated on Coumadin: Plan: Patient with mechanical aortic valve. Subtherapeutic INR of 1.9. Uncertain of medication compliance -Continue Coumadin 4mg po daily -Monitor INR History of Present Illness Chief Complaint: ongoing confusion Primary Care Provider: Olman Diaz MD Patient sleeping comfortably at time of my encounter. No family at bedside. History largely obtained through chart review and discussion with ER staff. Patient was admitted to [facility] from 05/29/23 - 06/02/23 after presenting with abdominal pain. She was found to have sigmoid colon diverticulitis with microperforation on CT. She was treated with bowel rest and IV Zosyn and was discharged home to complete 10 additional days of Cipro and Flagyl for 14 days of antibiotics total. Unfortunately, patient returned to the ER with persistent abdominal pain, poor appetite, weakness and fatigue as well as ongoing diarrhea. She was readmitted from 06/09/23 - 06/16/23 with an intestinal abscess. She was treated with IV Zosyn which was continued outpatient as well. She was started on Fluoxetine 10mg for management of anxiety as well as Trazodone and Melatonin at night. Patient was discharged to rehab at [facility] on 06/16/23. Patient had a fall on 06/22/23 while at [facility] where she hit her head/chin on the ground. She was seen in the ER for back pain as well as dizziness. She was found to have mild acute L1 and L2 compression deformities without retropulsion. CT revealed persistent diverticulitis as well. Seen by General Surgery on 07/12/23 - antibiotics discontinued Patient has been at [facility]. She has become increasingly confused and paranoid. Family concerned about patient's declining mental status. Seen by PCP on 07/19/23 - noted to be alert but confused. Speech barely audible and slow to respond. Trazodone and Prozac have been stopped approximately 1 week ago. Patient sent to the ER due to concern for worsening mental state. Allergies Allergy/AdvReac Type Severity Reaction Status Date / Time rosuvastatin [From Crestor] Allergy Intermediate myalgia Verified 07/19/23 15:41 sertraline [From Zoloft] Allergy Intermediate burn Verified 07/19/23 15:41 sensation on skin on arms lovastatin Allergy Mild rash Verified 07/19/23 15:41 bupropion [From Wellbutrin] AdvReac Intermediate insomnia Verified 07/19/23 15:41 and tremors dicyclomine AdvReac Intermediate N/V Verified 07/19/23 15:41 codeine AdvReac Mild NAUSEA & Verified 07/19/23 15:41 PAIN ezetimibe [From Zetia] AdvReac Mild Gastrointestinal Verified 07/19/23 15:41 Upset methadone AdvReac Mild GI UPSET(?) Verified 07/19/23 15:41 niacin AdvReac Mild Gastrointestinal Verified 07/19/23 15:41 [From Niaspan Upset Extended-Release] paroxetine [From Paxil] AdvReac Mild Gastrointestinal Verified 07/19/23 15:41 Upset propoxyphene AdvReac Mild NAUSEA & Verified 07/19/23 15:41 PAIN simvastatin [From Zocor] AdvReac Mild Gastrointestinal Verified 07/19/23 15:41 Upset [id number] Reductase AdvReac Mild STATIN Verified 07/19/23 15:41 Inhibitor INTOLERANCE - GI UPSET Home Medications Medication Instructions Recorded Confirmed Type cholecalciferol (vitamin D3) 25 5,000 units PO QAM 09/05/19 07/20/23 History mcg (1,000 unit) capsule albuterol sulfate 90 mcg/actuation 2 puff inhalation QID PRN 07/18/21 07/20/23 Rx aerosol inhaler (ProAir HFA) shortness of breath #8.5 grams clonidine HCl 0.1 mg tablet 0.1 mg PO BID #180 tabs 07/14/22 07/20/23 Rx aspirin 81 mg tablet,delayed 81 mg PO HS 09/24/22 07/20/23 History release (Harvey Low Dose Aspirin) metoclopramide HCl 5 mg tablet 5 mg PO BID #180 tabs 10/05/22 07/20/23 Rx calcium carbonate 600 mg calcium 600 mg PO BID 02/24/23 07/20/23 History (1,500 mg) tablet (Calcium) cyanocobalamin (vitamin B-12) 1,000 mcg PO QAM 02/24/23 07/20/23 History 1,000 mcg capsule isosorbide mononitrate 60 mg 60 mg PO QAM 02/24/23 07/20/23 History tablet,extended release 24 hr pravastatin 80 mg tablet 80 mg PO HS 02/24/23 07/20/23 History amlodipine 5 mg tablet 5 mg PO HS #90 tabs 03/08/23 07/20/23 Rx pantoprazole 40 mg tablet,delayed 40 mg PO QAM gerd #90 tabs 03/08/23 07/20/23 Rx release (Protonix) metoprolol succinate 100 mg 100 mg PO HS #90 tabs 04/05/23 07/20/23 Rx tablet,extended release 24 hr Saccharomyces boulardii 250 mg 250 mg PO BID 07/19/23 07/20/23 History capsule (Florastor) acetaminophen 325 mg tablet 650 mg PO Q6H PRN Pain 07/19/23 07/20/23 History acetaminophen 500 mg tablet 500 mg PO BID PAIN MANAGEMENT 07/19/23 07/20/23 History potassium chloride 20 mEq 20 meq PO BID 07/19/23 07/20/23 History tablet,extended release warfarin 4 mg tablet 4 mg PO HS 07/19/23 07/20/23 History alprazolam 0.5 mg tablet 0.5 mg PO HS 07/20/23 07/20/23 History Past Med/Surg History Medical History Adenoma of right adrenal gland Allergic rhinitis Anticoagulated on Coumadin Asthma inhaler prn CAD (coronary artery disease) Depression with anxiety Diverticulosis Essential hematuria pt denies at present time Exertional chest pain hx of; pt states she no longer experiences this Hyperlipidemia Hypertension Internal hemorrhoids Myocardial Infarction x2--06/12/08 and 08/06--follows with Dr. Milner Occlusion of right internal carotid artery Osteoporosis with fracture PAD (peripheral artery disease) Plantar fasciitis Positional vertigo Prediabetes Tremor of right hand Urinary incontinence Vitamin D deficiency Xerostomia Surgical History H/O section History of aortic valve replacement with metallic valve 2000 History of appendectomy History of cardiac cath x2--05/2008 and 07/2008 History of colonoscopy History of esophagogastroduodenoscopy (EGD) History of heart artery stent x1 2007 History of hysterectomy with bilateral oophorectomy History of wisdom tooth extraction Hx of cholecystectomy S/P CABG (coronary artery bypass graft) 2001-per pt "triple bypass" @ [facility] [place] S/P tonsillectomy Family History Mother Alzheimer disease Dementia Osteoarthritis Father Coronary heart disease Heart disease Myocardial infarction age 72 Lung cancer Colorectal cancer Grandmother (Paternal) Diabetes Other No family history of adverse response to anesthesia Denies family history of Rheumatoid arthritis Sudden SIDS (sudden syndrome) Ovarian cancer Prostate cancer Deep vein thrombosis Osteoporosis Dyslipidemia Cerebral aneurysm Bipolar disorder Clotting disorder Crohn's disease Depression Kidney disease Breast cancer Schizophrenia Congenital kidney disease Gestational diabetes COPD (chronic obstructive pulmonary disease) Pulmonary embolism Lung disease Hypertension Ulcerative colitis Colonic polyp Stroke Asthma Cystic kidney disease Social History Smoking Status: Former smoker Tobacco Type: Cigarettes Age Started Using Tobacco: 16; Second Hand Exposure: Yes; Do You Dip or Chew Tobacco: No; Hx Alcohol Use: No Hx Substance Use: No Preferred Language: Nam[place]ian Communication Ability: Effective Visual Impairment: No Limitations Hearing Ability: Normal 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 Beliefs That Will Affect Care: None marital status: / Current Living Situation: Alone current occupational status: retired 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 [employer] [facility] How many Children do You have: 1 Feels Safe at Home: Yes Childhood Exposure to Second-Hand Smoke: No Diet: regular caffeine: Yes during the past year weight has: remained stable Dental Care, Regularly: No Physical Activity Frequency: Does not Exercise Seatbelt Use: always Sunscreen Use: Yes Assistive Devices: None Review of Systems Review of Systems: Unobtainable due to cognitive status Physical Exam Physical Exam: General: patient resting comfortably, arousable but somnolent, answers questions appropriately Skin: warm, dry, intact, no rashes or lesions HEENT: NC/AT, PERRL, EOMI, anicteric sclera, conjunctiva without injection, external ear normal to inspection and nontender, nares patent, moist mucus membranes, dentition intact, no oropharyngeal lesions, neck supple, trachea midline, no LAD, no thyromegaly, no JVD Heart: +S1/S2, regular, no m/r/g Lungs: equal air entry bilaterally, no rales/rhonchi/wheezes Abd: +BS, soft, NT/ND, no masses/organomegaly/ascites Ext: warm, 2+ pulses in UE/LE bilaterally, no clubbing/cyanosis or edema Neuro: moving all extremities with equal strength, no facial droop, speech clear and appropriate but slow Results & Data Results & Data Vital Signs (Past 12 Hours) Vital Signs Temp Pulse Pulse Resp BP BP Pulse Ox 07/19/23 22:56 88 18 185/120 H 98 07/19/23 18:10 36.8 C 93 H 18 148/82 H 96 O2 Del Method 07/19/23 22:56 Room Air 07/19/23 18:10 Room Air Laboratory Results Laboratory Results WBC 8.56 K/ul (4.8-10.8) 07/19/23 20:54 RBC 4.92 M/uL (4.20-5.40) 07/19/23 20:54 Hgb 14.8 g/dl (12.0-16.0) 07/19/23 20:54 Hct 45.3 % (37.0-47.0) 07/19/23 20:54 MCV 92.1 fL (80.0-100.0) 07/19/23 20:54 MCH 30.1 pg (25.0-34.0) 07/19/23 20:54 MCHC 32.7 g/dL (32.0-36.0) 07/19/23 20:54 RDW Std Deviation 45.7 fL (36.4-46.3) 07/19/23 20:54 RDW Coeff of Dennis 13.5 % (11.5-14.5) 07/19/23 20:54 Plt Count 270 K/uL (130-400) 07/19/23 20:54 MPV 9.7 fL (9.4-12.4) 07/19/23 20:54 Immature Gran % (Auto) 0.2 % 07/19/23 20:54 Neut % (Auto) 74.5 % 07/19/23 20:54 Lymph % (Auto) 16.9 % 07/19/23 20:54 [place] % (Auto) 7.8 % 07/19/23 20:54 Eos % (Auto) 0.4 % 07/19/23 20:54 Baso % (Auto) 0.2 % 07/19/23 20:54 Neut # (Auto) 6.37 K/uL (1.40-6.50) 07/19/23 20:54 Lymph # (Auto) 1.45 K/uL (1.2-3.4) 07/19/23 20:54 [place] # (Auto) 0.67 K/uL (0.11-0.59) H 07/19/23 20:54 Eos # (Auto) 0.03 K/uL (0-0.50) 07/19/23 20:54 Baso # (Auto) 0.02 K/uL (0-0.2) 07/19/23 20:54 Immature Gran # (Auto) 0.02 K/uL (0.01-0.20) 07/19/23 20:54 PT 19.6 Seconds (9.0-12.0) H 07/20/23 00:30 INR 1.9 (0.9-1.1) H 07/20/23 00:30 Sodium 138 mmol/L (136-145) 07/19/23 20:54 Potassium 4.1 mmol/L (3.5-5.1) 07/19/23 20:54 Chloride 105 mmol/L (98-107) 07/19/23 20:54 Carbon Dioxide 25 mmol/L (21-32) 07/19/23 20:54 Anion Gap 8 (3-11) 07/19/23 20:54 BUN 26 mg/dl (6-23) H 07/19/23 20:54 Creatinine 1.08 mg/dl (0.6-1.2) 07/19/23 20:54 Est Cr Clr Drug Dosing Not Reportable 07/19/23 20:54 Est GFR ( Amer) 58.2 ml/min 07/19/23 20:54 Est GFR (Non-Af Amer) 50.2 ml/min 07/19/23 20:54 BUN/Creatinine Ratio 24.1 (10-20) H 07/19/23 20:54 Glucose 180 mg/dl (70-99(Fasting)) H 07/19/23 20:54 Calcium 10.0 mg/dl (8.6-10.3) 07/19/23 20:54 Magnesium 2.2 mg/dl (1.7-2.4) 07/19/23 20:54 Total Bilirubin 0.8 mg/dl (0.2-1.0) 07/19/23 20:54 AST 33 U/L (13-39) 07/19/23 20:54 ALT 35 U/L (7-52) 07/19/23 20:54 Alkaline Phosphatase 130 U/L (34-104) H 07/19/23 20:54 Troponin I High Sens 16.2 pg/ml (0-14) H 07/19/23 20:54 Total Protein 7.2 gm/dl (6.0-8.3) 07/19/23 20:54 Albumin 4.4 gm/dl (3.4-5.0) 07/19/23 20:54 Globulin 2.8 gm/dl (2.5-4.0) 07/19/23 20:54 Albumin/Globulin Ratio 1.6 (0.9-2) 07/19/23 20:54 Lipase 58 U/L (11-82) 07/19/23 20:54 TSH 0.618 uIu/ml (0.300-4.500) 07/19/23 20:54 Lyme Disease IgG Ab Negative (Negative) 07/19/23 20:54 Lyme Disease IgM Ab Negative (Negative) 07/19/23 20:[address] 07/19/23 23:22 Exam(s): CT HEAD Without Contrast EXAM: CT Head Without Intravenous Contrast CLINICAL HISTORY: Reason for exam: ams. TECHNIQUE: Axial computed tomography images of the head/brain without intravenous contrast. Automated exposure control was utilized for the study. A dose lowering technique was utilized adhering to the principles of ALARA. COMPARISON: Comparison made to prior head CT from June 22, 2023. FINDINGS: Brain: Unremarkable. No hemorrhage. Mild nonspecific white matter changes. No edema. Ventricles: Mild ventricular megaly. Bones/joints: Hyperostosis frontalis interna. No acute fracture. Soft tissues: Unremarkable. Sinuses: Unremarkable as visualized. No acute sinusitis. Mastoid air cells: Unremarkable as visualized. No mastoid effusion. IMPRESSION: No evidence of acute intracranial pathology. Electronically signed by: Jihan Munoz MD 07/20/23 01:12 AM Head CTA 07/19/23 23:22 Exam(s): CTA HEAD With Contrast IV Amt: 117 ML OPTIRAY 350 EXAM: CT Angiography Head With Intravenous Contrast CLINICAL HISTORY: Reason for exam: ams. TECHNIQUE: Axial computed tomographic angiography images of the head with intravenous contrast. Automated exposure control was utilized for the study. A dose lowering technique was utilized adhering to the principles of ALARA. MIP reconstructed images were created and reviewed. CONTRAST: Patient received 117 ML OPTIRAY 350 of IV contrast COMPARISON: No relevant prior studies available. FINDINGS: The venous dural sinuses are patent. Right internal carotid artery: No acute findings. Intracranial segment is patent with no significant stenosis. No aneurysm. Right anterior cerebral artery: Unremarkable. No occlusion or significant stenosis. No aneurysm. Right middle cerebral artery: Unremarkable. No occlusion or significant stenosis. No aneurysm. Right posterior cerebral artery: Unremarkable. No occlusion or significant stenosis. No aneurysm. Right vertebral artery: Unremarkable as visualized. Left internal carotid artery: No acute findings. Intracranial segment is patent with no significant stenosis. No aneurysm. Left anterior cerebral artery: Unremarkable. No occlusion or significant stenosis. No aneurysm. Left middle cerebral artery: Unremarkable. No occlusion or significant stenosis. No aneurysm. Left posterior cerebral artery: Unremarkable. No occlusion or significant stenosis. No aneurysm. Left vertebral artery: Unremarkable as visualized. Basilar artery: Unremarkable. No occlusion or significant stenosis. No aneurysm. IMPRESSION: Negative CT angiogram of the head. Electronically signed by: Jihan Munoz MD 07/20/23 01:15 AM Neck CTA 07/19/23 23:22 Exam(s): CTA NECK With Contrast IV Amt: 117 ML OPTIRAY 350 EXAM: CT Angiography Neck With Intravenous Contrast CLINICAL HISTORY: Reason for exam: ams. TECHNIQUE: Routine carotid CT angiography protocol was performed with intravenous contrast. NASCET criteria using the distal ICAs for comparison were used for evaluation of stenoses. Automated exposure control was utilized for the study. A dose lowering technique was utilized adhering to the principles of ALARA. MIP reconstructed images were created and reviewed. CONTRAST: Patient received 117 ML OPTIRAY 350 of IV contrast COMPARISON: Comparison made to prior CT angiogram of the neck from June 04, 2023. FINDINGS: VASCULATURE: Right common carotid artery: Unremarkable. No occlusion or significant stenosis. No dissection. Right internal carotid artery: There is occlusion of the right ICA from the bifurcation to the cavernous segment. No dissection. Right external carotid artery: Unremarkable. No occlusion. Right vertebral artery: Unremarkable. No occlusion or significant stenosis. No dissection. Left common carotid artery: Unremarkable. No occlusion or significant stenosis. No dissection. Left internal carotid artery: Unremarkable. Extracranial segment is patent with no occlusion or significant stenosis. No dissection. Left external carotid artery: Unremarkable. No occlusion. Left vertebral artery: Unremarkable. No occlusion or significant stenosis. No dissection. NECK: Bones/joints: Unremarkable. Soft tissues: Right thyroid nodules. Lung apices: Clear. CAROTID STENOSIS REFERENCE USING NASCET CRITERIA: % ICA stenosis = (1 - narrowest ICA diameter/diameter of distal cervical ICA) x 100. Mild - <50% stenosis. Moderate - 50-69% stenosis. Severe - 70-94% stenosis. Near occlusion - 95-99% stenosis. Occluded - 100% stenosis. IMPRESSION: Unchanged occlusion of the right ICA with recannulization along the cavernous segment. Electronically signed by: Jihan Munoz MD 07/20/23 01:42 AM PG Care Time/CCT Total # of Minutes Spent Total Time Spent with Patient: Total time spent is greater than 50% in coordination of care (as documented) at patient's floor/unit and/or counseling patient: Coding Level of Care Code 09119 INT INP/OBS CARE 3/75MIN Diagnoses Altered mental status R41.82 CAD (coronary artery disease) I25.119 Associated angina: with unspecified form of angina Coronary Disease-Associated Artery/Lesion type: unspecified vessel or lesion type [place] vs. transplanted heart: [place] heart Hyperlipidemia E78.5 GERD (gastroesophageal reflux disease) K21.9 Anticoagulated on Coumadin Z79.01 (2) CAD (coronary artery disease) Associated angina: with unspecified form of angina Coronary Disease- Associated Artery/Lesion type: unspecified vessel or lesion type [place] vs. transplanted heart: [place] heart Qualified Code(s): I25.119 - Atherosclerotic heart disease of [place] coronary artery with unspecified angina pectoris
[2023-07-20] MEDS ORDERED: POLYETHYLENE (MIRALAX) 17 GM PACK PO PRN (04:38)
[2023-07-20] MEDS ORDERED: DOCUSATE SODIUM 100 MG CAP PO PRN (04:38)
[2023-07-20] MEDS ORDERED: ACETAMINOPHEN 325 MG TAB PO PRN (04:38)
--- NOTE | 2023-07-20 06:46 | XRay Report ---
XR chest 1V portable HISTORY: 73 years-old Female ams acutely altered mental status 06/02/2023 COMPARISON: 06/02/2023, chest CT 04/29/2010 TECHNIQUE: AP view of the chest FINDINGS: Cardiac silhouette is enlarged. Prior median sternotomy with CABG. Chronic interstitial coarsening. S table 3 cm nodule within the superior segment left lower lobe. Mild linear bibasilar atelectasis vers us scarring. Degenerative changes of the shoulders and spine. Unchanged blunting of the costophrenic angles. IMPRESSION: 1. Cardiomegaly with mild bibasilar atelectasis versus scarring. 2. 3 cm nodule of the left lower lobe is stable in size compared to the study from 2009. ACT 112: Negative or not required by law. The above report was generated using voice recognition software. It may contain grammatical, syntax o r spelling errors. Electronically signed by: Herman Spencer M.D. 07/20/2023 6:44 AM
--- NOTE | 2023-07-20 07:58 | Hospitalist Progress Note ---
Date of Service July 20, 2023 Assessment & Plan (1) Altered mental status: Plan: Looking for causes of encephalopathy, does have some uncontrolled htn on admission Recent admission with diverticulitis and intestional abscess, DC 06/16 to rehab on zosyn, imaging on 07/06 with resolution of abscess, Zosyn d/c on or around 07/12 after General surgery visit -Normal Ammonia level, B12, Folate and Vitamin D levels, negative lyme disease -Frequent orientation, ambulation with assistance as needed. Patient would benefit from undisturbed sleep i.e. if stable, no vital signs checked during night time hours -consider Remeron which would aid in sleep, appetite and depression -MRI brain ordered, does have Chronic occlusion of R ICA (2) CAD (coronary artery disease): Plan: Chronic -Continue ASA, Metoprolol, Pravastatin (3) Hyperlipidemia: Plan: Chronic -Continue Pravastatin (4) GERD (gastroesophageal reflux disease): Plan: Chronic -Continue Protonix (5) Anticoagulated on Coumadin: Plan: Patient with mechanical aortic valve. Subtherapeutic INR of 1.9. Uncertain of medication compliance -Continue Coumadin 4mg po daily -Monitor INR Admission and Anticipated Discharge Date Admission Date: July 20, 2023 Subjective pt was barely responsive, but did utter a few words Results & Data Results & Data Vital Signs (Past 12 Hours) Vital Signs Pulse Resp BP Pulse Ox O2 Del Method 07/20/23 06:08 85 14 196/91 H 98 Room Air 07/19/23 22:56 88 18 185/120 H 98 Room Air PG Care Time/CCT Total # of Minutes Spent Total Time Spent with Patient: Total time spent is greater than 50% in coordination of care (as documented) at patient's floor/unit and/or counseling patient: Coding Level of Care Code None Diagnoses Altered mental status R41.82 CAD (coronary artery disease) I25.119 Associated angina: with unspecified form of angina Coronary Disease-Associated Artery/Lesion type: unspecified vessel or lesion type [place] vs. transplanted heart: [place] heart Hyperlipidemia E78.5 GERD (gastroesophageal reflux disease) K21.9 Anticoagulated on Coumadin Z79.01 (2) CAD (coronary artery disease) Associated angina: with unspecified form of angina Coronary Disease- Associated Artery/Lesion type: unspecified vessel or lesion type [place] vs. transplanted heart: [place] heart Qualified Code(s): I25.119 - Atherosclerotic heart disease of [place] coronary artery with unspecified angina pectoris
[2023-07-20] MEDS ORDERED: hydrALAZINE HCL 20 MG/ML VIAL IV PRN (08:00)
[2023-07-20] MEDS: PANTOprazole 40 MG TAB PO SCH (08:49)
[2023-07-20] MEDS: METOCLOPRAMIDE HCL 5 MG TABLET PO SCH ×2 (08:50→20:20)
[2023-07-20] MEDS: cloNIDine HCL 0.1 MG TAB PO SCH ×2 (08:50→20:20)
[2023-07-20] MEDS: ISOSORBIDE MONO EXTENDED REL 60 MG TABCR PO SCH (10:35)
[2023-07-20] MEDS ORDERED: GADOBUTROL 65ML VIAL IV ONE (16:53)
--- NOTE | 2023-07-20 17:22 | Electrocardiogram Report ---
Test Reason : Blood Pressure : / mmHG Vent. Rate : 088 BPM Atrial Rate : 088 BPM P-R Int : 146 ms QRS Dur : 088 ms QT Int : 356 ms P-R-T Axes : 026 -18 035 degrees QTc Int : 430 ms Normal sinus rhythm with sinus arrhythmia Moderate voltage criteria for LVH, may be normal variant ( R in aVL , [place] product ) Nonspecific ST and T wave abnormality Abnormal ECG When compared with ECG of 22-JUN-2023 13:29, Nonspecific T wave abnormality has replaced inverted T waves in Inferior leads Nonspecific T wave abnormality, improved in Lateral leads Confirmed by Siddharth Ruelas ([id number]) on 07/20/2023 5:22:22 PM Referred By: Torrey Diaz Confirmed By:Siddharth Ruelas
--- NOTE | 2023-07-20 18:24 | Magnetic Resonance Report ---
MR brain wo/w con CLINICAL HISTORY: confusion, ?CVA TECHNIQUE: Multiplanar and multisequence MR images of the brain were obtained prior to and following administration of gadolinium contrast. Comparison: None available at the time of this dictation. FINDINGS: No abnormal restricted diffusion is identified. Foci of T2 and FLAIR hyperintensity are noted in the paraventricular areas consistent with chronic small vessel ischemic disease. Ex vacuo ventriculomegal y and sulcal enlargement is noted compatible with diffuse volume loss. No mass or abnormal enhancemen t is seen. There is no mass effect or midline shift. There is no evidence of acute intraparenchymal h emorrhage. No extra axial fluid collections are seen. The corpus callosum, pituitary gland, and cereb ellar tonsils appear grossly unremarkable. Flow voids of the major intracranial arterial vessels are identified. The imaged portions of the para nasal sinuses, mastoid air cells, and orbits are unremarkable. IMPRESSION: No acute abnormality and in particular no evidence of acute infarct. ACT 112: Negative or not required by law. Electronically signed by: Elias Hollis M.D. 07/20/2023 6:22 PM
[2023-07-20 20:18] LABS: Appearance Urine Clear (Clear); Bilirubin Urine Negative (Negative); Blood Urine Negative (Negative); Color Urine Yellow; Glucose Urine UA Negative (Negative); Ketones Urine 2+ (Negative); Leukocyte Esterase Urine Negative (Negative); Nitrite Urine Negative (Negative); Protein Urine Negative (Negative); Specific Gravity Urine > 1.045 (1.000-1.030); Urobilinogen Urine Negative (Negative); pH Urine 5.5 (4.5-7.5)
[2023-07-20] MEDS: ASPIRIN 81 MG ECTAB PO SCH (20:20)
[2023-07-20] MEDS: PRAVASTATIN SOD 40 MG TAB PO SCH (20:21)
[2023-07-20] MEDS: METOPROLOL SUCC 50MG EXT REL TAB PO SCH (20:21)
[2023-07-20] MEDS: amLODIPine BESYLATE 5 MG TAB PO SCH (20:21)
[2023-07-20] MEDS ORDERED: WARFARIN SOD 4 MG TAB PO SCH (21:00)
[2023-07-20] MEDS ORDERED: ALPRAZolam 0.5 MG TABLET PO SCH (21:00)
[2023-07-21 08:00] LABS: Hematocrit (blood only) 39.7 % (37.0-47.0); Hemoglobin 13.3 g/dl (12.0-16.0); Mean Corpuscular Hemoglobin 30.2 pg (25.0-34.0); Mean Corpuscular Hgb Conc 33.5 g/dL (32.0-36.0); Mean Platelet Volume 9.6 fL (9.4-12.4); Platelet Count 215 K/uL (130-400); RDW Coefficient of Variation 13.2 % (11.5-14.5); RDW Standard Deviation 43.5 fL (36.4-46.3); Red Blood Count 4.41 M/uL (4.20-5.40)
[2023-07-21 08:03] LABS: INR 1.5 (0.9-1.1); Prothrombin Time 16.4 Seconds (9.0-12.0)
[2023-07-21] MEDS: PANTOprazole 40 MG TAB PO SCH (08:38)
[2023-07-21] MEDS: ISOSORBIDE MONO EXTENDED REL 60 MG TABCR PO SCH (08:38)
[2023-07-21] MEDS: cloNIDine HCL 0.1 MG TAB PO SCH ×2 (08:38→20:58)
[2023-07-21 08:56] LABS: BUN Creatinine Ratio 15.5 (10-20); Creatinine Clr Calc Pharmacy 78.9 ml/min; Est GFR (African American) 96.6 ml/min; Est GFR (Non-African American) 83.3 ml/min; Potassium 3.7 mmol/L (3.5-5.1)
--- NOTE | 2023-07-21 14:52 | Hospitalist Progress Note ---
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 Urine culture is pending (2) CAD (coronary artery disease): Plan: Chronic -Continue ASA, Metoprolol, Pravastatin (3) Hyperlipidemia: Plan: Chronic -Continue Pravastatin (4) GERD (gastroesophageal reflux disease): Plan: Chronic -Continue Protonix (5) Anticoagulated on Coumadin: Plan: Patient with mechanical aortic valve. Subtherapeutic INR we will adjust Coumadin -Continue Coumadin 4mg po daily -Monitor INR Admission and Anticipated Discharge Date Admission Date: July 21, 2023 Subjective patient much more awake and alert today. She can recall the events of her fall where she fell walking towards a table at her personal-snf striking her chin and head on the table she cannot recall if she lost consciousness or not. This likely may explain some of her confusion yesterday as she likely had a closed head injury and possible concussion. Later in the morning I received a call from nursing that family was present at the bedside and she was making nonsensical statements. Later in the afternoon the patient returned to the baseline that I had seen earlier in the day. At this time metabolic causes have been eliminated with exception of reevaluating her colon (previous intramural abscess 6 weeks ago) and collecting a urine culture Physical Exam Physical Exam: she is awake and appropriate when I first saw her. She has a bruise below her chin and some slight bruising to her left periorbital ridge she ever was alert and oriented x3 when I saw her she had no focal deficits. Her heart was regular with a murmur her lungs were clear without wheezes or crackles abdomen was NABS soft and nontender Results & Data Results & Data Vital Signs (Past 12 Hours) Vital Signs Temp Pulse Resp BP Pulse Ox O2 Del Method 07/21/23 07:40 97.7 F 75 16 133/77 94 Room Air Laboratory Results reviewed CBC reviewed coagulation study reviewed chemistry PG Care Time/CCT Total # of Minutes Spent Total Time Spent with Patient: Total time spent is greater than 50% in coordination of care (as documented) at patient's floor/unit and/or counseling patient: Coding Level of Care Code 76799 SUB INP/OBS CARE 3/50MIN Diagnoses Altered mental status R41.82 CAD (coronary artery disease) I25.119 Associated angina: with unspecified form of angina Coronary Disease-Associated Artery/Lesion type: unspecified vessel or lesion type [place] vs. transplanted heart: [place] heart Hyperlipidemia E78.5 GERD (gastroesophageal reflux disease) K21.9 Anticoagulated on Coumadin Z79.01 (2) CAD (coronary artery disease) Associated angina: with unspecified form of angina Coronary Disease- Associated Artery/Lesion type: unspecified vessel or lesion type [place] vs. transplanted heart: [place] heart Qualified Code(s): I25.119 - Atherosclerotic heart disease of [place] coronary artery with unspecified angina pectoris
[2023-07-21] MEDS ORDERED: THIAMINE HCL 500 MG in SODIUM CHLORIDE 0.9% 50 ML IV STA (15:24)
--- NOTE | 2023-07-21 17:09 | Psychiatric Consultation ---
Date of Consultation July 21, 2023 Impression / Recommendations Impression Diagnostically consistent with multifactorial encephalopathy/delirium given quite classic waxing and waning systems during the day and recent transitions from hospital/nursing facility/personal care settings, recent medical illnesses, recent fall with possible head injury/concussion, medication changes and decreased sleep. No current evidence for primary psychotic disorder, depression with psychotic features nor nav. Given ongoing waxing and waning confusion, periods of acute paranoia, family's concerns for periods of significant altered mental status and her poor sleep a trial of low dose antipsychotic is deemed reasonable in effort to reset sleep cycle, prevent worsening of symptoms and ideally help with faster resolution of delirium. Overall, I spent a total of 65 minutes with this case including review of chart records, review of labwork, review of EKG QTc, direct evaluation of the patient at bedside, counseling the patient, ordering medication, discussion of the patient with the hospitalist provider, discussion with the psychiatric liason during clinical rounds, and documentation in the electronic health record. (1) Encephalopathy: Plan -Start seroquel 25mg HS po -Agree with outpatient initiation of Xanax gradual taper and now discontinuation of Xanax on admission due to high deliriogenic potential; no current evidence of any benzo withdrawal aspect to delirium or concerns for recent misuse/overuse -Agree with melatonin 3mg HS -Continue medical workup to rule out and treat any underlying causes contributing to potential delirium, avoid or limit use of deliriogenic medications (benzodiazepines, opioids, anticholinergics) -Continue with delirium prevention measures: raising blinds during the day, closing at night, frequent re-orientation, contact with family/friends, explaining procedures/nursing care measures prior to physical contact, correct any hearing and visual impairments -In future as delirium resolves, agree with option for mirtazapine 15mg HS to help with sleep and depression -Discussed with Dr. Frank Psych History Identifying Data 73 yo woman who lives at [facility] with history of anxiety, depression, insomnia, CAD with mechanical aortic valve, HLD, GERD, diverticulitis and recent fall admitted medically for worsening confusion. Psychiatry consult for "intermittent hallucinations". Chief Complaint "I haven't been able to sleep". History of Present Illness Shelby was admitted on 07/20/23 after family noted worsening confusion and some paranoia (on 07/19/23 told a nurse at [facility] that she thought police were going to get her or her daughter) with speech and behavior changes (speaking softly, less interactive, not calling family on the phone as she typically does). She had diverticulitis in early May with readmission in mid May for intestinal abscess and was then at [facility] for rehab but had a fall and hit her head at the end of May. She was recently trialed on some psychiatric medications including fluoxetine 10mg for anxiety and trazodone and melatonin at bedtime for insomnia with reduction in her Xanax dose from 1mg HS to 0.5mg HS (she reports she had been on Xanax 1mg HS for many years for chronic insomnia but reduced the dose at the recommendation of her primary care physician Dr. Diaz). Prozac and trazodone were subsequently stopped at [facility] due to concerns they were contributing to her confusion. Today she was alert and appropriate when meeting with the hospitalist provider this morning but apparently mid-day became more nonsensical while her family was visiting with subsequent improvement by the afternoon. On my assessment at ~4:45pm she is fully oriented, can recall her medical history and recent transitions from hospital to [facility] to [facility] appropriately, can recall names of psychiatric medications and dosages as well as recent antibiotic names for her diverticulitis. She denies any recent visual hallucinations but states sometimes she hears vague noises. Feels she has been confused on and off since November when she first had an episode of diverticulitis (appears this was brought up at well visit in November as possible cause for stomach pain, prominent symptom at that time was worsening depression. She states her biggest concern currently is poor sleep and would like something to help with this. Past psychiatric medication trials notable for Paxil, sertraline, Wellbutrin, escitalopram and then recently fluoxetine and trazodone. Mini-cog testing in November 2022 notable for full score of 5/5 for clock draw and three item recall. Allergies Allergy/AdvReac Type Severity Reaction Status Date / Time rosuvastatin [From Crestor] Allergy Intermediate myalgia Verified 07/19/23 15:41 sertraline [From Zoloft] Allergy Intermediate burn Verified 07/19/23 15:41 sensation on skin on arms lovastatin Allergy Mild rash Verified 07/19/23 15:41 bupropion [From Wellbutrin] AdvReac Intermediate insomnia Verified 07/19/23 15:41 and tremors dicyclomine AdvReac Intermediate N/V Verified 07/19/23 15:41 codeine AdvReac Mild NAUSEA & Verified 07/19/23 15:41 PAIN ezetimibe [From Zetia] AdvReac Mild Gastrointestinal Verified 07/19/23 15:41 Upset methadone AdvReac Mild GI UPSET(?) Verified 07/19/23 15:41 niacin AdvReac Mild Gastrointestinal Verified 07/19/23 15:41 [From Niaspan Upset Extended-Release] paroxetine [From Paxil] AdvReac Mild Gastrointestinal Verified 07/19/23 15:41 Upset propoxyphene AdvReac Mild NAUSEA & Verified 07/19/23 15:41 PAIN simvastatin [From Zocor] AdvReac Mild Gastrointestinal Verified 07/19/23 15:41 Upset Eenogom-NBL-SlA Reductase AdvReac Mild STATIN Verified 07/19/23 15:41 Inhibitor INTOLERANCE - GI UPSET Home Medications Medication Instructions Recorded Confirmed Type cholecalciferol (vitamin D3) 25 5,000 units PO QAM 09/05/19 07/20/23 History mcg (1,000 unit) capsule albuterol sulfate 90 mcg/actuation 2 puff inhalation QID PRN 07/18/21 07/20/23 Rx aerosol inhaler (ProAir HFA) shortness of breath #8.5 grams clonidine HCl 0.1 mg tablet 0.1 mg PO BID #180 tabs 07/14/22 07/20/23 Rx aspirin 81 mg tablet,delayed 81 mg PO HS 09/24/22 07/20/23 History release ([place] Low Dose Aspirin) metoclopramide HCl 5 mg tablet 5 mg PO BID #180 tabs 10/05/22 07/20/23 Rx calcium carbonate 600 mg calcium 600 mg PO BID 02/24/23 07/20/23 History (1,500 mg) tablet (Calcium) cyanocobalamin (vitamin B-12) 1,000 mcg PO QAM 02/24/23 07/20/23 History 1,000 mcg capsule isosorbide mononitrate 60 mg 60 mg PO QAM 02/24/23 07/20/23 History tablet,extended release 24 hr pravastatin 80 mg tablet 80 mg PO HS 02/24/23 07/20/23 History amlodipine 5 mg tablet 5 mg PO HS #90 tabs 03/08/23 07/20/23 Rx pantoprazole 40 mg tablet,delayed 40 mg PO QAM gerd #90 tabs 03/08/23 07/20/23 Rx release (Protonix) metoprolol succinate 100 mg 100 mg PO HS #90 tabs 04/05/23 07/20/23 Rx tablet,extended release 24 hr Saccharomyces boulardii 250 mg 250 mg PO BID 07/19/23 07/20/23 History capsule (Florastor) acetaminophen 325 mg tablet 650 mg PO Q6H PRN Pain 07/19/23 07/20/23 History acetaminophen 500 mg tablet 500 mg PO BID PAIN MANAGEMENT 07/19/23 07/20/23 History potassium chloride 20 mEq 20 meq PO BID 07/19/23 07/20/23 History tablet,extended release warfarin 4 mg tablet 4 mg PO HS 07/19/23 07/20/23 History alprazolam 0.5 mg tablet 0.5 mg PO HS 07/20/23 07/20/23 History Patient History Medical History Adenoma of right adrenal gland Allergic rhinitis Anticoagulated on Coumadin Asthma inhaler prn CAD (coronary artery disease) Depression with anxiety Diverticulosis Essential hematuria pt denies at present time Exertional chest pain hx of; pt states she no longer experiences this Hyperlipidemia Hypertension Internal hemorrhoids Myocardial Infarction x2--06/12/08 and 08/06--follows with Dr. Milner Occlusion of right internal carotid artery Osteoporosis with fracture PAD (peripheral artery disease) Plantar fasciitis Positional vertigo Prediabetes Tremor of right hand Urinary incontinence Vitamin D deficiency Xerostomia Surgical History H/O section History of aortic valve replacement with metallic valve 2000 History of appendectomy History of cardiac cath x2--05/2008 and 07/2008 History of colonoscopy History of esophagogastroduodenoscopy (EGD) History of heart artery stent x1 2007 History of hysterectomy with bilateral oophorectomy History of wisdom tooth extraction Hx of cholecystectomy S/P CABG (coronary artery bypass graft) [place] [facility] [place] Family History Mother Alzheimer disease Dementia Osteoarthritis Father Coronary heart disease Heart disease Myocardial infarction age 72 Lung cancer Colorectal cancer Grandmother (Paternal) Diabetes Other No family history of adverse response to anesthesia Denies family history of Rheumatoid arthritis Sudden SIDS (sudden infant syndrome) Ovarian cancer Prostate cancer Deep vein thrombosis Osteoporosis Dyslipidemia Cerebral aneurysm Bipolar disorder Clotting disorder Crohn's disease Depression Kidney disease Breast cancer Schizophrenia Congenital kidney disease Gestational diabetes COPD (chronic obstructive pulmonary disease) Pulmonary embolism Lung disease Hypertension Ulcerative colitis Colonic polyp Stroke Asthma Cystic kidney disease Social History Smoking Status: Former smoker Tobacco Type: Cigarettes Age Started Using Tobacco: 16; Second Hand Exposure: Yes; Do You Dip or Chew Tobacco: No; Hx Alcohol Use: No Hx Substance Use: No Preferred Language: Urdu Communication Ability: Impaired Visual Impairment: No Limitations Hearing Ability: Normal Consumer Affairs Director Required: No Beliefs That Will Affect Care: None marital status: / Current Living Situation: Family current occupational status: retired 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 Dials How many Children do You have: 1 Feels Safe at Home: Yes Safety Concerns: Feels Safe At This Time Childhood Exposure to Second-Hand Smoke: No Diet: regular caffeine: Yes during the past year weight has: remained stable Dental Care, Regularly: No Physical Activity Frequency: Does not Exercise Seatbelt Use: always Sunscreen Use: Yes Assistive Devices: Walker Physical Exam Psychiatric: Orientation: alert, oriented x 3 and cooperative Apperance: appropriately dressed and appropriately groomed Eye Contact: good eye contact Motor Behavior: no abnormal motor movements Speech: normal rate/rhythm/volume of speech Affect: + constricted affect Mood: + de pressed mood (due to not sleeping ) Thought Process: goal directed thought process and linear/logical thought process Thought Content: reality based without delusions Suicidal Thoughts: denies suicidal thoughts Homicidal Thoughts: denies homicidal thoughts Hallucinations: + auditory hallucinations (intermittent at times ); no visual hallucinations Cognition: recent memory grossly intact, remote memory grossly intact (not formally assessed but could recall events accurately from medical recor), attention grossly intact and language grossly intact Insight: + limited insight Judgment: + limited judgement Vital Signs (Past 24 Hours): Last Vital Signs Temp 36.4 C L 07/21/23 15:35 Pulse 97 H 07/21/23 15:35 Resp 18 07/21/23 15:35 BP 136/104 H 07/21/23 15:35 Pulse Ox 95 07/21/23 15:35 O2 Del Method Room Air 07/21/23 15:35 Review of Systems All systems reviewed & are unremarkable except as noted in HPI & below Results & Data (PSY) Laboratory Results Na+ normal Diagnostic Findings QTc <500ms on EKG Medications Administered Amlodipine Besylate (Amlodipine Besylate 5 Mg Tab) 5 mg PO [facility] Stop: 08/19/23 20:59 Last Admin: 07/20/23 20:21 Dose: 5 mg Documented By: DENNIS Aspirin (Aspirin 81 Mg Ectab) 81 mg PO [facility] Stop: 08/19/23 20:59 Last Admin: 07/20/23 20:20 Dose: 81 mg Documented By: DENNIS Clonidine HCl (Clonidine Hcl 0.1 Mg Tab) 0.1 mg PO BID [facility] Stop: 08/19/23 08:59 Last Admin: 07/21/23 08:38 Dose: 0.1 mg Documented By: JESUS ALBERTO Admin: 07/20/23 20:20 Dose: 0.1 mg Documented By: Admin: 07/20/23 08:50 Dose: 0.1 mg Documented By: KAYLA Hydralazine HCl (Hydralazine Hcl 20 Mg/Ml Vial) 10 mg IV Q8 PRN PRN Reason: sbp>185 or dbp>95 Stop: 08/19/23 07:59 Last Admin: 07/20/23 08:50 Dose: 10 mg Documented By: KAYLA Isosorbide Mononitrate (Isosorbide [place] Extended Rel 60 Mg Tabcr) 60 mg PO [facility] Stop: 08/19/23 08:59 Last Admin: 07/21/23 08:38 Dose: 60 mg Documented By: JESUS ALBERTO Admin: 07/20/23 10:35 Dose: 60 mg Documented By: KAYLA Metoprolol Succinate (Metoprolol Succ 50mg Ext Rel Tab) 100 mg PO [facility] Stop: 08/19/23 20:59 Last Admin: 07/20/23 20:21 Dose: 100 mg Documented By: DENNIS Pantoprazole Sodium (Pantoprazole 40 Mg Tab) 40 mg PO [facility] Stop: 08/19/23 08:59 Last Admin: 07/21/23 08:38 Dose: 40 mg Documented By: JESUS ALBERTO Admin: 07/20/23 08:49 Dose: 40 mg Documented By: KAYLA Pravastatin Sodium (Pravastatin Sod 40 Mg Tab) 80 mg PO HS [facility] Stop: 08/19/23 20:59 Last Admin: 07/20/23 20:21 Dose: 80 mg Documented By: DENNIS Coding Level of Care Code 79441 IN/OBS CONSULT LVL 4,60M Diagnoses Encephalopathy G93.40 Time Spent (min) 65
--- NOTE | 2023-07-21 17:45 | Electrocardiogram Report ---
Test Reason : Blood Pressure : / mmHG Vent. Rate : 117 BPM Atrial Rate : 117 BPM P-R Int : 152 ms QRS Dur : 086 ms QT Int : 312 ms P-R-T Axes : 054 -03 023 degrees QTc Int : 435 ms Sinus tachycardia Moderate voltage criteria for LVH, may be normal variant Borderline ECG When compared with ECG of 19-JUL-2023 20:46, Nonspecific T wave abnormality no longer evident in Lateral leads Confirmed by Siddharth Ruelas ([id number]) on 07/21/2023 5:44:34 PM Referred By: Torrey Diaz Confirmed By:Siddharth Ruelas
--- NOTE | 2023-07-21 18:59 | CT Scan Report ---
Exam(s): CT ABDOMEN + PELVIS With Contrast Oral - High Density Amt: gastro EXAM: CT Abdomen and Pelvis With Intravenous Contrast CLINICAL HISTORY: Reason for exam: eval for recurrence of intramural abscess. TECHNIQUE: Axial computed tomography images of the abdomen and pelvis with intravenous contrast. CTDI is 27.6 mGy and DLP is 1375.06 mGy-cm. Automated exposure control was utilized for the study. A dose lowering technique was utilized adhering to the principles of ALARA. CONTRAST: Patient received gastro of Oral - High Density contrast COMPARISON: CT abdomen/pelvis on 07/06/2023 FINDINGS: Lung bases: Unremarkable. No mass. No consolidation. Heart: Median sternotomy changes. Prosthetic aortic valve. Coronary artery and aorta. ABDOMEN: Liver: Unremarkable. No mass. Gallbladder and bile ducts: Prior cholecystectomy. No ductal dilation. Pancreas: Unremarkable. No mass. No ductal dilation. Spleen: Unremarkable. No splenomegaly. Adrenals: Nonspecific mild thickening of the left adrenal gland. Kidneys and ureters: Unremarkable. No solid mass. No hydronephrosis. Stomach and bowel: Mild residual or recurrent diverticulitis changes at the junction of the sigmoid colon and descending colon. No abscess. Diverticulosis. No evidence of diverticulitis. No small bowel obstruction. PELVIS: Appendix: Normal appendix. Bladder: Underdistended bladder limits evaluation. Reproductive: Prior hysterectomy. ABDOMEN and PELVIS: Intraperitoneal space: Unremarkable. No free air. No significant fluid collection. Bones/joints: Degenerative changes of the spine. Stable chronic compression deformities of L1 and L2. No dislocation. Soft tissues: Small fat-containing umbilical hernia. Vasculature: Atherosclerotic changes of the vasculature. Severe stenosis in the very distal abdominal aorta and proximal common iliac arteries. Phleboliths in the pelvis. Lymph nodes: Unremarkable. No enlarged lymph nodes. Other findings: Calcifications. IMPRESSION: Mild residual or recurrent diverticulitis changes at the junction of the sigmoid colon and descending colon. No abscess. Electronically signed by: Shorty Chavarria M.D. 07/21/23 18:58 PM
[2023-07-21] MEDS: ASPIRIN 81 MG ECTAB PO SCH (20:57)
[2023-07-21] MEDS: amLODIPine BESYLATE 5 MG TAB PO SCH (20:57)
[2023-07-21] MEDS: PRAVASTATIN SOD 40 MG TAB PO SCH (20:58)
[2023-07-21] MEDS: METOPROLOL SUCC 50MG EXT REL TAB PO SCH (20:58)
[2023-07-21] MEDS ORDERED: MELATONIN 3 MG TAB PO ONE (21:00)
[2023-07-21] MEDS: QUEtiapine FUMARATE 25 MG TABLET PO SCH (21:01)
[2023-07-21] MEDS: WARFARIN SOD 5 MG TAB PO SCH (21:20)
--- NOTE | 2023-07-22 08:17 | Hospitalist Progress Note ---
Date of Service July 22, 2023 Assessment & Plan (1) Altered mental status: Plan: Looking for causes of encephalopathy, blood pressure not controlled intracranial imaging is negative with exception of chronic occlusion of right internal carotid artery this includes MRI scanning Recent admission with diverticulitis and intestional abscess, DC 06/16 to rehab on zosyn, imaging on 07/06 with resolution of abscess, Zosyn d/c on or around 07/12 after General surgery visit -Normal Ammonia level, B12, Folate and Vitamin D levels, negative lyme disease - UA bland - Repeat CT-A/p 07/21 --> Recurrent vs residual diverticulitis. No abscess. ?Contributing to metabolic encephalopathy +cipro/flagyl (previous tx zosyn). Qtc has nto been prolonged, with +seroquel repeat EKG 07/23 to follow. Trend INR. (2) CAD (coronary artery disease): Plan: Chronic -Continue ASA, Metoprolol, Pravastatin (3) Hyperlipidemia: Plan: Chronic -Continue Pravastatin (4) GERD (gastroesophageal reflux disease): Plan: Chronic -Continue Protonix (5) Anticoagulated on Coumadin: Plan: Patient with mechanical aortic valve. -Continue Coumadin 4mg po daily - INR 1.5 --> 1.9. Coumadin adjusted and continues to rise. Trend daily Admission and Anticipated Discharge Date Admission Date: July 21, 2023 Subjective Seen at beside. A&Ox3, expresses concern about not remembering why she was admitted to the hospital and who is caring for her bills at home. Endorses mild low mid back pain. No fevers/chills/sweats. No CP/CP. Endorses mild midline low abd tenderness. Review of Systems Review of Systems: All systems reviewed & are unremarkable except as noted in Subjective Physical Exam Physical Exam: General: A&Ox3. NAD. Cooperative. Someone tangential. HEENT: Atraumatic, normocephalic. Pulm: CTAB A&P. -wheezes, -rales, -rhonchi. Symmetrical chest rise. No increased work of breathing. No respiratory distress. Cardiac: RRR, -mrg. Radial pulses intact and symmetrical. Abdominal:Mild TTP in low midline abd otherwise nondistended, soft, NT. BS present. No rebound Results & Data Results & Data Vital Signs (Past 12 Hours) Vital Signs Temp Pulse Resp BP Pulse Ox O2 Del Method 08/24/23 08:00 36.5 C 79 18 164/89 H 94 Room Air 07/21/23 20:56 36.4 C L 90 18 158/91 H 95 Room Air PG Care Time/CCT Total # of Minutes Spent Total Time Spent with Patient: Total time spent is greater than 50% in coordination of care (as documented) at patient's floor/unit and/or counseling patient: Coding Level of Care Code 54254 SUB INP/OBS CARE 3/50MIN Diagnoses Altered mental status R41.82 CAD (coronary artery disease) I25.119 Associated angina: with unspecified form of angina Coronary Disease-Associated Artery/Lesion type: unspecified vessel or lesion type [place] vs. transplanted heart: [place] heart Hyperlipidemia E78.5 GERD (gastroesophageal reflux disease) K21.9 Anticoagulated on Coumadin Z79.01 (2) CAD (coronary artery disease) Associated angina: with unspecified form of angina Coronary Disease- Associated Artery/Lesion type: unspecified vessel or lesion type [place] vs. transplanted heart: [place] heart Qualified Code(s): I25.119 - Atherosclerotic heart disease of [place] coronary artery with unspecified angina pectoris
[2023-07-22] MEDS: cloNIDine HCL 0.1 MG TAB PO SCH ×2 (08:25→20:24)
[2023-07-22] MEDS: ISOSORBIDE MONO EXTENDED REL 60 MG TABCR PO SCH (08:25)
[2023-07-22] MEDS: PANTOprazole 40 MG TAB PO SCH (08:25)
[2023-07-22] MEDS: THIAMINE HCL 200 MG in SODIUM CHLORIDE 0.9% 50 ML IV SCH (08:29)
[2023-07-22 09:18] LABS: INR 1.9 (0.9-1.1); Prothrombin Time 19.8 Seconds (9.0-12.0)
[2023-07-22 09:35] LABS: BUN Creatinine Ratio 16.7 (10-20); C Reactive Protein 0.51 mg/dl (0-0.5); Calcium 9.5 mg/dl (8.6-10.3); Creatinine Clr Calc Pharmacy 66.7 ml/min; Est GFR (African American) 78.8 ml/min
[2023-07-22] MEDS: metroNIDAZOLE 500 MG/100 ML BAG IV SCH ×2 (10:06→15:54)
[2023-07-22] MEDS: CIPROFLOXACIN / D5W 400 MG/200 ML BAG IV SCH ×2 (11:06→20:24)
[2023-07-22] MEDS: PRAVASTATIN SOD 40 MG TAB PO SCH (20:25)
[2023-07-22] MEDS: METOPROLOL SUCC 50MG EXT REL TAB PO SCH (20:25)
[2023-07-22] MEDS: QUEtiapine FUMARATE 25 MG TABLET PO SCH (20:25)
[2023-07-22] MEDS: WARFARIN SOD 5 MG TAB PO SCH (20:25)
[2023-07-22] MEDS: amLODIPine BESYLATE 5 MG TAB PO SCH (20:25)
[2023-07-22] MEDS: ASPIRIN 81 MG ECTAB PO SCH (20:26)
[2023-07-23] MEDS: metroNIDAZOLE 500 MG/100 ML BAG IV SCH ×3 (00:47→16:35)
[2023-07-23] MEDS: PANTOprazole 40 MG TAB PO SCH (08:09)
[2023-07-23] MEDS: cloNIDine HCL 0.1 MG TAB PO SCH ×2 (08:09→19:45)
[2023-07-23] MEDS: ISOSORBIDE MONO EXTENDED REL 60 MG TABCR PO SCH (08:09)
--- NOTE | 2023-07-23 08:25 | Hospitalist Progress Note ---
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 No abscess. ?Contributing to metabolic encephalopathy. Continue cipro/Flagyl Suspect multifactorial with possible post-concussive syndrome (fall ~4 weeks ago), possible infectious encephalopathy, deliriogenic medications (specifically benzo/opiate use in the past), hospital delirium, all potentially superimposed on worsening dementia/depression/anxiety that has been chronically untreated Psych consult appreciated, no evidence of primary psychotic disorder, received Seroquel last night and slept, will transition to Remeron for sleep and depression symptoms, to continue on discharge (2) CAD (coronary artery disease): Plan: Chronic Continue ASA, Metoprolol, Pravastatin (3) Hyperlipidemia: Plan: Chronic Continue Pravastatin (4) GERD (gastroesophageal reflux disease): Plan: Chronic Continue Protonix (5) Anticoagulated on Coumadin: Plan: Patient with mechanical aortic valve. Continue Coumadin 4mg po daily INR 1.5 --> 2.1, continues to increase appropriately, continue current dose with goal INR 2.5-3.5 (6) Diverticulitis: Plan: See above, possible new mild infection vs. mild residual, cont cipro/Flagyl CRP initially elevated to 0.51, decreased today, possible marker of improving mild infection Admission and Anticipated Discharge Date Admission Date: July 21, 2023 Subjective Today slow to respond and quiet, however answering questions appropriately, recognizes her sister, worried about why she is hear and at times hearing whispering. She denies abdominal pain, nausea, SOB, chest pain. Review of Systems Review of Systems: All systems reviewed & are unremarkable except as noted in Subjective Physical Exam Constitutional: WD/WN, vitals as above Respiratory: normal respiratory effort, lungs clear to auscultation Cardiovascular: RRR, no murmur, no edema Gastrointestinal (Abdomen): normal bowel sounds, soft, nontender, no hepatosplenomegaly Skin: no rashes, warm and dry Neurologic: no focal motor deficits noted, EOMI Psychiatric: alert and oriented, cooperative, depressed mood/affect, slow to respond Results & Data Results & Data Vital Signs (Past 12 Hours) Vital Signs Temp Pulse Resp BP Pulse Ox O2 Del Method 07/23/23 07:12 36.7 C 66 19 151/81 H 94 Room Air 07/22/23 20:22 36.5 C 75 18 136/82 94 Room Air PG Care Time/CCT Total # of Minutes Spent Total Time Spent with Patient: Total time spent is greater than 50% in coordination of care (as documented) at patient's floor/unit and/or counseling patient: Coding Level of Care Code 73228 SUB INP/OBS CARE 3/50MIN Diagnoses Altered mental status R41.82 CAD (coronary artery disease) I25.119 Associated angina: with unspecified form of angina Coronary Disease-Associated Artery/Lesion type: unspecified vessel or lesion type [place] vs. transplanted heart: [place] heart Hyperlipidemia E78.5 GERD (gastroesophageal reflux disease) K21.9 Anticoagulated on Coumadin Z79.01 Diverticulitis K57.92 (2) CAD (coronary artery disease) Associated angina: with unspecified form of angina Coronary Disease- Associated Artery/Lesion type: unspecified vessel or lesion type [place] vs. transplanted heart: [place] heart Qualified Code(s): I25.119 - Atherosclerotic heart disease of [place] coronary artery with unspecified angina pectoris
[2023-07-23] MEDS: THIAMINE HCL 200 MG in SODIUM CHLORIDE 0.9% 50 ML IV SCH (08:48)
[2023-07-23 08:56] LABS: Basophils # (auto) 0.02 K/uL (0.00-0.20); Basophils % (auto) 0.3 %; Eosinophils # (auto) 0.28 K/uL (0.00-0.50); Eosinophils % (auto) 4.3 %; Hematocrit (blood only) 39.9 % (37.0-47.0); Hemoglobin 13.5 g/dl (12.0-16.0); Immature Granulocytes # (auto) 0.02 K/uL (0.01-0.20); Immature Granulocytes % (auto) 0.3 %; Lymphocytes % (auto) 16.9 %; Mean Corpuscular Hemoglobin 30.2 pg (25.0-34.0); Mean Corpuscular Hgb Conc 33.8 g/dL (32.0-36.0); Mean Corpuscular Volume 89.3 fL (80.0-100.0); Mean Platelet Volume 9.8 fL (9.4-12.4); Monocytes # (auto) 0.53 K/uL (0.11-0.59); Monocytes % (auto) 8.2 %; Neutrophils # (auto) 4.55 K/uL (1.40-6.50); Platelet Count 200 K/uL (130-400); RDW Coefficient of Variation 13.3 % (11.5-14.5); RDW Standard Deviation 43.3 fL (36.4-46.3); Red Blood Count 4.47 M/uL (4.20-5.40)
[2023-07-23 08:59] LABS: INR 2.1 (0.9-1.1); Prothrombin Time 22.3 Seconds (9.0-12.0)
[2023-07-23] MEDS: CIPROFLOXACIN / D5W 400 MG/200 ML BAG IV SCH ×2 (09:04→19:42)
[2023-07-23 09:23] LABS: Anion Gap 5 (3-11); BUN Creatinine Ratio 17.1 (10-20); Blood Urea Nitrogen 14 mg/dl (6-23); C Reactive Protein < 0.50 mg/dl (0-0.5); Calcium 9.5 mg/dl (8.6-10.3); Carbon Dioxide 27 mmol/L (21-32); Chloride 106 mmol/L (98-107); Creatinine Clr Calc Pharmacy 68.4 ml/min; Est GFR (African American) 81.1 ml/min; Glucose 114 mg/dl (70-99(Fasting)); Potassium 3.8 mmol/L (3.5-5.1); Sodium 138 mmol/L (136-145)
[2023-07-23] MEDS ORDERED: MELATONIN 3 MG TAB PO PRN (15:46)
--- NOTE | 2023-07-23 16:50 | Electrocardiogram Report ---
Test Reason : Blood Pressure : / mmHG Vent. Rate : 081 BPM Atrial Rate : 081 BPM P-R Int : 154 ms QRS Dur : 090 ms QT Int : 382 ms P-R-T Axes : 048 -10 052 degrees QTc Int : 443 ms Normal sinus rhythm with sinus arrhythmia Possible Left atrial enlargement Left ventricular hypertrophy Inferior infarct , age undetermined Abnormal ECG When compared with ECG of 20-JUL-2023 22:04, No significant change Confirmed by Siddharth Ruelas ([id number]) on 07/23/2023 4:50:30 PM Referred By: Torrey Diaz Confirmed By:Siddharth Ruelas
[2023-07-23] MEDS: amLODIPine BESYLATE 5 MG TAB PO SCH (19:45)
[2023-07-23] MEDS: ASPIRIN 81 MG ECTAB PO SCH (19:45)
[2023-07-23] MEDS: METOPROLOL SUCC 50MG EXT REL TAB PO SCH (19:46)
[2023-07-23] MEDS: PRAVASTATIN SOD 40 MG TAB PO SCH (19:46)
[2023-07-23] MEDS: WARFARIN SOD 5 MG TAB PO SCH (19:47)
[2023-07-23] MEDS ORDERED: MIRTAZAPINE TAB 15 MG TAB PO SCH (21:00)
[2023-07-24] MEDS: metroNIDAZOLE 500 MG/100 ML BAG IV SCH ×2 (00:10→07:56)
[2023-07-24 07:47] LABS: Basophils # (auto) 0.02 K/uL (0.00-0.20); Basophils % (auto) 0.2 %; Eosinophils # (auto) 0.26 K/uL (0.00-0.50); Eosinophils % (auto) 2.9 %; Hematocrit (blood only) 44.6 % (37.0-47.0); Hemoglobin 15.4 g/dl (12.0-16.0); Immature Granulocytes # (auto) 0.03 K/uL (0.01-0.20); Immature Granulocytes % (auto) 0.3 %; Lymphocytes # (auto) 0.93 K/uL (1.20-3.40); Lymphocytes % (auto) 10.3 %; Mean Corpuscular Hemoglobin 30.3 pg (25.0-34.0); Mean Corpuscular Hgb Conc 34.5 g/dL (32.0-36.0); Mean Corpuscular Volume 87.6 fL (80.0-100.0); Mean Platelet Volume 9.6 fL (9.4-12.4); Monocytes # (auto) 0.65 K/uL (0.11-0.59); Monocytes % (auto) 7.2 %; Neutrophils # (auto) 7.18 K/uL (1.40-6.50); Neutrophils % (auto) 79.1 %; Platelet Count 214 K/uL (130-400); RDW Coefficient of Variation 13.2 % (11.5-14.5); RDW Standard Deviation 41.8 fL (36.4-46.3); Red Blood Count 5.09 M/uL (4.20-5.40); White Blood Count 9.07 K/ul (4.8-10.8)
[2023-07-24 08:13] LABS: BUN Creatinine Ratio 14.1 (10-20); Calcium 9.5 mg/dl (8.6-10.3); Creatinine Clr Calc Pharmacy 78.9 ml/min; Est GFR (African American) 96.6 ml/min; Est GFR (Non-African American) 83.3 ml/min; Potassium 3.4 mmol/L (3.5-5.1)
[2023-07-24 08:20] LABS: INR 2.4 (0.9-1.1)
[2023-07-24] MEDS: cloNIDine HCL 0.1 MG TAB PO SCH (08:39)
[2023-07-24] MEDS: PANTOprazole 40 MG TAB PO SCH (08:39)
[2023-07-24] MEDS: ISOSORBIDE MONO EXTENDED REL 60 MG TABCR PO SCH (08:39)
[2023-07-24] MEDS: THIAMINE HCL 200 MG in SODIUM CHLORIDE 0.9% 50 ML IV SCH (08:50)
[2023-07-24] MEDS: CIPROFLOXACIN / D5W 400 MG/200 ML BAG IV SCH (09:08)
--- NOTE | 2023-07-24 12:47 | Discharge Summary ---
Discharge Summary Date of Service July 24, 2023 Admission HPI Per Admitting Provider Patient sleeping comfortably at time of my encounter. No family at bedside. History largely obtained through chart review and discussion with ER staff. Patient was admitted to [facility] from 05/29/23 - 06/02/23 after presenting with abdominal pain. She was found to have sigmoid colon diverticulitis with microperforation on CT. She was treated with bowel rest and IV Zosyn and was discharged home to complete 10 additional days of Cipro and Flagyl for 14 days of antibiotics total. Unfortunately, patient returned to the ER with persistent abdominal pain, poor appetite, weakness and fatigue as well as ongoing diarrhea. She was readmitted from 06/09/23 - 06/16/23 with an intestinal abscess. She was treated with IV Zosyn which was continued outpatient as well. She was started on Fluoxetine 10mg for management of anxiety as well as Trazodone and Melatonin at night. Patient was discharged to rehab at [facility] on 06/16/23. Patient had a fall on 06/22/23 while at [facility] where she hit her head/chin on the ground. She was seen in the ER for back pain as well as dizziness. She was found to have mild acute L1 and L2 compression deformities without retrop ulsion. CT revealed persistent diverticulitis as well. Seen by General Surgery on 07/12/23 - antibiotics discontinued Patient has been at [facility]. She has become increasingly confused and pa ranoid. Family concerned about patient's declining mental status. Seen by PCP on 07/19/23 - noted to be alert but confused. Speech barely audible and slow to respond. Trazodone and Prozac have been stopped approximately 1 week ago. Patient sent to the ER due to concern for worsening mental state. Admission Exam Per Admitting Provider General: patient resting comfortably, arousable but somnolent, answers questions appropriately Skin: warm, dry, intact, no rashes or lesions HEENT: NC/AT, PERRL, EOMI, anicteric sclera, conjunctiva without injection, external ear normal to inspection and nontender, nares patent, moist mucus membranes, dentition intact, no oropharyngeal lesions, neck supple, trachea midline, no LAD, no thyromegaly, no JVD Heart: +S1/S2, regular, no m/r/g Lungs: equal air entry bilaterally, no rales/rhonchi/wheezes Abd: +BS, soft, NT/ND, no masses/organomegaly/ascites Ext: warm, 2+ pulses in UE/LE bilaterally, no clubbing/cyanosis or edema Neuro: moving all extremities with equal strength, no facial droop, speech clear and appropriate but slow Principal Dx & Hospital Course #1 = Principal Diagnosis (1) Altered mental status: -Altered mental status, suspicion of underlying dementia: -Intracranial imaging is negative with exception of 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 No abscess. ?Contributing to metabolic encephalopathy. Continue cipro/Flagyl on discharge, prescription sent x10 days (did not give Zosyn due to possible neuro effects -Suspect multifactorial with possible post-concussive syndrome (fell and struck head ~4 weeks ago, still with bruising), possible infectious encephalopathy, deliriogenic medications (specifically benzo/opiate use in the recent past), hospital delirium, all potentially superimposed on worsening dementia/depression/anxiety that has been chronically untreated Psych consult appreciated, no evidence of primary psychotic disorder, recommend melatonin and Remeron for sleep and depression symptoms, to continue on discharge Symptoms of depressed affect, quiet voice, slow to respond all improved on day of discharge CAD (coronary artery disease): Chronic Continue ASA, Metoprolol, Pravastatin Hyperlipidemia: Chronic Continue Pravastatin GERD (gastroesophageal reflux disease): Chronic Continue Protonix Anticoagulated on Coumadin: Patient with mechanical aortic valve with goal INR 2.5-3.5 Continue Coumadin 4mg po daily, also sent in 5mg tablets x7 days in case dose needs adjusted INR 1.5 --> 2.4, continues to increase appropriately, repeat INR Wednesday to determine if dose changes are needed Diverticulitis: See above, possible new mild infection vs. mild residual, cont cipro/Flagyl (2) CAD (coronary artery disease): (3) Hyperlipidemia: (4) GERD (gastroesophageal reflux disease): (5) Anticoagulated on Coumadin: (6) Diverticulitis: Discharge Exam Constitutional WD/WN, vitals as above Gastrointestinal (Abdomen) abdomen soft, nontender, nondistended Psychiatric nervous affect, answers questions appropriately, alert and oriented Updated Medication List Medication Instructions Recorded Confirmed Type cholecalciferol (vitamin D3) 25 5,000 units PO QAM 09/05/19 07/20/23 History mcg (1,000 unit) capsule albuterol sulfate 90 mcg/actuation 2 puff inhalation QID PRN 07/18/21 07/20/23 Rx aerosol inhaler (ProAir HFA) shortness of breath #8.5 grams clonidine HCl 0.1 mg tablet 0.1 mg PO BID #180 tabs 07/14/22 07/20/23 Rx aspirin 81 mg tablet,delayed 81 mg PO HS 09/24/22 07/20/23 History release (Harvey Low Dose Aspirin) metoclopramide HCl 5 mg tablet 5 mg PO BID #180 tabs 10/05/22 07/20/23 Rx calcium carbonate 600 mg calcium 600 mg PO BID 02/24/23 07/20/23 History (1,500 mg) tablet (Calcium) cyanocobalamin (vitamin B-12) 1,000 mcg PO QAM 02/24/23 07/20/23 History 1,000 mcg capsule isosorbide mononitrate 60 mg 60 mg PO QAM 02/24/23 07/20/23 History tablet,extended release 24 hr pravastatin 80 mg tablet 80 mg PO HS 02/24/23 07/20/23 History amlodipine 5 mg tablet 5 mg PO HS #90 tabs 03/08/23 07/20/23 Rx pantoprazole 40 mg tablet,delayed 40 mg PO QAM gerd #90 tabs 03/08/23 07/20/23 Rx release (Protonix) metoprolol succinate 100 mg 100 mg PO HS #90 tabs 04/05/23 07/20/23 Rx tablet,extended release 24 hr Saccharomyces boulardii 250 mg 250 mg PO BID 07/19/23 07/20/23 History capsule (Florastor) acetaminophen 325 mg tablet 650 mg PO Q6H PRN Pain 07/19/23 07/20/23 History acetaminophen 500 mg tablet 500 mg PO BID PAIN MANAGEMENT 07/19/23 07/20/23 History potassium chloride 20 mEq 20 meq PO BID 07/19/23 07/20/23 History tablet,extended release warfarin 4 mg tablet 4 mg PO HS 07/19/23 07/20/23 History ciprofloxacin HCl 500 mg tablet 500 mg PO BID 10 days #20 tabs 07/23/23 Rx metronidazole 500 mg tablet 500 mg PO Q8H 10 days #30 tabs 07/23/23 Rx mirtazapine 15 mg tablet 15 mg PO HS 30 days #30 tabs 07/23/23 Rx docusate sodium 100 mg capsule 100 mg PO BID PRN #0 caps 07/24/23 Rx melatonin 3 mg tablet 3 mg PO HS PRN #0 tabs 07/24/23 Rx polyethylene glycol 3350 17 gram 17 g PO DAILY PRN #0 ea 07/24/23 Rx oral powder packet (Miralax) warfarin 5 mg tablet 5 mg PO HS 1 week #7 tabs 07/24/23 Rx Hospital Stay Data Consultations 07/20/23 04:20 ED Decision to Admit Stat 07/21/23 15:30 Consult Mental Health [Consult Psychiatry] Routine Diagnostic Imagining Performed 07/19/23 23:22 CT angio head w con Stat CT angio neck with con Stat CT head/brain wo con Stat 07/20/23 04:38 MRI Brain [MR brain wo/w con] Routine 07/21/23 14:48 CT Abd and Pelvis [CT abd pelvis oral con only] Routine Pending Results Patient Have Any Pending Studies at Discharge: No Discharge Instructions Given to Patient (Per Discharging Provider) Altered mental status, suspicion of underlying dementia: Intracranial imaging is negative with exception of 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 No abscess. ?Contributing to metabolic encephalopathy. Continue cipro/Flagyl on discharge x10 days Suspect multifactorial with possible post-concussive syndrome (fall ~4 weeks ago), possible infectious encephalopathy, deliriogenic medications (specifically benzo/opiate use in the recent past), hospital delirium, all potentially superimposed on worsening dementia/depression/anxiety that has been chronically untreated Psych consult appreciated, no evidence of primary psychotic disorder, recommend melatonin and Remeron for sleep and depression symptoms, to continue on discharge CAD (coronary artery disease): Chronic Continue ASA, Metoprolol, Pravastatin Hyperlipidemia: Chronic Continue Pravastatin GERD (gastroesophageal reflux disease): Chronic Continue Protonix Anticoagulated on Coumadin: Patient with mechanical aortic valve with goal INR 2.5-3.5 Continue Coumadin 4mg po daily, also sent in 5mg tablets x7 days in case dose needs adjusted INR 1.5 --> 2.4, continues to increase appropriately, repeat INR perhaps Wednesday to determine if dose changes are needed Diverticulitis: See above, possible new mild infection vs. mild residual, cont cipro/Flagyl CRP initially elevated to 0.51, decreased today, possible marker of improving mild infection Total Time Total Time Spent Total Time Spent (In Minutes): 35 min Coding Level of Care Code 29238 INP/OBS DISCH >30 MIN Diagnoses Altered mental status R41.82 CAD (coronary artery disease) I25.119 Associated angina: with unspecified form of angina Coronary Disease-Associated Artery/Lesion type: unspecified vessel or lesion type [place] vs. transplanted heart: [place] heart Hyperlipidemia E78.5 GERD (gastroesophageal reflux disease) K21.9 Anticoagulated on Coumadin Z79.01 Diverticulitis K57.92
== END 2023-07-24 15:00 | disposition home or self-care (01) | DRG 102 ==
LOC: EDINP 17:28 → ED 17:28 → SUATTDRO 07-20 02:10 → 3N 07-20 04:39 → SUATTDRO 07-21 09:01 → 3N 07-23 13:46

== ENCOUNTER 2025-02-11 08:54 | Inpatient (IN) ==
--- NOTE | 2025-02-11 09:14 | Emergency Department Note ---
Impression & Plan Acute UTI, Palpitations, Depression, AMS (altered mental status) ED Provider Note NAME: MILTON BRITT AGE: 74 SEX: F : 1950 ARRIVES VIA: Walk-In INFORMANT: Patient ED PROVIDER(S): Samuel Leyva DO CHIEF COMPLAINT: Feeling her heart beat HPI: Patient is a 74-year-old female with a past medical history of polyneuropathy, depression, anxiety, insomnia, PAD, CAD, asthma with a mechanical aortic valve who presents to the ER for feeling her heart pound. She notes it is not racing but she feels it beating. This has been constant for the past 2 weeks. Patient denies any headache or change in vision. No chest pain or shortness of breath. No nausea, vomiting or diarrhea. No dysuria, urgency or frequency. No other exacerbating or remitting factors. Patient's daughter is present at bedside and provides additional history. She notes that she has not been sleeping much as she has been obsessing about various different things and very emotional. Patient admits to feeling depressed and anxious following this. She admits to wanting to but no plan. She notes that she would never kill her self. There have also been periods of confusion as well where she has been in the grocery store for 3 hours and does not know what is going on. ADDITIONAL HISTORY OBTAINED: Per HPI Chronic Medical/Social Conditions Affecting Care: Per HPI PAST MEDICAL HISTORY:See Below PAST SURGICAL HISTORY:See Below FAMILY HISTORY:See Below SOCIAL HISTORY:See Below HOME MEDICATIONS:See Below ALLERGIES:See Below VITALS:See Below PHYSICAL EXAMINATION: GENERAL: Sitting up in bed, alert, well appearing, well nourished, no distress, non-toxic EYE EXAM: normal conjunctiva. OROPHARYNX: no exudate, no erythema, lips, buccal mucosa, and tongue normal and mucous membranes are moist NECK: supple, no nuchal rigidity, no adenopathy, non-tender LUNGS: Clear to auscultation. Normal chest wall mechanics HEART: no murmurs, S1 normal and S2 normal ABDOMEN: abdomen soft, non-tender, normo-active bowel sounds, no masses, no rebound or guarding. BACK: Back is symmetrical on inspection and there is no deformity, no midline tenderness, no CVA tenderness. SKIN: no rashes and no bruising UPPER EXTREMITIES: upper extremities are grossly normal. LOWER EXTREMITIES: No pitting edema. NEURO EXAM: Normal sensorium, cranial nerves II-XII grossly intact, normal speech, no gross weakness of arms, no gross weakness of legs. PSYCH: Admits to depression and anxiety and not sleeping as she can feel her heart beating. MEDICAL DECISION MAKING: Patient is a 74-year-old female who presents ER for the below stated complaint. IV was established and blood work was obtained. Patient is a past medical history of tremor, anxiety, depression. She presented for feeling her heart beat but denies any chest pain or shortness of breath or any exertional symptoms. Labs were obtained and showed no significant leukocytosis with a hemoglobin of 16.8. BMP with a creatinine 1.3. LFTs and bilirubin were unremarkable. Troponin was negative. Lipase and TSH were unremarkable. UA with leuks whites nitrates and +4 bacteria. She has no urinary symptoms. Will treat. External records and previous cultures were reviewed which showed E. coli x 2 which were pansensitive. Patient was given 2 g of IV Rocephin. Tox salicylates and acetaminophen and alcohol were all negative. COVID was negative. Discussed with our psychiatric home health care provider who evaluated the patient and referral was made to 3 S. INR was added on. INR resulted and was 3.9. Discussed with psychiatry and they favor that this likely secondary to delirium. Will treat with IV antibiotics and admit to the hospitalist. Discussed with the [facility] hospitalist for further evaluation management treatment. Psychiatry will consult. Do favor this more but gradual decline in the UTI may be making this slightly worse. Consults/Care Managements Discussions: Per [facility] Triage Nursing notes reviewed. Limited review of prior medical records performed Vital Signs: reviewed and remarkable for no significant abnormalities Differential diagnosis: Cardiac ischemia, aortic dissection, pulmonary embolism, pneumothorax, pneumonia, pericarditis, myocarditis, esophageal rupture, GERD, cholecystitis, pancreatitis, musculoskeletal, as well as other pathologies. ER treatment provided: See below Diagnostics interpreted by me include EKG and cardiac monitoring as listed below: -Cardiac Monitoring: An order was placed for continuous cardiac monitoring. The monitor shows a rate of 72 with sinus rhythm. -ECG: Sinus rhythm rate of 70 Left axis No PVCs QTc 421 -Laboratory studies:Interpreted by me as stated above in MDM and shown below. Imaging studies: Xrays: As interpreted by me: Portable AP upright 1 view of the chest shows no focal infiltrate CTs show: none Procedures:none Critical Care: None Past Med/Surg History Problem List (Updated 02/11/25 @ 14:52 by Samuel Leyva DO) AMS (altered mental status) (Acute) Acute UTI (Acute) Depression (Acute) Palpitations (Acute) Spinal stenosis, lumbar Facet arthropathy, lumbar Idiopathic polyneuropathy Numbness and tingling of foot Acute dyspnea Essential tremor Vaginal burning Chronic kidney disease, stage 3a History of adenomatous polyp of colon Vitamin D deficiency Major depress dis, severe Anxiety Chronic prescription benzodiazepine use Insomnia History of diverticulitis of colon Depression with anxiety Vitamin B12 deficiency Left knee DJD Benign positional vertigo (Acute) Urinary incontinence Hematuria Encounter for Medicare annual wellness exam GERD (gastroesophageal reflux disease) Osteoporosis (Chronic) S/P CABG (coronary artery bypass graft) 2000-per pt "triple bypass" @ [facility] [place] Prediabetes no meds PAD (peripheral artery disease) Hyperlipidemia History of aortic valve replacement with metallic valve (Acute) 2000 CAD (coronary artery disease) (Acute) Occlusion of right internal carotid artery Asthma inhaler prn > very rare use Anticoagulated on Coumadin Hypertension Medical History Diverticulitis of intestine with abscess Compression fracture of L1 vertebra Myocardial Infarction Exertional chest pain Positional vertigo Adenoma of right adrenal gland Tremor of right hand Xerostomia Urinary incontinence Plantar fasciitis Osteoporosis with fracture Internal hemorrhoids Essential hematuria Diverticulosis Depression with anxiety Allergic rhinitis Surgical History Hx of cataract extraction History of appendectomy History of esophagogastroduodenoscopy (EGD) History of colonoscopy History of wisdom tooth extraction History of heart artery stent History of cardiac cath History of hysterectomy with bilateral oophorectomy S/P tonsillectomy Hx of cholecystectomy H/O section Family History Mother Alzheimer disease Dementia Osteoarthritis Father Coronary heart disease Heart disease Myocardial infarction Lung cancer Colorectal cancer Grandmother (Paternal) Diabetes Other No family history of adverse response to anesthesia Denies family history of Rheumatoid arthritis Sudden SIDS (sudden syndrome) Ovarian cancer Prostate cancer Deep vein thrombosis Osteoporosis Dyslipidemia Cerebral aneurysm Bipolar disorder Clotting disorder Crohn's disease Depression Kidney disease Breast cancer Schizophrenia Congenital kidney disease Gestational diabetes COPD (chronic obstructive pulmonary disease) Pulmonary embolism Lung disease Hypertension Ulcerative colitis Colonic polyp Stroke Asthma Cystic kidney disease Social History Smoking Status: Former smoker Tobacco Type: Cigarettes Age Started Using Tobacco: 16; Age Quit Using Tobacco: 0; packs per day: 0; Second Hand Exposure: No; Do You Dip or Chew Tobacco: No; Hx Alcohol Use: No Hx Substance Use: No Preferred Language: Malay Communication Ability: Effective Visual Impairment: No Limitations Hearing Ability: Normal Roll Winder Required: No Beliefs That Will Affect Care: None marital status: / Current Living Situation: Alone current occupational status: retired 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 [employer] How many Children do You have: 1 Feels Safe at Home: Yes Childhood Exposure to Second-Hand Smoke: No Diet: regular caffeine: Yes during the past year weight has: remained stable Dental Care, Regularly: No Physical Activity Frequency: Does not Exercise Seatbelt Use: always Sunscreen Use: Yes Gender Identity: Female Assistive Devices: Cane and Glasses Allergies Allergies Allergy/AdvReac Type Severity Reaction Status Date / Time rosuvastatin [From Crestor] Allergy Intermediate myalgia Verified 12/07/24 13:33 sertraline [From Zoloft] Allergy Intermediate burn Verified 12/07/24 13:33 sensation on skin on arms lovastatin Allergy Mild rash Verified 12/07/24 13:33 bupropion [From Wellbutrin] AdvReac Intermediate insomnia Verified 12/07/24 13:33 and tremors dicyclomine AdvReac Intermediate N/V Verified 12/07/24 13:33 codeine AdvReac Mild NAUSEA & Verified 12/07/24 13:33 PAIN ezetimibe [From Zetia] AdvReac Mild Gastrointestinal Verified 12/07/24 13:33 Upset methadone AdvReac Mild GI UPSET(?) Verified 12/07/24 13:33 niacin AdvReac Mild Gastrointestinal Verified 12/07/24 13:33 [From Niaspan Upset Extended-Release] paroxetine [From Paxil] AdvReac Mild Gastrointestinal Verified 12/07/24 13:33 Upset propoxyphene AdvReac Mild NAUSEA & Verified 12/07/24 13:33 PAIN simvastatin [From Zocor] AdvReac Mild Gastrointestinal Verified 12/07/24 13:33 Upset [id number] Reductase AdvReac Mild STATIN Verified 12/07/24 13:33 Inhibitor INTOLERANCE - GI UPSET Home Meds Home Medications Medication Instructions Recorded Confirmed cholecalciferol (vitamin D3) 25 5,000 units PO QAM 09/05/19 02/11/25 mcg (1,000 unit) capsule calcium carbonate (Calcium 600) 600 mg PO BID 02/24/23 02/11/25 cyanocobalamin (vitamin B-12) 1,000 mcg PO QAM 02/24/23 02/11/25 1,000 mcg capsule acetaminophen 325 mg tablet 650 mg PO Q6H PRN Pain 07/19/23 02/11/25 acetaminophen 500 mg tablet 500 mg PO BID PAIN MANAGEMENT 07/19/23 02/11/25 aripiprazole 2 mg tablet 2 mg PO UD 10/18/23 02/11/25 polyethylene glycol 3350 17 gram 17 g PO DAILY PRN Constipation 10/18/23 02/11/25 oral powder packet (Miralax) aspirin 81 mg tablet,delayed 81 mg PO 2XWK 11/13/24 02/11/25 release (Harvey Low Dose Aspirin) mirtazapine 30 mg tablet 45 mg PO UD 11/13/24 02/11/25 amoxicillin 500 mg tablet 500 mg PO UD 02/11/25 02/11/25 Previous Rx's Medication Instructions Recorded albuterol sulfate 90 mcg/actuation 2 puff inhalation QID PRN 07/18/21 aerosol inhaler (ProAir HFA) shortness of breath #8.5 grams estradiol 0.01% (0.1 mg/gram) 1 g vaginal .COMPLEX #42.5 grams 05/24/24 vaginal cream amlodipine 5 mg tablet 5 mg PO HS #100 tabs 09/15/24 clonidine HCl 0.1 mg tablet 0.1 mg PO BID #180 tabs 09/15/24 potassium chloride 20 mEq 20 meq PO BID #180 tabs 09/15/24 tablet,extended release warfarin 3 mg tablet 3 mg PO UD #100 tabs 09/15/24 topiramate 25 mg tablet 25 mg PO QAM 100 days #100 tabs 10/16/24 topiramate 50 mg tablet 50 mg PO QPM 100 days #100 tabs 10/16/24 isosorbide mononitrate 60 mg 60 mg PO QAM #100 tabs 10/24/24 tablet,extended release 24 hr metoprolol succinate 100 mg 100 mg PO HS #100 tabs 10/24/24 tablet,extended release 24 hr pantoprazole 40 mg tablet,delayed 40 mg PO QAM gerd #100 tabs 10/24/24 release (Protonix) pravastatin 80 mg tablet 80 mg PO HS #100 tabs 10/24/24 Results & Data (ED) Vital Signs Vital Signs - 24 hr 02/11/25 08:56 02/11/25 09:24 02/11/25 09:32 Temperature 36.4 C L Temperature Source Oral Pulse Rate 77 69 Pulse Rate from SpO2 Sensor 68 Respiratory Rate 14 25 H Blood Pressure 124/80 139/79 Blood Pressure Mean 94 86 Pulse Oximetry 96 96 Oxygen Delivery Method Room Air Sepsis New/Unexplained Change in Mental Status No Sepsis Action Taken by Nursing No Action Required 02/11/25 09:32 02/11/25 09:32 02/11/25 09:33 Temperature Temperature Source Pulse Rate 69 Pulse Rate from SpO2 Sensor Respiratory Rate Blood Pressure 139/79 139/79 Blood Pressure Mean 86 86 Pulse Oximetry Oxygen Delivery Method Sepsis New/Unexplained Change in Mental Status Sepsis Action Taken by Nursing 02/11/25 09:33 02/11/25 09:34 02/11/25 09:34 Temperature Temperature Source Pulse Rate 72 70 Pulse Rate from SpO2 Sensor 73 Respiratory Rate 21 16 Blood Pressure Blood Pressure Mean Pulse Oximetry 95 95 95 Oxygen Delivery Method Room Air Room Air Sepsis New/Unexplained Change in Mental Status Sepsis Action Taken by Nursing 02/11/25 09:42 02/11/25 09:51 02/11/25 10:00 Temperature Temperature Source Pulse Rate 70 66 Pulse Rate from SpO2 Sensor 71 66 Respiratory Rate 23 25 H Blood Pressure 133/82 Blood Pressure Mean 97 Pulse Oximetry 94 95 Oxygen Delivery Method Sepsis New/Unexplained Change in Mental Status Sepsis Action Taken by Nursing 02/11/25 10:00 02/11/25 10:00 02/11/25 10:00 Temperature Temperature Source Pulse Rate Pulse Rate from SpO2 Sensor Respiratory Rate Blood Pressure 133/82 133/82 133/82 Blood Pressure Mean 97 97 97 Pulse Oximetry Oxygen Delivery Method Sepsis New/Unexplained Change in Mental Status Sepsis Action Taken by Nursing 02/11/25 10:00 02/11/25 10:00 02/11/25 10:00 Temperature Temperature Source Pulse Rate Pulse Rate from SpO2 Sensor Respiratory Rate Blood Pressure 133/82 133/82 133/82 Blood Pressure Mean 97 97 97 Pulse Oximetry Oxygen Delivery Method Sepsis New/Unexplained Change in Mental Status Sepsis Action Taken by Nursing 02/11/25 10:00 02/11/25 10:00 02/11/25 10:00 Temperature Temperature Source Pulse Rate Pulse Rate from SpO2 Sensor Respiratory Rate Blood Pressure 133/82 133/82 133/82 Blood Pressure Mean 97 97 97 Pulse Oximetry Oxygen Delivery Method Sepsis New/Unexplained Change in Mental Status Sepsis Action Taken by Nursing 02/11/25 10:00 02/11/25 10:00 02/11/25 10:12 Temperature Temperature Source Pulse Rate 68 68 Pulse Rate from SpO2 Sensor 67 68 Respiratory Rate 24 23 Blood Pressure 133/82 Blood Pressure Mean 97 Pulse Oximetry 95 96 Oxygen Delivery Method Sepsis New/Unexplained Change in Mental Status Sepsis Action Taken by Nursing 02/11/25 10:27 02/11/25 10:30 02/11/25 10:30 Temperature Temperature Source Pulse Rate 68 Pulse Rate from SpO2 Sensor 68 Respiratory Rate 22 Blood Pressure 144/88 H 144/88 H Blood Pressure Mean 116 116 Pulse Oximetry 97 Oxygen Delivery Method Sepsis New/Unexplained Change in Mental Status Sepsis Action Taken by Nursing 02/11/25 10:30 02/11/25 10:30 02/11/25 10:30 Temperature Temperature Source Pulse Rate Pulse Rate from SpO2 Sensor Respiratory Rate Blood Pressure 144/88 H 144/88 H 144/88 H Blood Pressure Mean 116 116 116 Pulse Oximetry Oxygen Delivery Method Sepsis New/Unexplained Change in Mental Status Sepsis Action Taken by Nursing 02/11/25 10:30 02/11/25 10:30 02/11/25 10:39 Temperature Temperature Source Pulse Rate 67 Pulse Rate from SpO2 Sensor 66 Respiratory Rate 20 Blood Pressure 144/88 H 144/88 H Blood Pressure Mean 116 116 Pulse Oximetry 98 Oxygen Delivery Method Sepsis New/Unexplained Change in Mental Status Sepsis Action Taken by Nursing 02/11/25 10:48 02/11/25 11:02 02/11/25 11:03 Temperature Temperature Source Pulse Rate 67 68 Pulse Rate from SpO2 Sensor 68 68 Respiratory Rate 21 24 Blood Pressure 143/82 H Blood Pressure Mean 116 Pulse Oximetry 97 97 Oxygen Delivery Method Sepsis New/Unexplained Change in Mental Status Sepsis Action Taken by Nursing 02/11/25 11:30 02/11/25 11:30 02/11/25 11:30 Temperature Temperature Source Pulse Rate Pulse Rate from SpO2 Sensor Respiratory Rate Blood Pressure 145/85 H 145/85 H 145/85 H Blood Pressure Mean 99 99 99 Pulse Oximetry Oxygen Delivery Method Sepsis New/Unexplained Change in Mental Status Sepsis Action Taken by Nursing 02/11/25 11:30 02/11/25 11:30 02/11/25 11:30 Temperature Temperature Source Pulse Rate Pulse Rate from SpO2 Sensor Respiratory Rate Blood Pressure 145/85 H 145/85 H 145/85 H Blood Pressure Mean 99 99 99 Pulse Oximetry Oxygen Delivery Method Sepsis New/Unexplained Change in Mental Status Sepsis Action Taken by Nursing 02/11/25 11:30 02/11/25 11:30 02/11/25 11:30 Temperature Temperature Source Pulse Rate Pulse Rate from SpO2 Sensor Respiratory Rate Blood Pressure 145/85 H 145/85 H 145/85 H Blood Pressure Mean 99 99 99 Pulse Oximetry Oxygen Delivery Method Sepsis New/Unexplained Change in Mental Status Sepsis Action Taken by Nursing 02/11/25 11:30 02/11/25 11:30 02/11/25 11:36 Temperature Temperature Source Pulse Rate 66 Pulse Rate from SpO2 Sensor 66 Respiratory Rate 22 Blood Pressure 145/85 H 145/85 H Blood Pressure Mean 99 99 Pulse Oximetry 97 Oxygen Delivery Method Sepsis New/Unexplained Change in Mental Status Sepsis Action Taken by Nursing 02/11/25 11:42 02/11/25 11:54 02/11/25 12:00 Temperature Temperature Source Pulse Rate 66 65 63 Pulse Rate from SpO2 Sensor 67 65 62 Respiratory Rate 22 20 21 Blood Pressure Blood Pressure Mean Pulse Oximetry 98 97 96 Oxygen Delivery Method Sepsis New/Unexplained Change in Mental Status Sepsis Action Taken by Nursing 02/11/25 12:01 02/11/25 12:01 02/11/25 12:01 Temperature Temperature Source Pulse Rate Pulse Rate from SpO2 Sensor Respiratory Rate Blood Pressure 129/78 129/78 129/78 Blood Pressure Mean 83 83 83 Pulse Oximetry Oxygen Delivery Method Sepsis New/Unexplained Change in Mental Status Sepsis Action Taken by Nursing 02/11/25 12:01 02/11/25 12:01 02/11/25 12:01 Temperature Temperature Source Pulse Rate Pulse Rate from SpO2 Sensor Respiratory Rate Blood Pressure 129/78 129/78 129/78 Blood Pressure Mean 83 83 83 Pulse Oximetry Oxygen Delivery Method Sepsis New/Unexplained Change in Mental Status Sepsis Action Taken by Nursing 02/11/25 12:01 02/11/25 12:01 02/11/25 12:01 Temperature Temperature Source Pulse Rate Pulse Rate from SpO2 Sensor Respiratory Rate Blood Pressure 129/78 129/78 129/78 Blood Pressure Mean 83 83 83 Pulse Oximetry Oxygen Delivery Method Sepsis New/Unexplained Change in Mental Status Sepsis Action Taken by Nursing 02/11/25 12:01 02/11/25 12:21 02/11/25 12:24 Temperature Temperature Source Pulse Rate 63 66 Pulse Rate from SpO2 Sensor 63 66 Respiratory Rate 20 25 H Blood Pressure 129/78 Blood Pressure Mean 83 Pulse Oximetry 97 97 Oxygen Delivery Method Sepsis New/Unexplained Change in Mental Status Sepsis Action Taken by Nursing 02/11/25 12:36 02/11/25 12:36 02/11/25 13:03 Temperature Temperature Source Pulse Rate 70 70 Pulse Rate from SpO2 Sensor 69 Respiratory Rate 22 25 H Blood Pressure 150/118 H 150/118 H 123/94 Blood Pressure Mean 125 125 103 Pulse Oximetry 98 96 Oxygen Delivery Method Sepsis New/Unexplained Change in Mental Status Sepsis Action Taken by Nursing 02/11/25 13:22 02/11/25 13:30 02/11/25 14:00 Temperature Temperature Source Pulse Rate 68 72 78 Pulse Rate from SpO2 Sensor 71 77 Respiratory Rate 24 26 H Blood Pressure 169/133 H 182/99 H Blood Pressure Mean 145 126 Pulse Oximetry 97 99 Oxygen Delivery Method Sepsis New/Unexplained Change in Mental Status Sepsis Action Taken by Nursing 02/11/25 14:01 02/11/25 14:01 02/11/25 14:01 Temperature Temperature Source Pulse Rate Pulse Rate from SpO2 Sensor Respiratory Rate Blood Pressure 182/99 H 182/99 H 182/99 H Blood Pressure Mean 108 108 108 Pulse Oximetry Oxygen Delivery Method Sepsis New/Unexplained Change in Mental Status Sepsis Action Taken by Nursing 02/11/25 14:01 02/11/25 14:01 02/11/25 14:01 Temperature Temperature Source Pulse Rate Pulse Rate from SpO2 Sensor Respiratory Rate Blood Pressure 182/99 H 182/99 H 182/99 H Blood Pressure Mean 108 108 108 Pulse Oximetry Oxygen Delivery Method Sepsis New/Unexplained Change in Mental Status Sepsis Action Taken by Nursing 02/11/25 14:01 02/11/25 14:01 Temperature Temperature Source Pulse Rate Pulse Rate from SpO2 Sensor Respiratory Rate Blood Pressure 182/99 H 182/99 H Blood Pressure Mean 108 108 Pulse Oximetry Oxygen Delivery Method Sepsis New/Unexplained Change in Mental Status Sepsis Action Taken by Nursing Laboratory Data 02/11/25 09:22 02/11/25 09:22 Lab Results 02/11/25 02/11/25 02/11/25 Range/Units 09:22 09:27 09:53 WBC 5.49 (4.8-10.8) K/ul RBC 5.38 (4.20-5.40) M/uL Hgb 16.8 H (12.0-16.0) g/dl Hct 50.1 H (37.0-47.0) % MCV 93.1 (80.0-100.0) fL MCH 31.2 (25.0-34.0) pg MCHC 33.5 (32.0-36.0) g/dL RDW Std Deviation 41.1 (36.4-46.3) fL RDW Coeff of Dennis 11.9 (11.5-14.5) % Plt Count 259 (130-400) K/uL MPV 9.5 (9.4-12.4) fL Immature Gran % (Auto) 0.2 % Neut % (Auto) 64.1 % Lymph % (Auto) 25.9 % [place] % (Auto) 7.8 % Eos % (Auto) 1.5 % Baso % (Auto) 0.5 % Neut # (Auto) 3.52 (1.40-6.50) K/uL Lymph # (Auto) 1.42 (1.20-3.40) K/uL [place] # (Auto) 0.43 (0.11-0.59) K/uL Eos # (Auto) 0.08 (0.00-0.50) K/uL Baso # (Auto) 0.03 (0.00-0.20) K/uL Immature Gran # (Auto) 0.01 (0.01-0.20) K/uL PT 37.5 H (9.0-12.0) Seconds INR 3.9 H (0.9-1.1) Sodium 139 (136-145) mmol/L Potassium 4.2 (3.5-5.1) mmol/L Chloride 108 H (98-107) mmol/L Carbon Dioxide 28 (21-32) mmol/L Anion Gap 3 (3-11) BUN 14 (6-23) mg/dl Creatinine 1.33 H (0.6-1.2) mg/dl Est Cr Clr Drug Dosing 39.7 ml/min eGFR 41.47 BUN/Creatinine Ratio 10.5 (10-20) Glucose 143 H (70-99(Fasting)) mg/dl Calcium 10.4 H (8.6-10.3) mg/dl Total Bilirubin 0.7 (0.2-1.0) mg/dl AST 23 (13-39) U/L ALT 22 (7-52) U/L Alkaline Phosphatase 63 (34-104) U/L Troponin I High Sens 7.1 (0-14) pg/ml Total Protein 7.1 (6.0-8.3) gm/dl Albumin 4.5 (3.4-5.0) gm/dl Globulin 2.6 (2.5-4.0) gm/dl Albumin/Globulin Ratio 1.7 (0.9-2) Lipase 39 (11-82) U/L TSH 1.396 (0.300-4.500) uIu/ml Urine Color Urine Appearance (Clear) Urine pH (4.5-7.5) Ur Specific [place] (1.000-1.030) Urine Protein (Negative) Urine Glucose (UA) (Negative) Urine Ketones (Negative) Urine Blood (Negative) Urine Nitrite (Negative) Urine Bilirubin (Negative) Urine Urobilinogen (Negative) Ur Leukocyte Esterase (Negative) Urine WBC (Auto) (0-5) /hpf Urine RBC (Auto) (0-2) /hpf U Hyaline Cast (Auto) (0-2) /lpf U Epithel Cells (Auto) (0-2) /hpf Urine Bacteria (Auto) (None Seen) Salicylates < 3.0 L (3.0-30) mg/dl Urine Opiates Screen (Neg) Ur Methadone, Qual (Neg) Urine Fentanyl Screen (Neg) Acetaminophen 16 (10-30) ug/ml Urine Barbiturates (Neg) Ur Phencyclidine (PCP) (Neg) U Amphetamin/Meth Scrn (Neg) MDMA (Ecstasy) Screen (Neg) U Benzodiazepines Scrn (Neg) Ur Cocaine Metabolite (Neg) U Marijuana (THC) Screen (Neg) Ethyl Alcohol mg/dL < 10.0 (<10.0) mg/dl SARS-CoV-2, RNA, NAAT NEGATIVE (NEGATIVE) 02/11/25 Range/Units 12:34 WBC (4.8-10.8) K/ul RBC (4.20-5.40) M/uL Hgb (12.0-16.0) g/dl Hct (37.0-47.0) % MCV (80.0-100.0) fL MCH (25.0-34.0) pg MCHC (32.0-36.0) g/dL RDW Std Deviation (36.4-46.3) fL RDW Coeff of Dennis (11.5-14.5) % Plt Count (130-400) K/uL MPV (9.4-12.4) fL Immature Gran % (Auto) % Neut % (Auto) % Lymph % (Auto) % [place] % (Auto) % Eos % (Auto) % Baso % (Auto) % Neut # (Auto) (1.40-6.50) K/uL Lymph # (Auto) (1.20-3.40) K/uL [place] # (Auto) (0.11-0.59) K/uL Eos # (Auto) (0.00-0.50) K/uL Baso # (Auto) (0.00-0.20) K/uL Immature Gran # (Auto) (0.01-0.20) K/uL PT (9.0-12.0) Seconds INR (0.9-1.1) Sodium (136-145) mmol/L Potassium (3.5-5.1) mmol/L Chloride (98-107) mmol/L Carbon Dioxide (21-32) mmol/L Anion Gap (3-11) BUN (6-23) mg/dl Creatinine (0.6-1.2) mg/dl Est Cr Clr Drug Dosing ml/min eGFR BUN/Creatinine Ratio (10-20) Glucose (70-99(Fasting)) mg/dl Calcium (8.6-10.3) mg/dl Total Bilirubin (0.2-1.0) mg/dl AST (13-39) U/L ALT (7-52) U/L Alkaline Phosphatase (34-104) U/L Troponin I High Sens (0-14) pg/ml Total Protein (6.0-8.3) gm/dl Albumin (3.4-5.0) gm/dl Globulin (2.5-4.0) gm/dl Albumin/Globulin Ratio (0.9-2) Lipase (11-82) U/L TSH (0.300-4.500) uIu/ml Urine Color Yellow Urine Appearance Cloudy A (Clear) Urine pH 6.5 (4.5-7.5) Ur Specific [place] 1.014 (1.000-1.030) Urine Protein Negative (Negative) Urine Glucose (UA) Negative (Negative) Urine Ketones Negative (Negative) Urine Blood Trace H (Negative) Urine Nitrite Positive A (Negative) Urine Bilirubin Negative (Negative) Urine Urobilinogen Negative (Negative) Ur Leukocyte Esterase 3+ H (Negative) Urine WBC (Auto) >50 H (0-5) /hpf Urine RBC (Auto) 0-2 (0-2) /hpf U Hyaline Cast (Auto) 0-2 (0-2) /lpf U Epithel Cells (Auto) 0-2 (0-2) /hpf Urine Bacteria (Auto) 4+ H (None Seen) Salicylates (3.0-30) mg/dl Urine Opiates Screen Neg (Neg) Ur Methadone, Qual Neg (Neg) Urine Fentanyl Screen Neg (Neg) Acetaminophen (10-30) ug/ml Urine Barbiturates Neg (Neg) Ur Phencyclidine (PCP) Neg (Neg) U Amphetamin/Meth Scrn Neg (Neg) MDMA (Ecstasy) Screen Neg (Neg) U Benzodiazepines Scrn Neg (Neg) Ur Cocaine Metabolite Neg (Neg) U Marijuana (THC) Screen Neg (Neg) Ethyl Alcohol mg/dL (<10.0) mg/dl SARS-CoV-2, RNA, NAAT (NEGATIVE) Administered Medications Discontinued Medications Cephalexin HCl (Cephalexin 500 Mg Cap) 500 mg PO NOW STA; Protocol Stop: 02/11/25 13:33 Last Admin: 02/11/25 13:52 Dose: 500 mg Documented By: NEMO Imaging Data Radiologist's Impression: Chest X-Ray 02/11/25 09:01 HISTORY: Chest pain. TECHNIQUE: Portable AP radiograph of the chest. COMPARISON: Multiple prior chest radiographs dating back to 07/14/2021. FINDINGS: 2 cm pulmonary nodule overlying the mid left lung is stable when compared to prior radiographs dated 07/14/2021 consistent with a benign etiology. Lungs are otherwise clear. No pneumothorax or effusion. Top normal heart size. Postsurgical changes of median sternotomy and CABG. Left-sided aortic arch containing atherosclerotic calcification. Midline trachea. IMPRESSION: 1. No acute cardiopulmonary findings. 2. Postsurgical changes of median sternotomy and CABG. 3. Stable 2 cm left midlung pulmonary nodule with no significant interval change since prior study on 07/14/2021 consistent with a benign process. Electronically signed by Oleg Le 02-11-2025 09:33 AM Discharge Plan Visit Data Chief Complaint: Cardiac Assessment Stated Complaint: TACHYCARDIA,CHEST PAIN,SHORTNESS OF BREATH,ANXIETY ED Provider: Samuel Leyva Discharge Problem: Acute UTI, Palpitations, Depression, AMS (altered mental status) Forms Stand Alone Forms: [facility] [employer] Prescriptions Prescriptions: No Action amlodipine 5 mg tablet 5 mg PO HS Qty: 100 3RF clonidine HCl 0.1 mg tablet 0.1 mg PO BID Qty: 180 3RF potassium chloride 20 mEq tablet extended release 20 meq PO BID Qty: 180 3RF warfarin 3 mg tablet 3 mg PO UD Qty: 100 5RF Protocol: Dose Management Condition: Wednesday Dose/Route: 3 mg Instruction: 1 x 3 mg tablet Condition: Wednesday Dose/Route: 4.5 mg Instruction: 1.5 x 3 mg tablets Condition: Wednesday Dose/Route: 3 mg Instruction: 1 x 3 mg tablet Condition: Wednesday Dose/Route: 4.5 mg Instruction: 1.5 x 3 mg tablets Condition: Dose/Route: 4.5 mg Instruction: 1.5 x 3 mg tablets Condition: Wednesday Dose/Route: 4.5 mg Instruction: 1.5 x 3 mg tablets Condition: Wednesday Dose/Route: 3 mg Instruction: 1 x 3 mg tablet Protocol Text: Adjustment Start Date: Wednesday02/06/25 INR Value: 3.2 INR Date: 02/05/25 Recheck Date: 03/08/25 isosorbide mononitrate 60 mg tablet extended release 24 hr 60 mg PO QAM Qty: 100 3RF metoprolol succinate 100 mg tablet extended release 24 hr 100 mg PO HS Qty: 100 3RF pantoprazole [Protonix] 40 mg tablet,delayed release (DR/EC) 40 mg PO QAM Qty: 100 3RF pravastatin 80 mg tablet 80 mg PO HS Qty: 100 3RF acetaminophen 500 mg tablet 500 mg PO BID Patient Comments: CONFIRMED ON [facility] [place] SUMMARY AND / [facility] 07/19 Rx Instructions: otc unable to verify acetaminophen 325 mg tablet 650 mg PO Q6H PRN (Reason: Pain) Patient Comments: CONFIRMED ON [facility] [place] SUMMARY AND / [facility] 07/19 Rx Instructions: otc unable to verify cholecalciferol (vitamin D3) 1,000 unit capsule 5,000 units PO QAM Rx Instructions: otc unable to verify albuterol sulfate [ProAir HFA] 90 mcg/actuation HFA aerosol inhaler 2 puff inhalation QID PRN (Reason: shortness of breath) Qty: 8.5 2RF Rx Instructions: no fill history available mirtazapine 30 mg tablet 45 mg PO UD Rx Instructions: 45 mg po daily. last filled 09/15 90 day supply aspirin [Harvey Low Dose Aspirin] 81 mg tablet,delayed release (DR/EC) 81 mg PO 2XWK Patient Comments: & Wednesday Rx Instructions: otc unable to verify topiramate 25 mg tablet 25 mg PO QAM 100 Days Qty: 100 2RF topiramate 50 mg tablet 50 mg PO QPM 100 Days Qty: 100 2RF estradiol 0.01 % (0.1 mg/gram) cream 1 g vaginal .COMPLEX Qty: 42.5 1RF Rx Instructions: 1 g vaginal; 1gm PV daily for 14 days, then 1/2gm PV twice weekly cyanocobalamin (vitamin B-12) 1,000 mcg capsule 1,000 mcg PO QAM Rx Instructions: otc unable to verify calcium carbonate [Calcium 600] 600 mg calcium (1,500 mg) Tablet 600 mg PO BID Rx Instructions: otc unable to verify polyethylene glycol 3350 [Miralax] 17 gram powder in packet 17 g PO DAILY PRN (Reason: Constipation) Rx Instructions: otc unable to verify aripiprazole 2 mg tablet 2 mg PO UD Patient Comments: Mally from [facility] pharmacy said Dr. Haylee Rebolledo ordered the medication on 06/09/24 Rx Instructions: 2 mg po qam. last filled 08/25 90 day supply amoxicillin 500 mg tablet 500 mg PO UD Rx Instructions: Take 2000mg (4 tablets) orally one hour prior to dental procedures; no fill history available Referrals Referrals: Olman Diaz MD [Primary Care Provider] - Discharge Problem: Depression Qualifiers: Depression Type: unspecified Qualified Code(s): F32.A - Depression, unspecified AMS (altered mental status) Qualifiers: Altered mental status type: unspecified Qualified Code(s): R41.82 - Altered mental status, unspecified
--- NOTE | 2025-02-11 09:33 | XRay Report ---
HISTORY: Chest pain. TECHNIQUE: Portable AP radiograph of the chest. COMPARISON: Multiple prior chest radiographs dating back to 07/14/2021. FINDINGS: 2 cm pulmonary nodule overlying the mid left lung is stable when compared to prior radiographs dated 07/14/2021 consistent with a benign etiology. Lungs are otherwise clear. No pneumothorax or effusion. Top normal heart size. Postsurgical changes of median sternotomy and CABG. Left-sided aortic arch containing atherosclerotic calcification. Midline trachea. IMPRESSION: 1. No acute cardiopulmonary findings. 2. Postsurgical changes of median sternotomy and CABG. 3. Stable 2 cm left midlung pulmonary nodule with no significant interval change since prior study on 07/14/2021 consistent with a benign process. Electronically signed by Oleg Le 02-11-2025 09:33 AM
[2025-02-11 09:41] LABS: Basophils # (auto) 0.03 K/uL (0.00-0.20); Basophils % (auto) 0.5 %; Eosinophils # (auto) 0.08 K/uL (0.00-0.50); Eosinophils % (auto) 1.5 %; Hematocrit (blood only) 50.1 % (37.0-47.0); Hemoglobin 16.8 g/dl (12.0-16.0); Immature Granulocytes # (auto) 0.01 K/uL (0.01-0.20); Immature Granulocytes % (auto) 0.2 %; Lymphocytes # (auto) 1.42 K/uL (1.20-3.40); Lymphocytes % (auto) 25.9 %; Mean Corpuscular Hemoglobin 31.2 pg (25.0-34.0); Mean Corpuscular Hgb Conc 33.5 g/dL (32.0-36.0); Mean Corpuscular Volume 93.1 fL (80.0-100.0); Mean Platelet Volume 9.5 fL (9.4-12.4); Monocytes # (auto) 0.43 K/uL (0.11-0.59); Monocytes % (auto) 7.8 %; Neutrophils # (auto) 3.52 K/uL (1.40-6.50); Neutrophils % (auto) 64.1 %; Platelet Count 259 K/uL (130-400); RDW Coefficient of Variation 11.9 % (11.5-14.5); RDW Standard Deviation 41.1 fL (36.4-46.3); Red Blood Count 5.38 M/uL (4.20-5.40); White Blood Count 5.49 K/ul (4.8-10.8)
[2025-02-11 09:58] LABS: Albumin Globulin Ratio 1.7 (0.9-2); Albumin Level 4.5 gm/dl (3.4-5.0); BUN Creatinine Ratio 10.5 (10-20); Bilirubin,Total 0.7 mg/dl (0.2-1.0); Calcium 10.4 mg/dl (8.6-10.3); Creatinine Clr Calc Pharmacy 39.7 ml/min; Globulin 2.6 gm/dl (2.5-4.0); Potassium 4.2 mmol/L (3.5-5.1); Total Protein 7.1 gm/dl (6.0-8.3)
[2025-02-11 09:59] LABS: Acetaminophen 16 ug/ml (10-30); Salicylate < 3.0 mg/dl (3.0-30)
[2025-02-11 10:04] LABS: Troponin I High Sensitivity 7.1 pg/ml (0-14)
--- NOTE | 2025-02-11 12:15 | Electrocardiogram Report ---
Test Reason : Blood Pressure : */* mmHG Vent. Rate : 70 BPM Atrial Rate : 70 BPM P-R Int : 172 ms QRS Dur : 90 ms QT Int : 390 ms P-R-T Axes : 37 -42 55 degrees QTcB Int : 421 ms Normal sinus rhythm Left axis deviation Left ventricular hypertrophy ( R in aVL ) Nonspecific ST abnormality Abnormal ECG When compared with ECG of 23-Jul-2023 12:04, QRS axis Shifted left Criteria for Inferior infarct are no longer Present Confirmed by Javier Montenegro ([id number]) on 02/11/2025 12:15:27 PM Referred By: Confirmed By: Javier Montenegro
[2025-02-11 12:58] LABS: Appearance Urine Cloudy (Clear); Bacteria Urine Automated 4+ (None Seen); Bilirubin Urine Negative (Negative); Blood Urine Trace (Negative); Cast Urine Automated 0-2 /lpf (0-2); Color Urine Yellow; Epithelial Cell Urine Auto 0-2 /hpf (0-2); Glucose Urine UA Negative (Negative); Ketones Urine Negative (Negative); Leukocyte Esterase Urine 3+ (Negative); Nitrite Urine Positive (Negative); Protein Urine Negative (Negative); RBC Urine Automated 0-2 /hpf (0-2); Specific Gravity Urine 1.014 (1.000-1.030); Urobilinogen Urine Negative (Negative); WBC Urine Automated >50 /hpf (0-5); pH Urine 6.5 (4.5-7.5)
[2025-02-11 12:58] LABS: Thyroid Stimulating Hormone 1.396 uIu/ml (0.300-4.500)
[2025-02-11 13:32] LABS: Amphetamines+Metham, Urine Neg (Neg); Barbiturates, Urine Neg (Neg); Benzodiazepine, Urine Neg (Neg); Cocaine, Urine Neg (Neg); Fentanyl, Urine Neg (Neg); MDMA (Ecstacy), Urine Neg (Neg); Marijuana, Urine Neg (Neg); Methadone, Urine Neg (Neg); Opiate, Urine Neg (Neg); Phencyclidine, Urine Neg (Neg)
[2025-02-11] MEDS: cephALEXin 500 MG CAP PO STA (13:52)
[2025-02-11 14:45] LABS: INR 3.9 (0.9-1.1); Prothrombin Time 37.5 Seconds (9.0-12.0)
--- NOTE | 2025-02-11 15:21 | History & Physical Report ---
Date of Service February 11, 2025 Assessment & Plan (1) Acute UTI: Plan: Patient presents to the hospital with delirium, palpitation. According to the daughter, patient gets delirium occasionally when she gets infection. Urinalysis showed evidence of UTI Urine cultures already obtained, empirically start IV ceftriaxone (2) Major depress dis, severe: Plan: Patient also reports feeling depressed Also states she feels like dying Without any actual plans Will consult psychiatry (3) Acute encephalopathy: Plan: Most likely delirium secondary to UTI, Will continue to treat the UTI (4) Essential tremor: Plan: On topiramate 50 mg in the evening, 25 mg morning (5) Anxiety: Plan: Used to be on Xanax for anxiety , but was taken off Xanax (6) History of aortic valve replacement with metallic valve: Plan: On Coumadin 3 mg daily Monitor INR (7) S/P CABG (coronary artery bypass graft): Plan Admit to [facility] Full code History of Present Illness Chief Complaint: palpitations Primary Care Provider: Olman Diaz MD Patient is a 74-year-old female with a history of hypertension, depression, anxiety, mechanical heart valve on warfarin, essential tremor who presents to the hospital with complaints of palpitations, feeling depressed and altered mental status. Some of the history was obtained from the patient's daughter who was at the bedside. According to the daughter, since the patient suffered COVID a few years ago, she has not been herself and has been dipping in and out of depression with low energy and anxiety. She said that over the past couple of weeks she has been somewhat confused, hallucinating and paranoid. However earlier today she started feeling her heart pounding so the decision was made to bring her to the hospital. In addition, patient has also been complaining of feeling very low and depressed and also wanting to , although without no definite plan. In the emergency department, blood pressure was 192/99, pulse of 78, respiratory rate 26 temperature 97.5. Urinalysis showed evidence of UTI. Urine cultures were obtained psychiatry consulted, patient will be admitted to the hospital further management. Allergies Allergy/AdvReac Type Severity Reaction Status Date / Time rosuvastatin [From Crestor] Allergy Intermediate myalgia Verified 12/07/24 13:33 sertraline [From Zoloft] Allergy Intermediate burn Verified 12/07/24 13:33 sensation on skin on arms lovastatin Allergy Mild rash Verified 12/07/24 13:33 bupropion [From Wellbutrin] AdvReac Intermediate insomnia Verified 12/07/24 13:33 and tremors dicyclomine AdvReac Intermediate N/V Verified 12/07/24 13:33 codeine AdvReac Mild NAUSEA & Verified 12/07/24 13:33 PAIN ezetimibe [From Zetia] AdvReac Mild Gastrointestinal Verified 12/07/24 13:33 Upset methadone AdvReac Mild GI UPSET(?) Verified 12/07/24 13:33 niacin AdvReac Mild Gastrointestinal Verified 12/07/24 13:33 [From Niaspan Upset Extended-Release] paroxetine [From Paxil] AdvReac Mild Gastrointestinal Verified 12/07/24 13:33 Upset propoxyphene AdvReac Mild NAUSEA & Verified 12/07/24 13:33 PAIN simvastatin [From Zocor] AdvReac Mild Gastrointestinal Verified 12/07/24 13:33 Upset [id number] Reductase AdvReac Mild STATIN Verified 12/07/24 13:33 Inhibitor INTOLERANCE - GI UPSET Home Medications Medication Instructions Recorded Confirmed Type cholecalciferol (vitamin D3) 25 5,000 units PO QAM 09/05/19 02/11/25 History mcg (1,000 unit) capsule albuterol sulfate 90 mcg/actuation 2 puff inhalation QID PRN 07/18/21 02/11/25 Rx aerosol inhaler (ProAir HFA) shortness of breath #8.5 grams calcium carbonate (Calcium 600) 600 mg PO BID 02/24/23 02/11/25 History cyanocobalamin (vitamin B-12) 1,000 mcg PO QAM 02/24/23 02/11/25 History 1,000 mcg capsule acetaminophen 325 mg tablet 650 mg PO Q6H PRN Pain 07/19/23 02/11/25 History acetaminophen 500 mg tablet 500 mg PO BID PAIN MANAGEMENT 07/19/23 02/11/25 History aripiprazole 2 mg tablet 2 mg PO UD 10/18/23 02/11/25 History polyethylene glycol 3350 17 gram 17 g PO DAILY PRN Constipation 10/18/23 02/11/25 History oral powder packet (Miralax) estradiol 0.01% (0.1 mg/gram) 1 g vaginal .COMPLEX #42.5 grams 05/24/24 02/11/25 Rx vaginal cream amlodipine 5 mg tablet 5 mg PO HS #100 tabs 09/15/24 02/11/25 Rx clonidine HCl 0.1 mg tablet 0.1 mg PO BID #180 tabs 09/15/24 02/11/25 Rx potassium chloride 20 mEq 20 meq PO BID #180 tabs 09/15/24 02/11/25 Rx tablet,extended release warfarin 3 mg tablet 3 mg PO UD #100 tabs 09/15/24 02/11/25 Rx topiramate 25 mg tablet 25 mg PO QAM 100 days #100 tabs 10/16/24 02/11/25 Rx topiramate 50 mg tablet 50 mg PO QPM 100 days #100 tabs 10/16/24 02/11/25 Rx isosorbide mononitrate 60 mg 60 mg PO QAM #100 tabs 10/24/24 02/11/25 Rx tablet,extended release 24 hr metoprolol succinate 100 mg 100 mg PO HS #100 tabs 10/24/24 02/11/25 Rx tablet,extended release 24 hr pantoprazole 40 mg tablet,delayed 40 mg PO QAM gerd #100 tabs 10/24/24 02/11/25 Rx release (Protonix) pravastatin 80 mg tablet 80 mg PO HS #100 tabs 10/24/24 02/11/25 Rx aspirin 81 mg tablet,delayed 81 mg PO 2XWK 11/13/24 02/11/25 History release (Harvey Low Dose Aspirin) mirtazapine 30 mg tablet 45 mg PO UD 11/13/24 02/11/25 History amoxicillin 500 mg tablet 500 mg PO UD 02/11/25 02/11/25 History Past Med/Surg History Problem List (Updated 02/11/25 @ 15:17 by Brett Milian MD) Acute encephalopathy AMS (altered mental status) (Acute) Acute UTI (Acute) Depression (Acute) Palpitations (Acute) Spinal stenosis, lumbar Facet arthropathy, lumbar Idiopathic polyneuropathy Numbness and tingling of foot Acute dyspnea Essential tremor Vaginal burning Chronic kidney disease, stage 3a History of adenomatous polyp of colon Vitamin D deficiency Major depress dis, severe Anxiety Chronic prescription benzodiazepine use Insomnia History of diverticulitis of colon Depression with anxiety Vitamin B12 deficiency Left knee DJD Benign positional vertigo (Acute) Urinary incontinence Hematuria Encounter for Medicare annual wellness exam GERD (gastroesophageal reflux disease) Osteoporosis (Chronic) S/P CABG (coronary artery bypass graft) 2001-per pt "triple bypass" @ [facility] Prediabetes no meds PAD (peripheral artery disease) Hyperlipidemia History of aortic valve replacement with metallic valve (Acute) 2000 CAD (coronary artery disease) (Acute) Occlusion of right internal carotid artery Asthma inhaler prn > very rare use Anticoagulated on Coumadin Hypertension Medical History Diverticulitis of intestine with abscess Compression fracture of L1 vertebra Myocardial Infarction Exertional chest pain Positional vertigo Adenoma of right adrenal gland Tremor of right hand Xerostomia Urinary incontinence Plantar fasciitis Osteoporosis with fracture Internal hemorrhoids Essential hematuria Diverticulosis Depression with anxiety Allergic rhinitis Surgical History Hx of cataract extraction History of appendectomy History of esophagogastroduodenoscopy (EGD) History of colonoscopy History of wisdom tooth extraction History of heart artery stent History of cardiac cath History of hysterectomy with bilateral oophorectomy S/P tonsillectomy Hx of cholecystectomy H/O section Family History Mother Alzheimer disease Dementia Osteoarthritis Father Coronary heart disease Heart disease Myocardial infarction Lung cancer Colorectal cancer Grandmother (Paternal) Diabetes Other No family history of adverse response to anesthesia Denies family history of Rheumatoid arthritis Sudden SIDS (sudden syndrome) Ovarian cancer Prostate cancer Deep vein thrombosis Osteoporosis Dyslipidemia Cerebral aneurysm Bipolar disorder Clotting disorder Crohn's disease Depression Kidney disease Breast cancer Schizophrenia Congenital kidney disease Gestational diabetes COPD (chronic obstructive pulmonary disease) Pulmonary embolism Lung disease Hypertension Ulcerative colitis Colonic polyp Stroke Asthma Cystic kidney disease Social History Smoking Status: Former smoker Tobacco Type: Cigarettes Age Started Using Tobacco: 16; Age Quit Using Tobacco: 0; packs per day: 0; Second Hand Exposure: No; Do You Dip or Chew Tobacco: No; Hx Alcohol Use: No Hx Substance Use: No Preferred Language: Bruneian Communication Ability: Effective Visual Impairment: No Limitations Hearing Ability: Normal Oracle Ebs Consultant Required: No Beliefs That Will Affect Care: None marital status: / Current Living Situation: Alone current occupational status: retired 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 Physical Exam Physical Exam: The patient is awake, alert and oriented 3, well developed and well nourished, normocephalic and atraumatic, lying in bed and in no acute distress. HEENT--PERRL, EOMI, mucous membranes and oropharynx mildly dry Neck--supple. No JVD. No bruits. Thyroid normal, trachea midline, no adenopathy. Heart--normal S1 and S2. No murmurs, rubs or gallops. Lungs--clear bilaterally, no respiratory distress, no accessory muscle use. Abdomen--normal bowel sounds and soft. Extremities--no cyanosis or clubbing. No edema. Dermatologic--normal skin turgor, normal color, no abnormal lymph nodes, no rash. Neurologic--cranial nerves II through XII grossly intact. Rheumatologic--normal range of motion. Psychiatric--normal affect. Results & Data Results & Data Vital Signs (Past 12 Hours) Vital Signs Temp Pulse Resp BP Pulse Ox O2 Del Method 02/11/25 14:01 182/99 H 02/11/25 14:01 182/99 H 02/11/25 14:01 182/99 H 02/11/25 14:01 182/99 H 02/11/25 14:01 182/99 H 02/11/25 14:01 182/99 H 02/11/25 14:01 182/99 H 02/11/25 14:01 182/99 H 02/11/25 14:00 78 26 H 182/99 H 99 02/11/25 13:30 72 24 169/133 H 97 02/11/25 13:22 68 02/11/25 13:03 70 25 H 123/94 96 02/11/25 12:36 70 22 150/118 H 98 02/11/25 12:36 150/118 H 02/11/25 12:24 66 25 H 97 02/11/25 12:21 63 20 97 02/11/25 12:01 129/78 02/11/25 12:01 129/78 02/11/25 12:01 129/78 02/11/25 12:01 129/78 02/11/25 12:01 129/78 02/11/25 12:01 129/78 02/11/25 12:01 129/78 02/11/25 12:01 129/78 02/11/25 12:01 129/78 02/11/25 12:01 129/78 02/11/25 12:00 63 21 96 02/11/25 11:54 65 20 97 02/11/25 11:42 66 22 98 02/11/25 11:36 66 22 97 02/11/25 11:30 145/85 H 02/11/25 11:30 145/85 H 02/11/25 11:30 145/85 H 02/11/25 11:30 145/85 H 02/11/25 11:30 145/85 H 02/11/25 11:30 145/85 H 02/11/25 11:30 145/85 H 02/11/25 11:30 145/85 H 02/11/25 11:30 145/85 H 02/11/25 11:30 145/85 H 02/11/25 11:30 145/85 H 02/11/25 11:03 68 24 97 02/11/25 11:02 143/82 H 02/11/25 10:48 67 21 97 02/11/25 10:39 67 20 98 02/11/25 10:30 144/88 H 02/11/25 10:30 144/88 H 02/11/25 10:30 144/88 H 02/11/25 10:30 144/88 H 02/11/25 10:30 144/88 H 02/11/25 10:30 144/88 H 02/11/25 10:30 144/88 H 02/11/25 10:27 68 22 97 02/11/25 10:12 68 23 96 02/11/25 10:00 68 24 95 02/11/25 10:00 133/82 02/11/25 10:00 133/82 02/11/25 10:00 133/82 02/11/25 10:00 133/82 02/11/25 10:00 133/82 02/11/25 10:00 133/82 02/11/25 10:00 133/82 02/11/25 10:00 133/82 02/11/25 10:00 133/82 02/11/25 10:00 133/82 02/11/25 10:00 133/82 02/11/25 09:51 66 25 H 95 02/11/25 09:42 70 23 94 02/11/25 09:34 70 16 95 Room Air 02/11/25 09:34 95 Room Air 02/11/25 09:33 72 21 95 02/11/25 09:33 69 02/11/25 09:32 139/79 02/11/25 09:32 139/79 02/11/25 09:32 139/79 02/11/25 09:24 69 25 H 96 02/11/25 08:56 97.5 F L 77 14 124/80 96 Room Air PG Care Time/CCT Total # of Minutes Spent Total Time Spent with Patient: Total time spent is greater than 50% in coordination of care (as documented) at patient's floor/unit and/or counseling patient: Coding Level of Care Code 80656 INT INP/OBS CARE 3/75MIN Diagnoses Acute UTI N39.0 Major depress dis, severe F32.2 Acute encephalopathy G93.40 Essential tremor G25.0 Anxiety F41.9 History of aortic valve replacement with metallic valve Z95.4 S/P CABG (coronary artery bypass graft) Z95.1 Time Spent (min) 75
[2025-02-11] MEDS: cefTRIAXone SODIUM 2,000 MG/50 ML BAG IV STA (15:40)
[2025-02-11] MEDS ORDERED: NON-FORMULARY MEDICATION (Aripiprazole 2 mg tablet) PO SCH (22:03)
[2025-02-11] MEDS ORDERED: ACETAMINOPHEN 325 MG TAB PO PRN (22:03)
[2025-02-11] MEDS: amLODIPine BESYLATE 5 MG TAB PO SCH (23:05)
[2025-02-11] MEDS: METOPROLOL SUCC 50MG EXT REL TAB PO SCH (23:06)
[2025-02-11] MEDS: PRAVASTATIN SOD 40 MG TAB PO SCH (23:06)
[2025-02-11] MEDS: cloNIDine HCL 0.1 MG TAB PO SCH (23:06)
[2025-02-11] MEDS: TOPIRAMATE 50 MG TAB PO SCH (23:07)
[2025-02-11] MEDS: ZOLPIDEM TARTRATE 5 MG TAB PO PRN (23:46)
[2025-02-12 07:21] LABS: INR 3.4 (0.9-1.1); Prothrombin Time 33.2 Seconds (9.0-12.0)
[2025-02-12] MEDS: TOPIRAMATE 25 MG TAB PO SCH (07:56)
[2025-02-12] MEDS: PANTOprazole 40 MG TAB PO SCH (07:57)
[2025-02-12] MEDS: MIRTAZAPINE TAB 15 MG TAB PO SCH (09:13)
[2025-02-12] MEDS: ISOSORBIDE MONO EXTENDED REL 60 MG TABCR PO SCH (09:13)
--- NOTE | 2025-02-12 09:21 | Hospitalist Progress Note ---
Date of Service February 12, 2025 Assessment & Plan (1) Acute UTI: Plan: Patient presents to the hospital with delirium, palpitation. According to the daughter, patient gets delirium occasionally when she gets infection. Urinalysis showed evidence of UTI Urine cultures already obtained, pending empirically start IV ceftriaxone (2) Major depress dis, severe: Plan: Patient also reports feeling depressed Also states she feels like dying Without any actual plans Will consult psychiatry (3) Acute encephalopathy: Plan: Most likely delirium secondary to UTI, Much improved, patient now at baseline Will continue to treat the UTI (4) Essential tremor: Plan: On topiramate 50 mg in the evening, 25 mg morning (5) Anxiety: Plan: Used to be on Xanax for anxiety , but was taken off Xanax (6) History of aortic valve replacement with metallic valve: Plan: On Coumadin 3 mg daily Monitor INR (7) S/P CABG (coronary artery bypass graft): Plan Hopefully d/c before Wednesday, patient has appointment with Dr ferris on Full code Admission and Anticipated Discharge Date Admission Date: February 11, 2025 Subjective patient seen and examined, feels better today Review of Systems Review of Systems: All systems reviewed are negative, apart from the ones contained in the history. Physical Exam Physical Exam: The patient is awake, alert and oriented 3, well developed and well nourished, normocephalic and atraumatic, lying in bed and in no acute distress. HEENT--PERRL, EOMI, mucous membranes and oropharynx mildly dry Neck--supple. No JVD. No bruits. Thyroid normal, trachea midline, no adenopathy. Heart--normal S1 and S2. No murmurs, rubs or gallops. Lungs--clear bilaterally, no respiratory distress, no accessory muscle use. Abdomen--normal bowel sounds and soft. Extremities--no cyanosis or clubbing. No edema. Dermatologic--normal skin turgor, normal color, no abnormal lymph nodes, no rash. Neurologic--cranial nerves II through XII grossly intact. Rheumatologic--normal range of motion. Psychiatric--normal affect. Results & Data Results & Data Vital Signs (Past 12 Hours) Vital Signs Temp Pulse Pulse Resp BP Pulse Ox O2 Del Method 02/12/25 07:18 98.2 F 57 L 18 109/72 93 Room Air 02/11/25 22:41 Room Air 02/11/25 22:03 97.5 F L 79 16 150/82 H 97 Room Air 02/11/25 21:30 78 24 96 PG Care Time/CCT Total # of Minutes Spent Total Time Spent with Patient: Total time spent is greater than 50% in coordination of care (as documented) at patient's floor/unit and/or counseling patient: Coding Level of Care Code 76506 SUB INP/OBS CARE 2/35MIN Diagnoses Acute UTI N39.0 Major depress dis, severe F32.2 Acute encephalopathy G93.40 Essential tremor G25.0 Anxiety F41.9 History of aortic valve replacement with metallic valve Z95.4 S/P CABG (coronary artery bypass graft) Z95.1 Time Spent (min) 35
--- NOTE | 2025-02-12 14:08 | Psychiatric Consultation ---
Date of Consultation February 12, 2025 Impression / Recommendations Impression Diagnostically consistent with major depressive disorder with anxiety, insomnia, and possible delirium in the context of urinary tract infection. Recent urinalysis shows some abnormalities suggesting active infection which may be contributing to recent increase of paranoia and confusion but less likely to contributing to more chronic issues of anxiety, insomnia and depression. MDD with psychotic features possible but unlikely at this point. Many of her symptoms seem to be driven by age-related concerns about what she will do with all of items she has collected over the years, coping with psychosocial developmental stage of integrity vs despair likely contributing in part to her concerns about feeling unproductive and depression with periods of hopelessness and ruminations. It's unclear if she may also have some potential early cognitive impairment changes given prodromal suspiciousness and paranoia over recent years however, discussed with Shelby and her family that this could also be due to delirium and intensified psychiatric symptoms which makes it very difficult to determine if dementia or age-related cognitive impairment is also present. Brain imaging last done in 2022 notable for some ischemic changes and volume loss so possible she had a vascular insult/step-vivas decline in October contributing to worsening prefrontal inhibition and leading to increased anxiety and with this more paranoia. However, waxing and waning of past episode also highly suggestive that symptoms may improve over time again. Discussed medication treatment options in detail. She is willing to start ve nlafaxine for depression and anxiety symptoms given no known prior SNRI trial. Also discussed trial of olanzapine as an alternative to Ambien for sleep and for paranoia and off-label for anxiety augmentation. Reviewed side effects including but not limited to: GI upset, headache, vivid dreams, night sweats, and blood pressure changes with venlafaxine; sedation, metabolic and movement risks with olanzapine and goal of this being short-term use if possible. No current suicidal ideation reported. No history of suicide attempts. Previously owned firearms but has sold them, reducing access to lethal means. Acute risk of self-harm is low, and she remains very future-oriented and speaks to reasons for living and loving her family. Consider transition from telepsychiatry to local in-person psychiatric care as tele format seems to be a barrier to Shelby and family seeking increased support when symptoms worsen. Overall, I spent a total of 80 minutes with this case including review of chart records, review of labwork, review of EKG QTc, direct evaluation of the patient at bedside, counseling the patient, discussion of the patient with the hospitalist provider, discussion with the psychiatric liason during clinical rounds, review of collateral historian information from the family and documentation in the electronic health record. (1) Major depressive disorder with current active episode: (2) Generalized anxiety disorder with panic attacks: (3) AMS (altered mental status): Altered mental status type: unspecified Qualified Code(s): R41.82 - Altered mental status, unspecified (4) Acute UTI: Plan -Recommend addition of Effexor XR 37.5mg daily for MDD/MALATHI, if tolerated dose can be gradually titrated, would increase to 75mg in 1-2 weeks. -Recommend consideration for short-term use of olanzapine 2.5mg HS prn for insomnia/paranoia. If beneficial and tolerated could titrate up to 5mg HS prn. -If olanzapine is started would discontinue Ambien (she found this slightly helpful last night but still struggling with sleep) -Trazodone could also be trialed in the future if sleep issues persist -If sleep issues persist despite improvement in anxiety/depression over coming months would recommend outpatient sleep study if this hasn't been done before to rule out ANNMARIE as this can also make depression more difficult to treat if undiagnosed/untreated -Continue mirtazapine 45mg HS for now (if sleep problems persist consider dose reduction in the future to 30mg HS or even 15mg HS as higher doses are more beneficial for anxiety/depression but are less sedating). -Consider home health services for additional support if she is eligible for this -Given her anxiety and cognitive impairment concerns and past brain imaging it is reasonable to consider future outpatient neurocognitive/neuropsychological workup if memory issues persist (currently family denies any concerns and Shelby's concerns seem more rooted in anxiety/catastrophic belief) Psych History Identifying Data Shelby is a 74 yo woman with a history of hypertension, depression, anxiety with panic attacks, mechanical heart valve on warfarin, essential tremor who presents to the hospital with complaints of palpitations, feeling depressed and altered mental status admitted medically due to concern for UTI and possible delirium. Psychiatry consulted for depression and recent passive SI. Chief Complaint "Deep down I think I know what I have, Dr. Diaz is going to drop the news on me in February". History of Present Illness Shelby was brought to the hospital by her daughter for chest pain and panic symptoms. While in the emergency department Shelby and her daughter discussed worsening psychiatric symptoms since October of difficulty sleeping, low energy, decreased motivation, and in recent weeks new confusion, hallucinations and paranoia. While in the ED her UA showed presence of bacteria with concern for UTI. She was previously seen by me in June 2023 during an inpatient admission for similar presentation with worsened confusion, paranoia, poor sleep and depression felt to be consistent with multifactorial encephalopathy/delirium which improved over time per daughter. At that time she had initially been treated with mirtazapine and Seroquel 25mg HS which was then changed to abilify 2mg daily prn. Currently she is prescribed mirtazapine 45mg HS by her outpatient psychiatrist via telehealth at [facility]. Today I met with Shelby and her sister and daughter at bedside. Her sleep has deteriorated significantly over recent weeks reporting, sleeping only 3-4 hours per 24-hour period usually only 2 hours at night plus a 1-hour nap during the day. She denies any symptoms of nav associated with this low sleep, rather has had low energy during the day and low mood. Daughter reports she's been reluctant to try any medications for this such as melatonin as she follows doctors recommendations firmly and never takes anything without verifying it would be safe first. They have not reached out to her outpatient psychiatrist regarding her worsening mood, periods of passive SI (she denies ever having a plan nor attempt) and increased sleep difficulty. Currently she sees Dr. Bolaños via [facility] but this is via telehealth which she finds stressful and luz white meet every 6 months. She has been trying to find an in-person provider locally. She has a history of depression, anxiety but this was better controlled when she was working. Since she stopped working following COVID her daughter reports her anxiety has been much worse and she can become fixated on various worries. Daughter describes a history of lifelong worry that has intensified over time, and she worries that her mother should be observed if any medication changes are made due to "major thing" happening after delirium with subsequent SNF admission and increased confusion in 2022 in the context of diverticulitis. Shelby's daughter worries about her being alone as she has fallen in the past but notes Shelby has refused lifealert or cameras in her home to allow family to check in easily as she worries about her fiances. Shelby endorses depressive symptoms including feelings of hopelessness that she will lose all of her money, lack of motivation, poor sleep per above and low energy. She also reports significant anxiety symptoms including excessive worry and panic attacks, during which she experiences chest pounding and heart pain. The patient expresses concerns about potentially having dementia, citing an incident at a previous doctor's appointment in 2022 where she believes she saw information about her condition on a computer screen. This worry persists despite reassurances from family members and healthcare providers. 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 She's also concerned about her financial situation and the potential need for a caregiver, fearing she may not have enough resources to afford long-term care despite her family reporting this is not a concern as she is very financially stable. She is currently taking mirtazapine and was prescribed Ambien last night in the hospital for sleep. Abilify is used periodically. She reports she did slept a tiny bit more last night, she estimates 3.5 hours. History of multiple prior SSRI trials, Wellbutrin and history of taking Xanax for 30 years but has been off this since 2022. Psychiatric ROS notable for no current substance use. She reports having sold her guns. She denies any history of prior suicide attempts. No current therapist. Her last outpatient psychiatry appointment was approximately 6 months ago in September prior to worsening of current symptoms. Past Psychiatric History History of Previous Suicide Attempt: No Allergies Allergy/AdvReac Type Severity Reaction Status Date / Time rosuvastatin [From Crestor] Allergy Intermediate myalgia Verified 12/07/24 13:33 sertraline [From Zoloft] Allergy Intermediate burn Verified 12/07/24 13:33 sensation on skin on arms lovastatin Allergy Mild rash Verified 12/07/24 13:33 bupropion [From Wellbutrin] AdvReac Intermediate insomnia Verified 12/07/24 13:33 and tremors dicyclomine AdvReac Intermediate N/V Verified 12/07/24 13:33 codeine AdvReac Mild NAUSEA & Verified 12/07/24 13:33 PAIN ezetimibe [From Zetia] AdvReac Mild Gastrointestinal Verified 12/07/24 13:33 Upset methadone AdvReac Mild GI UPSET(?) Verified 12/07/24 13:33 niacin AdvReac Mild Gastrointestinal Verified 12/07/24 13:33 [From Niaspan Upset Extended-Release] paroxetine [From Paxil] AdvReac Mild Gastrointestinal Verified 12/07/24 13:33 Upset propoxyphene AdvReac Mild NAUSEA & Verified 12/07/24 13:33 PAIN simvastatin [From Zocor] AdvReac Mild Gastrointestinal Verified 12/07/24 13:33 Upset [id number] Reductase AdvReac Mild STATIN Verified 12/07/24 13:33 Inhibitor INTOLERANCE - GI UPSET Home Medications Medication Instructions Recorded Confirmed Type cholecalciferol (vitamin D3) 25 5,000 units PO QAM 09/05/19 02/11/25 History mcg (1,000 unit) capsule albuterol sulfate 90 mcg/actuation 2 puff inhalation QID PRN 07/18/21 02/11/25 Rx aerosol inhaler (ProAir HFA) shortness of breath #8.5 grams calcium carbonate (Calcium 600) 600 mg PO BID 02/24/23 02/11/25 History cyanocobalamin (vitamin B-12) 1,000 mcg PO QAM 02/24/23 02/11/25 History 1,000 mcg capsule acetaminophen 325 mg tablet 650 mg PO Q6H PRN Pain 07/19/23 02/11/25 History acetaminophen 500 mg tablet 500 mg PO BID PAIN MANAGEMENT 07/19/23 02/11/25 History aripiprazole 2 mg tablet 2 mg PO UD 10/18/23 02/11/25 History polyethylene glycol 3350 17 gram 17 g PO DAILY PRN Constipation 10/18/23 02/11/25 History oral powder packet (Miralax) estradiol 0.01% (0.1 mg/gram) 1 g vaginal .COMPLEX #42.5 grams 05/24/24 02/11/25 Rx vaginal cream amlodipine 5 mg tablet 5 mg PO HS #100 tabs 09/15/24 02/11/25 Rx clonidine HCl 0.1 mg tablet 0.1 mg PO BID #180 tabs 09/15/24 02/11/25 Rx potassium chloride 20 mEq 20 meq PO BID #180 tabs 09/15/24 02/11/25 Rx tablet,extended release warfarin 3 mg tablet 3 mg PO UD #100 tabs 09/15/24 02/11/25 Rx topiramate 25 mg tablet 25 mg PO QAM 100 days #100 tabs 10/16/24 02/11/25 Rx topiramate 50 mg tablet 50 mg PO QPM 100 days #100 tabs 10/16/24 02/11/25 Rx isosorbide mononitrate 60 mg 60 mg PO QAM #100 tabs 10/24/24 02/11/25 Rx tablet,extended release 24 hr metoprolol succinate 100 mg 100 mg PO HS #100 tabs 10/24/24 02/11/25 Rx tablet,extended release 24 hr pantoprazole 40 mg tablet,delayed 40 mg PO QAM gerd #100 tabs 10/24/24 02/11/25 Rx release (Protonix) pravastatin 80 mg tablet 80 mg PO HS #100 tabs 10/24/24 02/11/25 Rx aspirin 81 mg tablet,delayed 81 mg PO 2XWK 11/13/24 02/11/25 History release (Harvey Low Dose Aspirin) mirtazapine 30 mg tablet 45 mg PO UD 11/13/24 02/11/25 History amoxicillin 500 mg tablet 500 mg PO UD 02/11/25 02/11/25 History Patient History Medical History Diverticulitis of intestine with abscess Compression fracture of L1 vertebra Myocardial Infarction Exertional chest pain Positional vertigo Adenoma of right adrenal gland Tremor of right hand Xerostomia Urinary incontinence Plantar fasciitis Osteoporosis with fracture Internal hemorrhoids Essential hematuria Diverticulosis Depression with anxiety Allergic rhinitis Surgical History Hx of cataract extraction History of appendectomy History of esophagogastroduodenoscopy (EGD) History of colonoscopy History of wisdom tooth extraction History of heart artery stent History of cardiac cath History of hysterectomy with bilateral oophorectomy S/P tonsillectomy Hx of cholecystectomy H/O section Family History Mother Alzheimer disease Dementia Osteoarthritis Father Coronary heart disease Heart disease Myocardial infarction Lung cancer Colorectal cancer Grandmother (Paternal) Diabetes Other No family history of adverse response to anesthesia Denies family history of Rheumatoid arthritis Sudden SIDS (sudden syndrome) Ovarian cancer Prostate cancer Deep vein thrombosis Osteoporosis Dyslipidemia Cerebral aneurysm Bipolar disorder Clotting disorder Crohn's disease Depression Kidney disease Breast cancer Schizophrenia Congenital kidney disease Gestational diabetes COPD (chronic obstructive pulmonary disease) Pulmonary embolism Lung disease Hypertension Ulcerative colitis Colonic polyp Stroke Asthma Cystic kidney disease Social History Smoking Status: Former smoker Tobacco Type: Cigarettes Age Started Using Tobacco: 16; Age Quit Using Tobacco: 0; packs per day: 0; Second Hand Exposure: No; Do You Dip or Chew Tobacco: No; Hx Alcohol Use: No Hx Substance Use: No Preferred Language: Georgian Communication Ability: Effective Visual Impairment: No Limitations Hearing Ability: Normal Telecommunication Lines Repairer Required: No Beliefs That Will Affect Care: None marital status: / Current Living Situation: Alone current occupational status: retired 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 How many Children do You have: 1 Feels Safe at Home: Yes Childhood Exposure to Second-Hand Smoke: No Diet: regular caffeine: Yes during the past year weight has: remained stable Dental Care, Regularly: No Physical Activity Frequency: Does not Exercise Seatbelt Use: always Sunscreen Use: Yes Gender Identity: Female Assistive Devices: Cane Physical Exam Psychiatric: Orientation: alert and oriented x 3 Apperance: appropriately dressed and appropriately groomed Eye Contact: good eye contact Motor Behavior: no abnormal motor movements Speech: normal rate/rhythm/volume of speech Affect: + constricted affect Mood: + depressed mood and + anxious mood Thought Process: + perseveration Thought Content: + paranoid Suicidal Thoughts: denies suicidal thoughts Homicidal Thoughts: denies homicidal thoughts Hallucinations: no auditory hallucinations and no visual hallucinations Cognition: recent memory grossly intact, remote memory grossly intact, attention grossly intact and language grossly intact Insight: + limited insight Judgment: + limited judgement Vital Signs (Past 24 Hours): Last Vital Signs Temp 36.8 C 02/12/25 07:18 Pulse 57 L 02/12/25 07:18 Resp 18 02/12/25 07:18 BP 109/72 02/12/25 07:18 Pulse Ox 93 02/12/25 07:18 O2 Del Method Room Air 02/12/25 07:18 Results & Data (PSY) Laboratory Results UA with bacteria, normal WBC Diagnostic Findings brain imaging last done in 2022 notable for ischemic changes and volume loss Medications Administered Amlodipine Besylate (Amlodipine Besylate 5 Mg Tab) 5 mg PO [facility] Stop: 03/13/25 22:02 Last Admin: 02/11/25 23:05 Dose: 5 mg Documented By: JUANA Clonidine HCl (Clonidine Hcl 0.1 Mg Tab) 0.1 mg PO BID [facility] Stop: 03/13/25 22:02 Last Admin: 02/12/25 07:57 Dose: 0.1 mg Documented By: Admin: 02/11/25 23:06 Dose: 0.1 mg Documented By: JUANA Isosorbide Mononitrate (Isosorbide [place] Extended Rel 60 Mg Tabcr) 60 mg PO QA [facility] Stop: 03/14/25 08:59 Last Admin: 02/12/25 09:13 Dose: 60 mg Documented By: PAM Metoprolol Succinate (Metoprolol Succ 50mg Ext Rel Tab) 100 mg PO [facility] Stop: 03/13/25 22:02 Last Admin: 02/11/25 23:06 Dose: 100 mg Documented By: JUANA Mirtazapine (Mirtazapine Tab 15 Mg Tab) 45 mg PO DAILY [facility] Stop: 03/14/25 08:59 Last Admin: 02/12/25 09:13 Dose: 45 mg Documented By: PAM Pantoprazole Sodium (Pantoprazole 40 Mg Tab) 40 mg PO [facility] Stop: 03/14/25 08:59 Last Admin: 02/12/25 07:57 Dose: 40 mg Documented By: PAM Pravastatin Sodium (Pravastatin Sod 40 Mg Tab) 80 mg PO [facility] Stop: 03/13/25 22:02 Last Admin: 02/11/25 23:06 Dose: 80 mg Documented By: JUANA Topiramate (Topiramate 25 Mg Tab) [facility] [place] Stop: 03/14/25 08:59 Last Admin: 02/12/25 07:56 Dose: 25 mg Documented By: PAM Topiramate (Topiramate 50 Mg Tab) 50 mg PO QPM [facility] Stop: 03/13/25 22:02 Last Admin: 02/11/25 23:07 Dose: 50 mg Documented By: JUANA Zolpidem Tartrate (Zolpidem Tartrate 5 Mg Tab) 5 mg PO HS PRN PRN Reason: Sleep Stop: 03/13/25 22:56 Last Admin: 02/11/25 23:46 Dose: 5 mg Documented By: JUANA Coding Level of Care Code 11362 IN/OBS CONSULT LVL 5,80M Diagnoses Major depressive disorder with current active episode F32.9 Generalized anxiety disorder with panic attacks F41.1; F41.0 AMS (altered mental status) R41.82 Altered mental status type: unspecified Acute UTI N39.0
[2025-02-12] MEDS: WARFARIN SOD 2 MG TAB PO SCH (15:22)
[2025-02-12] MEDS: cefTRIAXone SODIUM 2,000 MG/50 ML BAG IV SCH (15:23)
[2025-02-12] MEDS: WARFARIN SOD 2.5 MG TAB PO SCH (15:23)
[2025-02-13] MEDS: VENLAFAXINE HCL XR 37.5 MG CAPXR PO SCH (07:50)
[2025-02-13] MEDS: ASPIRIN 81 MG ECTAB PO SCH (07:50)
[2025-02-13 08:26] LABS: INR 2.3 (0.9-1.1); Prothrombin Time 23.3 Seconds (9.0-12.0)
[2025-02-13 11:36] LABS: BUN Creatinine Ratio 12.9 (10-20); Calcium 9.6 mg/dl (8.6-10.3); Creatinine Clr Calc Pharmacy 37.3 ml/min; Potassium 3.9 mmol/L (3.5-5.1)
--- NOTE | 2025-02-13 11:58 | Psychiatric Progress Note ---
Date of Service February 13, 2025 Impression / Recommendations Impression Diagnostically consistent with major depressive disorder with anxiety, insomnia, and possible delirium in the context of urinary tract infection. Recent urinalysis shows some abnormalities suggesting active infection which may be contributing to recent increase of paranoia and confusion but less likely to contributing to more chronic issues of anxiety, insomnia and depression. MDD with psychotic features possible but unlikely at this point. Many of her symptoms seem to be driven by age-related concerns about what she will do with all of items she has collected over the years, coping with psychosocial developmental stage of integrity vs despair likely contributing in part to her concerns about feeling unproductive and depression with periods of hopelessness and ruminations. It's unclear if she may also have some potential early cognitive impairment changes given prodromal suspiciousness and paranoia over recent years however, discussed with Shelby and her family that this could also be due to delirium and intensified psychiatric symptoms which makes it very difficult to determine if dementia or age-related cognitive impairment is also present. Brain imaging last done in 2022 notable for some ischemic changes and volume loss so possible she had a vascular insult/step-vivas decline in October contributing to worsening prefrontal inhibition and leading to increased anxiety and with this more paranoia. However, waxing and waning of past episode also highly suggestive that symptoms may improve over time again. Discussed medication treatment options in detail. She is willing to start venlafaxine for depression and anxiety symptoms given no known prior SNRI trial. Also discussed trial of olanzapine as an alternative to Ambien for sleep and for paranoia and off-label for anxiety augmentation. Reviewed side effects including but not limited to: GI upset, headache, vivid dreams, night sweats, and blood pressure changes with venlafaxine; sedation, metabolic and movement risks with olanzapine and goal of this being short-term use if possible. No current suicidal ideation reported. No history of suicide attempts. Previously owned firearms but has sold them, reducing access to lethal means. Acute risk of self-harm is low, and she remains very future-oriented and speaks to reasons for living and loving her family. Consider transition from telepsychiatry to local in-person psychiatric care as tele format seems to be a barrier to Shelby and family seeking increased support when symptoms worsen. 02/13/2025: Tolerating initiation of Effexor XR without any side effects so far. No evidence for confusion or psychosis today. Ongoing ruminative anxiety vs fixed delusion about finances and concerns about running out of money on her fixed income. Continuing to deny SI and future-focused, acute risk of self-harm remains low. Psych liason working to get her set up with appointment at local in-person psychiatry practice to allow for increased frequency of outpatient appointments and check-ins. Overall, I spent a total of 35 minutes with this case including review of chart records, review of labwork, direct evaluation of the patient at bedside, counseling the patient, discussion of the patient with the hospitalist provider, discussion with the psychiatric liason during clinical rounds and documentation in the electronic health record. (1) Major depressive disorder with current active episode: (2) Generalized anxiety disorder with panic attacks: (3) AMS (altered mental status): (4) Acute UTI: Plan 02/13/2025: -Continue current medications and tx plan -Psych liason working to set up appointment with [place] [facility] for local in-person outpatient psych follow-up 02/12/2025: -Recommend addition of Effexor XR 37.5mg daily for MDD/MALATHI, if tolerated dose can be gradually titrated, would increase to 75mg in 1-2 weeks. -Recommend consideration for short-term use of olanzapine 2.5mg HS prn for insomnia/paranoia. If beneficial and tolerated could titrate up to 5mg HS prn. -If olanzapine is started would discontinue Audieien (she found this slightly helpful last night but still struggling with sleep) -Trazodone could also be trialed in the future if sleep issues persist -If sleep issues persist despite improvement in anxiety/depression over coming months would recommend outpatient sleep study if this hasn't been done before to rule out ANNMARIE as this can also make depression more difficult to treat if undiagnosed/untreated -Continue mirtazapine 45mg HS for now (if sleep problems persist consider dose reduction in the future to 30mg HS or even 15mg HS as higher doses are more beneficial for anxiety/depression but are less sedating). -Consider home health services for additional support if she is eligible for this -Given her anxiety and cognitive impairment concerns and past brain imaging it is reasonable to consider future outpatient neurocognitive/neuropsychological workup if memory issues persist (currently family denies any concerns and Shelby's concerns seem more rooted in anxiety/catastrophic belief) Protective Factors Assessment Employed: No Interval History Identifying Information Shelby is a 74 yo woman with a history of hypertension, depression, anxiety with panic attacks, mechanical heart valve on warfarin, essential tremor who presents to the hospital with complaints of palpitations, feeling depressed and altered mental status admitted medically due to concern for UTI and possible delirium. Psychiatry consulted for depression and recent passive SI. Chief Complaint "How much is that going to cost?". Subjective Subjective Patient was seen & assessed and interval progress reviewed. RN documents good sleep overnight, at least 4 hours straight after Ambien at HS. Did not use prn olanzapine. Today she got first dose of Effexor XR and denies any side effects from this. Remains anxious about money, as CM discussed home health services with her and she's unconvinced that insurance will cover this. Otherwise future-focused on desire to return home tomorrow. Denies any SI. She remains in agreement with plan for trying to work with local psychiatric practice as she struggles with the telehealth appointments. Physical Exam Psychiatric Orientation: alert and oriented x 3 Apperance: appropriately dressed and appropriately groomed Eye Contact: good eye contact Motor Behavior: no abnormal motor movements Speech: normal rate/rhythm/volume of speech Affect: + constricted affect Mood: + depressed mood and + anxious mood Thought Process: + perseveration Thought Content: + preoccupation (cost of things) Suicidal Thoughts: denies suicidal thoughts Homicidal Thoughts: denies homicidal thoughts Hallucinations: no auditory hallucinations and no visual hallucinations Cognition: recent memory grossly intact, remote memory grossly intact, attention grossly intact and language grossly intact Insight: + limited insight Judgment: + limited judgement Vital Signs (Past 24 Hours) Last Vital Signs Temp 36.5 C 02/13/25 07:09 Pulse 66 02/13/25 07:09 Resp 20 02/13/25 07:09 BP 158/78 H 02/13/25 07:09 Pulse Ox 94 02/13/25 07:09 O2 Del Method Room Air 02/13/25 07:09 Results & Data ([facility]) Laboratory Results Laboratory Results - last 24 hr 02/13/25 02/13/25 06:30 11:01 PT 23.3 H INR 2.3 H Sodium 139 Potassium 3.9 Chloride 110 H Carbon Dioxide 24 Anion Gap 5 BUN 18 Creatinine 1.40 H Est Cr Clr Drug Dosing 37.3 eGFR 38.99 BUN/Creatinine Ratio 12.9 Glucose 160 H Estimat Average Glucose Pending Hemoglobin A1c Pending Calcium 9.6 Magnesium 2.0 Vitamin B12 Pending Current Inpatient Medications Current Inpatient Medications: Current Inpatient Medications Acetaminophen (Acetaminophen 325 Mg Tab) 650 mg PO Q4H PRN PRN Reason: pain/fever Stop: 03/13/25 22:02 Amlodipine Besylate (Amlodipine Besylate 5 Mg Tab) 5 mg PO [facility] Stop: 03/13/25 22:02 Last Admin: 02/12/25 19:56 Dose: 5 mg Aspirin (Aspirin 81 Mg Ectab) 81 mg PO TuFr@0900 [facility] Stop: 03/15/25 08:59 Last Admin: 02/13/25 07:50 Dose: 81 mg Clonidine HCl (Clonidine Hcl 0.1 Mg Tab) 0.1 mg PO BID [facility] Stop: 03/13/25 22:02 Last Admin: 02/13/25 07:50 Dose: 0.1 mg Ceftriaxone Sodium (Rocephin) 2,000 mg in 50 mls @ 100 mls/hr IV DAILY@1100 [facility] Stop: 02/18/25 10:59 Isosorbide Mononitrate (Isosorbide [place] Extended Rel 60 Mg Tabcr) [facility] [place] Stop: 03/14/25 08:59 Last Admin: 02/13/25 07:50 Dose: 60 mg Metoprolol Succinate (Metoprolol Succ 50mg Ext Rel Tab) 100 mg PO [facility] Stop: 03/13/25 22:02 Last Admin: 02/12/25 19:56 Dose: 100 mg Mirtazapine (Mirtazapine Tab 15 Mg Tab) 45 mg PO DAILY [facility] Stop: 03/14/25 08:59 Last Admin: 02/13/25 07:50 Dose: 45 mg Pantoprazole Sodium (Pantoprazole 40 Mg Tab) [facility] [place] Stop: 03/14/25 08:59 Last Admin: 02/13/25 07:51 Dose: 40 mg Pravastatin Sodium (Pravastatin Sod 40 Mg Tab) 80 mg PO [facility] Stop: 03/13/25 22:02 Last Admin: 02/12/25 19:55 Dose: 80 mg Topiramate (Topiramate 25 Mg Tab) [facility] [place] Stop: 03/14/25 08:59 Last Admin: 02/13/25 07:50 Dose: 25 mg Topiramate (Topiramate 50 Mg Tab) 50 mg PO QPM [facility] Stop: 03/13/25 22:02 Last Admin: 02/12/25 19:55 Dose: 50 mg Venlafaxine HCl (Venlafaxine Hcl Xr 37.5 Mg Capxr) 37.5 mg PO QAM [facility] Stop: 03/15/25 08:59 Last Admin: 02/13/25 07:50 Dose: 37.5 mg Warfarin Sodium (Warfarin Sod 5 Mg Tab) 5 mg PO DAILY@1600 [facility] Stop: 03/15/25 15:59 Zolpidem Tartrate (Zolpidem Tartrate 5 Mg Tab) 5 mg PO HS PRN PRN Reason: Sleep Stop: 03/13/25 22:56 Last Admin: 02/12/25 22:50 Dose: 5 mg (3) AMS (altered mental status) Altered mental status type: unspecified Qualified Code(s): R41.82 - Altered mental status, unspecified
[2025-02-13] MEDS: cefTRIAXone SODIUM 2,000 MG/50 ML BAG IV SCH (12:07)
[2025-02-13 12:22] LABS: Estimated Average Glucose 117 mg/dl; Hemoglobin A1C 5.7 % (4.5-5.6)
--- NOTE | 2025-02-13 14:13 | Hospitalist Progress Note ---
Date of Service February 13, 2025 Assessment & Plan (1) Acute UTI: (2) Depression: (3) Chronic kidney disease, stage 3a: (4) S/P CABG (coronary artery bypass graft): (5) Prediabetes: (6) History of aortic valve replacement with metallic valve: (7) CAD (coronary artery disease): (8) Anticoagulated on Coumadin: (9) Hypertension: Plan 74-year-old female with past medical history of coronary disease status post CABG, hypertension, mechanical valve on warfarin, depression, anxiety, CKD stage III, prediabetes presented to the ED feeling low and depressed with some confusion and was found to have urinary tract infection #Acute urinary tract infection with E. coli with delirium Mentation has improved and is at her baseline Urine culture grew E. coli Continue IV ceftriaxone (day 2) #Depression/anxiety B12 is 1375 TSH is 1.396 Patient was seen by psychiatry team No suicidal ideation No history of suicide attempts Patient sees a tele psychiatrist at [facility] and psychiatry is recommended to transition to a local in person psychiatrist Psychiatry recommended starting Effexor XR 37.5 mg daily for MDD/MALATHI and if tolerated the dose can be gradually titrated and increase to 75 mg in 1 to 2 weeks time Psychiatry has also recommended consideration for short-term use of olanzapine 2.5 mg nightly as needed for insomnia/paranoia and if beneficial and tolerated could titrate up to 5 mg nightly as needed As per psychiatry if olanzapine is started that psychiatry is recommending to discontinue Ambien Psychiatry also has recommended trazodone could be trialed in the future if sleep issues persist Psychiatry has recommended continuing mirtazapine 45 mg p.o. nightly and if sleep problems persist consider dose reduction in the future to 30 mg nightly or even 50 mg nightly as higher doses are more beneficial for anxiety/depression but are less sedating. Psychiatry has recommended outpatient neurocognitive/neuropsychological workup: Will defer this to her primary care provider for referral as outpatient #Essential tremor On topiramate 50 mg in the evening and 25 mg in the morning #Coronary disease status post CABG #History of aortic valve replacement status post mechanical valve #Essential hypertension Outpatient child welfare worker is Dr. Sav Milner INR today is 2.3: Increase Coumadin to 5 mg p.o. daily Continue aspirin 81 mg daily plus statin Continue clonidine 0.1 mg p.o. twice daily Continue Imdur 60 mg p.o. daily Continue Toprol-XL 100 mg p.o. nightly Patient has follow-up with Dr. Milner on , 02/15/2025 #CKD stage III Baseline creatinine is around 1.4 Patient was not aware that she had CKD stage III Discussed hydrating with water: Patient does admit that she is very poor about hydration Gentle IV fluid hydration Avoid nephrotoxic agents including NSAIDs Monitor renal function and electrolytes #Prediabetes A1c is 5.7 Patient was not aware of this diagnosis either Lifestyle counseling regarding diet, exercise and weight loss provided Outpatient follow-up with PCP CODE STATUS: Full code DVT prophylaxis: Patient on warfarin Discharge planning Home with home health likely tomorrow if medically stable Care plan discussed with patient, nursing staff and family updated at bedside with patient's permission Admission and Anticipated Discharge Date Admission Date: February 11, 2025 Subjective Patient seen and examined Brother and [id number] at bedside Patient reports feeling better today Denies any chest pain, shortness of breath, nausea, vomiting, diarrhea, abdominal pain Patient admits to not drinking much fluids and does not like drinking water She lives by herself. Physical Exam Physical Exam: General: No acute distress Psych: Awake and alert HEENT: Anicteric sclera, moist oral mucosa CVS: Regular rate and rhythm, mechanical valve click noted Lungs: Bilateral air entry, no wheezing noted Abdomen: Soft, nontender, no rebound, no guarding Ext: No lower extremity edema, no calf tenderness Neuro: No focal motor deficits noted Results & Data Results & Data Vital Signs (Past 12 Hours) Vital Signs Temp Pulse Resp BP Pulse Ox O2 Del Method 02/13/25 07:09 36.5 C 66 20 158/78 H 94 Room Air Laboratory Results Laboratory Results - last 24 hr 02/13/25 02/13/25 06:30 11:01 PT 23.3 H INR 2.3 H Sodium 139 Potassium 3.9 Chloride 110 H Carbon Dioxide 24 Anion Gap 5 BUN 18 Creatinine 1.40 H Est Cr Clr Drug Dosing 37.3 eGFR 38.99 BUN/Creatinine Ratio 12.9 Glucose 160 H Estimat Average Glucose 117 Hemoglobin A1c 5.7 H Calcium 9.6 Magnesium 2.0 Vitamin B12 1375 H PG Care Time/CCT Total # of Minutes Spent Total Time Spent with Patient: Total time spent is greater than 50% in coordination of care (as documented) at patient's floor/unit and/or counseling patient: Coding Level of Care Code 90110 SUB INP/OBS CARE 3/50MIN Diagnoses Acute UTI N39.0 Depression F32.A Depression Type: unspecified Chronic kidney disease, stage 3a N18.31 S/P CABG (coronary artery bypass graft) Z95.1 Prediabetes R73.03 History of aortic valve replacement with metallic valve Z95.4 CAD (coronary artery disease) I25.119 Associated angina: with unspecified form of angina Coronary Disease-Associated Artery/Lesion type: unspecified vessel or lesion type [place] vs. transplanted heart: [place] heart Anticoagulated on Coumadin Z79.01 Primary hypertension I10 Hypertension type: primary hypertension Time Spent (min) 50 (2) Depression Depression Type: unspecified Qualified Code(s): F32.A - Depression, unspecified (7) CAD (coronary artery disease) Associated angina: with unspecified form of angina Coronary Disease- Associated Artery/Lesion type: unspecified vessel or lesion type [place] vs. transplanted heart: [place] heart Qualified Code(s): I25.119 - Atherosclerotic heart disease of [place] coronary artery with unspecified angina pectoris (9) Hypertension Hypertension type: primary hypertension Qualified Code(s): I10 - Essential (primary) hypertension
[2025-02-13] MEDS: SODIUM CHLORIDE 0.45 % 1,000 ML IV SCH (15:29)
[2025-02-13] MEDS ORDERED: WARFARIN SOD 3 MG TAB PO SCH (16:00)
[2025-02-13] MEDS: WARFARIN SOD 5 MG TAB PO SCH (17:08)
[2025-02-14 08:29] LABS: Hematocrit (blood only) 46.6 % (37.0-47.0); Hemoglobin 15.7 g/dl (12.0-16.0); Mean Corpuscular Hemoglobin 31.2 pg (25.0-34.0); Mean Corpuscular Hgb Conc 33.7 g/dL (32.0-36.0); Mean Corpuscular Volume 92.5 fL (80.0-100.0); Mean Platelet Volume 9.8 fL (9.4-12.4); Platelet Count 207 K/uL (130-400); RDW Standard Deviation 40.8 fL (36.4-46.3); Red Blood Count 5.04 M/uL (4.20-5.40); White Blood Count 5.55 K/ul (4.8-10.8)
[2025-02-14 08:40] LABS: BUN Creatinine Ratio 12.3 (10-20); Calcium 9.7 mg/dl (8.6-10.3); Creatinine Clr Calc Pharmacy 49.2 ml/min; Magnesium 2.2 mg/dl (1.7-2.4); Potassium 4.6 mmol/L (3.5-5.1)
[2025-02-14 08:52] LABS: INR 2.5 (0.9-1.1); Prothrombin Time 24.8 Seconds (9.0-12.0)
--- NOTE | 2025-02-14 14:10 | Discharge Summary ---
Discharge Summary Date of Service February 14, 2025 Principal Dx & Hospital Course #1 = Principal Diagnosis (1) Acute UTI: (2) Depression: (3) Chronic kidney disease, stage 3a: (4) S/P CABG (coronary artery bypass graft): (5) Prediabetes: (6) History of aortic valve replacement with metallic valve: (7) CAD (coronary artery disease): (8) Anticoagulated on Coumadin: (9) Hypertension: Plan 74-year-old female with past medical history of coronary disease status post CABG, hypertension, mechanical valve on warfarin, depression, anxiety, CKD stage III, prediabetes presented to the ED feeling low and depressed with some confu yuniel and was found to have urinary tract infection #Acute urinary tract infection with E. coli with delirium Mentation has improved and is at her baseline Delirium likely secondary UTI which has resolved Urine culture grew E. coli Patient finished 3 days of IV ceftriaxone and has been switched to oral cephalexin for 4 more days to finish 7-day course of antibiotic #Depression/anxiety B12 is 1375 TSH is 1.396 Patient was seen by psychiatry team No suicidal ideation No history of suicide attempts Patient sees a tele psychiatrist at [facility] and psychiatry is recommended to transition to a local in person psychiatrist Psychiatry recommended starting Effexor XR 37.5 mg daily for MDD/MALATHI and if tolerated the dose can be gradually titrated and increase to 75 mg in 1 to 2 weeks time Psychiatry has also recommended consideration for short-term use of olanzapine 2.5 mg nightly as needed for insomnia/paranoia and if beneficial and tolerated could titrate up to 5 mg nightly as needed As per psychiatry if olanzapine is started that psychiatry is recommending to discontinue Ambien Psychiatry also has recommended trazodone could be trialed in the future if sleep issues persist Psychiatry has recommended continuing mirtazapine 45 mg p.o. nightly and if sleep problems persist consider dose reduction in the future to 30 mg nightly or even 15 mg nightly as higher doses are more beneficial for anxiety/depression but are less sedating. Psychiatry has recommended outpatient neurocognitive/neuropsychological workup: Will defer this to her primary care provider for referral as outpatient I spoke with psychiatrist Dr. Nadine Saldivar today on the phone: She recommended stopping patient's Abilify, continuing Effexor, mirtazapine and starting patient on olanzapine 2.5 mg p.o. nightly as needed insomnia. She has arranged for patient to have an outpatient psychiatry appointment next week and the liaison has given patient all the details and medication adjustments can be done on follow-up. #Essential tremor On topiramate 50 mg in the evening and 25 mg in the morning #Coronary disease status post CABG #History of aortic valve replacement status post mechanical valve #Essential hypertension Outpatient sider mechanic is Dr. Sav Milner Patient tells me her warfarin dosing is managed by her PCP INR today is 2.5 Patient to continue with her outpatient Coumadin dose and since she is on antibiotics I recommended that she have her INR checked through her PCP on 02/16/2025 and Coumadin dose to be adjusted based on repeat INR by PCP Continue aspirin 81 mg daily plus statin Continue clonidine 0.1 mg p.o. twice daily Continue Imdur 60 mg p.o. daily Continue Toprol-XL 100 mg p.o. nightly Patient has follow-up with Dr. Milner on , 02/15/2025 #CKD stage III Baseline creatinine is around 1.4 Patient was not aware that she had CKD stage III Avoid nephrotoxic agents including NSAIDs Monitor renal function and electrolytes #Prediabetes A1c is 5.7 Patient was not aware of this diagnosis either Lifestyle counseling regarding diet, exercise and weight loss provided Outpatient follow-up with PCP Patient seen and examined today. She is smiling and denies any new complaints. I have gone over the discharge care plan, medications and follow-up with the patient in great detail and answered all her questions. I will also left a message for her daughter Odalys Rocha ([phone]) to update. This discharge to greater than 30 minutes to coordinate Admission HPI Per Admitting Provider Patient is a 74-year-old female with a history of hypertension, depression, anxiety, mechanical heart valve on warfarin, essential tremor who presents to the hospital with complaints of palpitations, feeling depressed and altered mental status. Some of the history was obtained from the patient's daughter who was at the bedside. According to the daughter, since the patient suffered COVID a few years ago, she has not been herself and has been dipping in and out of depression with low energy and anxiety. She said that over the past couple of weeks she has been somewhat confused, hallucinating and paranoid. However earlier today she started feeling her heart pounding so the decision was made to bring her to the hospital. In addition, patient has also been complaining of feeling very low and depressed and also wanting to , although without no definite plan. In the emergency department, blood pressure was 192/99, pulse of 78, respiratory rate 26 temperature 97.5. Urinalysis showed evidence of UTI. Urine cultures were obtained psychiatry consulted, patient will be admitted to the hospital further management. Discharge Exam General: No acute distress Psych: Awake and alert, oriented to place person HEENT: Anicteric sclera, moist oral mucosa CVS: Regular rate and rhythm, mechanical valve click noted Lungs: Bilateral air entry, no wheezing noted Abdomen: Soft, nontender, no rebound, no guarding Ext: No lower extremity edema, no calf tenderness Neuro: No focal motor deficits noted Discharge Plan Discharge Items Patient Disposition: Home - Home Health Services Reason For Visit: UTI Discharge Diagnosis: #Acute urinary tract infection with E. coli with delirium #Depression/anxiety #Essential tremor #Coronary disease status post CABG #History of aortic valve replacement status post mechanical valve #Essential hypertension #CKD stage III #Prediabetes Condition on Discharge: Good Activity: Resume your previous activity Driving/Machine Use: No driving until you are cleared by your PCP Non-emergency contact: Primary Care Provider Call non-emergency contact if: you have any medication questions, your symptoms worsen and you have a fever Follow-up/Referrals: [facility] [Outside] - 02/19/25 9:10 am (PLEASE CALL [phone] 24 HOURS BEFORE NEEDING TO CANCEL OR CHANGE APPOINTMENT. THIS APPOINTMENT IS FOR PSYCHIATRIC MEDICATION MANAGEMENT.) Sav Milner MD [Physician] - Olman Diaz MD [Primary Care Provider] - Diet: Heart Healthy and Other - See Diet Comment Diet Comment: Avoid soda and sugary drinks. Avoid high sugar content foods Addtl Attending Provider Instructions: DISCHARGE INSTRUCTION TO PATIENT/FAMILY: Follow-up with your primary care provider within 1 week regarding: Posthospital discharge, medication review, medication refills and follow-up on all your medical problems, Labs Please take all your discharge medications, discharge information and discharge instructions to all your doctors appointments. Avoid all NSAIDs including ibuprofen, Motrin, Advil, Aleve, naproxen, meloxicam, Toradol, diclofenac Labs through PCP On Wednesday02/16/25: PT/INR since you are on antibiotics and warfarin dose to be adjusted by PCP based on repeat INR Follow-up with your sider mechanic Dr. Sav Milner for your scheduled appointment on 02/15/2025 You have chronic kidney disease stage III: Please ensure that you are drinking water at least 6 to 8 cups a day. Please follow-up with your primary care provider to monitor your renal function and electrolytes in 1 to 2 weeks time. You also have prediabetes. Your A1c is 5.7. Please avoid soda, sugary drinks and avoid high sugar content foods You were seen by the psychiatrist during this hospital stay. Psychiatry is recommended that you stop Abilify and they have started you on a new medication called Effexor XR 37.5 mg daily. You have also been started on olanzapine 2.5 mg at bedtime as needed for insomnia. Psychiatry is also arrange for you to have outpatient appointment next week to review her medications and give further medication regimen recommendations. Please ensure that you follow-up with outpatient psychiatrist next week as planned by psychiatry team. You are also diagnosed with a urinary tract infection secondary to E. coli. You have been treated with 3 days of IV antibiotics ceftriaxone. You have now been switched to oral cephalexin antibiotic 500 mg 3 times a day starting tomorrow 02/15/2025 for 4 more days to finish a 7-day course of antibiotic. Pending Studies at Discharge: No Stand-Alone Forms: My [facility], Smoking Cessation Medications and DC Order Prescriptions: New venlafaxine 37.5 mg Capsule,Extended Release 24hr 37.5 mg PO QAM Qty: 30 0RF olanzapine [Zyprexa] 2.5 mg tablet 2.5 mg PO HS PRN (Reason: insomnia) Qty: 7 0RF cephalexin 500 mg capsule 500 mg PO TID Qty: 12 0RF Rx Instructions: START ON 02/15/25 FOR 4 DAYS Continued amlodipine 5 mg tablet 5 mg PO HS Qty: 100 3RF clonidine HCl 0.1 mg tablet 0.1 mg PO BID Qty: 180 3RF warfarin 3 mg tablet 3 mg PO UD Qty: 100 5RF Protocol: Dose Management Condition: Wednesday Dose/Route: 3 mg Instruction: 1 x 3 mg tablet Condition: Wednesday Dose/Route: 4.5 mg Instruction: 1.5 x 3 mg tablets Condition: Wednesday Dose/Route: 3 mg Instruction: 1 x 3 mg tablet Condition: Wednesday Dose/Route: 4.5 mg Instruction: 1.5 x 3 mg tablets Condition: Dose/Route: 4.5 mg Instruction: 1.5 x 3 mg tablets Condition: Wednesday Dose/Route: 4.5 mg Instruction: 1.5 x 3 mg tablets Condition: Wednesday Dose/Route: 3 mg Instruction: 1 x 3 mg tablet Protocol Text: Adjustment Start Date: Wednesday02/06/25 INR Value: 3.2 INR Date: 02/05/25 Recheck Date: 03/08/25 isosorbide mononitrate 60 mg tablet extended release 24 hr 60 mg PO QAM Qty: 100 3RF metoprolol succinate 100 mg tablet extended release 24 hr 100 mg PO HS Qty: 100 3RF pantoprazole [Protonix] 40 mg tablet,delayed release (DR/EC) 40 mg PO QAM Qty: 100 3RF pravastatin 80 mg tablet 80 mg PO HS Qty: 100 3RF acetaminophen 500 mg tablet 500 mg PO BID Patient Comments: CONFIRMED ON [facility] DC SUMMARY AND / [facility] 07/19 Rx Instructions: otc unable to verify acetaminophen 325 mg tablet 650 mg PO Q6H PRN (Reason: Pain) Patient Comments: CONFIRMED ON [facility] DC SUMMARY AND [facility] 07/19 Rx Instructions: otc unable to verify cholecalciferol (vitamin D3) 1,000 unit capsule 5,000 units PO QAM Rx Instructions: otc unable to verify albuterol sulfate [ProAir HFA] 90 mcg/actuation HFA aerosol inhaler 2 puff inhalation QID PRN (Reason: shortness of breath) Qty: 8.5 2RF Rx Instructions: no fill history available mirtazapine 30 mg tablet 45 mg PO UD Rx Instructions: 45 mg po daily. last filled 09/15 90 day supply aspirin [Harvey Low Dose Aspirin] 81 mg tablet,delayed release (DR/EC) 81 mg PO 2XWK Patient Comments: & Wednesday Rx Instructions: otc unable to verify topiramate 25 mg tablet 25 mg PO QAM 100 Days Qty: 100 2RF topiramate 50 mg tablet 50 mg PO QPM 100 Days Qty: 100 2RF estradiol 0.01 % (0.1 mg/gram) cream 1 g vaginal .COMPLEX Qty: 42.5 1RF Rx Instructions: 1 g vaginal; 1gm PV daily for 14 days, then 1/2gm PV twice weekly cyanocobalamin (vitamin B-12) 1,000 mcg capsule 1,000 mcg PO QAM Rx Instructions: otc unable to verify calcium carbonate [Calcium 600] 600 mg calcium (1,500 mg) Tablet 600 mg PO BID Rx Instructions: otc unable to verify polyethylene glycol 3350 [Miralax] 17 gram powder in packet 17 g PO DAILY PRN (Reason: Constipation) Rx Instructions: otc unable to verify amoxicillin 500 mg tablet 500 mg PO UD Rx Instructions: Take 2000mg (4 tablets) orally one hour prior to dental procedures; no fill history available Discontinued potassium chloride 20 mEq tablet extended release 20 meq PO BID Qty: 180 3RF aripiprazole 2 mg tablet 2 mg PO UD Patient Comments: Mally from [facility] pharmacy said Dr. Haylee Rebolledo ordered the medication on 06/09/24 Rx Instructions: 2 mg po qam. last filled 08/25 90 day supply Discharge Orders: Discharge Order (Routine); Ordered 02/14/25 Ordered By: Luca Turner Admission Data Admit Date/Time: 02/11/25 15:07 Attending Provider: Luca Turner Admit Provider: Brett Milian Primary Care Provider: Olman Diaz Other Providers: Brett Milian; Nadine Saldivar; [facility] Hospital Stay Data Consultations 02/11/25 14:48 ED Decision to Admit Stat 02/11/25 15:09 Consult Psychiatry Routine Pending Results Patient Have Any Pending Studies at Discharge: No Discharge Instructions Given to Patient (Per Discharging Provider) DISCHARGE INSTRUCTION TO PATIENT/FAMILY: Follow-up with your primary care provider within 1 week regarding: Posthospital discharge, medication review, medication refills and follow-up on all your medical problems, Labs Please take all your discharge medications, discharge information and discharge instructions to all your doctors appointments. Avoid all NSAIDs including ibuprofen, Motrin, Advil, Aleve, naproxen, meloxicam, Toradol, diclofenac Labs through PCP On Wednesday02/16/25: PT/INR since you are on antibiotics and warfarin dose to be adjusted by PCP based on repeat INR Follow-up with your sider mechanic Dr. Sav Milner for your scheduled appointment on 02/15/2025 You have chronic kidney disease stage III: Please ensure that you are drinking water at least 6 to 8 cups a day. Please follow-up with your primary care provider to monitor your renal function and electrolytes in 1 to 2 weeks time. You also have prediabetes. Your A1c is 5.7. Please avoid soda, sugary drinks and avoid high sugar content foods You were seen by the psychiatrist during this hospital stay. Psychiatry is recommended that you stop Abilify and they have started you on a new medication called Effexor XR 37.5 mg daily. You have also been started on olanzapine 2.5 mg at bedtime as needed for insomnia. Psychiatry is also arrange for you to have outpatient appointment next week to review her medications and give further medication regimen recommendations. Please ensure that you follow-up with outpatient psychiatrist next week as planned by psychiatry team. You are also diagnosed with a urinary tract infection secondary to E. coli. You have been treated with 3 days of IV antibiotics ceftriaxone. You have now been switched to oral cephalexin antibiotic 500 mg 3 times a day starting tomorrow 02/15/2025 for 4 more days to finish a 7-day course of antibiotic. Total Time Total Time Spent Total Time Spent (In Minutes): 40 minutes Coding Level of Care Code 06572 INP/OBS DISCH >30 MIN Diagnoses Acute UTI N39.0 Depression F32.A Depression Type: unspecified Chronic kidney disease, stage 3a N18.31 S/P CABG (coronary artery bypass graft) Z95.1 Prediabetes R73.03 History of aortic valve replacement with metallic valve Z95.4 CAD (coronary artery disease) I25.119 Associated angina: with unspecified form of angina Coronary Disease-Associated Artery/Lesion type: unspecified vessel or lesion type [place] vs. transplanted heart: [place] heart Anticoagulated on Coumadin Z79.01 Primary hypertension I10 Hypertension type: primary hypertension
[2025-02-14 15:04] VITALS: BP 123/76; PULSE 69; RESP 16; TEMP 97.7; O2SAT 95
== END 2025-02-14 17:19 | disposition home health service (06) | DRG 690 ==
LOC: ED 08:54 → EDINP 15:07 → SUATTDRO 15:07 → 3N 21:33

== ENCOUNTER 2025-02-26 10:08 | Inpatient (IN) ==
--- NOTE | 2025-02-26 10:23 | Emergency Department Note ---
Impression & Plan Agitation, Encephalopathy acute, Elevated troponin ED Provider Note Name: MILTON BRITT Age: 74 Sex: Female Arrives Via: Ambulance Informant: Patient, EMS, nursing staff ED Provider: Shreyas Lombardi MD Chief Complaint: Agitation Impression: As per impressions above Medical Decision Makin-year-old female arrives for evaluation of agitation. Patient with 2 days worsening agitation irritability. 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 Reportedly may have tested positive for a UTI few days ago. UA here though is relatively unremarkable. Laboratory workup is reassuring however she does have a somewhat elevated troponin. Unclear etiology of elevated troponin however on discussion with her she said she may have had some chest pain this morning. EKG is fortunately unremarkable. Laboratory workup is unremarkable. She was given a dose of aspirin. She is history of anticoagulation with Coumadin. Hospitalist was consulted for further management and discussion. Of note patient did not strike her head has no findings of trauma to her head and with previous CT imaging we will hold off and defer to hospitalist service. Triage/Nursing Notes reviewed by Me External Chart Review by me: I reviewed the discharge summary from 02/14/2025 to get the recent past medical history. Differential:Infection, dehydration, metabolic abnormality, hypo/hyperglycemia, electrolyte disturbance, anemia, hypoxia, cardiac sources, intracerebral event, toxicologic, neurologic, as well as other pathologies. Vital Signs: reviewed and remarkable for no significant abnormalities Interventions: nss bolus, aspirin po Labs:ED labs Reviewed by me and remarkable for elevated troponin EKG:As per my interpretation. Indication agitation. Normal sinus rhythm at 90 bpm QTc of 442. There is no ischemia. PAC noted. No significant change from February 11, 2025. Cardiac/Tele Monitoring: Cardiac Monitoring: An Order was placed for continuous cardiac monitoring. The monitor shows a rate of 90 with a normal sinus rhythm. Consults: Discussed with Dr Frank who will evaluate and bring in for further management. Plan: Disposition:Hospitalization. Condition: Good History of Present Illness: 74-year-old female arrives for evaluation of agitation. Patient with 2 days of worsening agitation and irritability. She apparently was getting a bit aggressive at home 2 days ago and police even had to be called. Due to worsening confusion she was sent to the ER. This is similar to her symptoms when she had an acute UTI about 2 weeks ago for which she has finished antibiotics. No reported falls, trauma, injuries. Patient denies any chest pain, shortness of breath, headache, abdominal pain, back pain or other concerning signs or symptoms. No medication prior to arrival. Past Medical History:See Below Home Medications:See Below Allergies:See Below Vitals:Blood Pressure: 116/70, Pulse 78, RR 20, T 36.8C, O2 98% on RA Physical Exam: GENERAL: Patient is mildly encephalopathic appearing and in minimal distress. RESPIRATORY: No dyspnea. Clear to auscultation and equal bilaterally. CARDIOVASCULAR: Regular rate and rhythm.No murmur appreciated. GASTROINTESTINAL: Abdomen soft, non-tender, no peritonitis. EXTREMITIES: Normal motion all extremities, no cyanosis, no edema. NEUROLOGIC: Alert and oriented. No focal neurologic deficits appreciated SKIN: No rash, no jaundice, no diaphoresis. PSYCH: Appropriate GCS: 15 ED Course: Times/Reassessments: Multiple repeat evaluations. Patient does appear a bit improved after fluids. She had a single episode of hypotension which on my recheck revealed normal pressure. I do not feel the patient is severe septic or septic shock at this time. Shreyas Lombardi MD Past Med/Surg History Problem List (Updated 02/26/25 @ 15:34 by Shreyas Lombardi MD) Elevated troponin (Acute) Encephalopathy acute (Acute) Agitation (Acute) Major depressive disorder with current active episode Generalized anxiety disorder with panic attacks Acute encephalopathy AMS (altered mental status) (Acute) Acute UTI (Acute) Depression (Acute) Palpitations (Acute) Spinal stenosis, lumbar Facet arthropathy, lumbar Idiopathic polyneuropathy Numbness and tingling of foot Acute dyspnea Essential tremor Vaginal burning Chronic kidney disease, stage 3a History of adenomatous polyp of colon Vitamin D deficiency Major depress dis, severe Anxiety Chronic prescription benzodiazepine use Insomnia History of diverticulitis of colon Depression with anxiety Vitamin B12 deficiency Left knee DJD Benign positional vertigo (Acute) Urinary incontinence Hematuria Encounter for Medicare annual wellness exam GERD (gastroesophageal reflux disease) Osteoporosis (Chronic) S/P CABG (coronary artery bypass graft) [place] [facility] [place]iabetes no meds PAD (peripheral artery disease) Hyperlipidemia History of aortic valve replacement with metallic valve (Acute) 2000 CAD (coronary artery disease) (Acute) Occlusion of right internal carotid artery Asthma inhaler prn > very rare use Anticoagulated on Coumadin Hypertension Medical History Diverticulitis of intestine with abscess Compression fracture of L1 vertebra Myocardial Infarction Exertional chest pain Positional vertigo Adenoma of right adrenal gland Tremor of right hand Xerostomia Urinary incontinence Plantar fasciitis Osteoporosis with fracture Internal hemorrhoids Essential hematuria Diverticulosis Depression with anxiety Allergic rhinitis Surgical History Hx of cataract extraction History of appendectomy History of esophagogastroduodenoscopy (EGD) History of colonoscopy History of wisdom tooth extraction History of heart artery stent History of cardiac cath History of hysterectomy with bilateral oophorectomy S/P tonsillectomy Hx of cholecystectomy H/O section Family History Mother Alzheimer disease Dementia Osteoarthritis Father Coronary heart disease Heart disease Myocardial infarction Lung cancer Colorectal cancer Grandmother (Paternal) Diabetes Other No family history of adverse response to anesthesia Denies family history of Rheumatoid arthritis Sudden SIDS (sudden syndrome) Ovarian cancer Prostate cancer Deep vein thrombosis Osteoporosis Dyslipidemia Cerebral aneurysm Bipolar disorder Clotting disorder Crohn's disease Depression Kidney disease Breast cancer Schizophrenia Congenital kidney disease Gestational diabetes COPD (chronic obstructive pulmonary disease) Pulmonary embolism Lung disease Hypertension Ulcerative colitis Colonic polyp Stroke Asthma Cystic kidney disease Social History Smoking Status: Former smoker Tobacco Type: Cigarettes Age Started Using Tobacco: 16; Age Quit Using Tobacco: 0; packs per day: 0; Second Hand Exposure: No; Do You Dip or Chew Tobacco: No; Hx Alcohol Use: No Hx Substance Use: No Preferred Language: Jordanian Communication Ability: Effective Visual Impairment: No Limitations Hearing Ability: Normal Guitar Maker Required: No Beliefs That Will Affect Care: None marital status: / Current Living Situation: Family current occupational status: retired 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 [employer] How many Children do You have: 1 Other Information That Helps Us Care for You: No Feels Safe at Home: Yes Safety Concerns: Feels Safe At This Time Childhood Exposure to Second-Hand Smoke: No Diet: regular caffeine: Yes during the past year weight has: remained stable Dental Care, Regularly: No Physical Activity Frequency: Does not Exercise Seatbelt Use: always Sunscreen Use: Yes Gender Identity: Female Assistive Devices: Cane and Glasses Allergies Allergies Allergy/AdvReac Type Severity Reaction Status Date / Time rosuvastatin [From Crestor] Allergy Intermediate myalgia Verified 02/21/25 11:11 sertraline [From Zoloft] Allergy Intermediate burn Verified 02/21/25 11:11 sensation on skin on arms lovastatin Allergy Mild rash Verified 02/21/25 11:11 bupropion [From Wellbutrin] AdvReac Intermediate insomnia Verified 02/21/25 11:11 and tremors dicyclomine AdvReac Intermediate N/V Verified 02/21/25 11:11 codeine AdvReac Mild NAUSEA & Verified 02/21/25 11:11 PAIN ezetimibe [From Zetia] AdvReac Mild Gastrointestinal Verified 02/21/25 11:11 Upset methadone AdvReac Mild GI UPSET(?) Verified 02/21/25 11:11 niacin AdvReac Mild Gastrointestinal Verified 02/21/25 11:11 [From Niaspan Upset Extended-Release] paroxetine [From Paxil] AdvReac Mild Gastrointestinal Verified 02/21/25 11:11 Upset propoxyphene AdvReac Mild NAUSEA & Verified 02/21/25 11:11 PAIN simvastatin [From Zocor] AdvReac Mild Gastrointestinal Verified 02/21/25 11:11 Upset [id number] Reductase AdvReac Mild STATIN Verified 02/21/25 11:11 Inhibitor INTOLERANCE - GI UPSET Home Meds Home Medications Medication Instructions Recorded Confirmed cholecalciferol (vitamin D3) 25 5,000 units PO QAM 09/05/19 02/26/25 mcg (1,000 unit) capsule calcium carbonate (Calcium 600) 600 mg PO BID 02/24/23 02/26/25 cyanocobalamin (vitamin B-12) 1,000 mcg PO QAM 02/24/23 02/26/25 1,000 mcg capsule acetaminophen 325 mg tablet 650 mg PO Q6H PRN Pain 07/19/23 02/26/25 acetaminophen 500 mg tablet 500 mg PO BID PAIN MANAGEMENT 07/19/23 02/26/25 aspirin 81 mg tablet,delayed 81 mg PO 2XWK 11/13/24 02/26/25 release (Harvey Low Dose Aspirin) amoxicillin 500 mg tablet 2,000 mg PO DIRECTED PRN Prior 02/11/25 02/26/25 to dental procedures albuterol sulfate 90 mcg/actuation 2 puff inhalation QID PRN 02/26/25 02/26/25 aerosol inhaler Shortness Of Breath mirtazapine 45 mg tablet 45 mg PO HS 02/26/25 02/26/25 olanzapine 5 mg tablet 5 mg PO HS 02/26/25 02/26/25 warfarin 3 mg tablet See Rx Instructions .Route .COMPLEX 02/26/25 02/26/25 Previous Rx's Medication Instructions Recorded amlodipine 5 mg tablet 5 mg PO HS #100 tabs 09/15/24 clonidine HCl 0.1 mg tablet 0.1 mg PO BID #180 tabs 09/15/24 topiramate 25 mg tablet 25 mg PO QAM 100 days #100 tabs 10/16/24 topiramate 50 mg tablet 50 mg PO QPM 100 days #100 tabs 10/16/24 isosorbide mononitrate 60 mg 60 mg PO QAM #100 tabs 10/24/24 tablet,extended release 24 hr metoprolol succinate 100 mg 100 mg PO HS #100 tabs 10/24/24 tablet,extended release 24 hr pantoprazole 40 mg tablet,delayed 40 mg PO QAM gerd #100 tabs 10/24/24 release (Protonix) pravastatin 80 mg tablet 80 mg PO HS #100 tabs 10/24/24 venlafaxine 37.5 mg 37.5 mg PO QAM #30 caps 02/14/25 capsule,extended release 24 hr trazodone 50 mg tablet 50 mg PO HS PRN sleep #30 tabs 02/21/25 Results & Data (ED) Vital Signs Vital Signs - 24 hr 02/26/25 10:18 02/26/25 10:41 Temperature 36.4 C L Temperature Source Oral Pulse Rate 94 H 86 Respiratory Rate 16 Respiratory Effort / Characteristics Non-Labored Spontaneous Respiratory Depth Normal Respiratory Pattern Regular Blood Pressure 94/61 L Blood Pressure Mean 72 Pulse Oximetry 94 Oxygen Delivery Method Room Air Sepsis Recent Fever Within 48 Hours No Sepsis New/Unexplained Change in Mental Status N/A Sepsis Action Taken by Nursing No Action Required Laboratory Data 02/26/25 10:30 02/26/25 10:30 Lab Results 02/26/25 02/26/25 02/26/25 Range/Units 10:30 10:37 11:08 WBC 4.16 L (4.8-10.8) K/ul RBC 4.54 (4.20-5.40) M/uL Hgb 14.1 (12.0-16.0) g/dl Hct 42.0 (37.0-47.0) % MCV 92.5 (80.0-100.0) fL MCH 31.1 (25.0-34.0) pg MCHC 33.6 (32.0-36.0) g/dL RDW Std Deviation 40.1 (36.4-46.3) fL RDW Coeff of Dennis 11.9 (11.5-14.5) % Plt Count 227 (130-400) K/uL MPV 9.8 (9.4-12.4) fL Immature Gran % (Auto) 0.2 % Neut % (Auto) 64.7 % Lymph % (Auto) 24.5 % [place] % (Auto) 9.4 % Eos % (Auto) 0.7 % Baso % (Auto) 0.5 % Neut # (Auto) 2.69 (1.40-6.50) K/uL Lymph # (Auto) 1.02 L (1.20-3.40) K/uL [place] # (Auto) 0.39 (0.11-0.59) K/uL Eos # (Auto) 0.03 (0.00-0.50) K/uL Baso # (Auto) 0.02 (0.00-0.20) K/uL Immature Gran # (Auto) 0.01 (0.01-0.20) K/uL ESR 19 (0-30) mm/hr PT (9.0-12.0) Seconds INR (0.9-1.1) Sodium 140 (136-145) mmol/L Potassium 3.5 (3.5-5.1) mmol/L Chloride 108 H (98-107) mmol/L Carbon Dioxide 28 (21-32) mmol/L Anion Gap 4 (3-11) BUN 11 (6-23) mg/dl Creatinine 1.20 (0.6-1.2) mg/dl Est Cr Clr Drug Dosing 44.8 ml/min eGFR 46.91 BUN/Creatinine Ratio 9.2 L (10-20) Glucose 164 H (70-99(Fasting)) mg/dl Lactate 1.2 (0.4-2.0) mmol/L Calcium 9.8 (8.6-10.3) mg/dl Magnesium 2.0 (1.7-2.4) mg/dl Total Bilirubin 0.6 (0.2-1.0) mg/dl Direct Bilirubin 0.1 (0-0.2) mg/dl AST 20 (13-39) U/L ALT 23 (7-52) U/L Alkaline Phosphatase 57 (34-104) U/L Troponin I High Sens 212.8 H* (0-14) pg/ml Total Protein 6.7 (6.0-8.3) gm/dl Albumin 3.9 (3.4-5.0) gm/dl Procalcitonin 0.03 (0-0.5) ng/ml TSH 0.937 (0.300-4.500) uIu/ml Urine Color Yellow Urine Appearance Turbid A (Clear) Urine pH 8.0 H (4.5-7.5) Ur Specific [place] 1.008 (1.000-1.030) Urine Protein Negative (Negative) Urine Glucose (UA) Negative (Negative) Urine Ketones Negative (Negative) Urine Blood Negative (Negative) Urine Nitrite Negative (Negative) Urine Bilirubin Negative (Negative) Urine Urobilinogen Negative (Negative) Ur Leukocyte Esterase Negative (Negative) Urine WBC (Auto) 0-5 (0-5) /hpf Urine RBC (Auto) 3-5 H (0-2) /hpf U Hyaline Cast (Auto) 0-2 (0-2) /lpf U Epithel Cells (Auto) 0-2 (0-2) /hpf Urine Bacteria (Auto) None Seen (None Seen) 02/26/25 Range/Units 12:12 WBC (4.8-10.8) K/ul RBC (4.20-5.40) M/uL Hgb (12.0-16.0) g/dl Hct (37.0-47.0) % MCV (80.0-100.0) fL MCH (25.0-34.0) pg MCHC (32.0-36.0) g/dL RDW Std Deviation (36.4-46.3) fL RDW Coeff of Dennis (11.5-14.5) % Plt Count (130-400) K/uL MPV (9.4-12.4) fL Immature Gran % (Auto) % Neut % (Auto) % Lymph % (Auto) % [place] % (Auto) % Eos % (Auto) % Baso % (Auto) % Neut # (Auto) (1.40-6.50) K/uL Lymph # (Auto) (1.20-3.40) K/uL [place] # (Auto) (0.11-0.59) K/uL Eos # (Auto) (0.00-0.50) K/uL Baso # (Auto) (0.00-0.20) K/uL Immature Gran # (Auto) (0.01-0.20) K/uL ESR (0-30) mm/hr PT 22.4 H (9.0-12.0) Seconds INR 2.2 H (0.9-1.1) Sodium (136-145) mmol/L Potassium (3.5-5.1) mmol/L Chloride (98-107) mmol/L Carbon Dioxide (21-32) mmol/L Anion Gap (3-11) BUN (6-23) mg/dl Creatinine (0.6-1.2) mg/dl Est Cr Clr Drug Dosing ml/min eGFR BUN/Creatinine Ratio (10-20) Glucose (70-99(Fasting)) mg/dl Lactate (0.4-2.0) mmol/L Calcium (8.6-10.3) mg/dl Magnesium (1.7-2.4) mg/dl Total Bilirubin (0.2-1.0) mg/dl Direct Bilirubin (0-0.2) mg/dl AST (13-39) U/L ALT (7-52) U/L Alkaline Phosphatase (34-104) U/L Troponin I High Sens (0-14) pg/ml Total Protein (6.0-8.3) gm/dl Albumin (3.4-5.0) gm/dl Procalcitonin (0-0.5) ng/ml TSH (0.300-4.500) uIu/ml Urine Color Urine Appearance (Clear) Urine pH (4.5-7.5) Ur Specific [place] (1.000-1.030) Urine Protein (Negative) Urine Glucose (UA) (Negative) Urine Ketones (Negative) Urine Blood (Negative) Urine Nitrite (Negative) Urine Bilirubin (Negative) Urine Urobilinogen (Negative) Ur Leukocyte Esterase (Negative) Urine WBC (Auto) (0-5) /hpf Urine RBC (Auto) (0-2) /hpf U Hyaline Cast (Auto) (0-2) /lpf U Epithel Cells (Auto) (0-2) /hpf Urine Bacteria (Auto) (None Seen) Administered Medications Discontinued Medications Aspirin (Aspirin 81 Mg Chew) 324 mg PO NOW STA Stop: 02/26/25 11:46 Last Admin: 02/26/25 13:56 Dose: 324 mg Documented By: GITA Sodium Chloride (Nss) 1,000 mls @ 999 mls/hr IV .Q1H1M ONE Stop: 02/26/25 11:20 Last Infusion: 02/26/25 12:10 Dose: Infused Documented By: Admin: 02/26/25 10:49 Dose: 999 mls/hr Documented By: NDW Imaging Data Radiologist's Impression: Chest X-Ray 02/26/25 10:21 XR chest 1V portable CLINICAL HISTORY: confusion, weakness COMPARISON STUDY: Chest CT April 29, 2010. Chest radiograph February 11, 2025. FINDINGS: There are median sternotomy wires. Cardiomegaly is unchanged. There is no pneumothorax. A small left pleural effusion is present. There is hazy left basilar opacity. A left lung nodule is unchanged from earlier exams. There is pulmonary vascular congestion without overt pulmonary edema. IMPRESSION: 1. Cardiomegaly with pulmonary vascular congestion. 2. Small left pleural effusion. Associated left basilar opacity favors atelectasis over an infectious process. ACT 112: Negative or not required by law. Electronically signed by: Rylan Alexis M.D. 02/26/2025 11:17 AM Discharge Plan Visit Data Chief Complaint: Altered Mental Status ED Provider: Shreyas Lombardi Discharge Problem: Agitation, Encephalopathy acute, Elevated troponin Patient Disposition: Admitted As Inpatient
[2025-02-26] MEDS: SODIUM CHLORIDE 0.9% 1,000 ML IV ONE (10:49)
[2025-02-26 11:03] LABS: Basophils # (auto) 0.02 K/uL (0.00-0.20); Basophils % (auto) 0.5 %; Eosinophils # (auto) 0.03 K/uL (0.00-0.50); Eosinophils % (auto) 0.7 %; Hemoglobin 14.1 g/dl (12.0-16.0); Immature Granulocytes # (auto) 0.01 K/uL (0.01-0.20); Immature Granulocytes % (auto) 0.2 %; Lymphocytes # (auto) 1.02 K/uL (1.20-3.40); Lymphocytes % (auto) 24.5 %; Mean Corpuscular Hemoglobin 31.1 pg (25.0-34.0); Mean Corpuscular Hgb Conc 33.6 g/dL (32.0-36.0); Mean Corpuscular Volume 92.5 fL (80.0-100.0); Mean Platelet Volume 9.8 fL (9.4-12.4); Monocytes # (auto) 0.39 K/uL (0.11-0.59); Monocytes % (auto) 9.4 %; Neutrophils # (auto) 2.69 K/uL (1.40-6.50); Neutrophils % (auto) 64.7 %; Platelet Count 227 K/uL (130-400); RDW Coefficient of Variation 11.9 % (11.5-14.5); RDW Standard Deviation 40.1 fL (36.4-46.3); Red Blood Count 4.54 M/uL (4.20-5.40); White Blood Count 4.16 K/ul (4.8-10.8)
[2025-02-26 11:15] LABS: Albumin Level 3.9 gm/dl (3.4-5.0); BUN Creatinine Ratio 9.2 (10-20); Bilirubin Direct 0.1 mg/dl (0-0.2); Bilirubin,Total 0.6 mg/dl (0.2-1.0); Calcium 9.8 mg/dl (8.6-10.3); Creatinine Clr Calc Pharmacy 44.8 ml/min; Potassium 3.5 mmol/L (3.5-5.1); Total Protein 6.7 gm/dl (6.0-8.3)
--- NOTE | 2025-02-26 11:19 | XRay Report ---
XR chest 1V portable CLINICAL HISTORY: confusion, weakness COMPARISON STUDY: Chest CT April 29, 2010. Chest radiograph February 11, 2025. FINDINGS: There are median sternotomy wires. Cardiomegaly is unchanged. There is no pneumothorax. A s mall left pleural effusion is present. There is hazy left basilar opacity. A left lung nodule is unch anged from earlier exams. There is pulmonary vascular congestion without overt pulmonary edema. IMPRESSION: 1. Cardiomegaly with pulmonary vascular congestion. 2. Small left pleural effusion. Associated left basilar opacity favors atelectasis over an infectious process. ACT 112: Negative or not required by law. Electronically signed by: Rylan Alexis M.D. 02/26/2025 11:17 AM
[2025-02-26 11:23] LABS: Troponin I High Sensitivity 212.8 pg/ml (0-14)
[2025-02-26 11:29] LABS: Thyroid Stimulating Hormone 0.937 uIu/ml (0.300-4.500)
[2025-02-26 11:31] LABS: Appearance Urine Turbid (Clear); Bacteria Urine Automated None Seen (None Seen); Bilirubin Urine Negative (Negative); Blood Urine Negative (Negative); Cast Urine Automated 0-2 /lpf (0-2); Color Urine Yellow; Epithelial Cell Urine Auto 0-2 /hpf (0-2); Glucose Urine UA Negative (Negative); Ketones Urine Negative (Negative); Leukocyte Esterase Urine Negative (Negative); Nitrite Urine Negative (Negative); Protein Urine Negative (Negative); Specific Gravity Urine 1.008 (1.000-1.030); Urobilinogen Urine Negative (Negative); WBC Urine Automated 0-5 /hpf (0-5)
[2025-02-26] MEDS ORDERED: ONDANSETRON INJ 2 MG/ML 2 ML VIAL IV PRN ×2 (12:17→16:25)
[2025-02-26] MEDS ORDERED: NITROGLYCERIN SL 0.4 MG/TAB TAB SL PRN (12:17)
--- NOTE | 2025-02-26 13:06 | Electrocardiogram Report ---
Test Reason : Blood Pressure : */* mmHG Vent. Rate : 90 BPM Atrial Rate : 90 BPM P-R Int : 160 ms QRS Dur : 92 ms QT Int : 362 ms P-R-T Axes : 47 -28 60 degrees QTcB Int : 442 ms Sinus rhythm with Premature atrial complexes Left atrial enlargement Left ventricular hypertrophy with repolarization abnormality Diffuse Nonspecific T wave abnormality Abnormal ECG When compared with ECG of 11-Feb-2025 09:07, Premature atrial complexes are now Present Confirmed by Sav Milner ([id number]) on 02/26/2025 1:05:44 PM Referred By: Confirmed By: Sav Milner
[2025-02-26] MEDS ORDERED: AMPICILLIN 250 MG in SODIUM CHLORIDE 0.9% 50 ML IV SCH (13:15)
--- NOTE | 2025-02-26 13:15 | History & Physical Report ---
Date of Service February 26, 2025 Assessment & Plan (1) Acute encephalopathy: (2) History of aortic valve replacement with metallic valve: (3) Chronic kidney disease, stage 3a: Plan 74-year-old female brought in with acute delirium/encephalopathy. Patient did drop off a urine sample at the office on 23 February show growing Enterococcus faecalis however this is only 60,000 colonies. Patient also has been started on many medications for depression anxiety over the last 2 weeks. She is also been refusing these medications over the last few days. It is unclear whether this is acute delirium encephalopathy from UTI present on admission or toxic encephalopathy for medications or withdrawal from the same. Patient was instantly found to have a markedly elevated troponin to 200 without any acute current of injuries on her EKG changes. #Metabolic encephalopathy. Patient was started on ampicillin for the Enterococcus faecalis by sensitivities and transitioned to oral amoxicillin when she reliably is taking p.o. Were going to discontinue many of her medications reverting to olanzapine and Seroquel with as needed olanzapine and lorazepam for backup. We will consider psychiatric consultation for medication management for a geriatric psych patient. Subsequently we are holding their mirtazapine effexor trazodone and Topamax with low likelihood of restarting the Topamax as it has less side effects as others. Since we did find the Enterococcus in the urine we will hold off on doing any imaging of her brain as a work of of her encephalopathy, certainly will be pending the INR for her mechanical valve #Elevated troponin patient will have serial troponin and echocardiogram undertaken. She is started on aspirin in addition to her warfarin she will also be a sed rate to look for any type of pericarditis/endocarditis. With her history of coronary disease and mechanical aortic valve continue her warfarin metoprolol and isosorbide. She additionally takes amlodipine to control hypertension. #CKD 3 this is stable at this time patient will continue DVT prevention is warfarin therapy Goals of care discussion was had with daughter and patient is a full code at this time History of Present Illness Primary Care Provider: Olman Diaz MD 74-year-old female recently discharged our facility February 14 after she had encephalopathy from urinary tract infection. She was brought in by her daughter with increasing paranoia and refusal of medications at home. The patient also called the police. Patient has been angry mistrusting paranoid. According to the daughter this is a marked change from her baseline. The patient prior to her encephalopathy in early January of this year was with some mental health concerns as his anxiety and depression but not with this type of delirium. At the last discharge the patient had her Abilify stopped and she was continued on Effexor mirtazapine olanzapine and as an outpatient was recently started on trazodone. However as mentioned the patient has volitionally stopped many of these medications over the last 2 days has become increasing paranoid and agitated. The patient had a urinary culture from February 23 which grew Enterococcus faecalis which was resistant to tetracycline the certainly could be because of her newfound encephalopathy Allergies Allergy/AdvReac Type Severity Reaction Status Date / Time rosuvastatin [From Crestor] Allergy Intermediate myalgia Verified 02/21/25 11:11 sertraline [From Zoloft] Allergy Intermediate burn Verified 02/21/25 11:11 sensation on skin on arms lovastatin Allergy Mild rash Verified 02/21/25 11:11 bupropion [From Wellbutrin] AdvReac Intermediate insomnia Verified 02/21/25 11:11 and tremors dicyclomine AdvReac Intermediate N/V Verified 02/21/25 11:11 codeine AdvReac Mild NAUSEA & Verified 02/21/25 11:11 PAIN ezetimibe [From Zetia] AdvReac Mild Gastrointestinal Verified 02/21/25 11:11 Upset methadone AdvReac Mild GI UPSET(?) Verified 02/21/25 11:11 niacin AdvReac Mild Gastrointestinal Verified 02/21/25 11:11 [From Niaspan Upset Extended-Release] paroxetine [From Paxil] AdvReac Mild Gastrointestinal Verified 02/21/25 11:11 Upset propoxyphene AdvReac Mild NAUSEA & Verified 02/21/25 11:11 PAIN simvastatin [From Zocor] AdvReac Mild Gastrointestinal Verified 02/21/25 11:11 Upset Zloyovu-MHS-VvX Reductase AdvReac Mild STATIN Verified 02/21/25 11:11 Inhibitor INTOLERANCE - GI UPSET Home Medications Medication Instructions Recorded Confirmed Type cholecalciferol (vitamin D3) 25 5,000 units PO QAM 09/05/19 02/26/25 History mcg (1,000 unit) capsule calcium carbonate (Calcium 600) 600 mg PO BID 02/24/23 02/26/25 History cyanocobalamin (vitamin B-12) 1,000 mcg PO QAM 02/24/23 02/26/25 History 1,000 mcg capsule acetaminophen 325 mg tablet 650 mg PO Q6H PRN Pain 07/19/23 02/26/25 History acetaminophen 500 mg tablet 500 mg PO BID PAIN MANAGEMENT 07/19/23 02/26/25 History amlodipine 5 mg tablet 5 mg PO HS #100 tabs 09/15/24 02/26/25 Rx clonidine HCl 0.1 mg tablet 0.1 mg PO BID #180 tabs 09/15/24 02/26/25 Rx topiramate 25 mg tablet 25 mg PO QAM 100 days #100 tabs 10/16/24 02/26/25 Rx topiramate 50 mg tablet 50 mg PO QPM 100 days #100 tabs 10/16/24 02/26/25 Rx isosorbide mononitrate 60 mg 60 mg PO QAM #100 tabs 10/24/24 02/26/25 Rx tablet,extended release 24 hr metoprolol succinate 100 mg 100 mg PO HS #100 tabs 10/24/24 02/26/25 Rx tablet,extended release 24 hr pantoprazole 40 mg tablet,delayed 40 mg PO QAM gerd #100 tabs 10/24/24 02/26/25 Rx release (Protonix) pravastatin 80 mg tablet 80 mg PO HS #100 tabs 10/24/24 02/26/25 Rx aspirin 81 mg tablet,delayed 81 mg PO 2XWK 11/13/24 02/26/25 History release (Harvey Low Dose Aspirin) amoxicillin 500 mg tablet 2,000 mg PO DIRECTED PRN Prior 02/11/25 02/26/25 History to dental procedures venlafaxine 37.5 mg 37.5 mg PO QAM #30 caps 02/14/25 02/26/25 Rx capsule,extended release 24 hr trazodone 50 mg tablet 50 mg PO HS PRN sleep #30 tabs 02/21/25 02/26/25 Rx albuterol sulfate 90 mcg/actuation 2 puff inhalation QID PRN 02/26/25 02/26/25 History aerosol inhaler Shortness Of Breath mirtazapine 45 mg tablet 45 mg PO HS 02/26/25 02/26/25 History olanzapine 5 mg tablet 5 mg PO HS 02/26/25 02/26/25 History warfarin 3 mg tablet See Rx Instructions .Route .COMPLEX 02/26/25 02/26/25 History Past Med/Surg History Problem List (Updated 02/26/25 @ 15:34 by Shreyas Lombardi MD) Elevated troponin (Acute) Encephalopathy acute (Acute) Agitation (Acute) Major depressive disorder with current active episode Generalized anxiety disorder with panic attacks Acute encephalopathy AMS (altered mental status) (Acute) Acute UTI (Acute) Depression (Acute) Palpitations (Acute) Spinal stenosis, lumbar Facet arthropathy, lumbar Idiopathic polyneuropathy Numbness and tingling of foot Acute dyspnea Essential tremor Vaginal burning Chronic kidney disease, stage 3a History of adenomatous polyp of colon Vitamin D deficiency Major depress dis, severe Anxiety Chronic prescription benzodiazepine use Insomnia History of diverticulitis of colon Depression with anxiety Vitamin B12 deficiency Left knee DJD Benign positional vertigo (Acute) Urinary incontinence Hematuria Encounter for Medicare annual wellness exam GERD (gastroesophageal reflux disease) Osteoporosis (Chronic) S/P CABG (coronary artery bypass graft) 2000-per pt "triple bypass" @ [facility] [place] Prediabetes no meds PAD (peripheral artery disease) Hyperlipidemia History of aortic valve replacement with metallic valve (Acute) 2000 CAD (coronary artery disease) (Acute) Occlusion of right internal carotid artery Asthma inhaler prn > very rare use Anticoagulated on Coumadin Hypertension Medical History Diverticulitis of intestine with abscess Compression fracture of L1 vertebra Myocardial Infarction Exertional chest pain Positional vertigo Adenoma of right adrenal gland Tremor of right hand Xerostomia Urinary incontinence Plantar fasciitis Osteoporosis with fracture Internal hemorrhoids Essential hematuria Diverticulosis Depression with anxiety Allergic rhinitis Surgical History Hx of cataract extraction History of appendectomy History of esophagogastroduodenoscopy (EGD) History of colonoscopy History of wisdom tooth extraction History of heart artery stent History of cardiac cath History of hysterectomy with bilateral oophorectomy S/P tonsillectomy Hx of cholecystectomy H/O section Family History Mother Alzheimer disease Dementia Osteoarthritis Father Coronary heart disease Heart disease Myocardial infarction Lung cancer Colorectal cancer Grandmother (Paternal) Diabetes Other No family history of adverse response to anesthesia Denies family history of Rheumatoid arthritis Sudden SIDS (sudden infant syndrome) Ovarian cancer Prostate cancer Deep vein thrombosis Osteoporosis Dyslipidemia Cerebral aneurysm Bipolar disorder Clotting disorder Crohn's disease Depression Kidney disease Breast cancer Schizophrenia Congenital kidney disease Gestational diabetes COPD (chronic obstructive pulmonary disease) Pulmonary embolism Lung disease Hypertension Ulcerative colitis Colonic polyp Stroke Asthma Cystic kidney disease Social History Smoking Status: Former smoker Tobacco Type: Cigarettes Age Started Using Tobacco: 16; Age Quit Using Tobacco: 0; packs per day: 0; Second Hand Exposure: No; Do You Dip or Chew Tobacco: No; Hx Alcohol Use: No Hx Substance Use: No Preferred Language: [place] Leonean Communication Ability: Effective Visual Impairment: No Limitations Hearing Ability: Normal Research Assistant Member Required: No Beliefs That Will Affect Care: None marital status: / Current Living Situation: Family current occupational status: retired 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 [employer] How many Children do You have: 1 Other Information That Helps Us Care for You: No Feels Safe at Home: Yes Safety Concerns: Feels Safe At This Time Childhood Exposure to Second-Hand Smoke: No Diet: regular caffeine: Yes during the past year weight has: remained stable Dental Care, Regularly: No Physical Activity Frequency: Does not Exercise Seatbelt Use: always Sunscreen Use: Yes Gender Identity: Female Assistive Devices: Cane and Glasses Review of Systems Review of Systems: Mild to moderate distress and fatigue no headache, complains of visual changes but cannot describe them no speech or swallowing issues no chest pain, pressure or palpitations no shortness of breath, cough or wheezes Mild abdominal pain, no nausea or vomiting, no diarrhea or constipation no dysuria, hematuria or frequency, history of UTIs no focal joint pain or swelling no back pain, CVA tenderness or radicular pain no bruising, bleeding or rashes no focal signs of weakness or numbness or altered sensation no complaints of anxiety or depression.. Physical Exam Physical Exam: The patient appeared well nourished and normally developed. She has pressured speech grabbing at things not letting go of handgrips etc. Vital signs as documented. Head exam is normocephalic atraumatic Neck is without JVD, thyromegaly, or carotid bruits. Lungs are clear to auscultation, no focal loss of breath sounds Cardiac exam, Rhythm is regular. Mechanical heart valve sounds are at the right upper sternal border Abdominal exam reveals normal bowel sounds, soft areas of uncomfortable feeling Extremities are nonedematous and both pedal pulses are present Neurologic exam is alert and oriented x 1, no focal loss of strength or sensation Skin is without bruises or rashes Psychologically is with concerns for anxiety & depression.. Results & Data Results & Data Vital Signs (Past 12 Hours) Vital Signs Temp Pulse Resp BP Pulse Ox O2 Del Method 02/26/25 10:41 97.5 F L 86 16 94/61 L 94 Room Air 02/26/25 10:18 94 H Code Status & VTE Plan VTE Prophylaxis Plan VTE Prophylaxis will be ordered: Yes PG Care Time/CCT Total # of Minutes Spent Total Time Spent with Patient: Total time spent is greater than 50% in coordination of care (as documented) at patient's floor/unit and/or counseling patient: Coding Level of Care Code 49583 INT INP/OBS CARE 3/75MIN Diagnoses Acute encephalopathy G93.40 History of aortic valve replacement with metallic valve Z95.4 Chronic kidney disease, stage 3a N18.31
[2025-02-26 13:16] LABS: INR 2.2 (0.9-1.1); Prothrombin Time 22.4 Seconds (9.0-12.0)
--- NOTE | 2025-02-26 13:55 | CT Scan Report ---
CT head/brain wo con CLINICAL HISTORY: 74 years-old Female with eval for embolic stroke. Acute stroke like symptoms TECHNIQUE: Multiple axial CT images of the head were obtained without contrast. A dose lowering tech nique was utilized adhering to the principles of ALARA. CT DOSE: 625.8 mGy.cm COMPARISON: None. FINDINGS: No acute intracranial hemorrhage, midline shift, intracranial mass, hydrocephalus, territorial ischem ia or abnormal extra-axial collection. Involutional changes with suggestion of underlying chronic sacha rovascular ischemic disease. The calvarium is intact. Prior bilateral lens repair. The paranasal sinuses, mastoid air cells, and m iddle ear cavities are clear. IMPRESSION: No acute intracranial abnormality. ACT 112: Negative or not required by law. The above report was generated using voice recognition software. It may contain grammatical, syntax o r spelling errors. Electronically signed by: Herman Spencer M.D. 02/26/2025 1:53 PM
[2025-02-26] MEDS: ASPIRIN 81 MG CHEW PO STA (13:56)
--- NOTE | 2025-02-26 14:31 | XCELERA ---
[id number]
[2025-02-26] MEDS ORDERED: LORazepam 2 MG/1 ML VIAL IV PRN (15:21)
[2025-02-26] MEDS ORDERED: NON-FORMULARY MEDICATION (Amoxicillin 500 mg tablet) PO PRN (15:21)
[2025-02-26] MEDS ORDERED: OLANZapine ZYDIS 5 MG ORALLY DIS. TAB PO PRN (15:21)
[2025-02-26] MEDS ORDERED: ALBUTEROL HFA 8 GM INHALER INH PRN (15:21)
[2025-02-26] MEDS: LACTATED RINGER'S 1,000 ML IV SCH (15:59)
[2025-02-26] MEDS: AMPICILLIN 2,000 MG in SODIUM CHLOR 0.9% MINI-B 100 ML IV SCH (16:00)
[2025-02-26] MEDS: WARFARIN SOD 4 MG TAB PO SCH (16:02)
[2025-02-26] MEDS: WARFARIN SOD 0.5 MG TAB PO SCH (16:02)
[2025-02-26] MEDS: QUEtiapine FUMARATE 25 MG TABLET PO SCH (19:57)
[2025-02-26] MEDS: TOPIRAMATE 25 MG TAB PO SCH (19:57)
[2025-02-26] MEDS: CALCIUM CARBONATE 1250MG TAB PO SCH (19:59)
[2025-02-26] MEDS: OLANZapine 5 MG TABLET PO SCH (20:00)
[2025-02-26] MEDS: ACETAMINOPHEN 325 MG TAB PO PRN (20:01)
[2025-02-26] MEDS: ACETAMINOPHEN 500 MG TAB PO SCH (20:02)
[2025-02-27 02:23] LABS: Hematocrit (blood only) 38.9 % (37.0-47.0); Hemoglobin 13.3 g/dl (12.0-16.0); Mean Corpuscular Hemoglobin 31.5 pg (25.0-34.0); Mean Corpuscular Hgb Conc 34.2 g/dL (32.0-36.0); Mean Corpuscular Volume 92.2 fL (80.0-100.0); Mean Platelet Volume 9.4 fL (9.4-12.4); Platelet Count 194 K/uL (130-400); RDW Coefficient of Variation 11.9 % (11.5-14.5); RDW Standard Deviation 40.2 fL (36.4-46.3); Red Blood Count 4.22 M/uL (4.20-5.40); White Blood Count 4.21 K/ul (4.8-10.8)
[2025-02-27 02:31] LABS: BUN Creatinine Ratio 11.7 (10-20); Creatinine Clr Calc Pharmacy 52.2 ml/min; Potassium 3.5 mmol/L (3.5-5.1)
[2025-02-27 02:41] LABS: INR 2.6 (0.9-1.1); Prothrombin Time 25.9 Seconds (9.0-12.0)
[2025-02-27] MEDS: ASPIRIN 81 MG ECTAB PO SCH (07:42)
[2025-02-27] MEDS: PANTOprazole 40 MG TAB PO SCH (07:43)
--- NOTE | 2025-02-27 08:11 | Electrocardiogram Report ---
Test Reason : Blood Pressure : */* mmHG Vent. Rate : 98 BPM Atrial Rate : 98 BPM P-R Int : 158 ms QRS Dur : 86 ms QT Int : 336 ms P-R-T Axes : 34 -24 43 degrees QTcB Int : 428 ms Sinus rhythm with occasional , and consecutive Premature ventricular complexes Left ventricular hypertrophy with repolarization abnormality Poor R wave progression, consider anterior [place] vs. lead placement vs. LVH Abnormal ECG When compared with ECG of 26-Feb-2025 10:18, Premature ventricular complexes are now Present Premature atrial complexes are no longer Present Confirmed by Sav Milner ([id number]) on 02/27/2025 8:11:26 AM Referred By: REFERRED SELF Confirmed By: Sav Milner
[2025-02-27] MEDS: ISOSORBIDE MONO EXTENDED REL 60 MG TABCR PO SCH (08:35)
--- NOTE | 2025-02-27 08:40 | Hospitalist Progress Note ---
Date of Service February 27, 2025 Assessment & Plan (1) Acute encephalopathy: (2) History of aortic valve replacement with metallic valve: (3) Chronic kidney disease, stage 3a: Plan 74-year-old female brought in with acute delirium/encephalopathy. Patient did drop off a urine sample at the office on 23 February show growing Enterococcus faecalis however this is only 60,000 colonies. Patient also has been started on many medications for depression anxiety over the last 2 weeks. She is also been refusing these medications over the last few days. It is unclear whether this is acute delirium encephalopathy from UTI present on admission or toxic encephalopathy for medications or withdrawal from the same. Patient was instantly found to have a markedly elevated troponin to 200 without any acute current of injuries on her EKG changes. #Metabolic encephalopathy. Patient was started on ampicillin for the Enterococcus faecalis by sensitivities and transitioned to oral amoxicillin when she reliably is taking p.o. Were going to discontinue many of her medications reverting to olanzapine and Seroquel with as needed olanzapine and lorazepam for backup. We will consider psychiatric consultation for medication management for a geriatric psych patient. Subsequently we are holding their mirtazapine effexor trazodone and Topamax with low likelihood of restarting the Topamax as it has less side effects as others. Since we did find the Enterococcus in the urine we will hold off on doing any imaging of her brain as a work of of her encephalopathy, certainly will be pending the INR for her mechanical valve #Elevated troponin trended downward and echocardiogram shows preserved EF, moderate to severe . She is started on aspirin in addition to her warfarin she will also be a sed rate to look for any type of pericarditis/endocarditis. With her history of coronary disease and mechanical aortic valve continue her warfarin metoprolol and isosorbide. She additionally takes amlodipine to control hypertension. #CKD 3 this is stable at this time patient will continue DVT prevention is warfarin therapy Goals of care discussion was had with daughter and patient is a full code at this time Admission and Anticipated Discharge Date Admission Date: February 26, 2025 Subjective pt is improved but still confused at times and stating that she does not have the money to pay for all of this. Daughter at the bedside and is leaning towards possible subacute rehab or placement ( even [facility]) due to mothers paranoia and confusion making staying at home a risk now oriented x2 but overall still some confusion Physical Exam Physical Exam: Pt is oriented x 2 cardiac is regular, systolic murmur, tachycardic lungs are clear Results & Data Results & Data Vital Signs (Past 12 Hours) Vital Signs Temp Pulse Resp BP Pulse Ox O2 Del Method 02/27/25 07:28 97.7 F 91 H 20 180/94 H 94 Room Air 02/27/25 03:55 97.5 F L 93 H 20 163/86 H 95 Room Air 02/26/25 23:49 88 152/77 H 02/26/25 23:12 97.5 F L 102 H 18 179/87 H 97 Room Air PG Care Time/CCT Total # of Minutes Spent Total Time Spent with Patient: Total time spent is greater than 50% in coordination of care (as documented) at patient's floor/unit and/or counseling patient: Coding Level of Care Code 47694 SUB INP/OBS CARE 3/50MIN Diagnoses Acute encephalopathy G93.40 History of aortic valve replacement with metallic valve Z95.4 Chronic kidney disease, stage 3a N18.31
[2025-02-27] MEDS: CHOLECALCIFEROL 125 MCG (5,000 UNITS) TAB PO SCH (10:12)
[2025-02-27] MEDS: PROPRANOLOL HCL 10 MG TAB PO STA (12:36)
[2025-02-27] MEDS: AMPICILLIN 2,000 MG in SODIUM CHLOR 0.9% MINI-B 100 ML IV SCH (13:33)
[2025-02-27] MEDS: WARFARIN SOD 3 MG TAB PO SCH (15:34)
[2025-02-27] MEDS: PROPRANOLOL HCL 20 MG TAB PO SCH (19:41)
[2025-02-28 06:44] LABS: Hemoglobin 15.4 g/dl (12.0-16.0); Mean Corpuscular Hemoglobin 31.5 pg (25.0-34.0); Mean Corpuscular Hgb Conc 34.2 g/dL (32.0-36.0); Mean Platelet Volume 9.4 fL (9.4-12.4); Platelet Count 253 K/uL (130-400); RDW Standard Deviation 40.5 fL (36.4-46.3); Red Blood Count 4.89 M/uL (4.20-5.40); White Blood Count 4.52 K/ul (4.8-10.8)
[2025-02-28 07:01] LABS: BUN Creatinine Ratio 10.2 (10-20); Calcium 10.3 mg/dl (8.6-10.3); Creatinine Clr Calc Pharmacy 49.2 ml/min; Potassium 3.9 mmol/L (3.5-5.1)
[2025-02-28 07:08] LABS: INR 2.8 (0.9-1.1); Prothrombin Time 27.3 Seconds (9.0-12.0)
--- NOTE | 2025-02-28 08:44 | Electrocardiogram Report ---
Test Reason : Blood Pressure : */* mmHG Vent. Rate : 80 BPM Atrial Rate : 80 BPM P-R Int : 170 ms QRS Dur : 90 ms QT Int : 370 ms P-R-T Axes : 24 -29 31 degrees QTcB Int : 426 ms Sinus rhythm with occasional Premature ventricular complexes Left ventricular hypertrophy with repolarization abnormality Poor R wave progression, consider anterior [place] vs. lead placement vs. LVH Borderline ECG When compared with ECG of 27-Feb-2025 04:37, No significant change Confirmed by Sav Milner ([id number]) on 02/28/2025 8:44:19 AM Referred By: REFERRED SELF Confirmed By: Sav Milner
--- NOTE | 2025-02-28 11:07 | Psychiatric Consultation ---
Date of Consultation February 28, 2025 Impression / Recommendations Impression Diagnostically consistent with encephalopathy/delirium possible early cognitive impairment component or step-vivas cognitive decline leading to increased paranoia and delusions in recent weeks. MDD with psychotic features remains possible though less likely in context of confusion/delirium. Unfortunately there are no known medications to cure or shorten the duration of delirium; rather antipsychotics are used at times to help with sleep/appetite/psychomotor agitation and hallucinations if these symptoms are causing significant distress and/or interfering with acute safety. Duration of delirium varies broadly with persistent delirium (defined as lasting for weeks or months) occurring frequently with % of patients exhibiting some symptoms of delirium at 6 months after symptom onset, see:Renetta Mcclendon., Sofie Rodriguez., Catie Santos.et al.Delirium.Shirley Rev Dis Primers6, 90 (2020). [email or web address]. More confused this admission compared to when I saw her on consult service during her last admission. Paranoia and delusions are also more expansive, pronounced and more complex (before concerns about money and age related fears about potential medical diagnoses now focused on someone hiding in her home and being part of police conspiracy and shooting coverup. Overall, I spent a total of 60 minutes with this case including review of chart records, review of labwork, review of EKG QTc, direct evaluation of the patient at bedside, counseling the patient, discussion of the patient with the Nurse and with the hospitalist provider, discussion with the psychiatric liason during clinical rounds, review of collateral historian information from the family and documentation in the electronic health record. (1) Encephalopathy acute: Plan -Restart Effexor XR 37.5mg qdaily -Continue olanzapine 5mg HS and can add olanzapine 1.25mg qAM if paranoid increases or starts to interfere with medical care and safety -Agree with discontinuation of mirtazapine and trazodone to reduce polypharmacy given recently increased dose of olanzapine -Continue medical workup to rule out and treat any underlying causes contributing to potential delirium, avoid or limit use of deliriogenic medications (benzodiazepines, opioids, anticholinergics) -Continue with delirium prevention measures: raising blinds during the day, closing at night, frequent re-orientation, contact with family/friends, explaining procedures/nursing care measures prior to physical contact, correct any hearing and visual impairments -For behavioral emergency: olanzapine 2.5 mg IM x 1 (DO NOT exceed 10mg per 24 hours, check EKG if IM dose required, NEVER co-administer with IM or IV benzodiazepines). -Can consider geriatric psychiatry if significant paranoia persists after treatment of encephalopathy. Psych History Identifying Data 74-year-old female recently discharged our facility February 14 after she had encephalopathy from urinary tract infection. Psychiatry consulted for medication recommendations for paranoia/confusion. Chief Complaint "Something else is going on". History of Present Illness Shelby was seen by psychiatry consult service on 02/12 and 02/13/2025 during a recent admission with delirium and fixed delusions/paranoia. Per medical H&P by Dr. Frank: 74-year-old female recently discharged our facility February 14 after she had encephalopathy from urinary tract infection. She was brought in by her daughter with increasing paranoia and refusal of medications at home. The patient also called the police. Patient has been angry mistrusting paranoid. According to the daughter this is a marked change from her baseline. The patient prior to her encephalopathy in early January of this year was with some mental health concerns as his anxiety and depression but not with this type of delirium. At the last discharge the patient had her Abilify stopped and she was continued on Effexor mirtazapine olanzapine and as an outpatient was recently started on trazodone. However as mentioned the patient has volitionally stopped many of these medications over the last 2 days has become increasing paranoid and agitated. The patient had a urinary culture from February 23 which grew Enterococcus faecalis which was resistant to tetracycline the certainly could be because of her newfound encephalopathy Today Shelby is confused and reports concerns someone has been in her home as evidenced by her refrigerator running in odd cycles. She references seeing police in the past when at [facility] and now believes this was part of a shooting that occurred and that they were there to try to harm her. She states her power is going to be turned off and her daughter notes she was not allowing them to use toilet paper in her home due to her belief she is in financial ruin. She believes she has lost her health insurance. Has been worrying that her home has mice (daughter reports her home is spotless and like a museum). She did meet with new [facility] provider, Julissa, and they increased her olanzapine and added trazodone. Allergies Allergy/AdvReac Type Severity Reaction Status Date / Time rosuvastatin [From Crestor] Allergy Intermediate myalgia Verified 02/21/25 11:11 sertraline [From Zoloft] Allergy Intermediate burn Verified 02/21/25 11:11 sensation on skin on arms lovastatin Allergy Mild rash Verified 02/21/25 11:11 bupropion [From Wellbutrin] AdvReac Intermediate insomnia Verified 02/21/25 11:11 and tremors dicyclomine AdvReac Intermediate N/V Verified 02/21/25 11:11 codeine AdvReac Mild NAUSEA & Verified 02/21/25 11:11 PAIN ezetimibe [From Zetia] AdvReac Mild Gastrointestinal Verified 02/21/25 11:11 Upset methadone AdvReac Mild GI UPSET(?) Verified 02/21/25 11:11 niacin AdvReac Mild Gastrointestinal Verified 02/21/25 11:11 [From Niaspan Upset Extended-Release] paroxetine [From Paxil] AdvReac Mild Gastrointestinal Verified 02/21/25 11:11 Upset propoxyphene AdvReac Mild NAUSEA & Verified 02/21/25 11:11 PAIN simvastatin [From Zocor] AdvReac Mild Gastrointestinal Verified 02/21/25 11:11 Upset [id number] Reductase AdvReac Mild STATIN Verified 02/21/25 11:11 Inhibitor INTOLERANCE - GI UPSET Home Medications Medication Instructions Recorded Confirmed Type cholecalciferol (vitamin D3) 25 5,000 units PO QAM 09/05/19 02/26/25 History mcg (1,000 unit) capsule calcium carbonate (Calcium 600) 600 mg PO BID 02/24/23 02/26/25 History cyanocobalamin (vitamin B-12) 1,000 mcg PO QAM 02/24/23 02/26/25 History 1,000 mcg capsule acetaminophen 325 mg tablet 650 mg PO Q6H PRN Pain 07/19/23 02/26/25 History acetaminophen 500 mg tablet 500 mg PO BID PAIN MANAGEMENT 07/19/23 02/26/25 History amlodipine 5 mg tablet 5 mg PO HS #100 tabs 09/15/24 02/26/25 Rx clonidine HCl 0.1 mg tablet 0.1 mg PO BID #180 tabs 09/15/24 02/26/25 Rx topiramate 25 mg tablet 25 mg PO QAM 100 days #100 tabs 10/16/24 02/26/25 Rx topiramate 50 mg tablet 50 mg PO QPM 100 days #100 tabs 10/16/24 02/26/25 Rx isosorbide mononitrate 60 mg 60 mg PO QAM #100 tabs 10/24/24 02/26/25 Rx tablet,extended release 24 hr metoprolol succinate 100 mg 100 mg PO HS #100 tabs 10/24/24 02/26/25 Rx tablet,extended release 24 hr pantoprazole 40 mg tablet,delayed 40 mg PO QAM gerd #100 tabs 10/24/24 02/26/25 Rx release (Protonix) pravastatin 80 mg tablet 80 mg PO HS #100 tabs 10/24/24 02/26/25 Rx aspirin 81 mg tablet,delayed 81 mg PO 2XWK 11/13/24 02/26/25 History release (Harvey Low Dose Aspirin) amoxicillin 500 mg tablet 2,000 mg PO DIRECTED PRN Prior 02/11/25 02/26/25 History to dental procedures venlafaxine 37.5 mg 37.5 mg PO QAM #30 caps 02/14/25 02/26/25 Rx capsule,extended release 24 hr trazodone 50 mg tablet 50 mg PO HS PRN sleep #30 tabs 02/21/25 02/26/25 Rx albuterol sulfate 90 mcg/actuation 2 puff inhalation QID PRN 02/26/25 02/26/25 History aerosol inhaler Shortness Of Breath mirtazapine 45 mg tablet 45 mg PO HS 02/26/25 02/26/25 History olanzapine 5 mg tablet 5 mg PO HS 02/26/25 02/26/25 History warfarin 3 mg tablet See Rx Instructions .Route .COMPLEX 02/26/25 02/26/25 History Patient History Medical History Diverticulitis of intestine with abscess Compression fracture of L1 vertebra Myocardial Infarction Exertional chest pain Positional vertigo Adenoma of right adrenal gland Tremor of right hand Xerostomia Urinary incontinence Plantar fasciitis Osteoporosis with fracture Internal hemorrhoids Essential hematuria Diverticulosis Depression with anxiety Allergic rhinitis Surgical History Hx of cataract extraction History of appendectomy History of esophagogastroduodenoscopy (EGD) History of colonoscopy History of wisdom tooth extraction History of heart artery stent History of cardiac cath History of hysterectomy with bilateral oophorectomy S/P tonsillectomy Hx of cholecystectomy H/O section Family History Mother Alzheimer disease Dementia Osteoarthritis Father Coronary heart disease Heart disease Myocardial infarction Lung cancer Colorectal cancer Grandmother (Paternal) Diabetes Other No family history of adverse response to anesthesia Denies family history of Rheumatoid arthritis Sudden SIDS (sudden infant syndrome) Ovarian cancer Prostate cancer Deep vein thrombosis Osteoporosis Dyslipidemia Cerebral aneurysm Bipolar disorder Clotting disorder Crohn's disease Depression Kidney disease Breast cancer Schizophrenia Congenital kidney disease Gestational diabetes COPD (chronic obstructive pulmonary disease) Pulmonary embolism Lung disease Hypertension Ulcerative colitis Colonic polyp Stroke Asthma Cystic kidney disease Social History Smoking Status: Former smoker Tobacco Type: Cigarettes Age Started Using Tobacco: 16; Age Quit Using Tobacco: 0; packs per day: 0; Second Hand Exposure: No; Do You Dip or Chew Tobacco: No; Hx Alcohol Use: No Hx Substance Use: No Preferred Language: Amharic Communication Ability: Impaired Visual Impairment: No Limitations Hearing Ability: Normal Manager Operations Research Required: No Beliefs That Will Affect Care: None marital status: / Current Living Situation: Family current occupational status: retired 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[employer] [facility] How many Children do You have: 1 Other Information That Helps Us Care for You: No Feels Safe at Home: Yes Safety Concerns: Feels Safe At This Time Childhood Exposure to Second-Hand Smoke: No Diet: regular caffeine: Yes during the past year weight has: remained stable Dental Care, Regularly: No Physical Activity Frequency: Does not Exercise Seatbelt Use: always Sunscreen Use: Yes Gender Identity: Female Assistive Devices: Cane Physical Exam Vital Signs (Past 24 Hours): Last Vital Signs Temp 36.5 C 02/28/25 07:22 Pulse 92 H 02/28/25 10:24 Resp 17 02/28/25 10:24 BP 164/95 H 02/28/25 10:24 Pulse Ox 95 02/28/25 10:24 O2 Del Method Room Air 02/28/25 10:24 Results & Data (PSY) Medications Administered Acetaminophen (Acetaminophen 325 Mg Tab) 650 mg PO Q6H PRN PRN Reason: Pain Stop: 03/28/25 15:20 Last Admin: 02/28/25 08:51 Dose: 650 mg Documented By: Admin: 02/26/25 20:01 Dose: 650 mg Documented By: BRANDI Acetaminophen (Acetaminophen 500 Mg Tab) 500 mg PO BID [facility] Stop: 03/28/25 20:59 Last Admin: 02/28/25 09:53 Dose: Not Given Documented By: Admin: 02/27/25 19:44 Dose: 500 mg Documented By: Admin: 02/27/25 07:45 Dose: 500 mg Documented By: Admin: 02/26/25 20:02 Dose: Not Given Documented By: BRANDI Aspirin (Aspirin 81 Mg Ectab) 81 mg PO QAM [facility] Stop: 03/29/25 08:59 Last Admin: 02/28/25 08:45 Dose: 81 mg Documented By: Admin: 02/27/25 07:42 Dose: 81 mg Documented By: NEGRITA Calcium Carbonate (Calcium Carbonate 1250mg Tab) 1 tab PO BID [facility] Stop: 03/28/25 20:59 Last Admin: 02/28/25 08:45 Dose: 1 tab Documented By: Admin: 02/27/25 19:41 Dose: 1 tab Documented By: Admin: 02/27/25 07:42 Dose: 1 tab Documented By: Admin: 02/26/25 19:59 Dose: 1 tab Documented By: BRANDI Ampicillin Sodium 2,000 mg/ (Sodium Chloride) 100 mls @ 200 mls/hr IV Q6H [facility] Stop: 03/09/25 13:59 Last Infusion: 02/28/25 09:52 Dose: Infused Documented By: Admin: 02/28/25 08:44 Dose: 200 mls/hr Documented By: Infusion: 02/28/25 02:32 Dose: Infused Documented By: Admin: 02/28/25 02:02 Dose: 200 mls/hr Documented By: Infusion: 02/27/25 20:15 Dose: Infused Documented By: Admin: 02/27/25 19:45 Dose: 200 mls/hr Documented By: Infusion: 02/27/25 14:26 Dose: Infused Documented By: ALESHIA Co-signed By: NEGRITA Admin: 02/27/25 13:33 Dose: 200 mls/hr Documented By: NEGRITA Isosorbide Mononitrate (Isosorbide [place] Extended Rel 60 Mg Tabcr) 60 mg PO QAM [facility] Stop: 03/29/25 08:59 Last Admin: 02/28/25 08:46 Dose: 60 mg Documented By: Admin: 02/27/25 08:35 Dose: 60 mg Documented By: NEGRITA Olanzapine (Olanzapine 5 Mg Tablet) 5 mg PO HS [facility] Stop: 03/28/25 20:59 Last Admin: 02/27/25 19:41 Dose: 5 mg Documented By: Admin: 02/26/25 20:00 Dose: 5 mg Documented By: BRANDI Pantoprazole Sodium (Pantoprazole 40 Mg Tab) [facility] [place]: 03/29/25 08:59 Last Admin: 02/28/25 08:47 Dose: 40 mg Documented By: Admin: 02/27/25 07:43 Dose: 40 mg Documented By: NEGRITA Propranolol HCl (Propranolol Hcl 20 Mg Tab) 20 mg PO BID [facility] Stop: 03/29/25 20:59 Last Admin: 02/28/25 08:47 Dose: 20 mg Documented By: Admin: 02/27/25 19:41 Dose: 20 mg Documented By: BRANDI Topiramate (Topiramate 25 Mg Tab) 25 mg PO QPM [facility] Stop: 03/28/25 20:59 Last Admin: 02/27/25 19:41 Dose: 25 mg Documented By: Admin: 02/26/25 19:57 Dose: 25 mg Documented By: BRANDI Vitamin D (Cholecalciferol 125 Mcg (5,000 Units) Tab) 125 [facility] [place] [facility] [place]: 03/29/25 08:59 Last Admin: 02/28/25 08:46 Dose: 125 mcg Documented By: Admin: 02/27/25 10:12 Dose: 125 mcg Documented By: NEGRITA Warfarin Sodium (Warfarin Sod 3 Mg Tab) 3 mg PO [email or web address]@1600 [facility] Stop: 03/29/25 15:59 Last Admin: 02/27/25 15:34 Dose: 3 mg Documented By: NEGRITA Warfarin Sodium (Warfarin Sod 4 Mg Tab) 4 mg PO MoWeThFr@1600 [facility] Stop: 03/28/25 15:59 Last Admin: 02/26/25 16:02 Dose: 4 mg Documented By: NEGRITA Warfarin Sodium (Warfarin Sod 0.5 Mg Tab) 0.5 mg PO MoWeThFr@1600 [facility] Stop: 03/28/25 15:59 Last Admin: 02/26/25 16:02 Dose: 0.5 mg Documented By: NEGRITA Coding Level of Care Code 38161 IN/OBS CONSULT LVL 4,60M Diagnoses Encephalopathy acute G93.40
--- NOTE | 2025-02-28 13:49 | Hospitalist Progress Note ---
Date of Service February 28, 2025 Assessment & Plan (1) Acute encephalopathy: (2) History of aortic valve replacement with metallic valve: (3) Chronic kidney disease, stage 3a: Plan 74-year-old female brought in with acute delirium/encephalopathy. Shelby did drop off a urine sample at the office on 23 February show growing Enterococcus faecalis however this is only 60,000 colonies, UA at that time was contaminated with epithelial cells. She also started new medications for depression anxiety over the last 2 weeks. she had been been refusing these medications for a few days prior to admission. It is unclear whether this is acute delirium encephalopathy from UTI (present on admission) or toxic encephalopathy for medications or withdrawal from the same. Patient was incidentally found to have a markedly elevated troponin to 200 without any symptoms or acute ischemic EKG changes. #Acute toxic and/or metabolic encephalopathy - unable to determine. Underlying anxiety and depression. Making many paranoid statements and remains confused. -consulted psychiatry and discussed with Dr. Saldivar - resume low dose effexor XR to avoid withdrawal, continue olanzapine 5 mg HS (can add 1.25 qAM if necessary for paranoia), continuing low dose topamax -mirtazapine and trazodone currently held -treat UTI -avoid other sedating or delirogenic medications -reviewed EKG this AM QTC is around 470 UTI continue ampicillin for the Enterococcus faecalis by sensitivities and Plan to transition to amoxicillin. Elevated troponin of unclear cause trended downward. No evidence of ACS. Presumably myocardial demand ischemia. echocardiogram shows preserved EF, moderate to severe . She was started on aspirin in addition to her warfarin. ESR was low. CAD, hypertension, moderate to severe - continue aspirin, isosorbide, amlodipine, propranolol Warfarin anticoagulation for mechanical valve - INR therapeutic at 2.8. Continue home warfarin dosing and daily AM INR while in hospital CKD 3 this is stable at this time DVT prevention is warfarin therapy Goals of care discussion was had with daughter and patient is a full code at this time Admission and Anticipated Discharge Date Admission Date: February 26, 2025 Subjective Remains confused though better than at admission. Says her vision is blurry but is using her readers for distance vision, can read items off the white board for me No shortness of breath or chest pain, no dysuria Physical Exam 2 Physical Exam: PHYSICAL EXAMINATION Last 24h vital signs reviewed, see documentation in flowsheet General: comfortable appearing, no distress, sitting up in the chair HEENT: Normocephalic, atraumatic, pupils round and equal, sclerae anicteric, no conjunctival injection, moist mucus membranes, wearing her readers. She can read her name and my name off the white board. EOMI Lungs: Normal respiratory effort. Clear to auscultation bilaterally. No RRW Heart: Regular rate and rhythm, no murmurs. No JVD Abdomen: Soft, nontender, nondistended. Bowel sounds present. Extremities: Warm, dry, well-perfused. mild lower extremity edema. Neuro: Alert and oriented x person not fully to situation, face symmetric, moves 4 extremities well Psych: Normal affect and behavior Results & Data Results & Data Vital Signs (Past 12 Hours) Vital Signs Temp Pulse Resp BP Pulse Ox O2 Del Method 02/28/25 10:24 92 H 17 164/95 H 95 Room Air 02/28/25 07:22 36.5 C 79 17 178/96 H 95 Room Air 02/28/25 02:39 36.7 C 82 20 151/96 H 98 Room Air Laboratory Results 02/28/25 06:09 02/28/25 06:09 I reviewed her previous labs and B12 and TSH were recently normal, she had a B1 level a few years ago which was high PG Care Time/CCT Total # of Minutes Spent Total Time Spent with Patient: Total time spent is greater than 50% in coordination of care (as documented) at patient's floor/unit and/or counseling patient: Coding Level of Care Code 45889 SUB INP/OBS CARE 3/50MIN Diagnoses Acute encephalopathy G93.40 History of aortic valve replacement with metallic valve Z95.4 Chronic kidney disease, stage 3a N18.31
[2025-02-28] MEDS: VENLAFAXINE HCL XR 37.5 MG CAPXR PO SCH (14:22)
[2025-02-28] MEDS: PRAVASTATIN SOD 40 MG TAB PO SCH (22:32)
[2025-03-01 06:33] LABS: Hematocrit (blood only) 45.6 % (37.0-47.0); Hemoglobin 15.3 g/dl (12.0-16.0); Mean Corpuscular Hgb Conc 33.6 g/dL (32.0-36.0); Mean Corpuscular Volume 92.5 fL (80.0-100.0); Mean Platelet Volume 9.6 fL (9.4-12.4); Platelet Count 264 K/uL (130-400); RDW Coefficient of Variation 11.9 % (11.5-14.5); RDW Standard Deviation 40.3 fL (36.4-46.3); Red Blood Count 4.93 M/uL (4.20-5.40); White Blood Count 4.77 K/ul (4.8-10.8)
[2025-03-01 06:59] LABS: BUN Creatinine Ratio 16.2 (10-20); Calcium 10.1 mg/dl (8.6-10.3); Potassium 3.9 mmol/L (3.5-5.1)
[2025-03-01 07:05] LABS: INR 2.5 (0.9-1.1); Prothrombin Time 25.2 Seconds (9.0-12.0)
--- NOTE | 2025-03-01 16:51 | Hospitalist Progress Note ---
Date of Service March 01, 2025 Assessment & Plan (1) Acute encephalopathy: (2) History of aortic valve replacement with metallic valve: (3) Chronic kidney disease, stage 3a: Plan 74-year-old female brought in with acute delirium/encephalopathy. Shelby did drop off a urine sample at the office on 23 February show growing Enterococcus faecalis however this is only 60,000 colonies, UA at that time was contaminated with epithelial cells. She also started new medications for depression anxiety over the last 2 weeks. she had been been refusing these medications for a few days prior to admission. It is unclear whether this is acute delirium encephalopathy from UTI (present on admission) or toxic encephalopathy for medications or withdrawal from the same. Patient was incidentally found to have a markedly elevated troponin to 200 without any symptoms or acute ischemic EKG changes. #Acute toxic and/or metabolic encephalopathy - unable to determine. Underlying anxiety and depression. Making many paranoid statements and remains confused. -consulted psychiatry and discussed with Dr. Saldivar - resumed low dose effexor XR to avoid withdrawal, continue olanzapine 5 mg HS, will add 1.25 mg every morning for paranoia, continuing low dose topamax -mirtazapine and trazodone currently held - complete the course of antibiotics however I highly doubt she actually has a UTI -avoid other sedating or delirogenic medications -reviewed EKG this AM QTC is around 470 possible UTI culture grew Enterococcus faecalis however repeat culture the following day without antibiotics was negative. continue ampicillin started 02/27--> amoxicillin when she is reliably taking p.o. - I reviewed the chronology with her clinical nurse and she did have a highly contaminated appearing UA and primary care the day before admission she was not treated with antibiotics that culture eventually grew the Enterococcus, the following day she was seen in the ER urinalysis was unimpressive and the urine culture was negative. So I think it is actually unlikely that this represents a UTI, rather contamination of the culture. she was treated for UTI a few weeks ago which may have induced some component of delirium which is persisting Elevated troponin of unclear cause trended downward. No evidence of ACS. Presumably myocardial demand ischemia. echocardiogram shows preserved EF, moderate to severe . She was started on aspirin in addition to her warfarin. ESR was low. CAD, hypertension, moderate to severe - continue aspirin, isosorbide, amlodipine, propranolol Warfarin anticoagulation for mechanical valve - INR therapeutic at 2.5. Continue home warfarin dosing and daily AM INR while in hospital CKD 3 this is stable at this time DVT prevention is warfarin therapy Goals of care discussion was had with daughter and patient is a full code at this time Admission and Anticipated Discharge Date Admission Date: February 26, 2025 Subjective Shelby seems a bit calmer and more oriented today she knows that she is at [facility], she does not have any complaints about vision there was still trying to use her readers for distance vision, nurse reports that she has made a lot of paranoid statements and it is difficult to get her to take her medications she does state that she is in the hospital for a UTI when queried which is an improvement compared to yesterday Physical Exam 2 Physical Exam: PHYSICAL EXAMINATION Last 24h vital signs reviewed, see documentation in flowsheet General: again she is sitting up in the chair watching television HEENT: when I get her to take off her readers she is able to read small print on the white board on the other side of the room this would equate to roughly 20/20 Lungs: Normal respiratory effort. Clear to auscultation bilaterally. No RRW Heart: Regular rate and rhythm, no murmurs. No JVD Abdomen: Soft, nontender, nondistended. Bowel sounds present. Extremities: Warm, dry, well-perfused. mild lower extremity edema. Neuro: Alert and oriented x person hospital partially to situation, face symmetric, moves 4 extremities well Psych: calm but making paranoid statements Results & Data Results & Data Vital Signs (Past 12 Hours) Vital Signs Temp Pulse Pulse Resp BP BP Pulse Ox 03/01/25 16:23 36.5 C 79 16 156/85 H 97 03/01/25 15:24 36.2 C L 84 18 153/88 H 95 03/01/25 08:01 81 160/80 H 03/01/25 07:26 36.3 C L 72 18 173/103 H 93 O2 Del Method 03/01/25 16:23 Room Air 03/01/25 15:24 Room Air 03/01/25 08:01 03/01/25 07:26 Room Air Laboratory Results 03/01/25 05:32 03/01/25 05:32 INR is therapeutic at 2.5 creatinine remains at her baseline white blood count was never elevated this admission PG Care Time/CCT Total # of Minutes Spent Total Time Spent with Patient: Total time spent is greater than 50% in coordination of care (as documented) at patient's floor/unit and/or counseling patient: Coding Level of Care Code 05192 SUB INP/OBS CARE 2/35MIN Diagnoses Acute encephalopathy G93.40 History of aortic valve replacement with metallic valve Z95.4 Chronic kidney disease, stage 3a N18.31
[2025-03-02 06:23] LABS: Hematocrit (blood only) 43.7 % (37.0-47.0); Hemoglobin 14.8 g/dl (12.0-16.0); Mean Corpuscular Hemoglobin 31.3 pg (25.0-34.0); Mean Corpuscular Hgb Conc 33.9 g/dL (32.0-36.0); Mean Corpuscular Volume 92.4 fL (80.0-100.0); Mean Platelet Volume 9.4 fL (9.4-12.4); Platelet Count 243 K/uL (130-400); RDW Coefficient of Variation 11.8 % (11.5-14.5); RDW Standard Deviation 39.8 fL (36.4-46.3); Red Blood Count 4.73 M/uL (4.20-5.40); White Blood Count 4.03 K/ul (4.8-10.8)
[2025-03-02 06:45] LABS: BUN Creatinine Ratio 17.5 (10-20); Calcium 9.8 mg/dl (8.6-10.3); Creatinine Clr Calc Pharmacy 46.9 ml/min; Potassium 3.6 mmol/L (3.5-5.1)
[2025-03-02 07:12] LABS: INR 2.4 (0.9-1.1); Prothrombin Time 24.3 Seconds (9.0-12.0)
[2025-03-02] MEDS: OLANZAPINE 2.5 MG TAB PO SCH (09:32)
--- NOTE | 2025-03-02 15:25 | Hospitalist Progress Note ---
Date of Service March 02, 2025 Assessment & Plan (1) Acute encephalopathy: (2) History of aortic valve replacement with metallic valve: (3) Chronic kidney disease, stage 3a: Plan 74-year-old female brought in with acute delirium/encephalopathy. Shelby did drop off a urine sample at the office on 23 February show growing Enterococcus faecalis however this is only 60,000 colonies, UA at that time was contaminated with epithelial cells. She also started new medications for depression anxiety over the last 2 weeks. she had been been refusing these medications for a few days prior to admission. It is unclear whether this is acute delirium encephalopathy from UTI (present on admission) or toxic encephalopathy for medications or withdrawal from the same. Patient was incidentally found to have a markedly elevated troponin to 200 without any symptoms or acute ischemic EKG changes. #Acute toxic and/or metabolic encephalopathy - unable to determine. Underlying anxiety and depression. Making many paranoid statements and remains confused. -consulted psychiatry - per recs - resumed low dose effexor XR to avoid withdrawal, continue olanzapine 1.25 in AM and 5 mg HS, continuing low dose topamax -mirtazapine and trazodone currently held - complete the course of antibiotics however I highly doubt she actually has a UTI -avoid other sedating or delirogenic medications -QTC is around 470 possible UTI culture grew Enterococcus faecalis however repeat culture the following day without antibiotics was negative. continue ampicillin started 02/27--> amoxicillin when she is reliably taking p.o. - I reviewed the chronology with her clinical nurse and she did have a highly contaminated appearing UA and primary care the day before admission she was not treated with antibiotics that culture eventually grew the Enterococcus, the following day she was seen in the ER urinalysis was unimpressive and the urine culture was negative. So I think it is actually unlikely that this represents a UTI, rather contamination of the culture. she was treated for UTI a few weeks ago which may have induced some component of delirium which is persisting Elevated troponin of unclear cause trended downward. No evidence of ACS. Presumably myocardial demand ischemia. echocardiogram shows preserved EF, moderate to severe . She was started on aspirin in addition to her warfarin. ESR was low. CAD, hypertension, moderate to severe - continue aspirin, isosorbide, amlodipine, propranolol Warfarin anticoagulation for mechanical valve - INR therapeutic at 2.4. Continue home warfarin dosing and daily AM INR while in hospital CKD 3 stable at this time DVT ppx - warfarin Admission and Anticipated Discharge Date Admission Date: February 26, 2025 Subjective Remains confused however is more oriented today, and continues to make paranoid statements Repeatedly saying she needs to talk to Dr. Frank because "he put me in here and I need to go home" Physical Exam 2 Physical Exam: PHYSICAL EXAMINATION Last 24h vital signs reviewed, see documentation in flowsheet General: awake in bed HEENT: MMM chencho Lungs: Normal respiratory effort. Clear to auscultation bilaterally. No RRW Heart: Regular rate and rhythm, no murmurs. No JVD Abdomen: Soft, nontender, nondistended. Bowel sounds present. Extremities: Warm, dry, well-perfused. mild lower extremity edema. Neuro: Alert and oriented x person hospital partially to situation, face symmetric, moves 4 extremities well Psych: perseverative, paranoid Results & Data Results & Data Vital Signs (Past 12 Hours) Vital Signs Temp Pulse Pulse Resp BP BP Pulse Ox 03/02/25 12:18 36.3 C L 95 H 18 132/80 95 03/02/25 09:56 36.3 C L 85 16 133/78 97 O2 Del Method 03/02/25 12:18 Room Air 03/02/25 09:56 Room Air Laboratory Results 03/02/25 05:32 03/02/25 05:32 PG Care Time/CCT Total # of Minutes Spent Total Time Spent with Patient: Total time spent is greater than 50% in coordination of care (as documented) at patient's floor/unit and/or counseling patient: Coding Level of Care Code 86555 SUB INP/OBS CARE 2/35MIN Diagnoses Acute encephalopathy G93.40 History of aortic valve replacement with metallic valve Z95.4 Chronic kidney disease, stage 3a N18.31
[2025-03-03 06:58] LABS: INR 2.5 (0.9-1.1)
--- NOTE | 2025-03-03 11:23 | Hospitalist Progress Note ---
Date of Service March 03, 2025 Assessment & Plan (1) Acute encephalopathy: (2) History of aortic valve replacement with metallic valve: (3) Chronic kidney disease, stage 3a: Plan 74-year-old female brought in with acute delirium/encephalopathy. Shelby did drop off a urine sample at the office on 23 February show growing Enterococcus faecalis however this is only 60,000 colonies, UA at that time was contaminated with epithelial cells. She also started new medications for depression anxiety over the last 2 weeks. she had been been refusing these medications for a few days prior to admission. It is unclear whether this is acute delirium encephalopathy from UTI (present on admission) or toxic encephalopathy for medications or withdrawal from the same. Patient was incidentally found to have a markedly elevated troponin to 200 without any symptoms or acute ischemic EKG changes. #Acute toxic and/or metabolic encephalopathy - unable to determine. Underlying anxiety and depression. -consulted psychiatry - per recs - resumed low dose effexor XR to avoid withdrawal, continue olanzapine 1.25 in AM and 5 mg HS, continuing low dose topamax -mirtazapine and trazodone currently held -complete the course of antibiotics however I highly doubt she actually has a UTI -avoid other sedating or delirogenic medications -QTC is around 470 -slowly improving day by day - less confused and seems less paranoid today possible UTI culture grew Enterococcus faecalis however repeat culture the following day without antibiotics was negative. -continue ampicillin started 02/27 now on day 57 -add pyridium x 6 doses for dysuria -treat constipation - started daily miralax Elevated troponin of unclear cause trended downward. No evidence of ACS. Presumably myocardial demand ischemia, setting of moderate to severe . echocardiogram shows preserved EF, moderate to severe . She was started on aspirin in addition to her warfarin. ESR was low. CAD, hypertension, moderate to severe Hypertension currently uncontrolled - continue aspirin, isosorbide, amlodipine, stop propranolol and resume metoprolol XL at usual dose 100 mg HS, resume usual clonidine 0.1 bid, reviewed med fill history in database and confirmed these Warfarin anticoagulation for mechanical valve - INR therapeutic at 2.5. Continue home warfarin dosing and daily AM INR while in hospital CKD 3 stable at this time DVT ppx - warfarin Admission and Anticipated Discharge Date Admission Date: February 26, 2025 Subjective Cognitively better today Still seems suspicious but more conversational and oriented to situation Knows about the antibiotic for UTI, endorses bladder pain Feels constipated and wants something for her bowels Still says "I need to go home" and asks for Dr. Frank but not perseverative like yesterday Physical Exam Physical Exam: PHYSICAL EXAMINATION Last 24h vital signs reviewed, see documentation in flowsheet General: awake and alert HEENT: MMM chencho Lungs: Normal respiratory effort. nl WOB Heart: deferred Abdomen: Soft, nontender, nondistended. Extremities: Warm, dry, well-perfused. mild lower extremity edema. Neuro: Alert and oriented x person, hospital, partially to situation, see HPI, more oriented today, face symmetric, moves 4 extremities well Psych: less perseverative and paranoid today Results & Data Results & Data Vital Signs (Past 12 Hours) Vital Signs Temp Pulse Resp BP Pulse Ox O2 Del Method 03/03/25 07:50 Room Air 03/03/25 07:46 36.4 C L 72 16 170/112 H 95 Room Air PG Care Time/CCT Total # of Minutes Spent Total Time Spent with Patient: Total time spent is greater than 50% in coordination of care (as documented) at patient's floor/unit and/or counseling patient: Coding Level of Care Code 25207 SUB INP/OBS CARE 2/35MIN Diagnoses Acute encephalopathy G93.40 History of aortic valve replacement with metallic valve Z95.4 Chronic kidney disease, stage 3a N18.31
[2025-03-03] MEDS: POLYETHYLENE (MIRALAX) 17 GM PACK PO SCH (12:04)
[2025-03-03] MEDS: cloNIDine HCL 0.1 MG TAB PO SCH (12:11)
[2025-03-03] MEDS: PHENAZOPYRIDINE HCL 100 MG TAB PO SCH (13:54)
--- NOTE | 2025-03-03 14:11 | Communication Note ---
Date of Service: March 03, 2025 I updated her daughter by phone, discussed recent medical history and plan of care x 25 min
[2025-03-03] MEDS: METOPROLOL SUCC 50MG EXT REL TAB PO SCH (20:44)
[2025-03-04 06:57] LABS: INR 2.5 (0.9-1.1); Prothrombin Time 24.6 Seconds (9.0-12.0)
--- NOTE | 2025-03-04 14:51 | Hospitalist Progress Note ---
Date of Service March 04, 2025 Assessment & Plan (1) Acute encephalopathy: (2) History of aortic valve replacement with metallic valve: (3) Chronic kidney disease, stage 3a: Plan 74-year-old female brought in with acute delirium/encephalopathy. Shelby did drop off a urine sample at the office on 23 February show growing Enterococcus faecalis however this is only 60,000 colonies, UA at that time was contaminated with epithelial cells. She also started new medications for depression anxiety over the last 2 weeks. she had been been refusing these medications for a few days prior to admission. It is unclear whether this is acute delirium encephalopathy from UTI (present on admission) or toxic encephalopathy for medications or withdrawal from the same. Patient was incidentally found to have a markedly elevated troponin to 200 without any symptoms or acute ischemic EKG changes. #Acute toxic and/or metabolic encephalopathy - unable to determine. Underlying anxiety and depression. -consulted psychiatry - per recs - resumed low dose effexor XR to avoid withdrawal, continue olanzapine 1.25 in AM and 5 mg HS, continuing low dose topamax -mirtazapine and trazodone currently held -complete the course of antibiotics however I highly doubt she actually has a UTI -avoid other sedating or delirogenic medications -QTC is around 470 -slowly improving - less confused than a few days ago, continues to be paranoid possible UTI culture grew Enterococcus faecalis however repeat culture the following day without antibiotics was negative. -continue ampicillin started 02/27 now on day 6/7 -add pyridium x 6 doses for dysuria -treat constipation - started daily miralax Elevated troponin of unclear cause trended downward. No evidence of ACS. Presumably myocardial demand ischemia, setting of moderate to severe . echocardiogram shows preserved EF, moderate to severe . She was started on aspirin in addition to her warfarin. ESR was low. CAD, hypertension, moderate to severe Hypertension currently uncontrolled - refusal of meds playing a role - continue aspirin, isosorbide, amlodipine, resumed metoprolol XL at usual dose 100 mg HS, resumed usual clonidine 0.1 bid, reviewed med fill history in database and confirmed these Warfarin anticoagulation for mechanical valve - INR remains therapeutic at 2.5. Continue home warfarin dosing and daily AM INR while in hospital CKD 3 stable at this time DVT ppx - warfarin I updated her daughter by phone 03/03 Admission and Anticipated Discharge Date Admission Date: February 26, 2025 Subjective Continues to be suspicious/paranoid, no agitation RN tried for 40 minutes but she would not take her AM meds She denies shortness of breath, chest, abdominal pain. Slept ok Physical Exam Physical Exam: PHYSICAL EXAMINATION Last 24h vital signs reviewed, see documentation in flowsheet General: awake and alert, sitting in bed HEENT: MMM chencho Lungs: Normal respiratory effort. nl WOB. CTAB Heart: reg no mrg Abdomen: Soft, nontender, nondistended. Extremities: Warm, dry, well-perfused. mild lower extremity edema. Neuro: Alert and oriented x person, hospital, partially to situation, very poor insight/judgment Psych: no agitation, continues to make paranoid statements Results & Data Results & Data Vital Signs (Past 12 Hours) Vital Signs Temp Pulse Resp BP Pulse Ox O2 Del Method 03/04/25 10:52 Room Air 03/04/25 07:00 36.6 C 68 16 163/83 H 94 Room Air PG Care Time/CCT Total # of Minutes Spent Total Time Spent with Patient: Total time spent is greater than 50% in coordination of care (as documented) at patient's floor/unit and/or counseling patient: Coding Level of Care Code 78697 SUB INP/OBS CARE 2/35MIN Diagnoses Acute encephalopathy G93.40 History of aortic valve replacement with metallic valve Z95.4 Chronic kidney disease, stage 3a N18.31
[2025-03-04] MEDS ORDERED: POLYETHYLENE (MIRALAX) 17 GM PACK PO SCH ×2 (21:00)
[2025-03-04] MEDS: POLYETHYLENE (MIRALAX) 17 GM PACK PO ONE (21:13)
[2025-03-05 08:38] LABS: INR 1.6 (0.9-1.1); Prothrombin Time 17.1 Seconds (9.0-12.0)
[2025-03-05] MEDS: POLYETHYLENE (MIRALAX) 17 GM PACK PO SCH (09:36)
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
--- NOTE | 2025-03-05 16:00 | Hospitalist Progress Note ---
Date of Service March 05, 2025 Assessment & Plan (1) Acute encephalopathy: (2) History of aortic valve replacement with metallic valve: (3) Chronic kidney disease, stage 3a: Plan 74-year-old female brought in with acute delirium/encephalopathy. Shelby did drop off a urine sample at the office on 23 February show growing Enterococcus faecalis however this is only 60,000 colonies, UA at that time was contaminated with epithelial cells. She also started new medications for depression anxiety over the last 2 weeks. she had been been refusing these medications for a few days prior to admission. It is unclear whether this is acute delirium encephalopathy from UTI (present on admission) or toxic encephalopathy for medications or withdrawal from the same. Patient was incidentally found to have a markedly elevated troponin to 200 without any symptoms or acute ischemic EKG changes. #Acute toxic and/or metabolic encephalopathy - unable to determine but has resolved. #Underlying anxiety and depression with perseverative and paranoid thoughts #Probable cognitive impairment or early dementia -consulted psychiatry - discussed with Dr. John - increase effexor to 75 mg, continue olanzapine 1.25 in AM and 5 mg HS, continuing low dose topamax -mirtazapine and trazodone currently held - sleeping fine in hospital -completed the course of antibiotics -avoid other sedating or delirogenic medications -QTC is around 470 -needs a more supportive living situation, not safe for home alone at this time possible UTI culture grew Enterococcus faecalis however repeat culture the following day without antibiotics was negative so its likely the initial culture was contaminated. -treated with ampicillin 02/27-03/05 -treat constipation - started daily miralax Elevated troponin of unclear cause trended downward. No evidence of ACS. Presumably myocardial demand ischemia, setting of moderate to severe . echocardiogram shows preserved EF, moderate to severe . She was started on aspirin in addition to her warfarin. ESR was low. CAD, hypertension, moderate to severe Hypertension well controlled today - often will refuse meds but took them this morning - continue aspirin, isosorbide, amlodipine, resumed metoprolol XL at usual dose 100 mg HS, resumed usual clonidine 0.1 bid, reviewed med fill history in database and confirmed these Warfarin anticoagulation for mechanical valve - INR has been therapeutic at 2.5 dropped to 1.6 today. Reflects her usual pattern of lower dose on the weekends, will get higher dose today -Continue home warfarin dosing and daily AM INR while in hospital CKD 3 stable at this time - BMP in AM DVT ppx - warfarin I updated her daughter by phone 03/03, in person 03/05 Admission and Anticipated Discharge Date Admission Date: February 26, 2025 Subjective Slept well last night but says she doesn't sleep at home. No urinary pain any more. Can recall some details of conversation with psychiatrist earlier today. Again says "I have to get home" She's worried that she doesn't have medical insurance - reassured her that she does. Physical Exam Physical Exam: PHYSICAL EXAMINATION Last 24h vital signs reviewed, see documentation in flowsheet General: awake and alert, sitting in bed HEENT: MMM [place] Lungs: Normal respiratory effort. nl WOB. CTAB Heart: reg no mrg Abdomen: Soft, nontender, nondistended. Extremities: Warm, dry, well-perfused. mild lower extremity edema. Neuro: Alert and oriented x person, hospital, situation, poor insight/judgment Psych: no agitation, continues to make paranoid and perseverative statements Results & Data Results & Data Vital Signs (Past 12 Hours) Vital Signs Temp Pulse Pulse Resp BP Pulse Ox O2 Del Method 03/05/25 14:24 36.6 C 71 16 110/72 95 Room Air 03/05/25 11:36 36.1 C L 71 17 106/70 94 Room Air 03/05/25 07:50 36.6 C 57 L 16 146/80 H 94 Room Air Laboratory Results INR 2.5 --> 1.6 PG Care Time/CCT Total # of Minutes Spent Total Time Spent with Patient: Total time spent is greater than 50% in coordination of care (as documented) at patient's floor/unit and/or counseling patient: Coding Level of Care Code 47162 SUB INP/OBS CARE 2/35MIN Diagnoses Acute encephalopathy G93.40 History of aortic valve replacement with metallic valve Z95.4 Chronic kidney disease, stage 3a N18.31
[2025-03-06 07:14] LABS: BUN Creatinine Ratio 13.6 (10-20); Calcium 10.1 mg/dl (8.6-10.3); Potassium 3.7 mmol/L (3.5-5.1)
[2025-03-06 07:16] LABS: INR 1.4 (0.9-1.1)
[2025-03-06] MEDS: MAGNESIUM HYDROXIDE SUSP 30 ML UDC PO ONE (08:07)
[2025-03-06] MEDS: VENLAFAXINE HCL XR 75 MG CAPXR PO SCH (08:09)
[2025-03-06] MEDS ORDERED: ENOXAPARIN 1 MG/KG SQ SCH (08:30)
[2025-03-06] MEDS: WARFARIN SOD 10 MG TAB PO STA (10:07)
[2025-03-06] MEDS: ENOXAPARIN 100 MG/1ML SYR SQ SCH (10:08)
--- NOTE | 2025-03-06 10:42 | Hospitalist Progress Note ---
Date of Service March 06, 2025 Assessment & Plan (1) Acute encephalopathy: Plan: Supportive care. Appreciate psychiatry consultation and recommendations. Effexor dosage has been uptitrated and mirtazapine and trazodone placed on hold. (2) History of aortic valve replacement with metallic valve: Plan: Coumadin is subtherapeutic at INR 1.4 today, March 06. Lovenox 1 mg/kg subcutaneously every 12 hours has been started until INR is therapeutic between 2.5 and 3.5. Coumadin 10 mg given today, March 06 (3) Chronic kidney disease, stage 3a: Plan: Currently stable. Monitor intake and output. Serial labs (4) UTI (urinary tract infection): Plan: Enterococcus was isolated. She has completed her course of ampicillin treatment (5) CAD (coronary artery disease): Plan: Stable. Continue current medical management. She has a past history of coronary artery bypass grafting (6) Hypertension: Plan: Stable. Continue current medical management Plan Daily dosing of Coumadin until INR therapeutic. Lovenox 1 mg/kg subcutaneously every 12 hours until then. Placement is pending Admission and Anticipated Discharge Date Admission Date: February 26, 2025 Subjective Awake and alert. No distress. Her INR is only 1.4 today, March 06. She has a mechanical aortic valve. She will be placed on Lovenox subcutaneously every 12 hours and Coumadin dosage is 10 mg today, March 06, and will be dosed daily until the INR is therapeutic, INR 2.5-3.5 since she has a mechanical heart valve. Appreciate psychiatry consultation and recommendations. Review of Systems 2 Review of Systems: Constitutionalno fever or chills ENTno blurred vision, no double vision, no epistaxis, no sore throat Respiratoryno cough, no wheezing, no shortness of breath Cardiacno palpitations, no chest pain, no syncope Lin nausea, vomiting, diarrhea, melena, hematochezia GUno urinary retention, no urinary incontinence, no dysuria, no hematuria Musculoskeletalno joint pain, no muscle tenderness Skinno bruising, no rashes, no pruritus Neurono isolated weakness, no paresthesia, no weakness Psychno depression, no anxiety Physical Exam 2 Physical Exam: General-alert and oriented x3, no fever, no chills HEENT-head atraumatic and normocephalic, pupils equal and reactive to light, extraocular muscles intact Neck-no lymphadenopathy or thyromegaly, trachea midline Chest-clear to auscultation. No rales, wheezing or rhonchi Cardiac-regular rate and rhythm, normal S1 and S2, mechanical systolic valve click Abdomen-normal bowel sounds, no hepatosplenomegaly Extremities-no cyanosis, clubbing, or edema Neuro-cranial nerves II through XII intact, motor and sensory function within normal limits, strength symmetrical, no focal deficits Psych-she seems somewhat paranoid and distrusting of me Results & Data Results & Data Vital Signs (Past 12 Hours) Vital Signs Temp Pulse Resp BP Pulse Ox O2 Del Method 03/06/25 07:08 36.3 C L 57 L 16 179/91 H 96 Room Air Laboratory Results 03/02/25 05:32 03/06/25 06:08 PG Care Time/CCT Total # of Minutes Spent Total Time Spent with Patient: Total time spent is greater than 50% in coordination of care (as documented) at patient's floor/unit and/or counseling patient: Coding Level of Care Code 15293 SUB INP/OBS CARE 3/50MIN Diagnoses Acute encephalopathy G93.40 History of aortic valve replacement with metallic valve Z95.4 Chronic kidney disease, stage 3a N18.31 UTI (urinary tract infection) N39.0 CAD (coronary artery disease) I25.119 Associated angina: with unspecified form of angina Coronary Disease-Associated Artery/Lesion type: unspecified vessel or lesion type [place] vs. transplanted heart: [place] heart Primary hypertension I10 Hypertension type: primary hypertension (5) CAD (coronary artery disease) Associated angina: with unspecified form of angina Coronary Disease- Associated Artery/Lesion type: unspecified vessel or lesion type [place] vs. transplanted heart: [place] heart Qualified Code(s): I25.119 - Atherosclerotic heart disease of [place] coronary artery with unspecified angina pectoris (6) Hypertension Hypertension type: primary hypertension Qualified Code(s): I10 - Essential (primary) hypertension
[2025-03-07 06:18] LABS: Basophils # (auto) 0.03 K/uL (0.00-0.20); Basophils % (auto) 0.6 %; Eosinophils # (auto) 0.16 K/uL (0.00-0.50); Immature Granulocytes # (auto) 0.01 K/uL (0.01-0.20); Immature Granulocytes % (auto) 0.2 %; Lymphocytes # (auto) 1.92 K/uL (1.20-3.40); Lymphocytes % (auto) 36.4 %; Mean Corpuscular Hemoglobin 31.5 pg (25.0-34.0); Mean Corpuscular Hgb Conc 33.3 g/dL (32.0-36.0); Mean Corpuscular Volume 94.6 fL (80.0-100.0); Mean Platelet Volume 10.1 fL (9.4-12.4); Monocytes % (auto) 9.5 %; Neutrophils # (auto) 2.66 K/uL (1.40-6.50); Neutrophils % (auto) 50.3 %; Platelet Count 229 K/uL (130-400); RDW Coefficient of Variation 11.9 % (11.5-14.5); RDW Standard Deviation 41.4 fL (36.4-46.3); Red Blood Count 4.44 M/uL (4.20-5.40); White Blood Count 5.28 K/ul (4.8-10.8)
[2025-03-07 06:34] LABS: INR 2.4 (0.9-1.1)
[2025-03-07 06:37] LABS: BUN Creatinine Ratio 15.9 (10-20); Calcium 10.4 mg/dl (8.6-10.3); Creatinine Clr Calc Pharmacy 50.3 ml/min
--- NOTE | 2025-03-07 14:52 | Hospitalist Progress Note ---
Date of Service March 07, 2025 Assessment & Plan (1) Acute encephalopathy: Plan: Acute encephalopathy Psychiatry consulted. Suspected combination of metabolic encephalopathy with UTI, delirium, and some generalized anxiety/paranoia. Appreciate medication adjustments/recommendations Continue olanzapine 1.25 mg every morning, 5 mg at bedtime Continue venlafaxine 75 mg daily extended release Delirium precautions May use olanzapine 2.5 mg IM x 1 if needed for acute behavioral disturbance, do not coadministered this with benzodiazepines Trazodone held Patient reports worsened anxiety and difficulty swallowing multiple pills all at once. She would like to reduce her morning pill burden if possible. Will shift venlafaxine to noon dosing to help reduce morning pill burden per patient request Bioprosthetic AV INR subtherapeutic during admission Will start on Lovenox 1mpk twice daily for bridging and given 10 mg on Patient previously stable on approximately 27 mg total weekly dose. Previous total weekly dose 24 mg, plus an additional 10 mg for 34mg total weekly dose. Patient rubens to INR of 2.4 on 03/07. Suspect continued rise over next day or 2 from 10 mg load, will hold 1 dose of warfarin 03/07 and reassess to resume prior regimen of warfarin 4.5 mg Wednesday/Wednesday//Wednesday, 3 mg Wednesday/Wednesday/Wednesday. If INR with rapid rise consider holding 1 additional day versus if subtherapeutic given additional 2 mg. As patient had a rapid rise over the last 24 hours and expect to have continued rise over the next day with an INR of 2.4 will hold Lovenox and check INR in AM # CKD 3A Stable, trend periodically Creatinine 1.07 on 03/07 UTI Completed course of ampicillin for Enterococcus. No ongoing UTI symptoms. CAD Continue home medications. No chest pain. Hypertension Continue home medications Disposition planning: Patient is pending placement at this time.. CM following. Referral in place to [facility]. PT/OT recommending continued skilled PT and inpatient rehab/therapy unless it is able to return to 24-hour care for safety. DVT prophylaxis: Anticoagulated CODE STATUS: Full code Attempted to give call to patient's daughter Odalys 03/07 for update, rang through. Will attempt later in the evening for routine updates (2) History of aortic valve replacement with metallic valve: (3) Chronic kidney disease, stage 3a: (4) UTI (urinary tract infection): (5) CAD (coronary artery disease): (6) Hypertension: Admission and Anticipated Discharge Date Admission Date: February 26, 2025 Subjective Seen at the bedside. She reports she slept poorly due to feeling issues in the hospital, and feels a little bit down this morning. She feels like she is taking too many pills at 1 time. Feels that spacing her pills throughout the day and not taking so many in the morning might help. She is eager to get out of the hospital. Denies bleeding. Denies headache. Denies vision change. Denies chest pain/chest pressure/shortness of breath. Would like her daughter updated when possible. No other questions or concerns at time of visit. Physical Exam Physical Exam: General: A&Ox3. NAD. Cooperative. Thought process linear HEENT: Atraumatic, normocephalic. Vision and hearing grossly intact Pulm: CTAB A&P. -wheezes, -rales, -rhonchi. Symmetrical chest rise. No increase in work of breathing. No respiratory distress. Cardiac: RRR, systolic murmur present. Radial pulses intact and symmetrical. Results & Data Results & Data Vital Signs (Past 12 Hours) Vital Signs Temp Pulse Resp BP Pulse Ox O2 Del Method 03/07/25 07:11 36.6 C 57 L 16 185/79 H 96 Room Air PG Care Time/CCT Total # of Minutes Spent Total Time Spent with Patient: Total time spent is greater than 50% in coordination of care (as documented) at patient's floor/unit and/or counseling patient: Coding Level of Care Code 42400 SUB INP/OBS CARE 3/50MIN Diagnoses Acute encephalopathy G93.40 History of aortic valve replacement with metallic valve Z95.4 Chronic kidney disease, stage 3a N18.31 UTI (urinary tract infection) N39.0 CAD (coronary artery disease) I25.119 Associated angina: with unspecified form of angina Coronary Disease-Associated Artery/Lesion type: unspecified vessel or lesion type [place] vs. transplanted heart: [place] heart Primary hypertension I10 Hypertension type: primary hypertension (5) CAD (coronary artery disease) Associated angina: with unspecified form of angina Coronary Disease- Associated Artery/Lesion type: unspecified vessel or lesion type [place] vs. transplanted heart: [place] heart Qualified Code(s): I25.119 - Atherosclerotic heart disease of [place] coronary artery with unspecified angina pectoris (6) Hypertension Hypertension type: primary hypertension Qualified Code(s): I10 - Essential (primary) hypertension
[2025-03-07] MEDS: WARFARIN SOD 4 MG TAB PO SCH (16:40)
[2025-03-08 07:11] LABS: Basophils # (auto) 0.03 K/uL (0.00-0.20); Basophils % (auto) 0.6 %; Eosinophils # (auto) 0.14 K/uL (0.00-0.50); Eosinophils % (auto) 2.8 %; Hemoglobin 14.8 g/dl (12.0-16.0); Lymphocytes # (auto) 1.76 K/uL (1.20-3.40); Lymphocytes % (auto) 35.5 %; Mean Corpuscular Hemoglobin 31.8 pg (25.0-34.0); Mean Corpuscular Hgb Conc 33.6 g/dL (32.0-36.0); Mean Corpuscular Volume 94.4 fL (80.0-100.0); Mean Platelet Volume 10.4 fL (9.4-12.4); Monocytes # (auto) 0.48 K/uL (0.11-0.59); Monocytes % (auto) 9.7 %; Neutrophils # (auto) 2.55 K/uL (1.40-6.50); Neutrophils % (auto) 51.4 %; Platelet Count 234 K/uL (130-400); RDW Coefficient of Variation 11.9 % (11.5-14.5); RDW Standard Deviation 41.2 fL (36.4-46.3); Red Blood Count 4.66 M/uL (4.20-5.40); White Blood Count 4.96 K/ul (4.8-10.8)
[2025-03-08 07:41] LABS: INR 2.4 (0.9-1.1); Prothrombin Time 24.3 Seconds (9.0-12.0)
[2025-03-08 07:47] LABS: Calcium 9.8 mg/dl (8.6-10.3); Creatinine Clr Calc Pharmacy 53.8 ml/min
[2025-03-08] MEDS ORDERED: WARFARIN SOD 0.5 MG TAB PO SCH (08:00)
[2025-03-08] MEDS: WARFARIN SOD 2 MG TAB PO STA (09:54)
[2025-03-08] MEDS: VENLAFAXINE HCL XR 75 MG CAPXR PO SCH (13:07)
--- NOTE | 2025-03-08 15:21 | Hospitalist Progress Note ---
Date of Service March 08, 2025 Assessment & Plan (1) Acute encephalopathy: Plan: Acute encephalopathy Psychiatry consulted. Suspected combination of metabolic encephalopathy with UTI, delirium, and some generalized anxiety/paranoia. Appreciate medication adjustments/recommendations Continue olanzapine 1.25 mg every morning, 5 mg at bedtime Continue venlafaxine 75 mg daily extended release Delirium precautions May use olanzapine 2.5 mg IM x 1 if needed for acute behavioral disturbance, do not coadministered this with benzodiazepines Trazodone held Patient reports worsened anxiety and difficulty swallowing multiple pills all at once. Reassured and was willing to take her pills later in the morning 03/08 with nursing as long as these were prepared in the room Bioprosthetic AV INR subtherapeutic during admission Will start on Lovenox 1mpk twice daily for bridging and given 10 mg on Patient previously stable on approximately 27 mg total weekly dose. INR 2.4. One-time additional dose given of 2 mg, and will continue 4.5 mg Mo /Wednesday//Wednesday, 3 mg Wednesday/Wednesday/Wednesday dosing # CKD 3A Stable, trend periodically UTI Completed course of ampicillin for Enterococcus. No ongoing UTI symptoms. CAD Continue home medications. No chest pain. Hypertension Continue home medications Disposition planning: Patient is pending placement at this time.. CM following. Referral in place to [facility]. PT/OT recommending continued skilled PT and inpatient rehab/therapy unless 24-hour care is able to be arranged for safety. Attempted to call patient's daughter Odalys at [phone]. Went directly to voicemail, voicemail left for call back. Discussed with case management 03/08, referrals in place placement remains pending DVT prophylaxis: Anticoagulated CODE STATUS: Full code (2) History of aortic valve replacement with metallic valve: (3) Chronic kidney disease, stage 3a: (4) UTI (urinary tract infection): (5) CAD (coronary artery disease): (6) Hypertension: Admission and Anticipated Discharge Date Admission Date: February 26, 2025 Subjective Seen at the bedside. Sleeping comfortably. Awakens easily at bedside. Reports she is anxious to get out of the hospital. She is refused her medications this morning again felt overwhelmed by having too many at once. Discussed with nursing. meds were spaced out and prepared in room in front of patient, she felt reassured by this and subsequently was able to take her medications. Denies fever chills or sweats overnight. Discussed with case management. Referrals remain pending. Medically stable for placement. Physical Exam Physical Exam: General: Sleeping, but awakens easily. A&Ox3. NAD. Cooperative. Thought process linear HEENT: Atraumatic, normocephalic. Vision and hearing grossly intact Pulm: Symmetrical chest rise. No increase in work of breathing. No respiratory distress. Cardiac: RRR, systolic murmur present. Radial pulses intact and symmetrical. Results & Data Results & Data Vital Signs (Past 12 Hours) Vital Signs Temp Pulse Resp BP Pulse Ox O2 Del Method 03/08/25 14:54 36.6 C 65 16 120/66 95 Room Air 03/08/25 08:14 36.3 C L 60 18 162/70 H 96 Room Air PG Care Time/CCT Total # of Minutes Spent Total Time Spent with Patient: Total time spent is greater than 50% in coordination of care (as documented) at patient's floor/unit and/or counseling patient: Coding Level of Care Code 49349 SUB INP/OBS CARE 3/50MIN Diagnoses Acute encephalopathy G93.40 History of aortic valve replacement with metallic valve Z95.4 Chronic kidney disease, stage 3a N18.31 UTI (urinary tract infection) N39.0 CAD (coronary artery disease) I25.119 Associated angina: with unspecified form of angina Coronary Disease-Associated Artery/Lesion type: unspecified vessel or lesion type [place] vs. transplanted heart: [place] heart Primary hypertension I10 Hypertension type: primary hypertension (5) CAD (coronary artery disease) Associated angina: with unspecified form of angina Coronary Disease- Associated Artery/Lesion type: unspecified vessel or lesion type [place] vs. transplanted heart: [place] heart Qualified Code(s): I25.119 - Atherosclerotic heart disease of [place] coronary artery with unspecified angina pectoris (6) Hypertension Hypertension type: primary hypertension Qualified Code(s): I10 - Essential (primary) hypertension
[2025-03-08] MEDS: WARFARIN SOD 0.5 MG TAB PO SCH (16:36)
[2025-03-09 06:19] LABS: Basophils # (auto) 0.03 K/uL (0.00-0.20); Basophils % (auto) 0.6 %; Eosinophils # (auto) 0.12 K/uL (0.00-0.50); Eosinophils % (auto) 2.5 %; Hematocrit (blood only) 42.7 % (37.0-47.0); Hemoglobin 14.4 g/dl (12.0-16.0); Immature Granulocytes # (auto) 0.01 K/uL (0.01-0.20); Immature Granulocytes % (auto) 0.2 %; Lymphocytes # (auto) 1.96 K/uL (1.20-3.40); Lymphocytes % (auto) 41.2 %; Mean Corpuscular Hemoglobin 31.4 pg (25.0-34.0); Mean Corpuscular Hgb Conc 33.7 g/dL (32.0-36.0); Mean Platelet Volume 10.2 fL (9.4-12.4); Monocytes # (auto) 0.38 K/uL (0.11-0.59); Neutrophils # (auto) 2.26 K/uL (1.40-6.50); Neutrophils % (auto) 47.5 %; Platelet Count 233 K/uL (130-400); RDW Coefficient of Variation 11.8 % (11.5-14.5); RDW Standard Deviation 39.9 fL (36.4-46.3); Red Blood Count 4.59 M/uL (4.20-5.40); White Blood Count 4.76 K/ul (4.8-10.8)
[2025-03-09 06:32] LABS: BUN Creatinine Ratio 13.3 (10-20); Calcium 10.1 mg/dl (8.6-10.3); Creatinine Clr Calc Pharmacy 47.6 ml/min; Potassium 3.9 mmol/L (3.5-5.1)
[2025-03-09 06:40] LABS: INR 2.7 (0.9-1.1); Prothrombin Time 26.6 Seconds (9.0-12.0)
--- NOTE | 2025-03-09 15:07 | Hospitalist Progress Note ---
Date of Service March 09, 2025 Assessment & Plan (1) Acute encephalopathy: Plan: Acute encephalopathy Psychiatry consulted. Suspected combination of metabolic encephalopathy with UTI, delirium, and some generalized anxiety/paranoia. Appreciate medication adjustments/recommendations Continue olanzapine 1.25 mg every morning, 5 mg at bedtime Continue venlafaxine 75 mg daily extended release Delirium precautions May use olanzapine 2.5 mg IM x 1 if needed for acute behavioral disturbance, do not coadministered this with benzodiazepines Trazodone held Proved tolerance to medications with spaced out pill burden. Keep current schedule of medications Bioprosthetic AV INR subtherapeutic during admission Will start on Lovenox 1mpk twice daily for bridging and given 10 mg Patient previously stable on approximately 27 mg total weekly dose. INR within goal range. Continue 4.5 mg Wednesday/Wednesday//Wednesday, 3 mg Wednesday/Wednesday/Wednesday dosing # CKD 3A Stable, trend periodically UTI Completed course of ampicillin for Enterococcus. No ongoing UTI symptoms. CAD Continue home medications. No chest pain. Hypertension Continue home medications Disposition planning: PT/OT recommending continued skilled PT/inpatient rehab/therapy versus 24-hour care. Patient accepted to [facility], pending insurance authorization and bed availability. Possibly available 03/10. No significant events overnight. DVT prophylaxis: Anticoagulated CODE STATUS: Full code (2) History of aortic valve replacement with metallic valve: (3) Chronic kidney disease, stage 3a: (4) UTI (urinary tract infection): (5) CAD (coronary artery disease): (6) Hypertension: Admission and Anticipated Discharge Date Admission Date: February 26, 2025 Subjective Remains eager to go home. No overnight events. Did take her morning medications today. Reviewed with case management. Has been accepted to [facility]. Possible discharge today or tomorrow pending bed availability. Waiting on insurance authorization Physical Exam Physical Exam: General: A&Ox3. NAD. Cooperative. Thought process linear HEENT: Atraumatic, normocephalic. Vision and hearing grossly intact Pulm: Symmetrical chest rise. No increase in work of breathing. No respiratory distress. Cardiac: RRR, systolic murmur present. Radial pulses intact and symmetrical. Results & Data Results & Data Vital Signs (Past 12 Hours) Vital Signs Temp Pulse Resp BP Pulse Ox O2 Del Method 03/09/25 07:45 36.3 C L 66 18 180/81 H 95 Room Air PG Care Time/CCT Total # of Minutes Spent Total Time Spent with Patient: Total time spent is greater than 50% in coordination of care (as documented) at patient's floor/unit and/or counseling patient: Coding Level of Care Code 25613 SUB INP/OBS CARE 2/35MIN Diagnoses Acute encephalopathy G93.40 History of aortic valve replacement with metallic valve Z95.4 Chronic kidney disease, stage 3a N18.31 UTI (urinary tract infection) N39.0 CAD (coronary artery disease) I25.119 Associated angina: with unspecified form of angina Coronary Disease-Associated Artery/Lesion type: unspecified vessel or lesion type [place] vs. transplanted heart: [place] heart Primary hypertension I10 Hypertension type: primary hypertension (5) CAD (coronary artery disease) Associated angina: with unspecified form of angina Coronary Disease- Associated Artery/Lesion type: unspecified vessel or lesion type [place] vs. transplanted heart: [place] heart Qualified Code(s): I25.119 - Atherosclerotic heart disease of [place] coronary artery with unspecified angina pectoris (6) Hypertension Hypertension type: primary hypertension Qualified Code(s): I10 - Essential (primary) hypertension
--- NOTE | 2025-03-10 15:02 | Hospitalist Progress Note ---
Date of Service March 10, 2025 Assessment & Plan (1) Acute encephalopathy: Plan: Acute encephalopathy Psychiatry consulted. Suspected combination of metabolic encephalopathy with UTI, delirium, and some generalized anxiety/paranoia. Appreciate medication adjustments/recommendations Continue olanzapine 1.25 mg every morning, 5 mg at bedtime Continue venlafaxine 75 mg daily extended release Delirium precautions May use olanzapine 2.5 mg IM x 1 if needed for acute behavioral disturbance, do not coadminister this with benzodiazepines Trazodone held Improved tolerance to medications with spaced out pill burden. Keep current schedule of medications Mechanical AV INR subtherapeutic during admission Will start on Lovenox 1mpk twice daily for bridging and given 10 mg on 03/06/25 Patient previously stable on approximately 27 mg total weekly dose. INR pending, return to goal range 03/09. continue 4.5 mg Wednesday/Wednesday//Wednesday, 3 mg Wednesday/Wednesday/Wednesday dosing # CKD 3A Stable, trend periodically UTI Completed course of ampicillin for Enterococcus. No ongoing UTI symptoms. CAD Continue home medications. No chest pain. Hypertension Continue home medications Disposition Planning: Completed P2P: While she is able to ambulate without assistance is impulsive. Was recommended for IM olanzapine for behavior control if needed however as her has been amenable with encouragement to taking oral medications when required. Express significant concern for patient's risk of decompensation and need for consistent care while her delirium clears which can require a prolonged period of time (see psychiatric consultation). Unfortunately despite this patient does not meet the requirements for penitentiary on peer to peer assessment and chart review and it was denied. Is at increased risk of complications with medication noncompliance and requires warfarin for her mechanical valve with goal INR 2.53.5. Has just returned to therapeutic range at 2.7 on 03/09, but will require close ongoing monitoring for stability and is at increased risk of complications due to recurrent noncompliance and some paranoia regarding her medication dosing. Unfortunately spite these concerns does not meet criteria for SNF care and peer to peer declined. Did update patient's daughter Odalys by phone extensive conversation. Understandably very frustrated given her brothers history of paranoid features and concern for ability to care for herself at home, and notes that she is not able to have 24-hour care at home and lives alone two-story house typically. Have not heard back from [facility] about placement. Will review with case management and start working on alternatives. Alternatives include but respite care, possible private pay, etc. DVT prophylaxis: Anticoagulated CODE STATUS: Full code (2) History of aortic valve replacement with metallic valve: (3) Chronic kidney disease, stage 3a: (4) UTI (urinary tract infection): (5) CAD (coronary artery disease): (6) Hypertension: Admission and Anticipated Discharge Date Admission Date: February 26, 2025 Subjective Completed a peer to peer 03/10/25. Did discuss her recurrent episodes of delirium/encephalopathy which while improved with delirium precautions and treatment of her UTI is still at high risk and patient remains with some distractibility, difficulty medications, and some paranoid features (in particular having meds spaced out over time and only taking medications when she can observe them being taken. She remains with a flat affect and is slightly concrete on provider exam. While she is able to ambulate without assistance is impulsive. Was recommended for IM olanzapine for behavior control if needed however as her has been amenable with encouragement to taking oral medications when required. Express significant concern for patient's risk of decompensation and need for consistent care while her delirium clears which can require a prolonged period of time (see psychiatric consultation). Unfortunately despite this patient does not meet the requirements for penitentiary on peer to peer assessment and chart review and it was denied. Is at increased risk of complications with medication noncompliance and requires warfarin for her mechanical valve with goal INR 2.53.5. Has just returned to therapeutic range at 2.7 on 03/09, but will require close ongoing monitoring for stability and is at increased risk of complications due to recurrent noncompliance and some paranoia regarding her medication dosing. Discussed with case management, alternative planning pending. No clinical change today Physical Exam Physical Exam: General: A&Ox3. NAD. Cooperative. Thought process linear/circumferential, although continues with flat affect and paranoid features including suspicion regarding medications HEENT: Atraumatic, normocephalic. Vision and hearing grossly intact Pulm: Symmetrical chest rise. No increase in work of breathing. No respiratory distress. Cardiac: Radial pulses intact and symmetrical. Results & Data Results & Data Vital Signs (Past 12 Hours) Vital Signs Temp Pulse Resp BP Pulse Ox O2 Del Method 03/10/25 08:03 36.4 C L 60 16 160/81 H 96 Room Air 03/10/25 07:25 Room Air PG Care Time/CCT Total # of Minutes Spent Total Time Spent with Patient: Total time spent is greater than 50% in coordination of care (as documented) at patient's floor/unit and/or counseling patient: Coding Level of Care Code 25808 SUB INP/OBS CARE 2/35MIN Diagnoses Acute encephalopathy G93.40 History of aortic valve replacement with metallic valve Z95.4 Chronic kidney disease, stage 3a N18.31 UTI (urinary tract infection) N39.0 CAD (coronary artery disease) I25.119 Associated angina: with unspecified form of angina Coronary Disease-Associated Artery/Lesion type: unspecified vessel or lesion type [place] vs. transplanted heart: [place] heart Primary hypertension I10 Hypertension type: primary hypertension (5) CAD (coronary artery disease) Associated angina: with unspecified form of angina Coronary Disease- Associated Artery/Lesion type: unspecified vessel or lesion type [place] vs. transplanted heart: [place] heart Qualified Code(s): I25.119 - Atherosclerotic heart disease of [place] coronary artery with unspecified angina pectoris (6) Hypertension Hypertension type: primary hypertension Qualified Code(s): I10 - Essential (primary) hypertension
[2025-03-10] MEDS: WARFARIN SOD 3 MG TAB PO SCH (16:00)
[2025-03-10 16:01] LABS: INR 2.9 (0.9-1.1); Prothrombin Time 28.4 Seconds (9.0-12.0)
[2025-03-11] MEDS: MAGNESIUM HYDROXIDE SUSP 30 ML UDC PO PRN (06:04)
[2025-03-11 06:47] LABS: Basophils # (auto) 0.03 K/uL (0.00-0.20); Basophils % (auto) 0.4 %; Eosinophils # (auto) 0.14 K/uL (0.00-0.50); Immature Granulocytes # (auto) 0.02 K/uL (0.01-0.20); Immature Granulocytes % (auto) 0.3 %; Lymphocytes # (auto) 1.62 K/uL (1.20-3.40); Lymphocytes % (auto) 23.3 %; Mean Corpuscular Hemoglobin 31.6 pg (25.0-34.0); Mean Corpuscular Hgb Conc 34.1 g/dL (32.0-36.0); Mean Corpuscular Volume 92.6 fL (80.0-100.0); Mean Platelet Volume 10.1 fL (9.4-12.4); Monocytes % (auto) 7.2 %; Neutrophils # (auto) 4.64 K/uL (1.40-6.50); Neutrophils % (auto) 66.8 %; Platelet Count 253 K/uL (130-400); RDW Coefficient of Variation 11.5 % (11.5-14.5); RDW Standard Deviation 39.2 fL (36.4-46.3); Red Blood Count 4.75 M/uL (4.20-5.40); White Blood Count 6.95 K/ul (4.8-10.8)
[2025-03-11 07:16] LABS: INR 2.7 (0.9-1.1); Prothrombin Time 27.1 Seconds (9.0-12.0)
--- NOTE | 2025-03-11 16:30 | Hospitalist Progress Note ---
Date of Service March 11, 2025 Assessment & Plan (1) Acute encephalopathy: Plan: Disposition Planning: Peer to peer for SNF completed, this was declined. See same-day note on 03/10 for details Patient recommended for 24-hour care. Respite care, personal-shelter placement alternative options being pursued. Discussed with case management. No updates/13. Placement pending/ongoing. Medically stable for placement when available Acute encephalopathy, delirium Psychiatry consulted. Suspected combination of metabolic encephalopathy with UTI, delirium, and some generalized anxiety/paranoia. Appreciate medication adjustments/recommendations Continue olanzapine 1.25 mg every morning, 5 mg at bedtime Continue venlafaxine 75 mg daily extended release Delirium precautions May use olanzapine 2.5 mg IM x 1 if needed for acute behavioral disturbance, do not coadminister this with benzodiazepines Improved tolerance to medications with spaced out pill burden. Keep current schedule of medications MALATHI/MDD with psychotic features Patient with encephalopathy and delirium with paranoia and delusions in the past few weeks, and suspected slow course of improvement which may be seen for even up to 6 months. Still has a slightly waxing and waning course although greatly improved in severity and frequency Despite slow improvement does continue to endorse some paranoia. Endorses some psychotic features such as thinking that the towel dispenser on the wall changes colors when she but not other people are looking. Agree with olanzapine, venlafaxine as noted Mechanical AV INR subtherapeutic during admission Patient previously stable on approximately 27 mg total weekly dose. Remains within goal range of 2.53.5. Continue warfarin 4.5 mg Wednesday/Wednesday//Wednesday, 3 mg Wednesday/Wednesday/Wednesday dosing # CKD 3A Stable, trend periodically UTI Completed course of ampicillin for Enterococcus. No ongoing UTI symptoms. CAD Continue home medications. No chest pain. Hypertension Continue home medications DVT prophylaxis: Anticoagulated CODE STATUS: Full code (2) History of aortic valve replacement with metallic valve: (3) Chronic kidney disease, stage 3a: (4) UTI (urinary tract infection): (5) CAD (coronary artery disease): (6) Hypertension: Admission and Anticipated Discharge Date Admission Date: February 26, 2025 Subjective No updates on placement Shelby since bedside. She reports that she has been comfortable so far in the hospital. She reports that she isin the hospital, but does express some worries at home and noticed that sometimes the lakhani seem like they move and this makes her very nervous. On prompted to talk further about how it makes her feel she notes that it makes her feel very scared and upsets her a lot. She has not had these feelings things being in the hospital. She reports that she feels like the only thing is worried however recently is that the metal towel dispenser changes colors when she is looking. Otherwise she feels safe and is nondistressed at time of visit Physical Exam Physical Exam: General: Oriented to name and place. Some increased speech latency. continues with flat affect. HEENT: Atraumatic, normocephalic. Vision and hearing grossly intact Pulm: Symmetrical chest rise. No increase in work of breathing. No respiratory distress. Cardiac: Radial pulses intact and symmetrical. Results & Data Results & Data Vital Signs (Past 12 Hours) Vital Signs Temp Pulse Pulse Resp BP BP Pulse Ox 03/11/25 15:40 36.7 C 70 16 170/80 H 95 03/11/25 11:25 36.4 C L 66 16 128/76 95 03/11/25 07:42 36.6 C 62 16 148/86 H 96 03/11/25 07:05 O2 Del Method 03/11/25 15:40 Room Air 03/11/25 11:25 Room Air 03/11/25 07:42 Room Air 03/11/25 07:05 Room Air PG Care Time/CCT Total # of Minutes Spent Total Time Spent with Patient: Total time spent is greater than 50% in coordination of care (as documented) at patient's floor/unit and/or counseling patient: Coding Level of Care Code 82879 SUB INP/OBS CARE 2/35MIN Diagnoses Acute encephalopathy G93.40 History of aortic valve replacement with metallic valve Z95.4 Chronic kidney disease, stage 3a N18.31 UTI (urinary tract infection) N39.0 CAD (coronary artery disease) I25.119 Associated angina: with unspecified form of angina Coronary Disease-Associated Artery/Lesion type: unspecified vessel or lesion type [place] vs. transplanted heart: [place] heart Primary hypertension I10 Hypertension type: primary hypertension (5) CAD (coronary artery disease) Associated angina: with unspecified form of angina Coronary Disease- Associated Artery/Lesion type: unspecified vessel or lesion type [place] vs. transplanted heart: [place] heart Qualified Code(s): I25.119 - Atherosclerotic heart disease of [place] coronary artery with unspecified angina pectoris (6) Hypertension Hypertension type: primary hypertension Qualified Code(s): I10 - Essential (primary) hypertension
[2025-03-12 07:32] VITALS: RESP 16
--- NOTE | 2025-03-12 08:52 | Hospitalist Progress Note ---
Date of Service March 12, 2025 Assessment & Plan (1) Acute encephalopathy: Plan: Disposition Planning: Patient recommended for 24-hour care. - Peer to peer for SNF completed, this was declined. Subsequently accepted at [facility]. Likely discharge available 03/13 #Acute encephalopathy, delirium Psychiatry consulted 03/05/25 - suspected combination of metabolic encephalopathy with UTI, delirium, and some generalized anxiety/paranoia. Appreciate medication adjustments/recommendations Continue olanzapine 1.25 mg every morning, 5 mg at bedtime Continue venlafaxine 75 mg daily extended release - Continue topamax 25 mg daily Delirium precautions and supportive measures (AM sunlight, re-orientation, family/friends) May use olanzapine 2.5 mg IM x 1 if needed for acute behavioral disturbance, do not coadminister this with benzodiazepines Improved tolerance to medications with spaced out pill burden. Keep current schedule of medications #MALATHI/MDD with psychotic features Patient with encephalopathy and delirium with paranoia and delusions in the past few weeks, and suspected slow course of improvement which may be seen for even up to 6 months. Still has a slightly waxing and waning course although greatly improved in severity and frequency Continue olanzapine, venlafaxine, topamax as noted above Improving delirium overall however does remain with some paranoid features, suspiciousness regarding medications, and suspiciousness of general sounds and environment concerning for MALATHI with psychotic features along with this. #Mechanical AV INR subtherapeutic during admission Patient previously stable on approximately 27 mg total weekly dose. Remains within goal range of 2.53.5. Continue warfarin 4.5 mg Wednesday/Wednesday//Wednesday, 3 mg Wednesday/Wednesday/Wednesday dosing - Repeat INR 03/13 #CKD 3A Stable, trend periodically #UTI Completed course of ampicillin for Enterococcus. No UTI symptoms currently. #CAD/HTN/Aortic Stenosis s/p mechanical AV - elevated troponin with unremarkable ecg on admission; serial troponin labs trended down. No evidence of ACS on admission. - echo completed 02/26/25 with moderate-severe aortic stenosis, unchanged from echo 05/2023 - started on aspirin 81mg daily - currently asymptomatic continue home medications of metoprolol, isosorbide, amlodipine. No chest pain. DVT prophylaxis: Anticoagulated (2) History of aortic valve replacement with metallic valve: (3) Chronic kidney disease, stage 3a: (4) UTI (urinary tract infection): (5) CAD (coronary artery disease): (6) Hypertension: Admission and Anticipated Discharge Date Admission Date: February 26, 2025 Supervising Physician Co-Signing Physician Notes Patient seen and examined, chart reviewed, case discussed with Baltazar Ritchie PA-C and I agree with the assessment and plan as above except as otherwise noted Labs and images reviewed Shelby is doing well. Continues with some paranoid features but generally linear thought process and good historian of recent events otherwise. Updates per case management, patient is anticipated for discharge to [facility] tomorrow. Medications requested be sent today. Shelby remains without overnight events and clinically stable. Agree with above Subjective Subjective Per PA Patient is a 74 year old female who is currently admitted for acute encephopathy/delirium, along with MALATHI/MDD with psychotic features, elevated troponin (trended down), recent UTI. Currently, she states she is "okay." She states she wants to get out of here and go home. She is not very forthcoming with information, but does answer questions. She reports appetite is unchanged from prior and that she slept good last night, but did have trouble sleeping previously. She states she has been constipated and was given miralax, but reports her last BM was last night and was diarrhea. She denies any trouble urinating, denies polyuria, dysuria, blood in urine or stool. Upon questioning, she reports that today's date written on the board in her room is incorrect and that she knows that it March 12 is not today's date. I attempted to show her on my phone and she stated that "phones can say anything." When asked about bruise on R hand and L arm, she stated that it was "the ghost in her body doing it." She otherwise denies SI/HI, AH/VH today. She also denies fever/chills, headache, blurry/double vision, trouble swallowing, N/V, abdominal pain, weakness, numbness/tingling, rash. Review of Systems Review of Systems: see HPI Physical Exam Physical Exam: General: no acute distress; non-toxic appearing; well-nourished; cooperative; HEENT: normocephalic, atraumatic; no scleral icterus; PERRLA w/ EOMs intact; vision and hearing grossly intact; eye contact appropriate Neck: supple; no lymphadenopathy; trachea midline Skin: warm, dry without signs of tenting; no cyanosis; no rashes, lesions, or erythema noted; (+) ecchymosis noted R hand and L forearm CV: chest wall NTP; RRR; S1/S2 normal; (+) systolic murmur, no rubs/gallops; pulses intact and symmetric at radial, DP, and PT Lungs: no acute respiratory distress; symmetrical chest wall expansion; clear breath sounds across all lung richards w/o adventitious sounds; no wheezing ABD: Soft, NTP; BS present; no rebound/guarding; no distention MSK: no tics or fasciculations; (+) trace edema noted in the LEs b/l, nonerythematous Neuro/Psych: A&Ox2, not oriented to date/time; (+) appears apprehensive, mist rusting, and guarded, frequently checking my ID badge. (+) paranoid ideations (+) perceptual disturbance (+) (+) depressed mood (+) flat affect (+) able to recall recent events (+) concentration mildly decreased - distracted by outside stimuli; (-) AH/VH/SI/HI; fluent speech; no focal deficits; sensation grossly intact in the LEs b/l Above exam by PA provider Below exam on attending exam General: A&Ox3. NAD. Cooperative. Appears slightly anxious. Thought process generally linear and goal-directed although somewhat circumferential at times. Anxious and slightly paranoid affect. HEENT: Atraumatic, normocephalic. Vision and hearing grossly intact. She is not responding to internal stimuli during conversation but does gaze around the room intermittently during pauses in conversation. Pulm: CTAB A&P. -wheezes, -rales, -rhonchi. Symmetrical chest rise. No increase in work of breathing. No respiratory distress. Cardiac: RRR, -mrg. Radial pulses intact and symmetrical. Results & Data Results & Data Vital Signs (Past 12 Hours) Vital Signs Temperature, HR, RR, BP, O2 saturations reviewed. Temp Pulse Resp BP Pulse Ox O2 Del Method 03/12/25 07:29 98.2 F 61 16 174/82 H 94 Room Air Laboratory Results CBC, PT/INR, Vitamin B12 03/12reviewed a1C 02/13/25 reviewed bnp 03/09/25 reviewed troponins 02/26-02/27 reviewed Diagnostic Findings Head CT/Chest xray 02/26 reviewed. ECG/echocardiogram reviewed. Psychiatry consult note reviewed. PG Care Time/CCT Total # of Minutes Spent Total Time Spent with Patient: Total time spent is greater than 50% in coordination of care (as documented) at patient's floor/unit and/or counseling patient: Coding Level of Care Code None Diagnoses Acute encephalopathy G93.40 History of aortic valve replacement with metallic valve Z95.4 Chronic kidney disease, stage 3a N18.31 UTI (urinary tract infection) N39.0 CAD (coronary artery disease) I25.119 Associated angina: with unspecified form of angina Coronary Disease-Associated Artery/Lesion type: unspecified vessel or lesion type [place] vs. transplanted heart: [place] heart Primary hypertension I10 Hypertension type: primary hypertension (5) CAD (coronary artery disease) Associated angina: with unspecified form of angina Coronary Disease- Associated Artery/Lesion type: unspecified vessel or lesion type [place] vs. transplanted heart: [place] heart Qualified Code(s): I25.119 - Atherosclerotic heart disease of [place] coronary artery with unspecified angina pectoris (6) Hypertension Hypertension type: primary hypertension Qualified Code(s): I10 - Essential (p [place]) hypertension
[2025-03-12 15:51] VITALS: TEMP 97.7
[2025-03-13 07:07] LABS: BUN Creatinine Ratio 24.1 (10-20); Creatinine Clr Calc Pharmacy 48.1 ml/min
[2025-03-13 07:48] VITALS: BP 165/74; PULSE 55; O2SAT 94
[2025-03-13 09:05] LABS: INR 2.2 (0.9-1.1); Prothrombin Time 22.6 Seconds (9.0-12.0)
[2025-03-13] MEDS: WARFARIN SOD 0.5 MG TAB PO ONE (09:49)
[2025-03-13] MEDS: WARFARIN SOD 4 MG TAB PO ONE (09:49)
--- NOTE | 2025-03-13 10:05 | Discharge Summary ---
Discharge Summary Date of Service March 13, 2025 Principal Dx & Hospital Course #1 = Principal Diagnosis (1) Acute encephalopathy: (2) History of aortic valve replacement with metallic valve: (3) Chronic kidney disease, stage 3a: (4) CAD (coronary artery disease): (5) Hypertension: Plan Patient is a 74 year old female with PMHx of recent UTI, CAD s/p CABG /HTN/HLD, Aortic stenosis s/p mechanical valve repair, Prediabetes, GERD, Asthma, Osteoporosis who was brought to ED by daughter with increasing agitation, confusion, refusal to take medications. ED workup significant for elevated troponin with normal/unchanged ECG, UA negative on admission, Head CT/chest xray/labs WNL. Troponin trended downward and patient developed no symptoms/evidence of ACS. It was thought her symptoms were related to acute encephalopathy/delirium in setting of recent UTI and recent psychiatric medication changes. Psychiatry was consulted and medication adjustments were made with some improvement, supportive measures for delirium recommended. She also had recent UTI that was treated with ampicillin, repeat culture negative and no symptoms. She is chronically anticoagulated with warfarin, INR subtherapeutic during admission and adjustments made. Patient was recommended for 24-hour care. Peer to peer for SNF completed, this was declined. She was approved to go to [facility] for continued care. She is medically stable for discharge Disposition Planning: - Patient will be discharged 03/13/25 and transported to [facility] via wheelchair transport - Medications and script for PT/OT were sent to [facility] 03/12/25 #Acute encephalopathy, delirium Psychiatry consulted 03/05/25 - suspected combination of metabolic encephalopathy with UTI, delirium, and some generalized anxiety/paranoia. Medication adjustments as noted below. Continue olanzapine 1.25 mg every morning, 5 mg at bedtime Continue venlafaxine 75 mg daily extended release - Continue topamax 25 mg daily Delirium precautions and supportive measures (AM sunlight, re-orientation, family/friends) May use olanzapine 2.5 mg IM x 1 if needed for acute behavioral disturbance, do not coadminister this with benzodiazepines Improved tolerance to medications with spaced out pill burden. Keep current schedule of medications #MALATHI/MDD with psychotic features Patient with encephalopathy and delirium with paranoia and delusions in the past few weeks, and suspected slow course of improvement which may be seen for even up to 6 months. Still has a slightly waxing and waning course although greatly improved in severity and frequency Continue olanzapine, venlafaxine, topamax as noted above Improving delirium overall however does remain with some paranoid features, suspiciousness regarding medications, and suspiciousness of general sounds and environment concerning for MALATHI with psychotic features along with this. #Mechanical AV INR subtherapeutic during admission Patient previously stable on approximately 27 mg total weekly dose. Goal range of 2.53.5. - Repeat INR 03/13 was 2.2. One time dose of Warfarin 4.5mg given this morning - New dosing schedule as follows, warfarin 4.5 mg PO daily on Wednesday/Wednesday/Wednesday//Wednesday, 3 mg PO daily on Wednesday/Wednesday #CKD 3A Stable, trend periodically #UTI Completed course of ampicillin for Enterococcus. No UTI symptoms currently. #CAD/HTN/HLD/Aortic Stenosis s/p mechanical AV - remains asymptomatic - elevated troponin with unremarkable ecg on admission; serial troponin labs trended down. No evidence of ACS on admission. - echo completed 02/26/25 with moderate-severe aortic stenosis, unchanged from echo 05/2023 - started on aspirin 81mg daily continue home medications of metoprolol, isosorbide, amlodipine, pravastatin. No chest pain. Notes For Next Care Provider Patient was given 4.5mg warfarin PO 03/13/25 prior to discharge, INR 2.2 this AM - goal range 2.5-3.5 Recheck PT/INR in 3-5 days. Warfarin dosing schedule at discharge - 4.5mg Mo,,We,Th,Fr and 3mg Martinez,Sa Medication Changes From Visit -see above for new warfarin dosing schedule Mirtazipine and Trazodone Discontinued. Increased effexor ER to 75mg daily from 37.5mg daily Decreased topamax to 25mg daily from 50mg daily Stared aspirin 81 mg daily, Olanzapine 1.5mg QAM and 5mg PO QHS with PRN 5mg disintegrating tablet severe anxiety/agitation Admission HPI Per Admitting Provider 74-year-old female recently discharged our facility February 14 after she had encephalopathy from urinary tract infection. She was brought in by her daughter with increasing paranoia and refusal of medications at home. The patient also called the police. Patient has been angry mistrusting paranoid. According to the daughter this is a marked change from her baseline. The patient prior to her encephalopathy in early January of this year was with some mental health concerns as his anxiety and depression but not with this type of delirium. At the last discharge the patient had her Abilify stopped and she was continued on Effexor mirtazapine olanzapine and as an outpatient was recently started on trazodone. However as mentioned the patient has volitionally stopped many of these medications over the last 2 days has become increasing paranoid and agita vincenzo. The patient had a urinary culture from February 23 which grew Enterococcus faecalis which was resistant to tetracycline the certainly could be because of her newfound encephalopathy Admission Exam Per Admitting Provider The patient appeared well nourished and normally developed. She has pressured speech grabbing at things not letting go of handgrips etc. Vital signs as documented. Head exam is normocephalic atraumatic Neck is without JVD, thyromegaly, or carotid bruits. Lungs are clear to auscultation, no focal loss of breath sounds Cardiac exam, Rhythm is regular. Mechanical heart valve sounds are at the right upper sternal border Abdominal exam reveals normal bowel sounds, soft areas of uncomfortable feeling Extremities are nonedematous and both pedal pulses are present Neurologic exam is alert and oriented x 1, no focal loss of strength or sensation Skin is without bruises or rashes Psychologically is with concerns for anxiety & depression. Discharge Exam General: no acute distress; non-toxic appearing; well-nourished; cooperative HEENT: normocephalic, atraumatic; no scleral icterus; PERRLA w/ EOMs intact; vision and hearing grossly intact; (+) eye contact appropriate Neck: supple; no lymphadenopathy; trachea midline Skin: warm, dry without signs of tenting; no cyanosis; no rashes, bruising, lesions, or erythema noted CV: chest wall NTP; RRR; S1/S2 normal; systolic murmurs, no rubs/gallops; pulses intact and symmetric at radial, DP, and PT Lungs: no acute respiratory distress; symmetrical chest wall expansion; clear breath sounds across all lung richards w/o adventitious sounds; no wheezing ABD: Soft, NTP; BS present; no rebound/guarding; no distention MSK: no tics or fasciculations; no edema noted in the LEs b/l, nonerythematous Neuro: A&Ox3; (+) mildly decreased concentration - distracted by outside stimuli (+) apprehensive, mistrusting, guarded (+) anxious/depressed mood (+) able to recall she is going home today and that she is meeting her daughter at [facility]. (+) slowed thinking (-) AH/VH/SI/HI fluent speech; no focal deficits; sensation grossly intact in the LEs b/l ____ Seen at bedside in addition to an in conjunction with PA provider. No acute distress. Nontoxic. Excited to get out of the hospital. Controlled plan for [facility]. Thought process is linear, but does appear guarded and remains with some evidence of paranoid thought process. Lungs are clear. Discharge Plan Discharge Items Patient Disposition: [facility] Reason For Visit: ENCEPHALOPAHTY, ELEVATED TROPONIN Discharge Diagnosis: Prolonged delirium Metabolic encephalopathy, improving Anxiety/MDD Activity: Resume your previous activity Non-emergency contact: Primary Care Provider Call non-emergency contact if: you have any medication questions, your symptoms worsen and your pain is not controlled Follow-up/Referrals: Olman Diaz MD [Primary Care Provider] - Diet: Regular Addtl Attending Provider Instructions: Mrs. Rocha, Alfonzo were admitted to [facility] with worsening confusion. You had labs, imaging, and medication adjustments during your stay. You were found to have an elevated troponin level while in Emergency Department, repeat levels were ordered and the troponin level decreased. You had ECG and echocardiogram which revealed no signs of acute coronary syndrome/heart attack. You were started on aspirin in addition to your warfarin. Your PT/INR levels were routinely checked and your warfarin (blood thinner) dose was adjusted accordingly. Your PT/INR today was 2.2. You were given warfarin 4.5mg today instead of 3mg. Your new dosing schedule will be 4.5mg by mouth daily on Wed, , Wed, , and 3mg by mouth daily on Sat, Sun at discharge. Please have your PT/INR checked in 3-5 days by your outpatient providers to ensure you remain within goal range of 2.5-3.5, you may need adjustments to your warfarin if outside of this range. You were also treated for a urinary tract infection with antibiotics, last dose 03/05/25. You met with a psychiatrist during your stay who made adjustments to your medications to help improve symptoms. No further antibiotics were indicated at time of discharge from the hospital. You will be transferred from the hospital to [facility] to receive care. Your medications were sent to the [facility] and a script to receive physical therapy and occupational therapy were sent to [facility]. It was a pleasure taking care of you at [facility]. Pending Studies at Discharge: No Stand-Alone Forms: My [facility], Smoking Cessation Skilled Items Patient informed of condition?: Yes DNR: No Discharge Level of Care: Other Communicable Disease: No Discharge Prognosis: Stable Lines: None Urinary Catheter: No Medications and DC Order Prescriptions: New olanzapine 2.5 mg Tablet 1.25 mg PO QAM Qty: 30 0RF olanzapine 5 mg Tablet,Disintegrating 5 mg PO DAILY PRN (Reason: severe anxiety/agitation) Qty: 30 0RF venlafaxine 75 mg Capsule,Extended Release 24hr 75 mg PO 1200 Qty: 30 0RF warfarin 3 mg tablet See Rx Instructions .ROUTE .COMPLEX Qty: 1 0RF Rx Instructions: 3mg on /, 4.5mg (1.5tablet) on Wed//// Continued amlodipine 5 mg tablet 5 mg PO HS Qty: 100 3RF clonidine HCl 0.1 mg tablet 0.1 mg PO BID Qty: 180 3RF isosorbide mononitrate 60 mg tablet extended release 24 hr 60 mg PO QAM Qty: 100 3RF metoprolol succinate 100 mg tablet extended release 24 hr 100 mg PO HS Qty: 100 3RF pantoprazole [Protonix] 40 mg tablet,delayed release (DR/EC) 40 mg PO QAM Qty: 100 3RF pravastatin 80 mg tablet 80 mg PO HS Qty: 100 3RF acetaminophen 500 mg tablet 500 mg PO BID Patient Comments: CONFIRMED ON [facility] DC SUMMARY AND / [facility] 07/19 Rx Instructions: otc unable to verify acetaminophen 325 mg tablet 650 mg PO Q6H PRN (Reason: Pain) Patient Comments: CONFIRMED ON [facility] DC SUMMARY AND / [facility] 07/19 Rx Instructions: otc unable to verify cholecalciferol (vitamin D3) 1,000 unit capsule 5,000 units PO QAM Rx Instructions: otc unable to verify aspirin [Harvey Low Dose Aspirin] 81 mg tablet,delayed release (DR/EC) 81 mg PO 2XWK Patient Comments: & Wednesday Rx Instructions: otc unable to verify cyanocobalamin (vitamin B-12) 1,000 mcg capsule 1,000 mcg PO QAM Rx Instructions: otc unable to verify calcium carbonate [Calcium 600] 600 mg calcium (1,500 mg) Tablet 600 mg PO BID Rx Instructions: otc unable to verify olanzapine 5 mg tablet 5 mg PO HS albuterol sulfate 90 mcg/actuation Hfa Aerosol Inhaler 2 puff INHALATION QID PRN (Reason: Shortness Of Breath) amoxicillin 500 mg tablet 2,000 mg PO DIRECTED PRN (Reason: Prior to dental procedures) Rx Instructions: Take 2000mg (4 tablets) orally one hour prior to dental procedures; no fill history available Changed topiramate 25 mg tablet 25 mg PO HS 100 Days Qty: 100 2RF Discontinued topiramate 50 mg tablet 50 mg PO QPM 100 Days Qty: 100 2RF trazodone 50 mg tablet 50 mg PO HS PRN (Reason: sleep) Qty: 30 2RF Rx Instructions: Take 1/2 to 1 tab at bedtime as needed for sleep mirtazapine 45 mg tablet 45 mg PO HS warfarin 3 mg tablet See Rx Instructions .ROUTE .COMPLEX Protocol: Dose Management Condition: Wednesday Dose/Route: 3 mg Instruction: 1 x 3 mg tablet Condition: Wednesday Dose/Route: 4.5 mg Instruction: 1.5 x 3 mg tablets Condition: Wednesday Dose/Route: 3 mg Instruction: 1 x 3 mg tablet Condition: Wednesday Dose/Route: 4.5 mg Instruction: 1.5 x 3 mg tablets Condition: Dose/Route: 4.5 mg Instruction: 1.5 x 3 mg tablets Condition: Wednesday Dose/Route: 4.5 mg Instruction: 1.5 x 3 mg tablets Condition: Wednesday Dose/Route: 3 mg Instruction: 1 x 3 mg tablet Protocol Text: Adjustment Start Date: Wednesday02/16/25 INR Value: 2.1 INR Date: 02/16/25 Recheck Date: 03/02/25 Rx Instructions: Take 3mg by mouth on the evenings of Wednesday/Wednesday/Wednesday and 4.5mg on the evenings of Wednesday/Wednesday//Wednesday venlafaxine 37.5 mg Capsule,Extended Release 24hr 37.5 mg PO QAM Qty: 30 0RF Discharge Orders: Discharge Order (Routine); Ordered 03/13/25 Ordered By: Suzie Ritchie Admission Data Admit Date/Time: 02/26/25 12:17 Attending Provider: Olu Garcia Admit Provider: Stu Frank Primary Care Provider: Olman Diaz Other Providers: Stu Frank; Nadine Saldivar; Bart Gutierrez; Betzaida Dasilva; Jie Mena; Kolby John; Yesi Pitts; [facility] Other Interventions: Discharge Summary Assessment (RN) Last Done: 03/13/25 09:27 Hospital Stay Data Consultations 02/26/25 12:01 ED Decision to Admit Stat 02/28/25 09:49 Consult Psychiatry Routine Diagnostic Imagining Performed 02/26/25 13:20 CT head/brain wo con Stat Pending Results Patient Have Any Pending Studies at Discharge: No Discharge Instructions Given to Patient (Per Discharging Provider) Alfonzo Barbosa were admitted to [facility] with worsening confusion. You had labs, imaging, and medication adjustments during your stay. You were found to have an elevated troponin level while in Emergency Department, repeat levels were ordered and the troponin level decreased. You had ECG and echocardiogram which revealed no signs of acute coronary syndrome/heart attack. You were started on aspirin in addition to your warfarin. Your PT/INR levels were routinely checked and your warfarin (blood thinner) dose was adjusted accordingly. Your PT/INR today was 2.2. You were given warfarin 4.5mg today instead of 3mg. Your new dosing schedule will be 4.5mg by mouth daily on Wed, , Wed, , and 3mg by mouth daily on Sat, Sun at discharge. Please have your PT/INR checked in 3-5 days by your outpatient providers to ensure you remain within goal range of 2.5-3.5, you may need adjustments to your warfarin if outside of this range. You were also treated for a urinary tract infection with antibiotics, last dose 03/05/25. You met with a psychiatrist during your stay who made adjustments to your medications to help improve symptoms. No further antibiotics were indicated at time of discharge from the hospital. You will be transferred from the hospital to [facility] to receive care. Your medications were sent to the [facility] and a script to receive physical therapy and occupational therapy were sent to [facility]. It was a pleasure taking care of you at [facility]. Supervising Physician Co-Signing Physician Notes Patient seen and examined, chart reviewed, case discussed with Suzie Ritchie PA-C and I agree with the assessment and plan as above except as otherwise noted Labs and images reviewed Shelby is doing well. Continues with some paranoid features but generally linear thought process and good historian of recent events otherwise. Updates per case management, patient is anticipated for discharge to [facility] tomorrow. Medications requested be sent today. Shelby remains without overnight events and clinically stable. On medicine reconciliation screen in [employer] patient has duplicate warfarin orders and 1 duplicated warfarin "change order "this is locked in the chart.did attempt to remove other scripts and clarify this to prevent risk of duplication of warfarin dosing. I did discuss directly with patient and also at [facility] that the correct dosing is 3 mg warfarin tablets by mouth Wednesday/Wednesday 1.5 tablets (4.5mg total) and 1 tablet (3mg) Wednesday through Wednesday which is what will be dispensed to patient. Total Time Total Time Spent Total Time Spent (In Minutes): >30 Coding Level of Care Code None Diagnoses Acute encephalopathy G93.40 History of aortic valve replacement with metallic valve Z95.4 Chronic kidney disease, stage 3a N18.31 CAD (coronary artery disease) I25.119 Associated angina: with unspecified form of angina Coronary Disease-Associated Artery/Lesion type: unspecified vessel or lesion type [place] vs. transplanted heart: [place] heart Primary hypertension I10 Hypertension type: primary hypertension
== END 2025-03-13 10:04 | disposition home or self-care (01) | DRG 91 ==
LOC: ED 10:08 → 2S 12:17 → SUATTDRO 12:17 → 2S 16:30 → 3E 03-01 16:36